=== PATIENT | female | born 1940 | race Caucasian/White ===

== ENCOUNTER 2017-05-21 09:13 | Emergency (ER) | payer MEDICARE, SELFPAY ==
[2017-05-21 10:12] VITALS: BP 123/84; PULSE 94; RESP 20; TEMP 37.1; O2SAT 97; BMI 23.6
[2017-05-21 10:18] LABS: UTC Strep Screen (Rapid) Negative (Negative)
--- NOTE | 2017-05-21 10:51 | HMH.EDUTC ---
[facility] [place] Disposition Clinical Impression: Upper respiratory infection Qualifiers: URI type: unspecified URI Qualified Code(s): J06.9 - Acute upper respiratory infection, unspecified Disposition: Home, Self-Care Condition on Discharge: Good Instructions: DI for Cough -- Adult, DI for Viral Upper Respiratory Infection -- Adult Additional Instructions: * No sign of bacterial infection. Likely viral. Virus can take 7-14 days to run their course but although you have been sick so long, I will give you an antibiotic at your request. As we discussed, An antibiotic will not make you feel better if this is indeed viral. Antibiotics are for bacterial infections and I see no sign of a bacterial infection today. Viruses have to run their course with treating the symptoms. Remember that as we discussed, antibiotics do come with side effects and risk including allergic reactions and resistance. Resistance to antibiotics can cause serious complications in the future if there is no antibiotic to treat an infection you have. Carefully consider this before starting antibiotics for symptoms that are likely viral. * Monitor Temp. Tylenol every 4 hours as needed no more then 5 times a day or 4000mg in 24 hours and/or ibuprofen every 6 hours as needed no more then 3200mg in 24 hours (as long as your primary care doctor has told you that it is ok to take both) for fever/aches/pain. ER if fever no less than 101 despite tylenol and ibuprofen * Encourage fluids, water, gatorade, powerade, pedialyte if infant/toddler/child * warm salt water gargles * warm fluids * sore throat lozenges * sleep elevated * humidifier/vaporizer * flonase 2 sprays each nostril daily but may take 2-3 days to notice improvement with it. * OK to continue robitussin DM * the steroid injection you requested was administered. You report you have not taken steroids before. You are ok with the side effects we discussed. * We discussed your allergies. You report a local reaction to PCN injection once as a child. You believe you have taken penicillins since this time and want to take amoxicillin today. you agree to monitor closely and stop medication and follow up immediately with any possible reaction. Prescriptions: Amoxicillin [Amoxicillin 875MG Tab] 875 mg PO Q12H #20 tab Referrals: Olya Hahn APRN [Primary Care Provider] - Time of Disposition: 11:04 Medical Decision Making Vital Signs: 01/25/18 10:12 Temperature 98.7 F Temperature Source Temporal Artery Scan Pulse Rate [Right Brachial] 94 H Respiratory Rate 20 Blood Pressure [Right Radial Artery] 123/84 Blood Pressure Mean [Right Radial Artery] 97 Blood Pressure Source [Right Radial Artery] Automatic Cuff Blood Pressure Position [Right Radial Artery] Sitting 02 Sat by Pulse Oximetry 97 Oxygen Delivery Method Room Air - Lab Data Lab results reviewed: Yes: I reviewed the patient's lab results. Lab Results 05/21/17 10:01: Strep Scn Rapid Clinic Negative Orders (Tests/Meds): ED MEDICATIONS Discontinued Medications Generic Name Dose Route Start Last Admin Trade Name Freq PRN Reason Stop Dose Admin Methylprednisolone Sodium Succinate 125 mg 05/21/17 10:58 05/21/17 11:02 Solu-Medrol 125mg/2ml Vial IM 05/21/17 10:59 125 mg ONCE ONE Administration ORDERS Category Date Time Status Strep Screen Confirmation Stat Micro 05/21/17 10:01 Received - [place] Inquiry Pt receiving controlled substance: No [facility] [place] HPI - General Stated complaint: ear ache sore throat swimmy head cough Time Seen by Provider: 05/21/17 10:42 Mode of Arrival: Family Vehicle Source of Information: Patient Limitations: No Limitations Description of Symptoms (Recalled from Triage Doc. by RN): RIGHT EAR PAIN, SORE THROAT, COUGH HEENT Symptoms (Recalled from RN notes): Yes (RIGHT EAR PAIN, SORE THROAT) Resp Symptoms (Recalled from RN notes): Yes (COUGH) Skin Symptoms (Recalled from RN notes): No MS Symptoms (Recal
--- NOTE | 2017-05-21 10:58 | ED_ITS ---
[facility] [place] Disposition Clinical Impression: Upper respiratory infection Qualifiers: URI type: unspecified URI Qualified Code(s): J06.9 - Acute upper respiratory infection, unspecified Disposition: Home, Self-Care Condition on Discharge: Good Instructions: DI for Cough -- Adult, DI for Viral Upper Respiratory Infection - - Adult Additional Instructions: * No sign of bacterial infection. Likely viral. Virus can take 7-14 days to run their course but although you have been sick so long, I will give you an antibiotic at your request. As we discussed, An antibiotic will not make you feel better if this is indeed viral. Antibiotics are for bacterial infections and I see no sign of a bacterial infection today. Viruses have to run their course with treating the symptoms. Remember that as we discussed, antibiotics do come with side effects and risk including allergic reactions and resistance. Resistance to antibiotics can cause serious complications in the future if there is no antibiotic to treat an infection you have. Carefully consider this before starting antibiotics for symptoms that are likely viral. * Monitor Temp. Tylenol every 4 hours as needed no more then 5 times a day or 4000mg in 24 hours and/or ibuprofen every 6 hours as needed no more then 3200mg in 24 hours (as long as your primary care doctor has told you that it is ok to take both) for fever/aches/pain. ER if fever no less than 101 despite tylenol and ibuprofen * Encourage fluids, water, gatorade, powerade, pedialyte if /toddler/ child * warm salt water gargles * warm fluids * sore throat lozenges * sleep elevated * humidifier/vaporizer * flonase 2 sprays each nostril daily but may take 2-3 days to notice improvement with it. * OK to continue robitussin DM * the steroid injection you requested was administered. You report you have not taken steroids before. You are ok with the side effects we discussed. * We discussed your allergies. You report a local reaction to PCN injection once as a child. You believe you have taken penicillins since this time and want to take amoxicillin today. you agree to monitor closely and stop medication and follow up immediately with any possible reaction. Prescriptions: Amoxicillin [Amoxicillin 875MG Tab] 875 mg PO Q12H #20 tab Referrals: Olya Hahn APRN [Primary Care Provider] - Time of Disposition: 11:04 Medical Decision Making Vital Signs: 01/25/18 10:12 Temperature 98.7 F Temperature Source Temporal Artery Scan Pulse Rate [Right Brachial] 94 H Respiratory Rate 20 Blood Pressure [Right Radial Artery] 123/84 Blood Pressure Mean [Right Radial Artery] 97 Blood Pressure Source [Right Radial Artery] Automatic Cuff Blood Pressure Position [Right Radial Artery] Sitting 02 Sat by Pulse Oximetry 97 Oxygen Delivery Method Room Air - Lab Data Lab results reviewed: Yes: I reviewed the patient's lab results. Lab Results 05/21/17 10:01: Strep Scn Rapid Clinic Negative Orders (Tests/Meds): ED MEDICATIONS Discontinued Medications Generic Name Dose Route Start Last Admin Trade Name Freq PRN Reason Stop Dose Admin Methylprednisolone Sodium Succinate 125 mg 05/21/17 10:58 05/21/17 11:02 Solu-Medrol 125mg/2ml Vial IM 05/21/17 10:59 125 mg ONCE ONE Administration ORDERS Category Date Time Status Strep Screen Confirmation Stat Micro 05/21/17 10:01 Qian Sahni I
== END 2017-05-21 11:13 | disposition home or self-care (01) ==
PROVIDERS: Emergency Provider Nurse Practitioner Family; Family Provider Nurse Practitioner Family; PCP Nurse Practitioner Family
DX: J06.9 Acute upper respiratory infection, unspecified (principal)
CPT/HCPCS: 87880; 96372; 99201

== ENCOUNTER → 2017-09-16 08:13 | Outpatient (CLI) | payer MEDICARE, SELFPAY ==
--- NOTE | 2017-09-16 08:17 | US_ITS ---
US gallbladder HISTORY: Right upper quadrant pain with vomiting ITS.REASON: RUQ PAIN ORDERING PHYSICIAN: Jose Coleman MD PATIENT AGE: 76 years Comparison: None FINDINGS: PANCREAS: Unremarkable. No obvious mass or abnormal fluid collection. No ductal dilatation LIVER: No focal liver lesions demonstrated. Homogeneous echogenicity. No intrahepatic biliary ductal dilatation evident RIGHT KIDNEY: Unremarkable. Normal size and echogenicity. No hydronephrosis GALLBLADDER: There is a mobile 6 mm stone present within the gallbladder. No gallbladder wall thickening. Cholecystic fluid or ductal dilatation is evident. Common bile duct is 3 mm. IMPRESSION: Cholelithiasis
== END ==
PROVIDERS: Family Provider Nurse Practitioner Family; PCP Internal Medicine Adolescent Medicine; Visit Provider Internal Medicine Adolescent Medicine
DX: R10.11 Right upper quadrant pain (principal)
CPT/HCPCS: 76705

== ENCOUNTER → 2019-06-16 09:29 | Outpatient (CLI) | payer MEDICARE, MEDICAID, SELFPAY ==
[2019-06-16 11:26] LABS: Basophils # 0.1 K/mm3 (0-0.2); Basophils % 0.9 % (0.1-2.0); Eosinophils # 0.4 K/mm3 (0.0-0.4); Eosinophils % 6.7 % (0.1-12.0); Hematocrit 39.2 % (37.0-47.0); Hemoglobin 13.3 g/dL (12.2-16.2); Lymphocytes % 30.5 % (10-50); Mean Corpuscular HGB Conc 33.9 g/dL (31.8-35.4); Mean Corpuscular Volume 91.2 fl (81-99); Mean Platelet Volume 8.7 fl (7.4-10.4); Monocytes # 0.4 K/mm3 (0.1-1.0); Monocytes % 6.6 % (1.7-9.3); Neutrophils # 3.6 K/mm3 (1.8-7.8); Neutrophils % 55.3 % (37.0-80.0); Platelet Count 254 K/mm3 (142-424); Red Cell Distribution Width 13.3 % (11.5-17.5); White Blood Count 6.5 K/mm3 (4.8-10.8)
[2019-06-16 12:58] LABS: Chloride 106 mmol/L (98-107)
[2019-06-16 12:59] LABS: Potassium 4.7 mmoL/L (3.5-5.1); Sodium 141 mmol/L (136-145)
[2019-06-16 13:01] LABS: Alanine Aminotransferase 20 U/L (12-78); Aspartate Amino Transferase 25 U/L (14-36); Blood Urea Nitrogen 6 mg/dl (7-17); Carbon Dioxide 30 mmol/L (22.0-30.0); Estimated Glomerular Filt Rate 81 ml/min (>60); GFR (African American) 98 ML/MIN (>60)
[2019-06-16 13:02] LABS: Albumin Level 4.2 g/dl (3.5-5.0); Albumin/Globulin Ratio 1.7 (1.1-1.8); Alkaline Phosphatase 73 U/L (38-126); Bilirubin,Total 0.6 mg/dl (0.2-1.3); Calcium 9.4 mg/dl (8.4-10.2); Chol/HDL Ratio 2.5 (1-3.5); Cholesterol 188 mg/dl (140-200); Globulin 2.5 g/dL (1.3-3.2); Glucose 93 mg/dl (74-100); HDL Cholesterol 74 mg/dl (40-60); Total Protein,Serum 6.7 g/dl (6.3-8.2); Triglycerides 106 mg/dl (30-150); VLDL Cholesterol 21 mg/dL (0-40)
[2019-06-16 13:13] LABS: Direct LDL Cholesterol 90.56 mg/dL (100-129)
[2019-06-16 13:49] LABS: Thyroid Stimulating Hormone 2.87 uIU/mL (0.465-4.68)
[2019-06-16 23:15] LABS: Anion Gap 8.7 mEq/L (5-15)
== END ==
PROVIDERS: Visit Provider Nurse Practitioner Family
DX: E78.5 Hyperlipidemia, unspecified (principal); E03.9 Hypothyroidism, unspecified; Z86.2 Personal history of diseases of the blood and blood-forming organs and certain disorders involving the immune mechanism
CPT/HCPCS: 36415; 80053; 80061; 84443; 85025

== ENCOUNTER 2019-12-07 09:00 | Outpatient (RCR) | payer MEDICARE, MEDICAID, SELFPAY ==
--- NOTE | 2019-11-30 11:08 | HMH.OTOPEV ---
OT Inpatient Evaluation Rehab OT Outpatient Eval Start: 11/30/19 10:55 Freq: Status: Active Protocol: Document 11/30/19 10:55 RMARSHALL (Rec: 11/30/19 11:08 [id number] Electronically Signed By Samia Lawler OT 11/30/19 10:55 Outpatient Therapy Subjective History Subjective History Pt is a 78 year old female who reports to therapy for initial evaluation to right shoulder. Pt explains her right shoulder began hurting her ~2 weeks ago after playing t-ball with her grandson. She informed therapist she threw the t-ball over and over for a long period of time. The next morning she woke up in significant pain. Pt went to her PCP one week ago and received a cortisone shot in order to assist with decreasing inflammation at right shoulder. Pt reports improved pain and motion at right shoulder since the injection. However, pt continues to show slight decrease arom and strength with minimal pain. Pt has no other past medical history. Pt will continue to be seen twice a week in order to address all deficits. Chief Complaint Pain,Weakness Symptom Type Ache,Throb,Dull Symptoms Relieved By Rest/Positioning Symptoms Aggravated By Physical Activity,Lifting Prior Functional Limitations None Current Functional Limitations Reaching,Lifting,Housework, Sleeping,Recreation Activity Symptom Description Intermittent,Activity Dependent Level of pain today (0-10) 2 Pain scale - at its best (0-10) 1 Pain scale - at its worst (0-10) 10 Shoulder/Elbow Eval Shoulder Objective Measurements Shoulder ROM Right Shoulder ROM Limitations Pain Shoulder Abduction Active Range of 155 degrees Motion (degrees) Shoulder Flexion Active Range of Motion 135 degrees (degrees) Query Text: Shoulder External Rotation Active Range 75 degrees of Motion (degrees) Shoulder Internal Rotation Active Range 60 degrees of Motion (degrees)
== END 2019-12-07 09:47 | disposition home or self-care (01) ==
LOC: OT 09:00
PROVIDERS: PCP Internal Medicine Adolescent Medicine; Visit Provider Nurse Practitioner Family
DX: M75.51 Bursitis of right shoulder (principal)
CPT/HCPCS: 97014; 97110; 97165; G0283

== ENCOUNTER → 2020-01-25 08:45 | Outpatient (CLI) | payer MEDICARE, MEDICAID, SELFPAY ==
--- NOTE | 2020-01-25 08:51 | MM_ITS ---
PROCEDURE: MM DIG SCREENING MAMM BI W/CAD Digital Breast Tomosynthesis Included CLINICAL INDICATION: SCREENING There is no personal or family history of breast cancer. COMPARISON: MG MG SCREENING BECKY MAMMOGRAM from 11/16/2017 MG MG SCREENING BECKY MAMMOGRAM from 12/15/2018 MG MG VIJAY DIAG BECKY CALLBACK from 12/23/[address] [facility] TECHNIQUE: Standard CC and MLO images and 3D Tomosynthesis was obtained. R2 CAD reviewed. FINDINGS: Mild to moderate scattered fibroglandular densities are seen in both breasts. There is minimal arterial calcification in each breast. There are couple of benign-appearing microcalcifications in each breast and benign-appearing macrocalcification axillary tail right breast. There is no suspicious lesion in either breast and no suspicious microcalcifications. IMPRESSION: Fibrofatty parenchyma with no suspicious lesions seen BI-RAD Category: 2 Benign Finding(s) FOLLOW-UP: 1YR 1 Year Follow-up (A letter has been sent to the patient regarding results of the study.) Dictated by: Dr. Tod Jacobsen MD 02/05/2020 17:18 Dr. Tod Jacobsen MD in [place] 02/05/2020 17:18
== END ==
PROVIDERS: PCP Family Medicine; Visit Provider Internal Medicine Adolescent Medicine
DX: Z12.31 Encounter for screening mammogram for malignant neoplasm of breast (principal)
CPT/HCPCS: 77063; 77067

== ENCOUNTER 2020-03-20 09:13 | Emergency (ER) | payer MEDICARE, MEDICAID, SELFPAY ==
[2020-03-20] VITALS (10 sets, daily range): BP systolic 135–188; BP diastolic 70–80; PULSE 66–80; RESP 13–19; TEMP 36.8; O2SAT 95–98; BMI 23.2
--- NOTE | 2020-03-20 09:15 | CT_ITS ---
Procedure: CT ANGIO NECK CLINICAL HISTORY: right leg weak COMPARISON: CT CT ANGIO HEAD from 03/20/2020 TECHNIQUE: IV Contrast: 100ml Isovue 370 Axial images obtained with sagittal and coronal reformats. All CT scans at the facility use one or more dose reduction, viz: automated exposure control, ma/kV adjustment per patient size (including targeted exams where dose is matched to indication, i.e. head), or iterative reconstruction technique. FINDINGS: The aortic arch has some calcific plaque. No significant stenosis the proximal aspect of the great vessels. Right carotid: There is 35 percent stenosis of the ostium of the right common the carotid artery. There is 25 percent stenosis of the ostium of the right internal carotid artery. Small amount of calcific plaque is present at this area. The remaining portion of the right ICA has an unremarkable appearance. Left carotid: Left common carotid has an unremarkable appearance. Minimal plaque is present at the bulb. Left ICA cervical portion is unremarkable. The vertebrals have an unremarkable appearance. The left vertebral is dominant. The basilar artery is unremarkable. CT angio head: Unremarkable vertebral basilar system. No aneurysm, arteriovenous malformation, or major intracranial occlusive process. No enhancing lesions are evident. There are periventricular ischemic gliotic changes noted No evidence of dural sinus thrombosis. Hypertrophic changes are present at the sternoclavicular joints. There are scattered small nodes in the neck bony hypertrophy IMPRESSION: 1. No significant stenotic lesions of the carotids or vertebrals. 25 percent stenosis of the ostium of the right common carotid and 25 percent stenosis of the ostium of the right internal carotid. No ulcerating plaque evident. 2. No aneurysm AVM or major intracranial occlusive process. Dictated by: Hola Posey MD 03/20/2020 11:41 Hola Posey MD in [place] 03/20/2020 11:41
--- NOTE | 2020-03-20 09:17 | XR_ITS ---
PROCEDURE: XR LUMBAR SPINE 2-3V CLINICAL INDICATION: leg weakness COMPARISON: No exams were available for comparison FINDINGS: Lumbar scoliosis convex left. Degenerative disc disease L2-S1 No acute fracture or dislocation. Other findings:None. IMPRESSION: Degenerative changes with scoliosis Dictated by: Hola Posey MD 03/20/2020 14:38 Hola Posey MD in [place] 03/20/2020 14:38
--- NOTE | 2020-03-20 09:17 | XR_ITS ---
PROCEDURE: XR CHEST 2V CLINICAL HISTORY: weakness Right-sided body weakness COMPARISON: CR CXR1 CHEST-PORTABLE from 02/10/2016 FINDINGS: The cardiomediastinal silhouette and pulmonary vascularity are within normal limits. The lungs are clear without infiltrates, suspicious nodules, or pleural effusions. No acute bony abnormalities. IMPRESSION: No acute findings. Dictated by: Hola Posey MD 03/20/2020 14:37 Hola Posey MD in [place] 03/20/2020 14:37
--- NOTE | 2020-03-20 09:18 | XR_ITS ---
PROCEDURE: XR HIP RT 2-3V W/PELVIS CLINICAL INDICATION: right leg weak COMPARISON: No exams were available for comparison FINDINGS: Minimal osteoarthritic changes. No fracture or dislocation. No lytic or blastic change. Multiple pelvic phleboliths are present. IMPRESSION: No acute findings. Dictated by: Hola Posey MD 03/20/2020 14:39 Hola Posey MD in [place] 03/20/2020 14:39
--- NOTE | 2020-03-20 09:24 | ECG_ITS ---
APPROVED REPORT Exam: Resting ECG HR:69 bpm ECG Measurements Heart Rate 69 AXES ND 162 P 28 QRSd 84 QRS 0 QT 412 T 14 QTc 441 Conclusion Normal sinus rhythm Normal ECG Electronically signed by : Jose Coleman, 03/20/2020 19:48:36
--- NOTE | 2020-03-20 09:29 | HMH.EDGENADL ---
ED Disposition Clinical Impression: Right leg weakness, Lumbar disc narrowing Disposition: Home, Self-Care Condition on Discharge: Good Instructions: DI for Muscle Weakness Additional Instructions: Please follow-up with your primary care physician as soon as available. Use stretching and strengthening exercises. Return to the emergency department if you have any new or worsening symptoms, difficulty speaking, numbness or weakness in your upper extremities. Referrals: PCP,No [Non-Staff] - - Critical Care Critical Care Time: No Attestation: On 03/20/20, the high probability of a clinically significant, sudden or life threatening deterioration of the following system(s) required my full and direct attention, intervention and personal management. The time I documented below is in addition to time spent performing reported procedures but includes the following listed in this critical care notation. Medical Decision Making - Medical Records Medical records reviewed: Yes: I reviewed the patient's medical records. - [place] Inquiry Pt receiving controlled substance: No Vital Signs: 03/20/20 09:18 03/20/20 09:46 03/20/20 10:14 Temperature 98.2 F Temperature Source Oral Pulse Rate [Right Brachial] 80 76 67 Respiratory Rate 13 16 Blood Pressure [Right Arm] 188/80 H 174/78 H 160/72 H Blood Pressure Mean [Right Arm] 116 110 101 Blood Pressure Source [Right Arm] Automatic Cuff Automatic Cuff Automatic Cuff Blood Pressure Position [Right Arm] Sitting Sitting Sitting 02 Sat by Pulse Oximetry 96 95 98 Oxygen Delivery Method Room Air Room Air Room Air 03/20/20 11:12 03/20/20 11:46 03/20/20 12:00 Temperature Temperature Source Pulse Rate [Right Brachial] 71 71 73 Respiratory Rate 18 Blood Pressure [Right Arm] 174/79 H 163/73 H 150/72 H Blood Pressure Mean [Right Arm] 110 103 98 Blood Pressure Source [Right Arm] Automatic Cuff Automatic Cuff Automatic Cuff Blood Pressure Position [Right Arm] Sitting Sitting Sitting 02 Sat by Pulse Oximetry 98 95 95 Oxygen Delivery Method Room Air Room Air Room Air 03/20/20 12:34 03/20/20 13:00 03/20/20 13:30 Temperature Temperature Source Pulse Rate [Right Brachial] 68 71 78 Respiratory Rate 19 16 Blood Pressure [Right Arm] 138/72 135/70 145/71 H Blood Pressure Mean [Right Arm] 94 91 95 Blood Pressure Source [Right Arm] Automatic Cuff Automatic Cuff Automatic Cuff Blood Pressure Position [Right Arm] Sitting Sitting Sitting 02 Sat by Pulse Oximetry 96 95 96 Oxygen Delivery Method Room Air Room Air Room Air - Lab Data Lab Results 03/20/20 09:42: WBC 6.1, RBC 4.67, Hgb 14.0, Hct 44.2, MCV 94.7, MCH 29.9, MCHC 31.6 L, RDW 13.0, Plt Count 221, MPV 8.5, Neut % (Auto) 61.5, Lymph % (Auto) 27.9, [place] % (Auto) 6.4, Eos % (Auto) 3.5, Baso % (Auto) 0.6, Neut # (Auto) 3.7, Lymph # (Auto) 1.7, [place] # (Auto) 0.4, Eos # (Auto) 0.2, Baso # (Auto) 0.0 03/20/20 09:42: Sodium 142, Potassium 4.1, Chloride 107, Carbon Dioxide 28, Anion Gap 11.1, BUN 10, Creatinine 0.70, Estimated Creat Clear 40, Estimated GFR 81, Est GFR ( Amer) 97, Glucose 103 H, Calcium 9.7, Total Bilirubin 0.7, AST 31, ALT 23, Alkaline Phosphatase 94, Total Creatine Kinase 47, Troponin I < 0.01, Total Protein 7.9, Albumin 4.7, Globulin 3.2, Albumin/Globulin Ratio 1.5 03/20/20 10:21: Urine Color Yellow, Urine Appearance Clear, Urine pH 6.0, Ur Specific [place] 1.015, Urine Protein Negative, Urine Glucose (UA) Negative, Urine Ketones Negative, Urine Blood Negative, Urine Nitrate Negative, Urine Bilirubin Negative, Urine Urobilinogen 0.2, Ur Leukocyte Esterase Negative, Urine WBC 3-5, Ur Squamous Epith Cells 3-5 03/20/20 12:45: Troponin I < 0.01 Result diagrams: 03/20/20 09:42 03/20/20 09:42 Orders (Tests/Meds): ED MEDICATIONS Discontinued Medications Generic Name Dose Route Start Last Admin Trade Name Freq PRN Reason Stop Dose Admin Iopamidol 100 ml 03/20/20 10:36 03/20/20 10:37 Iopam
--- NOTE | 2020-03-20 09:46 | PC.NURSE ---
son at bedside
--- NOTE | 2020-03-20 09:54 | PC.NURSE ---
Pt is going to rad at this time.
[2020-03-20 09:56] LABS: Basophils % 0.6 % (0.1-2.0); Eosinophils # 0.2 K/mm3 (0.0-0.4); Eosinophils % 3.5 % (0.1-12.0); Hematocrit 44.2 % (37.0-47.0); Lymphocytes # 1.7 K/mm3 (0.7-4.5); Lymphocytes % 27.9 % (10-50); Mean Corpuscular HGB Conc 31.6 g/dL (31.8-35.4); Mean Corpuscular Hemoglobin 29.9 pg (27.0-31.2); Mean Corpuscular Volume 94.7 fl (81-99); Mean Platelet Volume 8.5 fl (7.4-10.4); Monocytes # 0.4 K/mm3 (0.1-1.0); Monocytes % 6.4 % (1.7-9.3); Neutrophils # 3.7 K/mm3 (1.8-7.8); Neutrophils % 61.5 % (37.0-80.0); Platelet Count 221 K/mm3 (142-424); Red Blood Count 4.67 M/mm3 (4.20-5.40); White Blood Count 6.1 K/mm3 (4.8-10.8)
[2020-03-20 10:12] LABS: Chloride 107 mmol/L (98-107); Sodium 142 mmol/L (136-145)
[2020-03-20 10:13] LABS: Potassium 4.1 mmoL/L (3.5-5.1)
[2020-03-20 10:15] LABS: Alanine Aminotransferase 23 U/L (12-78); Alkaline Phosphatase 94 U/L (38-126); Anion Gap 11.1 mEq/L (5-15); Aspartate Amino Transferase 31 U/L (14-36); Bilirubin,Total 0.7 mg/dl (0.2-1.3); Blood Urea Nitrogen 10 mg/dl (7-17); Calcium 9.7 mg/dl (8.4-10.2); Carbon Dioxide 28 mmol/L (22.0-30.0); Creatine Kinase 47 U/L (30-135); Creatinine Clearance Estimated 40 mL/min (50-200); Estimated Glomerular Filt Rate 81 ml/min (>60); GFR (African American) 97 ML/MIN (>60); Glucose 103 mg/dl (74-100)
[2020-03-20 10:16] LABS: Albumin Level 4.7 g/dl (3.5-5.0); Albumin/Globulin Ratio 1.5 (1.1-1.8); Globulin 3.2 g/dL (1.3-3.2); Total Protein,Serum 7.9 g/dl (6.3-8.2)
--- NOTE | 2020-03-20 10:16 | PC.NURSE ---
pt returning from radiology
--- NOTE | 2020-03-20 10:27 | PC.NURSE ---
pt taken to restroom & back to room. Radiology waiting at bedside to take pt to CT
--- NOTE | 2020-03-20 10:29 | CT_ITS ---
PROCEDURE: CT HEAD/BRAIN WO CON CLINICAL INDICATION: neuro weakness Right-sided weakness COMPARISON: No exams were available for comparison TECHNIQUE: Axial images obtained. All CT scans at the facility use one or more dose reduction, viz: automated exposure control, ma/kV adjustment per patient size (including targeted exams where dose is matched to indication, i.e. head), or iterative reconstruction technique. FINDINGS: No midline shift, mass effect, intracranial hemorrhage, hydrocephalus, or extra-axial fluid collection is evident. There is generalized atrophy with hypoattenuation of the periventricular white matter consistent with microangiopathic changes. The calvarium has an unremarkable appearance. No mastoid effusion. No sinus air-fluid level. IMPRESSION: No acute intracranial finding Dictated by: Hola Posey MD 03/20/2020 11:23 Hola oPsey MD in [place] 03/20/2020 11:23
[2020-03-20 10:30] LABS: Troponin I < 0.01 ng/ml (0.00-0.034)
[2020-03-20 10:35] LABS: Microscopic, Urine URINE MICROSCOPIC (MICROSCOPIC)
--- NOTE | 2020-03-20 10:37 | PC.NURSE ---
Pt back to rad at this time.
[2020-03-20 10:50] LABS: Appearance,Urine CLEAR (Clear); Bilirubin,Urine Negative (Negative); Blood, Urine Negative (Negative); Color,Urine YELLOW (Yellow); Glucose,Urine (UA) Negative (Negative); Ketones,Urine Negative (Negative); Leukocyte Esterase,Urine Negative (Negative); Nitrate,Urine Negative (Negative); Protein,Urine Negative (Negative); Specific Gravity, Urine 1.015 (1.005-1.030); Urobilinogen,Urine 0.2 EU/dl (0.2)
--- NOTE | 2020-03-20 11:07 | PC.NURSE ---
pt returned from radiology
--- NOTE | 2020-03-20 12:35 | PC.NURSE ---
lab at bedside
[2020-03-20 13:17] LABS: Troponin I < 0.01 ng/ml (0.00-0.034)
== END 2020-03-20 14:00 | disposition home or self-care (01) ==
PROVIDERS: Emergency Provider Emergency Medicine; PCP Nurse Practitioner Family
DX: M51.36 Other intervertebral disc degeneration, lumbar region (principal); Z88.0 Allergy status to penicillin; K21.9 Gastro-esophageal reflux disease without esophagitis; M62.81 Muscle weakness (generalized)
CPT/HCPCS: 36415; 70450; 70496; 70498; 71046; 72100; 73502; 80053; 81001; 82550; 84484; 85025; 93005; 99284; Q9967

== ENCOUNTER 2020-06-02 11:03 | Emergency (ER) | payer MEDICARE, MEDICAID, SELFPAY ==
[2020-06-02] VITALS (9 sets, daily range): BP systolic 129–171; BP diastolic 63–88; PULSE 80–93; RESP 18–20; TEMP 37.2; O2SAT 95–97; BMI 25.0
--- NOTE | 2020-06-02 11:35 | XR_ITS ---
PROCEDURE: XR CHEST PORTABLE CLINICAL HISTORY: dizziness COMPARISON: CR CXR1 CHEST-PORTABLE from 02/10/2016 CR XR CHEST 2V from 03/20/2020 FINDINGS: The cardiomediastinal silhouette and pulmonary vascularity are within normal limits. The lungs are clear without infiltrates, suspicious nodules, or pleural effusions. No acute bony abnormalities. IMPRESSION: No acute findings. Dictated by: Hola Posey MD 06/02/2020 12:39 Hola Posey MD in [place] 06/02/2020 12:39
[2020-06-02 11:49] LABS: Basophils # 0.1 K/mm3 (0-0.2); Basophils % 0.7 % (0.1-2.0); Eosinophils # 0.2 K/mm3 (0.0-0.4); Eosinophils % 1.5 % (0.1-12.0); Hematocrit 44.6 % (37.0-47.0); Hemoglobin 15.3 g/dL (12.2-16.2); Lymphocytes % 20.4 % (10-50); Mean Corpuscular HGB Conc 34.3 g/dL (31.8-35.4); Mean Corpuscular Hemoglobin 31.1 pg (27.0-31.2); Mean Corpuscular Volume 90.5 fl (81-99); Mean Platelet Volume 8.9 fl (7.4-10.4); Monocytes # 0.5 K/mm3 (0.1-1.0); Monocytes % 4.6 % (1.7-9.3); Neutrophils # 7.1 K/mm3 (1.8-7.8); Neutrophils % 72.9 % (37.0-80.0); Platelet Count 247 K/mm3 (142-424); Red Blood Count 4.93 M/mm3 (4.20-5.40); White Blood Count 9.8 K/mm3 (4.8-10.8)
[2020-06-02 11:51] LABS: Chloride 105 mmol/L (98-107); Sodium 140 mmol/L (136-145)
[2020-06-02 11:52] LABS: Potassium 3.7 mmoL/L (3.5-5.1)
[2020-06-02 11:55] LABS: Anion Gap 11.7 mEq/L (5-15); Blood Urea Nitrogen 6 mg/dl (7-17); Calcium 9.8 mg/dl (8.4-10.2); Carbon Dioxide 27 mmol/L (22.0-30.0); Creatinine Clearance Estimated 41 mL/min (50-200); Estimated Glomerular Filt Rate 96 ml/min (>60); GFR (African American) 116 ML/MIN (>60); Glucose 110 mg/dl (74-100)
--- NOTE | 2020-06-02 12:06 | ECG_ITS ---
APPROVED REPORT Exam: Resting ECG HR:78 bpm ECG Measurements Heart Rate 78 AXES MT 162 P 1 QRSd 86 QRS -34 QT 412 T 8 QTc 469 Conclusion Normal sinus rhythm Left axis deviation Low voltage QRS Nonspecific ST and T wave abnormality Abnormal ECG Electronically signed by : Jose Coleman, 06/02/2020 17:26:03
[2020-06-02 12:10] LABS: Troponin I < 0.01 ng/ml (0.00-0.034)
--- NOTE | 2020-06-02 12:47 | HMH.EDGENADL ---
ED Disposition Clinical Impression: Lightheadedness, Dizziness Disposition: Home, Self-Care Condition on Discharge: Good Instructions: DI for Dizziness-Nonvertigo Additional Instructions: Rest today, drink plenty of fluids. Rise slowly and make sure you are steady on her feet before walking. Antivert may be tried for dizziness. Follow-up with your primary care provider, call Thursday to make appointment. Return if symptoms worsen. Prescriptions: Meclizine HCl [Antivert 25mg tablet] 25 mg PO TIDP PRN #15 tab PRN Reason: Vertigo Transmission Status: Pending to [id number] Referrals: Olya Hahn APRN [Primary Care Provider] - - Critical Care Critical Care Time: No Attestation: On 06/02/20, the high probability of a clinically significant, sudden or life threatening deterioration of the following system(s) required my full and direct attention, intervention and personal management. The time I documented below is in addition to time spent performing reported procedures but includes the following listed in this critical care notation. Medical Decision Making - Medical Records Medical records reviewed: Yes: I reviewed the patient's medical records. MR Comment: Prior ER visit Feb 2020 for R sided weakness & CT and CTA results from that visit. - Bora Inquiry Pt receiving controlled substance: No Vital Signs: 06/02/20 11:04 06/02/20 12:01 06/02/20 12:40 Temperature 98.9 F Temperature Source Oral Pulse Rate [Left Radial] 80 83 81 Pulse Rate [Orthostatic Lying Right] Respiratory Rate 20 Blood Pressure [Orthostatic Lying Right Arm] Blood Pressure [Orthostatic Sitting Right Arm] Blood Pressure [Orthostatic Standing Right Arm] Blood Pressure [Right Arm] 171/88 H 148/75 H 138/71 Blood Pressure Mean [Right Arm] 115 99 93 Blood Pressure Source [Right Arm] Automatic Cuff Automatic Cuff Automatic Cuff Blood Pressure Position [Right Arm] Sitting Sitting Sitting 02 Sat by Pulse Oximetry 97 95 96 Oxygen Delivery Method Room Air Room Air Room Air 06/02/20 13:07 06/02/20 13:09 06/02/20 14:48 Temperature Temperature Source Pulse Rate [Left Radial] 93 H 91 H Pulse Rate [Orthostatic Lying Right] 86 Respiratory Rate Blood Pressure [Orthostatic Lying Right Arm] 164/80 H Blood Pressure [Orthostatic Sitting Right Arm] 151/80 H Blood Pressure [Orthostatic Standing Right Arm] 162/79 H Blood Pressure [Right Arm] 145/70 H 159/75 H Blood Pressure Mean [Right Arm] 95 103 Blood Pressure Source [Right Arm] Automatic Cuff Automatic Cuff Blood Pressure Position [Right Arm] Sitting Sitting 02 Sat by Pulse Oximetry 96 96 Oxygen Delivery Method Room Air Room Air 06/02/20 15:49 06/02/20 16:02 Temperature Temperature Source Pulse Rate [Left Radial] 81 86 Pulse Rate [Orthostatic Lying Right] Respiratory Rate 18 Blood Pressure [Orthostatic Lying Right Arm] Blood Pressure [Orthostatic Sitting Right Arm] Blood Pressure [Orthostatic Standing Right Arm] Blood Pressure [Right Arm] 141/63 H 129/64 Blood Pressure Mean [Right Arm] 89 85 Blood Pressure Source [Right Arm] Automatic Cuff Automatic Cuff Blood Pressure Position [Right Arm] Sitting Sitting 02 Sat by Pulse Oximetry 95 95 Oxygen Delivery Method Room Air Room Air - Lab Data Lab Results 06/02/20 11:39: WBC 9.8, RBC 4.93, Hgb 15.3, Hct 44.6, MCV 90.5, MCH 31.1, MCHC 34.3, RDW 14.0, Plt Count 247, MPV 8.9, Neut % (Auto) 72.9, Lymph % (Auto) 20.4, [place] % (Auto) 4.6, Eos % (Auto) 1.5, Baso % (Auto) 0.7, Neut # (Auto) 7.1, Lymph # (Auto) 2.0, [place] # (Auto) 0.5, Eos # (Auto) 0.2, Baso # (Auto) 0.1 06/02/20 11:39: Sodium 140, Potassium 3.7, Chloride 105, Carbon Dioxide 27, Anion Gap 11.7, BUN 6 L, Creatinine 0.60, Estimated Creat Clear 41, Estimated GFR 96, Est GFR ( Amer) 116, Glucose 110 H, Calcium 9.8, Troponin I < 0.01 06/02/20 14:55: Troponin I < 0.01 Result diagrams: 06/02/20 11:39 06/02/20 11:39
--- NOTE | 2020-06-02 13:18 | CT_ITS ---
Procedure: CT ANGIO HEAD CLINICAL HISTORY: dizziness COMPARISON: CT CT ANGIO HEAD from 03/20/[address] ANGIO NECK from 03/20/[address] HEAD/BRAIN WO CON from 06/02/2020 TECHNIQUE: IV Contrast: 100ml Isovue 370 Axial images obtained with sagittal and coronal reformats. All CT scans at the facility use one or more dose reduction, viz: automated exposure control, ma/kV adjustment per patient size (including targeted exams where dose is matched to indication, i.e. head), or iterative reconstruction technique. FINDINGS: No aneurysm, AVM, or dissection is evident. There is focal narrowing of the a 2 segment on the left. This did have a similar appearance on the previous exam. This narrowing is best demonstrated on series 2 image 389 - 395. The A2 segment becomes more normal in caliber distal to this region. The right A2 segment has an unremarkable appearance. This is also well demonstrated on series 602, image 30. No other area focal areas of narrowing or branch occlusion evident. No enhancing lesions are apparent. Delayed images show no evidence of sinus thrombosis. The left transverse sinus is much smaller than the right similar to the previous exam. IMPRESSION: 1. Focal narrowing of the left A2 segment compatible with focal stenosis which is not significantly changed. No acute embolic phenomenon identified. 2. No aneurysm AVM or dissection apparent. Dictated by: Hola Posey MD 06/02/2020 15:56 Hola Posey MD in [place] 06/02/2020 15:56
--- NOTE | 2020-06-02 13:18 | CT_ITS ---
Procedure: CT ANGIO NECK CLINICAL HISTORY: dizziness COMPARISON: CT CT ANGIO NECK from 03/20/2020 TECHNIQUE: IV Contrast: 100ml Isovue 370 Axial images obtained with sagittal and coronal reformats. All CT scans at the facility use one or more dose reduction, viz: automated exposure control, ma/kV adjustment per patient size (including targeted exams where dose is matched to indication, i.e. head), or iterative reconstruction technique. FINDINGS: The aortic arch has an unremarkable appearance. Small nodes are present within the mediastinum. Right carotid: The previously noted stenosis of the ostium of the right common carotid is no longer apparent. Mild calcific plaque and soft plaque in the proximal aspect of the right internal carotid/bulb with approximately 30 percent stenosis unchanged. The remaining ICA on the right has an unremarkable appearance. Left carotid: The left common carotid has an unremarkable appearance. There is a small amount of calcific plaque at the left bulb but no significant stenosis. There tib qasim have an unremarkable appearance. The left vertebral is dominant. No dissection. No aneurysms. Fibrotic changes are present in the right apex. IMPRESSION: 1. No significant stenosis of the carotid or vertebrals. No dissection or ulcerating plaque apparent. 2. Previously noted stenosis at the ostium of the right common carotid artery is not demonstrated on today's exam. There is mild stenosis of the ostium of the right internal carotid of approximately 30 percent Dictated by: Hola Posey MD 06/02/2020 15:46 Hola Posey MD in [place] 06/02/2020 15:46
--- NOTE | 2020-06-02 13:18 | CT_ITS ---
PROCEDURE: CT HEAD/BRAIN WO CON CLINICAL INDICATION: dizziness COMPARISON: CT CT HEAD/BRAIN WO CON from 03/20/[address] ANGIO HEAD from 03/20/2020 TECHNIQUE: Axial images obtained. All CT scans at the facility use one or more dose reduction, viz: automated exposure control, ma/kV adjustment per patient size (including targeted exams where dose is matched to indication, i.e. head), or iterative reconstruction technique. FINDINGS: No midline shift, mass effect, intracranial hemorrhage, hydrocephalus, or extra-axial fluid collection is evident. There is generalized atrophy with hypoattenuation of the periventricular white matter consistent with microangiopathic changes.. There is an old small lacunar infarction in the thalamus on the right and in the body of the caudate nucleus on the right. The calvarium has an unremarkable appearance. No mastoid effusion. No sinus air-fluid level. IMPRESSION: 1. No acute intracranial findings with no significant change from the previous exam. 2. 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
--- NOTE | 2020-06-02 13:46 | PC.NURSE ---
pt eating crackers at this time
--- NOTE | 2020-06-02 13:54 | PC.NURSE ---
PHONG ALEXNADRA speaking with Dr. Alejandro who is sanitation inspector for Dr. Coleman
--- NOTE | 2020-06-02 14:17 | PC.NURSE ---
pt to CT
--- NOTE | 2020-06-02 14:30 | PC.NURSE ---
per lab pt covid swab has 90 minutes left on analyzer
--- NOTE | 2020-06-02 14:44 | PC.NURSE ---
Pt returned from rad.
--- NOTE | 2020-06-02 14:49 | PC.NURSE ---
lab at bedside
[2020-06-02 15:28] LABS: Troponin I < 0.01 ng/ml (0.00-0.034)
== END 2020-06-02 16:49 | disposition home or self-care (01) ==
PROVIDERS: Emergency Provider Emergency Medicine; PCP Nurse Practitioner Family
DX: R42 Dizziness and giddiness (principal); Z20.822 Contact with and (suspected) exposure to COVID-19; K21.9 Gastro-esophageal reflux disease without esophagitis; Z90.79 Acquired absence of other genital organ(s)
CPT/HCPCS: 70450; 70496; 70498; 71045; 80048; 84484; 85025; 93005; 96374; 99284; J2405; Q9967; U0003

== ENCOUNTER → 2020-06-08 10:53 | Outpatient (CLI) | payer MEDICARE, MEDICAID, SELFPAY ==
[2020-06-08 12:05] LABS: Blood Urea Nitrogen 7 mg/dl (7-17); Calcium 9.7 mg/dl (8.4-10.2); Carbon Dioxide 27 mmol/L (22.0-30.0); Chloride 107 mmol/L (98-107); Estimated Glomerular Filt Rate 96 ml/min (>60); GFR (African American) 116 ML/MIN (>60); Glucose 106 mg/dl (74-100); Sodium 141 mmol/L (136-145)
== END ==
LOC: LAB 10:54 → RT 11:15
PROVIDERS: PCP Nurse Practitioner Family; Visit Provider Internal Medicine Cardiovascular Disease
DX: I63.9 Cerebral infarction, unspecified (principal); E78.5 Hyperlipidemia, unspecified; I10 Essential (primary) hypertension; I65.29 Occlusion and stenosis of unspecified carotid artery; K21.9 Gastro-esophageal reflux disease without esophagitis; R55 Syncope and collapse; R61 Generalized hyperhidrosis
CPT/HCPCS: 36415; 80048; 93270

== ENCOUNTER → 2020-06-18 08:56 | Outpatient (CLI) | payer MEDICARE, MEDICAID, SELFPAY ==
[2020-06-18 10:08] LABS: Chloride 107 mmol/L (98-107)
[2020-06-18 10:09] LABS: Potassium 4.5 mmoL/L (3.5-5.1); Sodium 142 mmol/L (136-145)
[2020-06-18 10:12] LABS: Blood Urea Nitrogen 7 mg/dl (7-17); Carbon Dioxide 29 mmol/L (22.0-30.0); Estimated Glomerular Filt Rate 81 ml/min (>60); GFR (African American) 97 ML/MIN (>60); Glucose 103 mg/dl (74-100)
== END ==
PROVIDERS: Visit Provider Internal Medicine Cardiovascular Disease
DX: I10 Essential (primary) hypertension (principal)
CPT/HCPCS: 80048

== ENCOUNTER → 2020-06-20 07:25 | Outpatient (CLI) | payer MEDICARE, MEDICAID, SELFPAY ==
--- NOTE | 2020-06-20 | CA_ITS ---
APPROVED REPORT Exam: Pharmacologic Technologist: Joan Lovett Ht: 5 ft 0 in Wt: 128 lbs BSA: 1.54 m2 HR: 70 bpm BP: 159/68 mmHg Indications: Shortness of Breath, Chest pain Medical History Medications: Amlodipine,,,,, Omeprazole,,,,, Levothyroxine,,,,, Meclizine,,,,, RoSUVASTATIN,,,,, Stress Test Details Test: LEXISCAN HR Resting HR: 79 bpm Max Heart Rate (APMHR): 140 bpm Max HR Achieved: 127 bpm Target HR (85% APMHR): 119 bpm % of APMHR: 90 Recovery HR: 104 bpm BP Resting BP: 159.0/68.0 mmHg Max BP: 164.0/69.0 mmHg Recovery BP: 164.0/69.0 mmHg ECG Resting ECG: Normal sinus rhythm Clinical Exercise duration: 04:00 min Highest Stage Achieved: Stress ECG Conclusion Symptoms: Shortness of air, mild nausea, malaise. No chest pain. Arrhythmias/Ectopy: None ST-T Changes: NS ST-T changes inferiorly Conclusion: Non-diagnostic Lexiscan stress. Myoview images reported separately. Test Summary RECOVERY 05:00 . . 100 . 164/ 69 . . REST 05:22 . . 79 . 159/ 68 . . Stage 1 . . . . . . . Myoview Injected Stage 1 01:00 . . 120 . . . . Stage 2 01:00 . . 125 . 158/ 65 . . Stage 3 01:00 . . 119 . 148/ 66 . . Stage 4 01:00 . . 109 . 144/ 64 . Stop exercise at 04:00 RECOVERY 01:00 . . 109 . 144/ 68 . . RECOVERY 02:00 . . 109 . 144/ 68 . . RECOVERY 03:00 . . 102 . 164/ 69 . . RECOVERY 04:00 . . 111 . 164/ 69 . . RECOVERY 05:00 . . 100 . 164/ 69 . . RECOVERY 05:18 . . 102 . 164/ 69 . . Electronically signed by : Isra Moser, 06/21/2020 12:55:29
--- NOTE | 2020-06-20 07:26 | NM_ITS ---
APPROVED REPORT Exam: Nuclear Stress Test Indication: Chest pain, SOB, Syncope, HTN, High cholesterol, Family history Patient Location: Outpatient Stress Tech: Joan Lovett NE Tech:Reyna Bey, ARRT, RT (R)(N) Ht: 5 ft 0 in Wt: 128 lbs Bra Size: 34B HR: 70 bpm BP: 159/68 mmHg BSA: 1.54 m2 History: Chest pain, SOB, Syncope, HTN, High cholesterol, Family history Procedure: Patient received a 0.4 mg of intravenous Lexiscan, resting heart rate 70 bpm, resting blood pressure 159/68 mmHg, with Lexiscan maximum heart rate achived was 125 bpm which is Less than 85 % of the maximum predicted heart rate and blood pressure was 158/65 mmHg. With Lexiscan, patient denied any complaint of chest pain. Electrocardiogram Resting electrocardiogram showed sinus rhythm, with Lexiscan there is a 1.[address] segment depression noted from the baseline EKG. The EKG portion of the Lexiscan is nondiagnostic. Cardiac Stress and Resting SPECT Images: Cardiac Stress and Resting SPECT images were obtained using technetium 99m Myoview 30.4 mCi stress and 10.32 mCi at rest. Gated SPECT for analysis of segmental wall motion and calculation of the ejection fraction also done. Prone images were also obtained. Cardiac stress and resting SPECT images show uniform myocardial activity without segmental perfusion abnormality, computer derived ejection fraction is over 65% with no regional wall motion abnormality, right ventricle is normal size and contractility. Conclusion: 1. The EKG portion of the Lexiscan is nondiagnostic. 2. No scintigraphic evidence of reversible ischemia seen, computer derived ejection fraction is over 65% with no regional wall motion abnormality, right ventricle is normal size and contractility. 3. Normal Lexiscan Myoview study. Electronically signed by : Isra Moser, 06/21/2020 12:58:00
--- NOTE | 2020-06-20 07:37 | CA_ITS ---
APPROVED REPORT EXAM: Comprehensive 2D, Doppler, and color-flow Echocardiogram Body Liner: Yvette RCS, RVS Ht: 5 ft 0 in Wt: 132lbs BSA: 1.56 BP: 146/74 mmHg Indications: Vertido, dizziness, Carotid artery stenosis, dyspnea, near syncope 2D Dimensions IVSd 0.81 cm LVEF (Visual) 59.10 % PWd 0.70 cm LA Volume 32.50 mL LVDd 3.83 cm LA Volume Index 20.30 mL/m2 (M/F) 16-34 LVDs 2.65 cm LVOT 1.64 cm (M/F) 1.5-2.5 M-Mode Dimensions RVDd 1.42 cm (0.9-2.6) LA Diam 3.26 cm (1.9-4.0) LVDd 4.18 cm (3.5-5.7) Ao Diam 2.80 cm (2.0-3.7) LVDs 2.26 cm (3.5-5.7) IVSd 0.90 cm (0.6-1.1) PWd 0.87 cm (0.6-1.1) EF (Teich) 77.70% EPSs 0.29 cm FS 45.90% EDV (Teich) 77.70 mL TAPSE 1.90 (<1.7) ESV (Teich) 17.30 mL LV Diastology E Decel Time 340.00 (160-240 msec) E/A Ratio 0.67 MED E' 6.80 (< 7 cm/sec) MED A' 11.20 cm/s E'/MED E' Ratio 10.60 (>14) LAT E' 8.40 (<10 cm/sec) LAT A' 13.30 cm/s E/LAT E' Ratio 8.58 (>14) Aortic Valve AI PHT 395.00 ms AO Peak GR. 9.20 mmHg Mitral Valve MV A Velocity 108.00 (40-130 cm/s) E/A Ratio 0.67 MV Decel. Time 340.00 (160-240 ms) Pulmonary Valve PV Peak Velocity 79.00 (50-150 cm/s) Tricuspid Valve TR P. Velocity 214.00 cm/s RAP Estimate 10.00 mmHg RVSP 28.30 mmHg Left Ventricle Left atrium is mildly enlarged, left ventricle is normal size, mild concentric left ventricular hypertrophy, visually estimated ejection fraction 55% with no regional wall motion abnormality, grade 1 diastolic dysfunction seen without tissue Doppler evidence of raise left atrial pressure. Right Ventricle Right atrium and right ventricle are normal size and contractility. Atria Intra-atrial septum is intact, there is no flow across the interatrial septum, agitated saline contrast study fails to identify intracardiac shunt. Aortic Valve Aortic valve is minimally thickened and fibrosed. There is no aortic stenosis or aortic insufficiency. Mitral Valve Mitral valve grossly normal, there is trace mitral regurgitation. Tricuspid Valve Tricuspid valve grossly normal, there is trace tricuspid regurgitation. Tricuspid regurgitation jet velocity is inadequate for calculation of the right ventricular systolic pressure. Pulmonic Valve Pulmonic valve is poorly visualized. Great Vessels Aortic root is normal size. Pericardium No significant pericardial effusion noted. Conclusion 1. Mildly enlarged left atrium, normal left ventricular size, mild concentric left ventricular hypertrophy, visually estimated ejection fraction 55% with no regional wall motion abnormality, grade 1 diastolic dysfunction seen without tissue Doppler evidence of raise left atrial pressure. 2. Trace mitral and tricuspid regurgitation. 3. Agitated saline contrast study fails to identify intracardiac shunt. Electronically signed by : Isra Moser, 06/21/2020 13:20:59
--- NOTE | 2020-06-20 09:28 | HMH.ITSHM ---
Current Home Medications as stated by this patient Krista Quintana or account service representative. []LEVOTHYROXINE LOSARTAN MECLIZINE METOPROLOL OMEPRAZOLE ROSUVASTATIN
== END ==
PROVIDERS: PCP Nurse Practitioner Family; Visit Provider Internal Medicine Cardiovascular Disease
DX: I65.29 Occlusion and stenosis of unspecified carotid artery (principal); K21.9 Gastro-esophageal reflux disease without esophagitis; R42 Dizziness and giddiness; R55 Syncope and collapse; R61 Generalized hyperhidrosis; Z86.73 Personal history of transient ischemic attack (TIA), and cerebral infarction without residual deficits; E78.5 Hyperlipidemia, unspecified; I10 Essential (primary) hypertension; I63.9 Cerebral infarction, unspecified; R06.09 Other forms of dyspnea
CPT/HCPCS: 78452; 93017; 93306; A9502; J2785

== ENCOUNTER → 2020-07-09 14:47 | Outpatient (CLI) | payer MEDICARE, MEDICAID, SELFPAY ==
--- NOTE | 2020-07-09 14:47 | MR_ITS ---
PROCEDURE: MR HEAD/BRAIN WO CON CLINICAL INDICATION: CVA, abnormal CT head, dizziness Hx cva in February. Vertigo [id number]. Nausea with vertigo. Rt eye goes inward. Prior CT 09-26-20. COMPARISON: CT CT HEAD/BRAIN WO CON from 06/02/2020 TECHNIQUE: Routine multiplanar multi echo sequences are performed without gadolinium enhancement. FINDINGS: No midline shift, mass effect, intracranial hemorrhage, or hydrocephalus is evident. The cerebellopontine angles and cerebellum have an unremarkable appearance. There is nonspecific increased central T2 signal in the jayesh. Periventricular and subcortical T2 white matter hyperintensities are present. Cystic encephalomalacia changes are present in the martin radiata on both sides. No evidence of acute infarction. The pituitary, optic chiasm, corpus callosum, craniocervical junction have an unremarkable appearance. No mastoid effusion or sinus air-fluid level. IMPRESSION: 1. No acute intracranial findings. 2. Periventricular and subcortical T2 white matter hyperintensities consistent with ischemic gliotic change from microvascular disease with old small bilateral lacunar infarctions of the centrum semiovale. Dictated by: Hola Posey MD 07/11/2020 13:56 Hola Posey MD in [place] 07/11/2020 13:56
== END ==
PROVIDERS: PCP Nurse Practitioner Family; Visit Provider Specialist
DX: I63.9 Cerebral infarction, unspecified (principal); R42 Dizziness and giddiness; R93.0 Abnormal findings on diagnostic imaging of skull and head, not elsewhere classified
CPT/HCPCS: 70551

== ENCOUNTER → 2020-07-13 10:50 | Outpatient (CLI) | payer MEDICARE, MEDICAID, SELFPAY | PROVIDERS: PCP Internal Medicine Adolescent Medicine; Visit Provider Specialist | DX: I10 Essential (primary) hypertension (principal); I63.9 Cerebral infarction, unspecified | CPT/HCPCS: 94762 ==

== ENCOUNTER → 2020-08-02 09:48 | Outpatient (CLI) | payer MEDICARE, MEDICAID, SELFPAY ==
[2020-08-02 11:01] LABS: Chol/HDL Ratio 2.5 (1-3.5); Cholesterol 179 mg/dl (140-200); HDL Cholesterol 73 mg/dl (40-60); Triglycerides 118 mg/dl (30-150); VLDL Cholesterol 24 mg/dL (0-40)
[2020-08-02 11:11] LABS: Direct LDL Cholesterol 76.39 mg/dL (100-129)
== END ==
PROVIDERS: Visit Provider Specialist
DX: E78.5 Hyperlipidemia, unspecified (principal); I63.9 Cerebral infarction, unspecified
CPT/HCPCS: 36415; 80061

== ENCOUNTER → 2020-09-10 10:54 | Outpatient (CLI) | payer MEDICARE, MEDICAID, SELFPAY ==
[2020-09-10 11:22] LABS: Basophils # 0.1 K/mm3 (0-0.2); Basophils % 0.9 % (0.1-2.0); Eosinophils # 0.3 K/mm3 (0.0-0.4); Eosinophils % 3.4 % (0.1-12.0); Hematocrit 42.1 % (37.0-47.0); Hemoglobin 13.5 g/dL (12.2-16.2); Lymphocytes # 2.1 K/mm3 (0.7-4.5); Lymphocytes % 25.6 % (10-50); Mean Corpuscular HGB Conc 32.2 g/dL (31.8-35.4); Mean Corpuscular Hemoglobin 30.2 pg (27.0-31.2); Mean Corpuscular Volume 94.1 fl (81-99); Mean Platelet Volume 9.1 fl (7.4-10.4); Monocytes # 0.5 K/mm3 (0.1-1.0); Monocytes % 6.2 % (1.7-9.3); Neutrophils # 5.2 K/mm3 (1.8-7.8); Neutrophils % 63.9 % (37.0-80.0); Platelet Count 242 K/mm3 (142-424); Red Blood Count 4.47 M/mm3 (4.20-5.40); White Blood Count 8.1 K/mm3 (4.8-10.8)
[2020-09-10 11:42] LABS: Iron 88 ug/dL (37-170)
[2020-09-10 11:52] LABS: Total Iron Binding Capacity 282 ug/dL (265-497)
[2020-09-10 12:19] LABS: Ferritin 572 ng/ml (11.1-264)
[2020-09-10 15:32] LABS: Anion Gap 14.3 mEq/L (5-15); Blood Urea Nitrogen 9 mg/dl (7-17); Calcium 9.4 mg/dl (8.4-10.2); Carbon Dioxide 24 mmol/L (22.0-30.0); Chloride 106 mmol/L (98-107); Estimated Glomerular Filt Rate 81 ml/min (>60); GFR (African American) 97 ML/MIN (>60); Glucose 104 mg/dl (74-100); Potassium 4.3 mmoL/L (3.5-5.1); Sodium 140 mmol/L (136-145)
[2020-09-11 20:56] LABS: Transferrin 236 mg/dL (192-364)
== END ==
PROVIDERS: Internal Medicine Adolescent Medicine; Visit Provider Physician Assistant
DX: E78.2 Mixed hyperlipidemia (principal); I10 Essential (primary) hypertension; I47.1 Supraventricular tachycardia; I48.0 Paroxysmal atrial fibrillation; I65.29 Occlusion and stenosis of unspecified carotid artery; K62.5 Hemorrhage of anus and rectum
CPT/HCPCS: 36415; 80048; 82728; 83540; 83550; 84466; 85025

== ENCOUNTER 2020-10-08 15:53 | Emergency (ER) | payer MEDICARE, MEDICAID, SELFPAY ==
[2020-10-08 15:56] VITALS: BP 195/85; PULSE 80; RESP 21; TEMP 36.8; O2SAT 97; BMI 25.4
--- NOTE | 2020-10-08 16:15 | XR_ITS ---
PROCEDURE: XR CHEST PORTABLE CLINICAL HISTORY: cough COMPARISON: CR CXR1 CHEST-PORTABLE from 02/10/2016 CR XR CHEST 2V from 03/20/2020 CR XR CHEST PORTABLE from 06/02/2020 FINDINGS: Heart size is normal. Patchy mild right basilar infiltrate versus atelectasis. Lungs otherwise clear. No pleural effusion or pneumothorax. No acute bony abnormality. IMPRESSION: Patchy mild right basilar infiltrate versus atelectasis.. Dictated by: Mesfin Sosa 10/08/2020 16:55 Mesfin Sosa in [place] 10/08/2020 16:55
[2020-10-08 16:20] LABS: Microscopic, Urine URINE MICROSCOPIC (MICROSCOPIC)
[2020-10-08 16:22] LABS: Appearance,Urine CLEAR (Clear); Bilirubin,Urine Negative (Negative); Blood, Urine TRACE-I (Negative); Color,Urine STRAW (Yellow); Glucose,Urine (UA) Negative (Negative); Ketones,Urine Negative (Negative); Leukocyte Esterase,Urine 2+ (Negative); Nitrate,Urine Negative (Negative); PH,Urine 6.5 (5.0-8.5); Protein,Urine Negative (Negative); Specific Gravity, Urine <= 1.005 (1.005-1.030); Urobilinogen,Urine 0.2 EU/dl (0.2)
--- NOTE | 2020-10-08 16:24 | HMH.EDGENADL ---
ED Disposition Clinical Impression: Urinary tract infection Qualifiers: Urinary tract infection type: acute cystitis Hematuria presence: with hematuria Qualified Code(s): N30.01 - Acute cystitis with hematuria Disposition: Home, Self-Care Condition on Discharge: Good Instructions: DI for Urinary Tract Infection (UTI) Prescriptions: cephALEXin [Cephalexin 500mg Tab] 500 mg PO BID 10 Days #20 tab Transmission Status: Pending to [id number] Referrals: Olya Hahn APRN [Primary Care Provider] - - Critical Care Critical Care Time: No Attestation: On 10/08/20, the high probability of a clinically significant, sudden or life threatening deterioration of the following system(s) required my full and direct attention, intervention and personal management. The time I documented below is in addition to time spent performing reported procedures but includes the following listed in this critical care notation. Medical Decision Making - Medical Records Medical records reviewed: Yes: I reviewed the patient's medical records. - Bora Inquiry Pt receiving controlled substance: No Vital Signs: 10/08/20 15:56 10/08/20 16:41 Temperature 98.3 F Temperature Source Oral Pulse Rate 68 Pulse Rate [Left Radial] 80 Respiratory Rate 21 Blood Pressure 147/59 H Blood Pressure [Right Arm] 195/85 H Blood Pressure Mean [Right Arm] 121 Blood Pressure Source [Right Arm] Automatic Cuff Blood Pressure Position [Right Arm] Sitting 02 Sat by Pulse Oximetry 97 100 Oxygen Delivery Method Room Air - Lab Data Lab Results 10/08/20 16:15: Urine Color Straw, Urine Appearance Clear, Urine pH 6.5, Ur Specific [place] <= 1.005, Urine Protein Negative, Urine Glucose (UA) Negative, Urine Ketones Negative, Urine Blood Trace-i, Urine Nitrate Negative, Urine Bilirubin Negative, Urine Urobilinogen 0.2, Ur Leukocyte Esterase 2+ A, Urine RBC Occasional, Urine WBC 10-20, Ur Squamous Epith Cells 10-20, Urine Bacteria 1+ 10/08/20 16:31: WBC 7.5, RBC 4.14 L, Hgb 13.0, Hct 38.1, MCV 92.0, MCH 31.4 H, MCHC 34.1, RDW 13.4, Plt Count 199, MPV 8.8, Neut % (Auto) 58.6, Lymph % (Auto) 30.2, [place] % (Auto) 7.2, Eos % (Auto) 3.3, Baso % (Auto) 0.5, Neut # (Auto) 4.4, Lymph # (Auto) 2.3, [place] # (Auto) 0.5, Eos # (Auto) 0.3, Baso # (Auto) 0.0 10/08/20 16:31: Sodium 138, Potassium 4.4, Chloride 103, Carbon Dioxide 27, Anion Gap 12.4, BUN 9, Creatinine 0.70, Estimated Creat Clear 42, Estimated GFR 81, Est GFR ( Amer) 97, Glucose 102 H, Calcium 9.1, Total Bilirubin 0.7, AST 34, ALT 23, Alkaline Phosphatase 80, Troponin I < 0.01, NT-Pro-B Natriuret Pep 54.1, Total Protein 7.7, Albumin 4.7, Globulin 3.0, Albumin/Globulin Ratio 1.6, Lipase 145, TSH 6.17 H Result diagrams: 10/08/20 16:31 10/08/20 16:31 Orders (Tests/Meds): ORDERS Category Date Time Status Troponin I Q3H Lab 10/08/20 19:15 Ordered Troponin I Q3H Lab 10/08/20 22:15 Ordered Urine Culture Stat Micro 10/08/20 16:15 Received - Radiology Data #1 Image(s): Chest Image Reviewed: Yes I reviewed the patient's radiology results, Yes I reviewed the patient's radiology image, Yes I have reviewed radiologist's interpretation IMPRESSION: Patchy mild right basilar infiltrate versus atelectasis.. - ECG Data Tracing #1 Normal ventricular rate of 71 bpm, DE interval 140 ms, normal QTC. Sinus rhythm with nonspecific ST changes. ECG initial impression date: 10/08/20 ECG initial impression time: 16:38 - Reevaluation(s) Time: 17:41 Reevaluation #1: On reevaluation, patient is feeling much better. Findings are consistent with acute urinary tract infection. The patient does have some chest x-ray findings concerning for pneumonia, however she is having no cough or difficulty breathing. Likely atelectasis. Patient is to follow-up with PCP in 48 hours. Given strict return precautions. Verbalized understanding. Medical Decision Narrative: 79-year-old female pre
--- NOTE | 2020-10-08 16:35 | PC.NURSE ---
pt up to restroom
--- NOTE | 2020-10-08 16:36 | PC.NURSE ---
rad at bedside
--- NOTE | 2020-10-08 16:38 | ECG_ITS ---
APPROVED REPORT Exam: Resting ECG HR:71 bpm ECG Measurements Heart Rate 71 AXES MS 148 P 34 QRSd 86 QRS -25 QT 400 T 34 QTc 434 Conclusion Normal sinus rhythm Nonspecific ST abnormality Abnormal ECG Electronically signed by : Jose Coleman, 10/09/2020 08:18:17
[2020-10-08 16:41] VITALS: BP 147/59; PULSE 68; O2SAT 100
[2020-10-08 16:42] LABS: Basophils % 0.5 % (0.1-2.0); Eosinophils # 0.3 K/mm3 (0.0-0.4); Eosinophils % 3.3 % (0.1-12.0); Hematocrit 38.1 % (37.0-47.0); Lymphocytes # 2.3 K/mm3 (0.7-4.5); Lymphocytes % 30.2 % (10-50); Mean Corpuscular HGB Conc 34.1 g/dL (31.8-35.4); Mean Corpuscular Hemoglobin 31.4 pg (27.0-31.2); Mean Platelet Volume 8.8 fl (7.4-10.4); Monocytes # 0.5 K/mm3 (0.1-1.0); Monocytes % 7.2 % (1.7-9.3); Neutrophils # 4.4 K/mm3 (1.8-7.8); Neutrophils % 58.6 % (37.0-80.0); Platelet Count 199 K/mm3 (142-424); Red Blood Count 4.14 M/mm3 (4.20-5.40); Red Cell Distribution Width 13.4 % (11.5-17.5); White Blood Count 7.5 K/mm3 (4.8-10.8)
--- NOTE | 2020-10-08 16:43 | PC.NURSE ---
Rad at bedside
[2020-10-08 16:47] LABS: Chloride 103 mmol/L (98-107)
[2020-10-08 16:48] LABS: Potassium 4.4 mmoL/L (3.5-5.1); Sodium 138 mmol/L (136-145)
[2020-10-08 16:50] LABS: Alanine Aminotransferase 23 U/L (12-78); Alkaline Phosphatase 80 U/L (38-126); Aspartate Amino Transferase 34 U/L (14-36); Bilirubin,Total 0.7 mg/dl (0.2-1.3); Blood Urea Nitrogen 9 mg/dl (7-17); Creatinine Clearance Estimated 42 mL/min (50-200); Estimated Glomerular Filt Rate 81 ml/min (>60); GFR (African American) 97 ML/MIN (>60)
[2020-10-08 16:51] LABS: Albumin Level 4.7 g/dl (3.5-5.0); Albumin/Globulin Ratio 1.6 (1.1-1.8); Anion Gap 12.4 mEq/L (5-15); Calcium 9.1 mg/dl (8.4-10.2); Carbon Dioxide 27 mmol/L (22.0-30.0); Glucose 102 mg/dl (74-100); Lipase 145 U/L (23-300); Total Protein,Serum 7.7 g/dl (6.3-8.2)
[2020-10-08 17:00] LABS: NT Pro Brain Natriuretic Pep. 54.1 pg/mL (0-450)
[2020-10-08 17:05] LABS: RBC,Urine Occasional #/hpf (0-3)
[2020-10-08 17:06] VITALS: BP 150/66; PULSE 69; RESP 14; O2SAT 98
[2020-10-08 17:06] LABS: Troponin I < 0.01 ng/ml (0.00-0.034)
[2020-10-08 17:06] LABS: Bacteria,Urine 1+ /lpf
[2020-10-08 17:22] LABS: Thyroid Stimulating Hormone 6.17 uIU/mL (0.465-4.68)
[2020-10-08 17:53] VITALS: BP 125/53; PULSE 70; RESP 18; O2SAT 96
[2020-10-08 17:58] VITALS: BP 125/53; PULSE 70; RESP 18; TEMP 36.8; O2SAT 100
== END 2020-10-08 17:59 | disposition home or self-care (01) ==
PROVIDERS: Emergency Provider Emergency Medicine; PCP Nurse Practitioner Family
DX: N30.01 Acute cystitis with hematuria (principal); K21.9 Gastro-esophageal reflux disease without esophagitis; E78.5 Hyperlipidemia, unspecified; I10 Essential (primary) hypertension; Z86.73 Personal history of transient ischemic attack (TIA), and cerebral infarction without residual deficits; Z79.899 Other long term (current) drug therapy
CPT/HCPCS: 71045; 80053; 81001; 83690; 83880; 84443; 84484; 85025; 87086; 93005; 96374; 99283

== ENCOUNTER 2020-10-23 08:00 | Outpatient (RCR) | payer MEDICARE, MEDICAID, SELFPAY ==
--- NOTE | 2020-09-19 18:06 | HMH.PTOPEV ---
PT Outpatient Evaluation Rehab PT Outpatient Evaluation Start: 09/19/20 17:12 Freq: Status: Active Protocol: Document 09/19/20 17:57 MARCUS (Rec: 09/19/20 18:06 JACKIDARBY [id number]) Electronically Signed By Arturo Jackson, PT 09/19/20 17:57 Outpatient Therapy Subjective History Subjective History This is the initial Physical Therapy evaluation for Krista Quintana. Pt reports in Novemeber she was in her recliner and got up to use restroom. Pt reports when she stood up she had no leg - pt reports it felt like her leg was asleep. Pt states she used restroom w/ difficulty walking and needing to use furniture and walss for support. Later pt reports after returning to the chair she raised her RUE above her head and had difficulty keeping her arm there. Pt reports she began noticing weakness and decreased endurance. Pt reports seeing neurologist and having MRI/MRA done which showed x 2 CVA in past. Chief Complaint Weakness Symptom Type Tingling Symptoms Relieved By Rest/Positioning Symptoms Aggravated By Physical Activity,Walking Prior Functional Limitations None Current Functional Limitations Housework,Recreation Activity, Walking Symptom Description Intermittent Hip/Knee Eval Gait Observation General Gait Pattern Observation Wide Based Gait,Shuffling Step MMT bilateral Hip Flexion Strength Grade 4- Good- Hip Abduction Strength Grade 4- Good- Hip Adduction Strength Grade 4- Good- Knee Extension Strength Grade 4 Good Knee Flexion Strength Grade 4 Good Ankle/Foot Eval Gait Observation General Gait Pattern Observation Wide Based Gait,Shuffling Step MMT bilateral Ankle Dorsiflexion Strength Grade 4 Good Ankle Plantarflexion Strength Grade 4 Good Foot Eversion Strength Grade 4 Good Foot Inversion Strength Grade 4 Good Outpatient Therapy Assessment Impairments Problems/Impairmments Palpation Tenderness,Impaired Strength,Impaired Endurance, Impaired Gait Pattern,Impaired Walking,Impaired Household
== END 2020-10-23 08:05 | disposition home or self-care (01) ==
LOC: PT 08:00
PROVIDERS: PCP Internal Medicine Adolescent Medicine; Visit Provider Specialist
DX: M21.371 Foot drop, right foot (principal); I63.9 Cerebral infarction, unspecified; R42 Dizziness and giddiness
CPT/HCPCS: 97110; 97112; 97163; 97164

== ENCOUNTER → 2020-11-07 07:57 | Outpatient (CLI) | payer MEDICARE, MEDICAID, SELFPAY | PROVIDERS: Visit Provider Internal Medicine Gastroenterology | DX: Z01.812 Encounter for preprocedural laboratory examination (principal); Z11.52 Encounter for screening for COVID-19; Z12.11 Encounter for screening for malignant neoplasm of colon | CPT/HCPCS: U0003 ==

== ENCOUNTER 2020-11-09 08:08 | Day surgery (SDC) | payer MEDICARE, MEDICAID, SELFPAY ==
[2020-11-01 16:06] VITALS: BMI 25.7
[2020-11-09] VITALS (7 sets, daily range): BP systolic 112–152; BP diastolic 64–77; PULSE 64–89; RESP 18; TEMP 36.1–36.9; O2SAT 96–99
--- NOTE | 2020-11-09 08:53 | HMH.ANESCL ---
[facility] Anesthesia Checklist - Patient Identification Patient Identification: Arm Band - Structural Data Admitted From: Home Planned Operative Procedure/s: colonoscopy Consent for Planned Operative Procedure(s) Verified: Yes Verified Documents: Surgical Consent, History and Physical - NPO Status Verified Time NPO: 00:00 - Additional verifications Anesthesia Reactions: No - Airway Assessment C-Spine Mobility Assessed: Yes (mp1) TMJ Mobility Assessed: Yes Dentition: Dentures-good fit (removed) - Neurological Assessment Level of Consciousness: Awake, Alert - Anesthesia Plan Anesthesia Risk discussed: Yes Anesthesia Plan: Verified ASA Class: III Anesthesia Type: MAC [facility] History I have reviewed the patient's past medical history: Yes Medical History: Reports:: Cerebrovascular Accident, Gastroesophageal Reflux Disease(GERD), Hyperlipidemia, Hypertension Denies:: Cancer, Diabetes Mellitus Type 1, Diabetes Mellitus Type 2, Internal Pacemaker, MRSA, Seizures *Have you ever received a pneumonia vaccine?: Yes *Have you received a flu vaccine this season?: No Other Medical History: Reports: Hypothyroidism, Thyroid Disease Anesthesia experience/problems:: nac Laterality Cases: Bilateral: Tonsillectomy Other Surgeries: Yes: Cholecystectomy, Hysterectomy-Total, Other. No: Pacemaker Amputation: No Fractures: No - *Social History Last grade of school completed: High school graduate Smoking Status: Never smoker Alcohol Intake: never Substance Use Type: denies use *Occupational Status:: retired Housing: house Household Members: other *Travel in the last 8 weeks: None Family Hx:: Coronary Artery Disease, Stroke
--- NOTE | 2020-11-09 09:27 | P.PCN_ITS ---
[facility] Procedure Note Procedure Note:: Colonoscopy Procedure Report: Colonoscopy with cold snare polypectomy and hemorrhoid band ligation Endoscopist: Juan Carlos Pedersen II, MD Referring physician: Jose Coleman M.D. Date of Procedure: 11/09/2020 Equipment: Olympus 190 variable stiffness pediatric colonoscope Sedation: MAC sedation Indication: Mrs. Quintana is an 79-year-old female who is here for diagnostic colonoscopy. She did have bright red rectal bleeding that occurred several x6 to 8 weeks ago. This did occur with her bowel movements. She does report regular bowel movements since she uses Metamucil daily. She reports no abdominal pain or diarrhea with her prior rectal bleeding. Her last colonoscopy was with Dr. Arsenio Howard at the [facility] 5 years ago. She did have cholecystectomy (Dr. Johnathan Dobbins). She reports no abdominal pain, weight loss or family history of colon cancer. Procedure: Prior to the procedure, a history and physical exam was performed, and patient's medications and allergies were reviewed. The risks, benefits and alternatives of the sedation and procedure were discussed with the patient. All questions were answered and informed consent was obtained. The patient was brought to the procedure room. Patient identification and proposed procedure were verified by the physician and the nurse. The patient was placed in a left lateral decubitus position and the scope was passed under direct vision. Throughout the procedure, the patient's blood pressure, pulse, and oxygen saturations were m onitored continuously. The colonoscopy was accomplished without difficulty. The patient tolerated the procedure well. Findings: On digital rectal examination there was normal rectal tone. There were no external hemorrhoids. There was evidence of hemorrhoidal prolapse. The colonoscope was introduced through the anal canal to the rectum and advanced to the cecum. The ileocecal valve and appendiceal orifice were identified. The scope was advanced a short distance into the ileum which appeared grossly normal. The scope was then withdrawn into the colon. The cecum, and ascending colon and mucosa were grossly normal. There were 3 polyps in the transverse colon (5, 5 and 7 mm) which were all removed via cold snare polypectomy. There were scattered diverticuli throughout the descending and sigmoid colon (LEFT colon). There was some pericolonic adhesions around the sigmoid colon. The rectum itself was normal. Upon retroflexion within the rectum there were grade 2-3 internal hemorrhoids. These were banded using 3 bands on 3 columns of hemorrhoids with excellent ligation effect. The preparation was excellent throughout with [place] Preparation Score of 9. The cecal time was 12 minutes. Impression: 1. Diminutive colonic polyps x3 2. Left-sided diverticulosis 3. Grade 2-3 internal hemorrhoids status post band ligation x3 Plan: I will follow up the polyp histology. Based upon the patient's age, I do not feel that she will require further preventive colonoscopy. I would encourage continuation of fiber supplementation or fiber bowel regimen on a long-term daily maintenance basis.
== END 2020-11-09 10:30 | disposition home or self-care (01) ==
LOC: OUTP 08:10
PROVIDERS: PCP Nurse Practitioner Family; Visit Provider Internal Medicine Gastroenterology
PROC: 0DJD8ZZ Inspection of Lower Intestinal Tract, Via Natural or Artificial Opening Endoscopic (ICD-10-PCS; CPT 45378; principal; 2020-11-09 09:00)
DX: K63.5 Polyp of colon (principal); K57.30 Diverticulosis of large intestine without perforation or abscess without bleeding; K64.1 Second degree hemorrhoids; E78.5 Hyperlipidemia, unspecified; I10 Essential (primary) hypertension; K21.9 Gastro-esophageal reflux disease without esophagitis; E03.9 Hypothyroidism, unspecified; Z86.73 Personal history of transient ischemic attack (TIA), and cerebral infarction without residual deficits; Z82.3 Family history of stroke; Z88.0 Allergy status to penicillin; Z79.899 Other long term (current) drug therapy
CPT/HCPCS: 45385; 45398; 88305

== ENCOUNTER → 2021-02-14 16:08 | Outpatient (CLI) | payer MEDICARE, MEDICAID, SELFPAY ==
--- NOTE | 2021-02-14 16:12 | MM_ITS ---
PROCEDURE: MM DIG SCREENING MAMM BI W/CAD Digital Breast Tomosynthesis Included CLINICAL INDICATION: SCREENING There is no personal or family history of breast cancer. COMPARISON: MG MG SCREENING BECKY MAMMOGRAM from 12/15/2018 MG MG VIJAY DIAG BECKY CALLBACK from 12/23/2018 MG MM DIG SCREENING MAMM BI W/CAD from 01/25/2020 TECHNIQUE: Standard CC and MLO images and 3D Tomosynthesis was obtained. R2 CAD reviewed. FINDINGS: Scattered diffuse fibroglandular densities are seen throughout both breasts. There are no CAD markings. There is arterial calcification in each breast. There are few scattered benign-appearing microcalcifications in each breast. There is no suspicious lesion in either breast and no suspicious microcalcifications. IMPRESSION: Fibrofatty parenchyma with no suspicious lesions seen BI-RAD Category: 2 Benign Finding(s) FOLLOW-UP: 1YR 1 Year Follow-up (A letter has been sent to the patient regarding results of the study.) Dictated by: Dr. Tod Jacobsen MD 02/20/2021 09:09 Dr. Tod Jacobsen MD in [place] 02/20/2021 09:09
== END ==
PROVIDERS: PCP Nurse Practitioner Family; Visit Provider Nurse Practitioner Family
DX: Z12.31 Encounter for screening mammogram for malignant neoplasm of breast (principal)
CPT/HCPCS: 77063; 77067

== ENCOUNTER → 2021-10-24 09:53 | Outpatient (CLI) | payer MEDICARE, MEDICAID, SELFPAY ==
[2021-10-24 10:36] LABS: Basophils % 0.5 % (0.1-2.0); Eosinophils # 0.2 K/mm3 (0.0-0.4); Eosinophils % 3.3 % (0.1-12.0); Hematocrit 37.5 % (37.0-47.0); Hemoglobin 12.9 g/dL (12.2-16.2); Lymphocytes # 2.1 K/mm3 (0.7-4.5); Lymphocytes % 30.6 % (10-50); Mean Corpuscular HGB Conc 34.3 g/dL (31.8-35.4); Mean Corpuscular Hemoglobin 30.5 pg (27.0-31.2); Mean Platelet Volume 8.7 fl (7.4-10.4); Monocytes # 0.5 K/mm3 (0.1-1.0); Monocytes % 7.7 % (1.7-9.3); Neutrophils # 3.9 K/mm3 (1.8-7.8); Neutrophils % 57.9 % (37.0-80.0); Platelet Count 231 K/mm3 (142-424); Red Blood Count 4.21 M/mm3 (4.20-5.40); Red Cell Distribution Width 13.3 % (11.5-17.5); White Blood Count 6.8 K/mm3 (4.8-10.8)
[2021-10-24 11:25] LABS: Chloride 107 mmol/L (98-107)
[2021-10-24 11:26] LABS: Potassium 5.4 mmoL/L (3.5-5.1); Sodium 141 mmol/L (136-145)
[2021-10-24 11:28] LABS: Alanine Aminotransferase 21 U/L (12-78); Alkaline Phosphatase 71 U/L (38-126); Anion Gap 10.4 mEq/L (5-15); Aspartate Amino Transferase 30 U/L (14-36); Bilirubin,Indirect 0.6 mg/dL (0.0-0.9); Bilirubin,Total 0.6 mg/dl (0.2-1.3); Bilirubin,Unconjugated 0.5 mg/dL (0.0-1.1); Blood Urea Nitrogen 10 mg/dl (7-17); Calcium 10.1 mg/dl (8.4-10.2); Carbon Dioxide 29 mmol/L (22.0-30.0); Cholesterol 187 mg/dl (140-200); Estimated Glomerular Filt Rate 80 ml/min (>60); GFR (African American) 97 ML/MIN (>60); Glucose 114 mg/dl (74-100); Triglycerides 118 mg/dl (30-150); VLDL Cholesterol 24 mg/dL (0-40)
[2021-10-24 11:29] LABS: Albumin Level 4.3 g/dl (3.5-5.0); Chol/HDL Ratio 2.6 (1-3.5); HDL Cholesterol 73 mg/dl (40-60)
[2021-10-24 11:41] LABS: Direct LDL Cholesterol 77.81 mg/dL (100-129)
[2021-10-24 12:01] LABS: Thyroid Stimulating Hormone 2.06 uIU/mL (0.465-4.68)
[2021-10-24 12:37] LABS: Free T4 (Free Thyroxine) 1.16 ng/dl (0.78-2.19)
== END ==
PROVIDERS: PCP Nurse Practitioner Family; Visit Provider Physician Assistant
DX: E78.2 Mixed hyperlipidemia (principal); I10 Essential (primary) hypertension; I47.1 Supraventricular tachycardia; I48.0 Paroxysmal atrial fibrillation; I65.29 Occlusion and stenosis of unspecified carotid artery
CPT/HCPCS: 36415; 80048; 80061; 80076; 83735; 84439; 84443; 85025

== ENCOUNTER → 2021-11-14 09:31 | Outpatient (CLI) | payer MEDICARE, MEDICAID, SELFPAY ==
[2021-11-14 10:30] LABS: Basophils % 0.5 % (0.1-2.0); Eosinophils # 0.2 K/mm3 (0.0-0.4); Eosinophils % 3.1 % (0.1-12.0); Hematocrit 27.4 % (37.0-47.0); Hemoglobin 8.9 g/dL (12.2-16.2); Lymphocytes # 1.7 K/mm3 (0.7-4.5); Lymphocytes % 25.2 % (10-50); Mean Corpuscular HGB Conc 32.6 g/dL (31.8-35.4); Mean Corpuscular Hemoglobin 31.1 pg (27.0-31.2); Mean Corpuscular Volume 95.3 fl (81-99); Mean Platelet Volume 8.5 fl (7.4-10.4); Monocytes # 0.5 K/mm3 (0.1-1.0); Monocytes % 7.6 % (1.7-9.3); Neutrophils # 4.2 K/mm3 (1.8-7.8); Neutrophils % 63.6 % (37.0-80.0); Platelet Count 312 K/mm3 (142-424); Red Blood Count 2.88 M/mm3 (4.20-5.40); White Blood Count 6.7 K/mm3 (4.8-10.8)
[2021-11-14 10:46] LABS: Sodium 139 mmol/L (136-145)
[2021-11-14 10:48] LABS: Chloride 109 mmol/L (98-107); Potassium 4.6 mmoL/L (3.5-5.1)
[2021-11-14 10:51] LABS: Anion Gap 10.6 mEq/L (5-15); Blood Urea Nitrogen 10 mg/dl (7-17); Calcium 9.5 mg/dl (8.4-10.2); Carbon Dioxide 24 mmol/L (22.0-30.0); Estimated Glomerular Filt Rate 80 ml/min (>60); GFR (African American) 97 ML/MIN (>60); Glucose 118 mg/dl (74-100)
== END ==
PROVIDERS: PCP Nurse Practitioner Family; Visit Provider Physician Assistant
DX: E78.5 Hyperlipidemia, unspecified (principal); I10 Essential (primary) hypertension; I63.9 Cerebral infarction, unspecified; I65.29 Occlusion and stenosis of unspecified carotid artery; R42 Dizziness and giddiness; I47.1 Supraventricular tachycardia; I48.0 Paroxysmal atrial fibrillation; Z01.812 Encounter for preprocedural laboratory examination; Z20.822 Contact with and (suspected) exposure to COVID-19
CPT/HCPCS: 36415; 80048; 85025; C9803; U0003; U0005

== ENCOUNTER 2021-11-15 08:35 | Day surgery (SDC) | payer MEDICARE, MEDICAID, SELFPAY ==
[2021-11-15] VITALS (12 sets, daily range): BP systolic 104–156; BP diastolic 49–72; PULSE 64–74; RESP 18–20; TEMP 36.8; O2SAT 93–98; BMI 21.4; BMI 25.0
--- NOTE | 2021-11-15 | IR_ITS ---
APPROVED REPORT Patient Location: Outpatient [facility] Workers: [facility] [place] RT (R) PROCEDURES Left heart catheterization Left ventriculogram Selective coronary angiogram INDICATION Angina pectoris, Informed consent was obtained prior to the procedure. COMPLICATIONS None Estimated Blood Loss: Less than 10 ML TECHNIQUE One percent lidocaine used to anesthetize the right anterior aspect of the wrist. The right radial artery was accessed via the Seldinger technique. A 6 Kiswahili sheath was placed in the right radial artery. 2.5 mg of verapamil, 800 mcg of nitroglycerin, 1mg Lidocaine and 5000 U Heparin were given through the arterial sheath. The papa catheter was also used to perform left heart catheterization, left ventriculogram and selective coronary angiogram. At the end of the procedure the sheath was removed good hemostasis was achieved using Traclet band, patient was transferred to the postop holding area in stable condition. ANGIOGRAPHIC RESULTS The left main artery Has a distal concentric 30% stenosis The left anterior descending artery Has a proximal concentric 70% stenosis with a mid vessel 90% stenosis immediately after a large second diagonal artery. The circumflex artery Is nondominant yet still large with a proximal concentric 30 to 40% stenosis The right coronary artery Is a dominant vessel and is widely patent and normal The COSTA ventriculogram reveals Hyperdynamic 75 to 80% The left ventricular end-diastolic pressure 15 mmHg IMPRESSION Severe proximal and mid LAD disease as described above Hyperdynamic ventricle Borderline elevated LVEDP PLAN 1. At this time I recommend medical management until the etiology for patient's GI bleed is identified. After the GI bleed is identified and treated I would then consider offering patient stenting of the proximal and mid LAD 2. In the meantime aggressive medical management 3. LDL less than 55 to be achieved with high intensity statin 4. Treatment of hyperdynamic ventricle with beta-blockers and calcium channel blockers Electronically signed by : Ranjeet Tiwari MD 11/15/2021 12:18:52
[2021-11-15 08:57] LABS: Basophils % 0.5 % (0.1-2.0); Eosinophils # 0.3 K/mm3 (0.0-0.4); Hematocrit 25.7 % (37.0-47.0); Hemoglobin 8.5 g/dL (12.2-16.2); Lymphocytes % 31.2 % (10-50); Mean Corpuscular HGB Conc 33.1 g/dL (31.8-35.4); Mean Corpuscular Hemoglobin 31.2 pg (27.0-31.2); Mean Corpuscular Volume 94.1 fl (81-99); Mean Platelet Volume 7.9 fl (7.4-10.4); Monocytes # 0.5 K/mm3 (0.1-1.0); Monocytes % 8.4 % (1.7-9.3); Neutrophils # 3.6 K/mm3 (1.8-7.8); Neutrophils % 55.9 % (37.0-80.0); Platelet Count 311 K/mm3 (142-424); Red Blood Count 2.73 M/mm3 (4.20-5.40); Red Cell Distribution Width 16.1 % (11.5-17.5); White Blood Count 6.4 K/mm3 (4.8-10.8)
== END 2021-11-15 15:03 | disposition home or self-care (01) ==
PROVIDERS: PCP Nurse Practitioner Family; Visit Provider Internal Medicine
DX: I48.0 Paroxysmal atrial fibrillation (principal); I25.118 Atherosclerotic heart disease of native coronary artery with other forms of angina pectoris; Z79.899 Other long term (current) drug therapy; E03.9 Hypothyroidism, unspecified; I10 Essential (primary) hypertension; E78.5 Hyperlipidemia, unspecified; I65.23 Occlusion and stenosis of bilateral carotid arteries
CPT/HCPCS: 36415; 85025; 93458; 99152; C1725; C1769; J1644; Q9967

== ENCOUNTER → 2021-11-18 16:50 | Outpatient (CLI) | payer MEDICARE, MEDICAID, SELFPAY | PROVIDERS: PCP Nurse Practitioner Family; Visit Provider Internal Medicine | DX: Z01.812 Encounter for preprocedural laboratory examination (principal); Z20.822 Contact with and (suspected) exposure to COVID-19; Z13.810 Encounter for screening for upper gastrointestinal disorder; Z12.11 Encounter for screening for malignant neoplasm of colon | CPT/HCPCS: C9803; U0003; U0005 ==

== ENCOUNTER 2021-11-20 11:20 | Day surgery (SDC) | payer MEDICARE, MEDICAID, SELFPAY ==
[2021-11-20 11:51] VITALS: BP 110/69; PULSE 78; RESP 18; TEMP 36.9; O2SAT 100; BMI 23.4
[2021-11-20 12:57] VITALS: O2SAT 100
--- NOTE | 2021-11-20 13:18 | P.PN_ITS ---
[facility] Anesthesia Checklist - Structural Data Admitted From: Home Planned Operative Procedure/s: egd,colonoscopy Consent for Planned Operative Procedure(s) Verified: Yes - Additional verifications Anesthesia Reactions: No - Airway Assessment C-Spine Mobility Assessed: Yes TMJ Mobility Assessed: Yes Dentition: Good Dentition - Neurological Assessment Level of Consciousness: Awake, Alert, Appropriate - Anesthesia Plan Anesthesia Risk discussed: Yes Anesthesia Plan: Verified ASA Class: III Anesthesia Type: MAC [facility] History I have reviewed the patient's past medical history: Yes Medical History: Reports:: Cerebrovascular Accident, Gastroesophageal Reflux Disease(GERD), Hyperlipidemia, Hypertension Denies:: Cancer, Diabetes Mellitus Type 1, Diabetes Mellitus Type 2, Internal Pacemaker, MRSA, Seizures *Have you ever received a pneumonia vaccine?: Yes *Have you received a flu vaccine this season?: Yes Other Medical History: Reports: Hypothyroidism, Thyroid Disease Anesthesia experience/problems:: none Laterality Cases: Bilateral: Tonsillectomy Other Surgeries: Yes: Cholecystectomy, Hysterectomy-Total, Other. No: Pacemaker Amputation: No Fractures: No - *Social History Last grade of school completed: Some college Smoking Status: Never smoker Alcohol Intake: never Substance Use Type: denies use *Occupational Status:: retired Housing: house Household Members: none *Travel in the last 8 weeks: None Family Hx:: Coronary Artery Disease, Stroke
[2021-11-20 13:48] VITALS: BP 101/55; PULSE 75; RESP 18; TEMP 36.6; O2SAT 96
--- NOTE | 2021-11-20 13:49 | HMH.SCOPE ---
- Procedure: Date: 11/20/21 Patient Date of :: 1940 Procedure Performed:: EGD Indications:: Anemia Performing Provider:: Jose Somers MD Referring Provider:: Olya Hahn APRN Sedation:: See RN records Procedure:: The gastroscope was gently passed through the incisoral orifice into the oral cavity and under direct visualization the esophagus was intubated. The endoscope was passed down the esophagus, through the stomach, and into the duodenum. Color, texture, mucosa, and anatomy of the esophagus, stomach, and duodenum were carefully examined with the scope. Findings:: Oropharynx: normal Esophagus: Prominent vessels of upper esophagus EG Junction: intact at 36 cm Cardia: normal Fundus: normal Body: normal Antrum: normal Duodenal bulb: normal Duodenum (second and third portion): normal Recommendations:: Reassuring examination Move forward to colonoscopy Complications:: None Estimated blood obtained (mL): 0
--- NOTE | 2021-11-20 13:52 | HMH.SCOPE ---
- Procedure: Date: 11/20/21 Patient Date of :: 1940 Procedure Performed:: Colonoscopy with control of bleeding Indications:: Anemia. Hematochezia Performing Provider:: Jose Somers MD Referring Provider:: Olya Hahn APRN Sedation:: See RN notes Procedure:: After placing the patient in the left lateral decubitus position, the colonoscopy was gently inserted into the rectum and under direct visualization advanced to the cecum which was identified by transillumination in the right lower quadrant, identification of the ileocecal valve, appendiceal orifice, and cecal strap. Color, texture, mucosa, and anatomy of the colon were carefully examined with the scope. Findings:: Anal canal: External hemorrhoids Rectum: Internal hemorrhoids. Upon entering rectum there was blood stained mucsoa and small blood clots. Irrigation of mucosa showed no evidence of active bleeding lesions Sigmoid colon: blood stained mucosa. Irrigation of mucosa revealed no active bleeding lesions Descending colon: blood stained mucosa. within the proximal descending colon there was a focal area of persistent oozing of blood arising within normal appearing mucosa. Hemostasis was acheived with application of APC treatment Splenic flexure: blood stained mucosa, irrigation revealed no active bleeding Transverse colon: normal without polyps or inflammatory changes Hepatic flexure: normal Ascending colon: normal without polyps or inflammatory changes Cecum: normal Terminal ileum: not visualized Impression: 1. Focal area of persistent oozing of blood from the proximal descending colon. No identifiable mucosal abnormality (ie, avm) within this area of active bleeding was seen. Possible that this may have been iatrogenic bleeding from colonoscope trauma within a tortuous colon. 2. Blood stained mucosa of distal colon 3. Internal and external hemorrhoids 4. Tortuous colon Recommendations:: A focal area of active bleeding was identified within the proximal left colon. Also noted on exam was blood within the rectal vault with blood clots. If bleeding persists, then recommend surgical consultation for hemorrhoids. Complications:: none Estimated blood obtained (mL): 5
[2021-11-20 13:58] VITALS: BP 109/53; PULSE 74; RESP 18; O2SAT 95
[2021-11-20 14:09] VITALS: BP 121/62; PULSE 76; RESP 18; O2SAT 96
[2021-11-20 14:16] VITALS: BP 121/67; PULSE 75; RESP 18; O2SAT 98
== END 2021-11-20 14:19 | disposition home or self-care (01) ==
LOC: OUTP 11:23
PROVIDERS: Internal Medicine; PCP Nurse Practitioner Family; Visit Provider Internal Medicine Gastroenterology
PROC: 0DJ08ZZ Inspection of Upper Intestinal Tract, Via Natural or Artificial Opening Endoscopic (ICD-10-PCS; CPT 43235; principal; 2021-11-20 12:30)
DX: K92.2 Gastrointestinal hemorrhage, unspecified (principal); D64.9 Anemia, unspecified; K21.9 Gastro-esophageal reflux disease without esophagitis; E78.5 Hyperlipidemia, unspecified; I10 Essential (primary) hypertension; Z79.899 Other long term (current) drug therapy
CPT/HCPCS: 43235; 45382; C2618; J2704

== ENCOUNTER → 2021-11-22 15:00 | Outpatient (CLI) | payer MEDICARE, MEDICAID, SELFPAY ==
[2021-11-22 17:25] LABS: Basophils % 0.4 % (0.1-2.0); Eosinophils # 0.2 K/mm3 (0.0-0.4); Eosinophils % 3.1 % (0.1-12.0); Hemoglobin 8.3 g/dL (12.2-16.2); Lymphocytes # 2.1 K/mm3 (0.7-4.5); Lymphocytes % 34.3 % (10-50); Mean Corpuscular HGB Conc 31.8 g/dL (31.8-35.4); Mean Corpuscular Hemoglobin 31.6 pg (27.0-31.2); Mean Corpuscular Volume 99.2 fl (81-99); Mean Platelet Volume 9.9 fl (7.4-10.4); Monocytes # 0.4 K/mm3 (0.1-1.0); Monocytes % 6.8 % (1.7-9.3); Neutrophils # 3.3 K/mm3 (1.8-7.8); Neutrophils % 55.3 % (37.0-80.0); Platelet Count 257 K/mm3 (142-424); Red Blood Count 2.62 M/mm3 (4.20-5.40); Red Cell Distribution Width 16.5 % (11.5-17.5)
== END ==
PROVIDERS: PCP Nurse Practitioner Family; Visit Provider Physician Assistant
DX: D64.9 Anemia, unspecified (principal); I10 Essential (primary) hypertension
CPT/HCPCS: 36415; 85025

== ENCOUNTER → 2021-12-06 08:12 | Outpatient (CLI) | payer MEDICARE, MEDICAID, SELFPAY ==
[2021-12-06 11:38] LABS: Basophils # 0.1 K/mm3 (0-0.2); Eosinophils # 0.2 K/mm3 (0.0-0.4); Eosinophils % 3.2 % (0.1-12.0); Hematocrit 33.8 % (37.0-47.0); Hemoglobin 10.6 g/dL (12.2-16.2); Lymphocytes # 1.9 K/mm3 (0.7-4.5); Lymphocytes % 32.1 % (10-50); Mean Corpuscular HGB Conc 31.2 g/dL (31.8-35.4); Mean Corpuscular Volume 102.6 fl (81-99); Mean Platelet Volume 8.5 fl (7.4-10.4); Monocytes # 0.5 K/mm3 (0.1-1.0); Monocytes % 7.7 % (1.7-9.3); Neutrophils # 3.3 K/mm3 (1.8-7.8); Platelet Count 296 K/mm3 (142-424); Red Cell Distribution Width 14.6 % (11.5-17.5); White Blood Count 5.9 K/mm3 (4.8-10.8)
== END ==
PROVIDERS: Internal Medicine Cardiovascular Disease; PCP Nurse Practitioner Family; Visit Provider Physician Assistant
DX: N39.0 Urinary tract infection, site not specified (principal)
CPT/HCPCS: 36415; 85025

== ENCOUNTER 2021-12-11 07:59 | Day surgery (SDC) | payer MEDICARE, MEDICAID, SELFPAY ==
[2021-12-11] VITALS (14 sets, daily range): BP systolic 104–149; BP diastolic 46–67; PULSE 66–90; RESP 14–18; TEMP 36.6–37.1; O2SAT 93–98; BMI 24.6
--- NOTE | 2021-12-11 | IR_ITS ---
APPROVED REPORT Patient Location: Outpatient Clean Up Worker: [facility] [place] RT (R) PROCEDURES Drug-eluting stent deployment to the proximal and mid LAD Selective coronary angiogram INDICATION Coronary artery disease Informed consent was obtained prior to the procedure. COMPLICATIONS NONE Estimated Blood Loss: LESS THAN 10 ML TECHNIQUE One percent lidocaine used to anesthetize the right anterior aspect of the wrist. The right radial artery was accessed via the Seldinger technique. A 6 Colombian sheath was placed in the right radial artery. 2.5 mg of verapamil, 800 mcg of nitroglycerin, 1mg Lidocaine and 5000 U Heparin were given through the arterial sheath. The papa catheter was also used to perform selective coronary angiogram. Therapeutic heparin was administered giving a therapeutic ACT and a Choice PT extra-support wire was placed distally in the LAD. Primary stenting could not be performed therefore 2 mm balloon was used to predilate the stenosis. A 2.25 x 38 mm resolute [place] stent was deployed in the proximal to mid LAD at 20 cory reducing the stenosis to 0%. Approximately the stent needed to be postdilated therefore 2.5 x 20 mm noncompliant balloon was then placed in the proximal portion of the stent deployed at 20 and 24 cory and then advanced one half length and then postdilated at 20 cory. After achieving excellent angiograph results the apparatus was removed the sheath was removed and hemostasis was achieved using TR banding patient was transferred to the postop putting in stable condition. SAM-3 flow was present before and after the procedure ANGIOGRAPHIC RESULTS The left anterior descending artery Has proximal tandem 70% stenosis followed by long concentric 90% mid vessel stenosis IMPRESSION Successful percutaneous revascularization of the proximal to mid LAD severe to critical disease reduced to 0% with 1 drug-eluting stent PLAN 1. Dual antiplatelet therapy 2. Cardiac rehabilitation 3. Avoidance of tobacco products 4. Risk factor modification 5. LDL less than 55 to be achieved with high intensity statin Electronically signed by : Ranjeet Tiwari MD 12/11/2021 13:45:43
[2021-12-11 08:13] LABS: Coronavirus 19, PCR Not Detected (NotDetected); Influenza A, PCR Not Detected (NotDetected); Influenza B, PCR Not Detected (NotDetected)
[2021-12-11 09:16] LABS: Basophils % 0.8 % (0.1-2.0); Eosinophils # 0.2 K/mm3 (0.0-0.4); Eosinophils % 3.8 % (0.1-12.0); Hematocrit 37.5 % (37.0-47.0); Hemoglobin 11.3 g/dL (12.2-16.2); Lymphocytes # 1.6 K/mm3 (0.7-4.5); Lymphocytes % 31.5 % (10-50); Mean Corpuscular HGB Conc 30.1 g/dL (31.8-35.4); Mean Corpuscular Hemoglobin 30.3 pg (27.0-31.2); Mean Corpuscular Volume 100.5 fl (81-99); Mean Platelet Volume 8.4 fl (7.4-10.4); Monocytes # 0.4 K/mm3 (0.1-1.0); Monocytes % 7.3 % (1.7-9.3); Neutrophils # 2.9 K/mm3 (1.8-7.8); Neutrophils % 56.5 % (37.0-80.0); Platelet Count 299 K/mm3 (142-424); Red Blood Count 3.73 M/mm3 (4.20-5.40); Red Cell Distribution Width 14.2 % (11.5-17.5); White Blood Count 5.2 K/mm3 (4.8-10.8)
[2021-12-11 09:18] LABS: Chloride 108 mmol/L (98-107); Potassium 4.4 mmoL/L (3.5-5.1); Sodium 140 mmol/L (136-145)
[2021-12-11 09:21] LABS: Anion Gap 6.4 mEq/L (5-15); Blood Urea Nitrogen 11 mg/dl (7-17); Calcium 9.1 mg/dl (8.4-10.2); Carbon Dioxide 30 mmol/L (22.0-30.0); Creatinine Clearance Estimated 40 mL/min (50-200); Estimated Glomerular Filt Rate 69 ml/min (>60); GFR (African American) 83 ML/MIN (>60); Glucose 112 mg/dl (74-100)
--- NOTE | 2021-12-11 11:30 | SUR.PHASEII ---
Notified Maddy in outpatient that patient cannot be d/c until she has received her brilinta, notified clinic pharmacy of need to delivery to post-op
--- NOTE | 2021-12-11 13:04 | PC.NURSE ---
Patient eating- chicken strips and fries. Tolerating well. Denies pain
[2021-12-11 13:39] LABS: CATHL Activated Clotting Time 317 SEC (74-125)
--- NOTE | 2021-12-11 13:45 | HMH.PHACLD ---
Krista Quintana has received discharge medication counseling on the following medications: ASPIRIN PLAVIX (NEW) ROSUVASTATIN METOPROLOL HOLDING ACEI AT THIS TIME. PATIENT VERBALIZED UNDERSTANDING AND HAD NO QUESTIONS AT THIS TIME. -NIC BLAIR, PHARMD
--- NOTE | 2021-12-11 13:52 | PC.NURSE ---
1345- removed 2ml air and no bleeding noted from incision. 1348- Patient son Nima at noticed bleeding along wrist band- Nurse assesed the area and injected 4ml air in to the radial band. Called [facility] and spoke with Tiff about bleeding and application of additional air. Cathlab informed to leave in for 15mins then start removing air again in 2ml increments. Pt VSS- talking with son
--- NOTE | 2021-12-11 14:43 | PC.NURSE ---
1440-gave detailed report to Elyse
--- NOTE | 2021-12-11 14:49 | SUR.PHASEII ---
1441-after pt was getting ready, new blood noted to radial cath site. 4mL of air added, bleeding stopped 1445- more blood noted, 2mL added. 1451- Bleeding has stopped.
== END 2021-12-11 15:15 | disposition home or self-care (01) ==
LOC: CATHLAB 08:01
PROVIDERS: Internal Medicine Cardiovascular Disease; PCP Nurse Practitioner Family; Visit Provider Internal Medicine
DX: R42 Dizziness and giddiness (principal); I25.10 Atherosclerotic heart disease of native coronary artery without angina pectoris; Z79.899 Other long term (current) drug therapy; I65.21 Occlusion and stenosis of right carotid artery; I47.1 Supraventricular tachycardia; I48.0 Paroxysmal atrial fibrillation; I10 Essential (primary) hypertension; E03.9 Hypothyroidism, unspecified
CPT/HCPCS: 80048; 85025; 85347; 92928; 99152; C1725; C1769; C1876; C9600; C9803; J1644; Q9967; U0003; U0005

== ENCOUNTER 2021-12-31 09:52 | Outpatient (RCR) | payer MEDICARE, MEDICAID, SELFPAY | END 2022-02-05 11:00 | disposition home or self-care (01) | LOC: PT 09:52 | PROVIDERS: Visit Provider Internal Medicine | DX: I25.10 Atherosclerotic heart disease of native coronary artery without angina pectoris (principal); Z95.5 Presence of coronary angioplasty implant and graft | CPT/HCPCS: 93798 ==

== ENCOUNTER → 2022-01-06 07:58 | Outpatient (CLI) | payer MEDICARE, MEDICAID, SELFPAY ==
[2022-01-06 08:09] LABS: Basophils # 0.1 K/mm3 (0-0.2); Basophils % 1.3 % (0.1-2.0); Eosinophils # 0.4 K/mm3 (0.0-0.4); Eosinophils % 5.2 % (0.1-12.0); Hematocrit 41.4 % (37.0-47.0); Hemoglobin 12.9 g/dL (12.2-16.2); Lymphocytes # 2.4 K/mm3 (0.7-4.5); Lymphocytes % 29.2 % (10-50); Mean Corpuscular HGB Conc 31.3 g/dL (31.8-35.4); Mean Corpuscular Volume 95.9 fl (81-99); Mean Platelet Volume 9.1 fl (7.4-10.4); Monocytes # 0.5 K/mm3 (0.1-1.0); Monocytes % 6.3 % (1.7-9.3); Neutrophils # 4.8 K/mm3 (1.8-7.8); Neutrophils % 58.2 % (37.0-80.0); Platelet Count 241 K/mm3 (142-424); Red Blood Count 4.31 M/mm3 (4.20-5.40); White Blood Count 8.3 K/mm3 (4.8-10.8)
== END ==
PROVIDERS: PCP Nurse Practitioner Family; Visit Provider Physician Assistant
DX: D64.9 Anemia, unspecified (principal); I10 Essential (primary) hypertension
CPT/HCPCS: 36415; 85025

== ENCOUNTER 2022-02-02 13:25 | Emergency (ER) | payer MEDICARE, MEDICAID, SELFPAY ==
[2022-02-02] VITALS (8 sets, daily range): BP systolic 117–159; BP diastolic 55–73; PULSE 63–80; RESP 13–20; TEMP 36.7–36.8; O2SAT 96–98; BMI 22.8
--- NOTE | 2022-02-02 13:37 | CT_ITS ---
PROCEDURE INFORMATION: Exam: CT Abdomen And Pelvis With Contrast Exam date and time: 02/02/2022 3:06 PM Age: 81 years old Clinical indication: Abdominal pain; Additional info: Abd pain TECHNIQUE: Imaging protocol: Computed tomography of the abdomen and pelvis with contrast. Radiation optimization: All CT scans at this facility use at least one of these dose optimization techniques: automated exposure control; mA and/or kV adjustment per patient size (includes targeted exams where dose is matched to clinical indication); or iterative reconstruction. Contrast material: ISOVUE; Contrast volume: 75 ml; Contrast route: IV; COMPARISON: ABDPELWO CT abdomen pelvis wo con 09/13/2017 12:53 AM FINDINGS: Heart: Coronary artery calcifications. Liver: Normal. No mass. Gallbladder and bile ducts: Cholecystectomy. Cholecystectomy. Biliary ectasia. Pancreas: Normal. No ductal dilation. Spleen: Normal. No splenomegaly. Adrenal glands: Normal. No mass. Kidneys and ureters: Normal. No hydronephrosis. Stomach and bowel: The moderate wall thickening of loops of distal ileum consistent with a nonspecific enteritis. No pneumatosis to confirm ischemic bowel however that does not exclude that diagnosis. Limited infiltration in the adjacent fat and a small amount of probable related free fluid without abscess or free air. Appendix: Normal appendix. Intraperitoneal space: See Stomach and bowel finding. Vasculature: Severe atherosclerosis without aneurysm or central occlusion. Lymph nodes: Unremarkable. No enlarged lymph nodes. Urinary bladder: Unremarkable as visualized. Reproductive: Hysterectomy. Bones/joints: No acute fracture. Soft tissues: Unremarkable. Other findings: No other acute pathology seen. As above. IMPRESSION: 1. Moderate wall thickening of loops of distal ileum consistent with a nonspecific enteritis. No pneumatosis to confirm ischemic bowel however that does not exclude that diagnosis. Limited infiltration in the adjacent fat and a small amount of probable related free fluid without abscess or free air. 2. No other acute pathology seen. As above.
--- NOTE | 2022-02-02 13:56 | HMH.EDABDPAI ---
Discharge Plan Disposition Patient Disposition: Home, Self-Care Condition: Good Prescriptions Prescriptions: New ondansetron 4 mg tablet,disintegrating 4 mg PO Q8H PRN (Reason: nausea and vomiting) 5 Days Qty: 20 0RF No Action ferrous fumarate 325 mg (106 mg iron) tablet 325 mg PO DAILY aspirin [Adult Low Dose Aspirin] 81 mg tablet,delayed release (DR/EC) 81 mg PO DAILY Qty: 30 5RF pantoprazole [Protonix] 40 mg tablet,delayed release (DR/EC) 40 mg PO DAILY Qty: 90 3RF rosuvastatin 20 mg tablet 20 mg PO DAILY Qty: 30 5RF Rx Instructions: One daily levothyroxine 50 MCG tablet 50 mcg PO DAILY Label Comments: TAKE 1 TABLET BY MOUTH IN THE MORNING (APPOINTMENT NEEDED FOR ANY FURTHER REFILLS) gbxkqkub-ixm-tqefc acid-vit K 1 EACH capsule 1 each PO DAILY ukwtk-4q-ejb-epa-fish oil 1 EACH capsule 1 each PO DAILY metoprolol succinate 25 MG tablet extended release 24 hr See Rx Instructions .Route .COMPLEX Rx Instructions: Take 1 tablet by mouth once daily ticagrelor 90 MG tablet 90 mg PO BID Referrals Follow up/Referrals: Olya Hahn APRN [Primary Care Provider] - See instructions Activity Restrictions/Add. Instructions Additional Instructions/Restrictions: Please follow-up with your primary care physician in the next 2 to 3 days for re-evaluation. Please take Zofran as prescribed. May also take Tylenol for comfort. Please drink plenty of fluid. Eat a soft liquid diet such as soups, Jell-O, pudding, ice cream until symptoms improve. Escalate diet as tolerated. Please return for any concerning symptoms such as bloody stools, bloody vomit, symptoms that do not improve or any other concerns. Clinical Impressions Clinical Impression: Gastroenteritis and colitis, viral Instructions Patient Instructions: DI for Viral Gastroenteritis -- Adult Print Language Print Language: Tajik Discharge ED Provider: Kareen Fuentes Abdominal Pain HPI General Chief Complaint: Abdominal Pain Stated Complaint: stomach pain Time Seen by Provider: 02/02/22 13:56 Mode of Arrival: Ambulatory Source of Information: Patient Limitations: No Limitations Description of Symptoms (Recalled from ER Triage Doc. by RN): Pt c/o epigastric pain that extends down bilateral sides since 729 associated with indigestion and vomiting. Pt c/o belching and tenderness. Advises of normal BM today History of Present Illness HPI narrative: Mrs. Quintana is an 81-year-old female with past medical history for CA status post PCI currently on Brilinta, cholecystectomy and appendectomy 2-3 years prior, presenting to the emergency department for right upper quadrant epigastric abdominal pain that started around 7:00 this morning. Patient also reports non-bloody non-bilious emesis. Patient reports normal bowel movements. No bloody stools. Reports history of anemia with GI bleed. Denies any recent trauma to the abdomen. No dysuria, hematuria or other urinary symptoms. MD complaint: abdominal pain Onset (ago): hour(s) Consistency: constant Location: RUQ and epigastric Severity: moderate Quality: sharp Radiation: none Migration to: no migration Relieving factors: nothing Exacerbating factors: other (Palpation) Associated symptoms: vomiting Related Data Home Medications Medication Instructions Recorded Confirmed levothyroxine 50 mcg tablet 50 mcg PO DAILY thyroid 03/20/20 12/23/21 [id number]-rmtpttyv-ekewt acid 1 each PO DAILY Supplement 11/01/20 12/23/21 400 mcg-vitamin K 80 mcg capsule omega3 300 mg-dha,epa 250 mg-other 1 each PO DAILY Supplement 11/01/20 12/23/21 omega 3s-fish oil 1,000 mg capsule metoprolol succinate 25 mg See Rx Instructions .Route 11/15/21 12/23/21 tablet,extended release 24 hr .COMPLEX . ferrous fumarate 325 mg (106 mg 325 mg PO DAILY 11/22/21 12/23/21 iron) tablet ticagrelor 90 mg tablet 90 mg PO BID DAPT 12/11/21 12/23/21 Previous Rx's
--- NOTE | 2022-02-02 14:19 | ECG_ITS ---
APPROVED REPORT Exam: Resting ECG HR:70 bpm ECG Measurements Heart Rate 70 AXES ID 148 P 18 QRSd 86 QRS -28 QT 399 T 29 QTc 419 Conclusion SINUS RHYTHM LOW QRS VOLTAGE IN PRECORDIAL LEADS [QRS DEFLECTION < 1.0 mV IN CHEST LEADS] POSSIBLE ANTERIOR MYOCARDIAL INFARCTION , PROBABLY OLD [30 ms Q WAVE IN V3/V4, OR R < 0.2 mV IN V4] BORDERLINE ECG UNCONFIRMED REPORT Electronically signed by : Jose Coleman MD 02/03/2022 18:01:17
--- NOTE | 2022-02-02 14:22 | PC.NURSE ---
Pt c/o increased pain. notified
[2022-02-02 14:38] LABS: Chloride 106 mmol/L (98-107); Sodium 141 mmol/L (136-145)
[2022-02-02 14:39] LABS: Basophils # 0.1 K/mm3 (0-0.2); Basophils % 0.8 % (0.1-2.0); Eosinophils # 0.2 K/mm3 (0.0-0.4); Hematocrit 40.3 % (37.0-47.0); Hemoglobin 13.4 g/dL (12.2-16.2); Lymphocytes # 2.3 K/mm3 (0.7-4.5); Lymphocytes % 20.9 % (10-50); Mean Corpuscular HGB Conc 33.3 g/dL (31.8-35.4); Mean Corpuscular Hemoglobin 29.8 pg (27.0-31.2); Mean Corpuscular Volume 89.4 fl (81-99); Mean Platelet Volume 8.8 fl (7.4-10.4); Monocytes # 0.8 K/mm3 (0.1-1.0); Monocytes % 7.2 % (1.7-9.3); Neutrophils # 7.4 K/mm3 (1.8-7.8); Platelet Count 289 K/mm3 (142-424); Potassium 4.1 mmoL/L (3.5-5.1); Red Blood Count 4.51 M/mm3 (4.20-5.40); Red Cell Distribution Width 14.6 % (11.5-17.5); White Blood Count 10.7 K/mm3 (4.8-10.8)
[2022-02-02 14:41] LABS: Alanine Aminotransferase 23 U/L (12-78); Albumin Level 4.5 g/dl (3.5-5.0); Albumin/Globulin Ratio 1.5 (1.1-1.8); Alkaline Phosphatase 66 U/L (38-126); Anion Gap 13.1 mEq/L (5-15); Aspartate Amino Transferase 41 U/L (14-36); Bilirubin,Total 0.5 mg/dl (0.2-1.3); Blood Urea Nitrogen 8 mg/dl (7-17); Carbon Dioxide 26 mmol/L (22.0-30.0); Creatinine Clearance Estimated 38 mL/min (50-200); Estimated Glomerular Filt Rate 69 ml/min (>60); GFR (African American) 83 ML/MIN (>60); Globulin 3.1 g/dL (1.3-3.2); Total Protein,Serum 7.6 g/dl (6.3-8.2)
[2022-02-02 14:42] LABS: Calcium 9.1 mg/dl (8.4-10.2); Glucose 109 mg/dl (74-100)
[2022-02-02 14:47] LABS: Microscopic, Urine URINE MICROSCOPIC (MICROSCOPIC)
[2022-02-02 14:49] LABS: Appearance,Urine CLEAR (Clear); Bilirubin,Urine Negative (Negative); Blood, Urine TRACE-L (Negative); Color,Urine YELLOW (Yellow); Glucose,Urine (UA) Negative (Negative); Ketones,Urine Negative (Negative); Leukocyte Esterase,Urine Negative (Negative); Nitrate,Urine Negative (Negative); Protein,Urine Negative (Negative); Urobilinogen,Urine 0.2 EU/dl (0.2)
[2022-02-02 14:55] LABS: Troponin I < 0.01 ng/ml (0.00-0.034)
[2022-02-02 15:26] LABS: RBC,Urine Occasional #/hpf (0-3); Squamous Epithelial Cell,Urine Occasional #/hpf (0-5); WBC,Urine Occasional #/hpf (0-3)
[2022-02-02 15:27] LABS: Bacteria,Urine Trace /lpf
== END 2022-02-02 17:24 | disposition home or self-care (01) ==
PROVIDERS: Emergency Provider Student in an Organized Health Care Education/Training Program; PCP Nurse Practitioner Family
DX: K52.9 Noninfective gastroenteritis and colitis, unspecified (principal)
CPT/HCPCS: 74177; 80053; 81001; 84484; 85025; 93005; Q9967

== ENCOUNTER 2022-02-02 20:31 | Observation (INO) | payer MEDICARE, MEDICAID, SELFPAY ==
[2022-02-02 20:33] VITALS: BP 144/66; PULSE 75; RESP 19; TEMP 36.9; O2SAT 97; BMI 20.7
[2022-02-02 21:00] VITALS: BP 115/57; PULSE 73; O2SAT 94
--- NOTE | 2022-02-02 21:30 | XR_ITS ---
PROCEDURE INFORMATION: Exam: XR Complete Acute Abdomen Series Including Chest Exam date and time: 02/02/2022 9:55 PM Age: 81 years old Clinical indication: Abdominal pain; Generalized; Additional info: Advancing abdominal pain TECHNIQUE: Imaging protocol: Radiologic exam. Complete acute abdomen series, including 2 or more views of the abdomen and a single view chest. COMPARISON: CT ABDOMEN PELVIS W CON 02/02/2022 3:06 PM FINDINGS: Lungs: The lungs are clear. Pleural spaces: Normal. No pleural effusions. No pneumothorax. Heart/Mediastinum: Normal. No cardiomegaly. Gastrointestinal tract: Abnormal gas in mildly prominent small bowel loops, more suggestive of ileus than obstruction. Intraperitoneal space: Normal. No free air. Organs: Cholecystectomy. Bones/joints: Scoliosis and moderate degenerative change. Soft tissues: Normal. Other findings: The residual contrast from previous CT study. IMPRESSION: 1. Abnormal gas in mildly prominent small bowel loops, more suggestive of ileus than obstruction. 2. The lungs are clear.
[2022-02-02 21:31] VITALS: BP 150/71; PULSE 73; O2SAT 94
[2022-02-02 21:38] LABS: Basophils # 0.1 K/mm3 (0-0.2); Basophils % 0.8 % (0.1-2.0); Eosinophils # 0.3 K/mm3 (0.0-0.4); Eosinophils % 2.5 % (0.1-12.0); Hematocrit 45.4 % (37.0-47.0); Hemoglobin 14.4 g/dL (12.2-16.2); Lymphocytes # 2.4 K/mm3 (0.7-4.5); Lymphocytes % 22.6 % (10-50); Mean Corpuscular HGB Conc 31.7 g/dL (31.8-35.4); Mean Corpuscular Hemoglobin 28.6 pg (27.0-31.2); Mean Corpuscular Volume 90.4 fl (81-99); Mean Platelet Volume 8.9 fl (7.4-10.4); Monocytes # 0.7 K/mm3 (0.1-1.0); Monocytes % 6.1 % (1.7-9.3); Neutrophils # 7.4 K/mm3 (1.8-7.8); Neutrophils % 68.1 % (37.0-80.0); Platelet Count 339 K/mm3 (142-424); Red Blood Count 5.02 M/mm3 (4.20-5.40); Red Cell Distribution Width 14.5 % (11.5-17.5); White Blood Count 10.8 K/mm3 (4.8-10.8)
[2022-02-02 21:43] LABS: Alanine Aminotransferase 28 U/L (12-78); Albumin Level 4.6 g/dl (3.5-5.0); Albumin/Globulin Ratio 1.3 (1.1-1.8); Alkaline Phosphatase 80 U/L (38-126); Amylase 88 U/L (30-110); Anion Gap 14.8 mEq/L (5-15); Aspartate Amino Transferase 37 U/L (14-36); Bilirubin,Total 0.6 mg/dl (0.2-1.3); Blood Urea Nitrogen 8 mg/dl (7-17); Calcium 9.7 mg/dl (8.4-10.2); Carbon Dioxide 27 mmol/L (22.0-30.0); Chloride 102 mmol/L (98-107); Creatinine Clearance Estimated 38 mL/min (50-200); Estimated Glomerular Filt Rate 69 ml/min (>60); GFR (African American) 83 ML/MIN (>60); Globulin 3.5 g/dL (1.3-3.2); Glucose 114 mg/dl (74-100); Lipase 164 U/L (23-300); Potassium 3.8 mmoL/L (3.5-5.1); Sodium 140 mmol/L (136-145); Total Protein,Serum 8.1 g/dl (6.3-8.2)
[2022-02-02 21:49] LABS: C-Reactive Protein 1.3 mg/L (0-4)
--- NOTE | 2022-02-02 21:58 | HMH.EDABDPAI ---
Discharge Plan Disposition Patient Disposition: Admitted as Observation Chief Complaint: Abdominal Pain Clinical Impressions Clinical Impression: Ileus Discharge ED Provider: Darío Etienne Abdominal Pain HPI General Chief Complaint: Abdominal Pain Stated Complaint: ADM PAINS AND VOMITTING Time Seen by Provider: 02/02/22 21:58 Mode of Arrival: Family Vehicle Source of Information: Patient, Relative and Medical Record Limitations: No Limitations Description of Symptoms (Recalled from ER Triage Doc. by RN): Pt c/o Upper ABD pain and n/v. States she was seen here earlier today and was dx with enteritis. Pt reports the pain is more severe than when she was here earlier and has not been able to keep anything down . Denies diarrhea. Denies fever or chills. Tender to upper abd. History of Present Illness HPI narrative: seen in the ed earlier with abd pain and felt to have enteritis - pt reports pain and increased and abd distention and returned for eval complaint: abdominal pain Onset (ago): hour(s) Consistency: intermittent Location: diffuse Severity: moderate Quality: sharp Associated symptoms: nausea Related Data Home Medications Medication Instructions Recorded Confirmed levothyroxine 50 mcg tablet 50 mcg PO DAILY thyroid 03/20/20 02/02/22 nozdfmhagsbo-nfousisr-rhygt acid 1 each PO DAILY Supplement 11/01/20 02/02/22 400 mcg-vitamin K 80 mcg capsule omega3 300 mg-dha,epa 250 mg-other 1 each PO DAILY Supplement 11/01/20 02/02/22 omega 3s-fish oil 1,000 mg capsule metoprolol succinate 25 mg See Rx Instructions .Route 11/15/21 02/02/22 tablet,extended release 24 hr .COMPLEX . ferrous fumarate 325 mg (106 mg 325 mg PO DAILY Supplement 11/22/21 02/02/22 iron) tablet ticagrelor 90 mg tablet 90 mg PO BID DAPT 12/11/21 02/02/22 aspirin 81 mg tablet,delayed 81 mg PO DAILY CAD 02/02/22 02/02/22 release (Adult Low Dose Aspirin) pantoprazole 40 mg tablet,delayed 40 mg PO DAILY GERD 02/02/22 02/02/22 release (Protonix) Previous Rx's Medication Instructions Recorded rosuvastatin 20 mg tablet 20 mg PO DAILY Cholesterol #30 tabs 12/04/21 ondansetron 4 mg disintegrating 4 mg PO Q8H PRN nausea and 02/02/22 tablet vomiting 5 days #20 tabs Allergies Allergy/AdvReac Type Severity Reaction Status Date / Time Penicillins Allergy Verified 12/23/21 11:26 losartan AdvReac Mild GI upset Verified 12/23/21 11:26 PFSH PFSH Surgical History History of cardiac cath History of coronary artery stent placement Social History Smoking Status: Never smoker second hand exposure: No alcohol intake: never substance use type: denies use current occupational status: retired Travel in the last 8 weeks: Inside the [place] household members: none housing: house current occupational exposures/hazards: No caffeine: No ROS Obtained: Yes All systems reviewed & no additional complaints except as documented Physical Exam General General appearance: alert Head Head exam: normocephalic Eye Eye exam: Present PERRL and EOMI ENT ENT exam: Present mucous membranes dry Neck Neck exam: Present trachea midline Respiratory Respiratory exam: Absent respiratory distress Cardiovascular Cardiovascular exam: Present regular rate and systolic murmur Abdominal Exam Abdominal exam: Present soft, tenderness and diminished bowel sounds; Absent guarding, rebound, ascites or pulsatile mass Abdominal tenderness: Present diffuse and moderate Extremities Exam Extremities exam: Absent tenderness Neurological Exam Neurological exam: Present alert, oriented X3 and CN II-XII intact; Absent other Skin Skin exam: Absent rash Medical Decision Making Medical Records Medical records reviewed: Yes I reviewed the patient's medical records. [place] Inquiry Pt receiving controlled substance: No Vital Signs:
[2022-02-02 22:00] VITALS: BP 156/68; PULSE 68; O2SAT 96
[2022-02-02 22:02] LABS: Procalcitonin 0.084 ng/mL (0.0-2.0)
[2022-02-02 22:03] LABS: Erythrocyte Sedimentation Rate 15 mm/hr (0-30)
--- NOTE | 2022-02-02 22:29 | PC.NURSE ---
Pt complains of severe pain. RN and MD notified.
--- NOTE | 2022-02-02 23:06 | PC.NURSE ---
Verbal order recevied from Dr. Etienne for Morphine 2mg IVP 1x for pain control for pt.
--- NOTE | 2022-02-02 23:09 | PC.NURSE ---
speaking with Dr. Arevalo
[2022-02-02 23:28] LABS: Influenza A, PCR Not Detected (NotDetected); Influenza B, PCR Not Detected (NotDetected)
[2022-02-02 23:50] LABS: Coronavirus 19, PCR Detected (NotDetected)
[2022-02-02 23:52] LABS: Lactic Acid 1.9 mmol/L (0.7-2.1)
--- NOTE | 2022-02-02 23:56 | PC.NURSE ---
Serology is positive for MD [place] notified. Pt reports she had a home test positive at least 3 wk ago. She was not seen in ER for this. Denies cough, soa, or fever.
[2022-02-03 00:10] VITALS: BP 142/80; PULSE 68; RESP 19; TEMP 36.8; O2SAT 98
[2022-02-03 01:03] VITALS: BP 151/57; PULSE 70; RESP 16; TEMP 36.7; O2SAT 99
[2022-02-03 04:00] VITALS: BP 127/52; PULSE 66; RESP 16; TEMP 36.7; O2SAT 93
[2022-02-03 04:16] VITALS: BMI 20.6
--- NOTE | 2022-02-03 05:26 | PC.NURSE ---
NO ACUTE CHANGES SINCE PREVIOUS ASSESSMENT. PT HAS RESTED WELL SINCE ARRIVING TO THE FLOOR. LUNG SOUNDS ARE CLEAR AND PT IS TOLERATING ROOM AIR WELL. PT HAS C/O ABD PAIN X1 THIS SHIFT AND WAS MEDICATED PER MAR WITH ADEQUATE RELIEF. PT HAS NOT HAD ANY C/O NAUSEA AND VOMITING SINCE ARRIVING TO THE FLOOR. CALL OLSEN WITHIN REACH. VSS.
[2022-02-03 06:27] LABS: Basophils % 0.6 % (0.1-2.0); Eosinophils # 0.1 K/mm3 (0.0-0.4); Eosinophils % 1.6 % (0.1-12.0); Hematocrit 34.2 % (37.0-47.0); Lymphocytes # 1.8 K/mm3 (0.7-4.5); Lymphocytes % 24.5 % (10-50); Mean Corpuscular HGB Conc 32.7 g/dL (31.8-35.4); Mean Corpuscular Hemoglobin 29.6 pg (27.0-31.2); Mean Corpuscular Volume 90.4 fl (81-99); Mean Platelet Volume 8.8 fl (7.4-10.4); Monocytes # 0.6 K/mm3 (0.1-1.0); Monocytes % 7.8 % (1.7-9.3); Neutrophils # 4.7 K/mm3 (1.8-7.8); Neutrophils % 65.5 % (37.0-80.0); Platelet Count 230 K/mm3 (142-424); Red Blood Count 3.78 M/mm3 (4.20-5.40); Red Cell Distribution Width 14.6 % (11.5-17.5); White Blood Count 7.1 K/mm3 (4.8-10.8)
[2022-02-03 06:38] LABS: Chloride 110 mmol/L (98-107); Potassium 3.9 mmoL/L (3.5-5.1); Sodium 141 mmol/L (136-145)
[2022-02-03 06:41] LABS: Alanine Aminotransferase 17 U/L (12-78); Albumin Level 3.3 g/dl (3.5-5.0); Albumin/Globulin Ratio 1.4 (1.1-1.8); Alkaline Phosphatase 47 U/L (38-126); Anion Gap 8.9 mEq/L (5-15); Aspartate Amino Transferase 32 U/L (14-36); Bilirubin,Total 0.3 mg/dl (0.2-1.3); Blood Urea Nitrogen 6 mg/dl (7-17); Carbon Dioxide 26 mmol/L (22.0-30.0); Creatinine Clearance Estimated 38 mL/min (50-200); Estimated Glomerular Filt Rate 80 ml/min (>60); GFR (African American) 97 ML/MIN (>60); Globulin 2.4 g/dL (1.3-3.2); Glucose 98 mg/dl (74-100); Total Protein,Serum 5.7 g/dl (6.3-8.2)
[2022-02-03 06:51] LABS: Hemoglobin 11.2 g/dL (12.2-16.2)
--- NOTE | 2022-02-03 07:35 | HMH.PHAINT1 ---
Pharmacy Intervention Comments: Home medication reconciliation completed using outpatient pharmacy list.
[2022-02-03 08:00] VITALS: BP 123/58; PULSE 74; RESP 17; TEMP 36.8; O2SAT 96
--- NOTE | 2022-02-03 08:34 | DIET.NUTRFU ---
During rounds, per Dr Coleman advanced diet to clear liquids now and full liquids for lunch. Kitchen notified
[2022-02-03 15:16] LABS: Adenovirus F 40/41, stool Not Detected (NotDetected); Astrovirus Not Detected (NotDetected); Campylobacter Not Detected (NotDetected); Clostridium Difficile A/B, PCR Not Detected (NotDetected); Cryptosporidium Not Detected (NotDetected); Cyclospora Cayetanesis Not Detected (NotDetected); Entamoeba histolytica Not Detected (NotDetected); Enteroaggregative E coli Not Detected (NotDetected); Enteropathogenic E coli Not Detected (NotDetected); Enterotoxigenic E coli Not Detected (NotDetected); Giardia lamblia Not Detected (NotDetected); Norovirus Not Detected (NotDetected); Plesimonas Shigalloides, PCR Not Detected (NotDetected); Rotavirus A Not Detected (NotDetected); Salmonella, PCR Not Detected (NotDetected); Sapovirus Not Detected (NotDetected); Shiga-like toxin E coli Not Detected (NotDetected); Shigella Enterovasive E coli Not Detected (NotDetected); Vibrio Cholerae Not Detected (NotDetected); Vibrio, PCR Not Detected (NotDetected); Yersinia Entercolitica, PCR Not Detected (NotDetected)
[2022-02-03 16:00] VITALS: BP 131/52; PULSE 67; RESP 16; TEMP 36.7; O2SAT 95
[2022-02-03 18:00] LABS: Occult Blood,Stool Negative (Negative)
--- NOTE | 2022-02-03 18:09 | PC.NURSE ---
Stool negative, although pt has had multiple episodes of loose black stools this evening. Prn morphine given per mar. VSS. Did help pt shower. CB in reach. Labs to be checked in am, NPO at 0000, and general surgery notified of consult for chele am.
[2022-02-03 20:00] VITALS: BP 159/65; PULSE 74; RESP 16; TEMP 36.8; O2SAT 97
[2022-02-04] VITALS: BP 146/64; PULSE 72; RESP 16; TEMP 36.7; O2SAT 95
[2022-02-04 04:00] VITALS: BP 127/59; PULSE 72; RESP 16; TEMP 36.7; O2SAT 95
--- NOTE | 2022-02-04 04:35 | PC.NURSE ---
Pt has c/o abdominal pain this shift. Medicated for pain per MAR. No dark stools or N/V this shift. Used BSC independently-standby assist.
[2022-02-04 05:00] VITALS: BMI 20.6
[2022-02-04 06:40] LABS: Basophils % 0.5 % (0.1-2.0); Eosinophils # 0.3 K/mm3 (0.0-0.4); Eosinophils % 4.3 % (0.1-12.0); Hematocrit 33.5 % (37.0-47.0); Hemoglobin 10.9 g/dL (12.2-16.2); Lymphocytes % 30.4 % (10-50); Mean Corpuscular HGB Conc 32.7 g/dL (31.8-35.4); Mean Corpuscular Hemoglobin 29.7 pg (27.0-31.2); Mean Platelet Volume 8.9 fl (7.4-10.4); Monocytes # 0.5 K/mm3 (0.1-1.0); Neutrophils # 3.7 K/mm3 (1.8-7.8); Neutrophils % 56.8 % (37.0-80.0); Platelet Count 226 K/mm3 (142-424); Red Blood Count 3.68 M/mm3 (4.20-5.40); Red Cell Distribution Width 14.5 % (11.5-17.5); White Blood Count 6.5 K/mm3 (4.8-10.8)
[2022-02-04 06:44] LABS: Chloride 108 mmol/L (98-107); Sodium 138 mmol/L (136-145)
[2022-02-04 06:45] LABS: Potassium 3.7 mmoL/L (3.5-5.1)
[2022-02-04 06:47] LABS: Blood Urea Nitrogen 4 mg/dl (7-17); Creatinine Clearance Estimated 38 mL/min (50-200); Estimated Glomerular Filt Rate 96 ml/min (>60); GFR (African American) 116 ML/MIN (>60)
[2022-02-04 06:48] LABS: Anion Gap 8.7 mEq/L (5-15); Calcium 7.5 mg/dl (8.4-10.2); Carbon Dioxide 25 mmol/L (22.0-30.0); Glucose 86 mg/dl (74-100)
--- NOTE | 2022-02-04 07:15 | EXP.SURG.CON ---
History of Present Illness *Admission Date: 02/02/22 *Reason for visit:: EGD for stomach pain *History of present illness: Patient is an 81-year-old female with history of hypertension, SVT, atrial fibrillation, carotid artery stenosis, coronary artery disease, previous stenting on Brilinta who had previously undergone cholecystectomy and appendectomy. She had presented to the emergency department on 02/02/2022 with epigastric right upper quadrant pain with some associated emesis. She had normal bowel movements. CT scan of the abdomen pelvis with IV contrast at that time revealed moderate wall thickening of loops of distal ileum consistent with a nonspecific enteritis. Patient was managed as an outpatient for enteritis. She presented back to the emergency department later in the evening of 02/02/2022 with some progressive pain and vomiting. Plain radiographs revealed findings of abnormal gas and mildly prominent small bowel loops more suggestive of ileus versus obstruction. Stool diarrhea panel is negative for infectious etiology. She has positivity for SARS-CoV-2. Patient has had anemia and required blood transfusion. Patient had an EGD performed by Dr. Somers on 11/20/2021 which was normal. He also did a colonoscopy at that time which revealed a focal area of persistent oozing in the proximal descending colon with no identifiable mucosal abnormality otherwise colonoscopy unremarkable other than tortuous colon. [facility] Medical History (Updated 02/03/22 @ 00:24 by Elma Kam RN) Appendicitis Atrial fibrillation History of COVID-19 History of gastroesophageal reflux (GERD) History of transient ischemic attack (TIA) Surgical History (Updated 02/03/22 @ 00:24 by Elma Kam RN) History of appendectomy History of cardiac cath History of colonoscopy History of coronary artery stent placement History of hysterectomy Hx of esophagogastroduodenoscopy Family History (Updated 02/03/22 @ 00:26 by Elma Kam RN) Family history of GERD Family history of kidney stone Family history of stroke Family history of cancer Family history of hypertension Family history of diabetes mellitus type II Family history of myocardial infarction Family history of hyperlipidemia Social History (Updated 02/03/22 @ 00:26 by Elma Kam RN) Smoking Status: Never smoker second hand exposure: No alcohol intake: never substance use type: denies use current occupational status: retired Travel in the last 8 weeks: [place] the [place] household members: none housing: house current occupational exposures/hazards: No caffeine: No Meds Home Medications and Allergies Home Medications Medication Instructions Recorded Confirmed Type levothyroxine 50 mcg tablet 50 mcg PO DAILY hypothyroidism 03/20/20 02/02/22 History talcxbfozdxn-pimvnuqp-ojhlw acid 1 each PO DAILY Supplement 11/01/20 02/02/22 History 400 mcg-vitamin K 80 mcg capsule omega3 300 mg-dha,epa 250 mg-other 1 each PO DAILY Supplement 11/01/20 02/02/22 History omega 3s-fish oil 1,000 mg capsule ferrous fumarate 325 mg (106 mg 325 mg PO DAILY Supplement 11/22/21 02/02/22 History iron) tablet rosuvastatin 20 mg tablet 20 mg PO DAILY Cholesterol #30 tabs 12/04/21 02/02/22 Rx ticagrelor 90 mg tablet 90 mg PO BID DAPT 12/11/21 02/02/22 History aspirin 81 mg tablet,delayed 81 mg PO DAILY paroxysmal atrial 02/02/22 02/02/22 History release (Adult Low Dose Aspirin) fibrillation ondansetron 4 mg disintegrating 4 mg PO Q8H PRN nausea and 02/02/22 02/02/22 Rx tablet vomiting 5 days #20 tabs pantoprazole 40 mg tablet,delayed 40 mg PO DAILY acid reflux 02/02/22 02/02/22 History release (Protonix) metoprolol succinate 25 mg 25 mg PO DAILY Hypertension 02/03/22 02/03/22 History tablet,extended release 24 hr New Prescriptions to Start Prescriptions: Allergies Allergy/AdvReac Type Severity Reaction Status Date / Time Penicillins Allerg
[2022-02-04 08:00] VITALS: BP 132/58; PULSE 72; RESP 22; TEMP 36.9; O2SAT 93
--- NOTE | 2022-02-04 08:04 | CT_ITS ---
FINAL REPORT TECHNIQUE: Axial CT images were performed through the abdomen pelvis utilizing a CTA protocol. Coronal and sagittal reformatted images were submitted. This study was performed with techniques to keep radiation doses as low as reasonably achievable (ALARA). Individualized dose reduction techniques using automated exposure control or adjustment of mA and/or kV according to the patient's size were employed. CLINICAL HISTORY: ABDOMINAL PAIN COMPARISON: 02/02/2022 FINDINGS: CTA: The abdominal aorta is proper caliber. There is no evidence of aneurysm or dissection. There is moderate plaque in the abdominal aorta. The SMA, celiac axis, and HODA are patent. There is no significant stenosis or calcification. There is mild stenosis of the proximal right renal artery of less than 50%. The left renal artery is unremarkable. ABDOMEN: There is mild bibasilar atelectasis or scarring. The liver is normal in size and attenuation. There is evidence of cholecystectomy. The spleen is unremarkable. The adrenals are normal. The pancreas is unremarkable. The kidneys enhance appropriately. The aorta is normal in caliber. There is a small amount of abdominal ascites, worse from prior. No findings for mechanical bowel obstruction are identified. PELVIS: The appendix is not identified. There is persistent wall thickening of the ileal loops in the pelvis consistent with edema or inflammation. The urinary bladder is unremarkable. There is a small amount of pelvic ascites. There is no free air. There is no evidence of bowel obstruction. There has been hysterectomy. IMPRESSION: No aortic aneurysm or dissection. Mild stenosis of the proximal right renal artery. Worsening ascites in the abdomen and pelvis. Persistent small bowel wall thickening in the pelvis may be due to enteritis or possible bowel ischemia. Reviewed, Interpreted and Dictated by Zachary Momin III, MD Transcribed by Rock Duque Authenticated and [facility]
--- NOTE | 2022-02-04 08:51 | EXP.PN ---
Subjective *Date: 02/04/22 *Time: 08:51 Interval history: Patient's trial of clear liquids yesterday did not really go well, she did drink quite a bit of carbonated beverages and after these were discontinued she felt little bit better, however had some black stools and continued to have some swelling in her abdomen. As a result, consulted surgery to get their opinion about EGD versus further bowel work-up today, I appreciate surgery intervention and discussed case with surgeon personally and reviewed their note. Exam Data for Last 24 hours Vital signs and Labs for Last 24 Hours: Temp Pulse Resp BP Pulse Ox 98.1 F 72 16 127/59 L 95 02/04/22 04:00 02/04/22 04:00 02/04/22 04:00 02/04/22 04:00 02/04/22 04:00 Laboratory Results - last 24 hr 02/03/22 15:10: Stl Aeromonas (PCR) Not detected, Stl C. cayetanensis PCR Not detected, Stool Rotavirus (PCR) Not detected, Stl Adenov F 40/41 PCR Not detected, Stool Astrovirus (PCR) Not detected, Stool Campylobacter PCR Not detected, Stl C.difficile Tox PCR Not detected, Stool Cryptosporidium PCR Not detected, Stl E.coli Shiga Tox PCR Not detected, Stool E coli O157 PCR Not detected, Stl Enterotoxigenic E PCR Not detected, Stool EPEC (PCR) Not detected, Stool EAEC (PCR) Not detected, Stl E. histolytica PCR Not detected, Stool Giardia Lamblia PCR Not detected, Stool Salmonella PCR Not detected, Stool Sapovirus (PCR) Not detected, Stl P. shigelloides PCR Not detected, Stl Shigella/EIEC PCR Not detected, St Y.enterocolitica PCR Not detected, Stool Vibrio (PCR) Not detected, Stl Vibrio cholerae PCR Not detected, Stl Norovirus GI/GII PCR Not detected 02/03/22 15:10: Stool Occult Blood Negative 02/04/22 06:17: WBC 6.5, RBC 3.68 L, Hgb 10.9 L, Hct 33.5 L, MCV 91.0, MCH 29.7, MCHC 32.7, RDW 14.5, Plt Count 226, MPV 8.9, Neut % (Auto) 56.8, Lymph % (Auto) 30.4, [place] % (Auto) 8.0, Eos % (Auto) 4.3, Baso % (Auto) 0.5, Neut # (Auto) 3.7, Lymph # (Auto) 2.0, [place] # (Auto) 0.5, Eos # (Auto) 0.3, Baso # (Auto) 0.0 02/04/22 06:17: Sodium 138, Potassium 3.7, Chloride 108 H, Carbon Dioxide 25, Anion Gap 8.7, BUN 4 L D, Creatinine 0.60, Estimated Creat Clear 38, Estimated GFR 96, Est GFR ( Amer) 116, Glucose 86, Calcium 7.5 L I & O for Last 24 hours: Intake & Output 02/01/22 02/02/22 02/03/22 02/04/22 11:59 11:59 11:59 11:59 Intake Total 1530 / 1530 2411 / 2411 Output Total 300 / 300 1400 / 1400 Balance 1230 / 1230 1011 / 1011 Weight 121 lb 121 lb Constitutional Comments: Alert, pleasant. No jaundice, lungs clear, heart rate regular. No edema, abdomen is nondistended, remains little bit tender in the right upper quadrant with no rebound or guarding. Assessment and Plan *Assessment and plan (1) Abdominal pain, epigastric: Status: Acute Category: Medical Code(s): R10.13 - Epigastric pain Plan Patient describes subjective pain in the epigastrium but is actually tender in the right lower abdomen. I Reviewed her CT scan. She has definite findings consistent with enteritis with small bowel pathology characterized by thickening and edema with fluid of the distal small bowel. Given this finding as a potential etiology and with her normal EGD a few weeks ago. I feel that an upper endoscopy would be of low yield. She likely has some distal small bowel pathology. This may be actually even in the source of her anemia. Follow-up CT scan as CT angiogram may be reasonable to evaluate for potential segmental ischemia. Agree with surgical plan as noted above. Anemia has stabilized, patient feels a bit better, looking angiogram and follow-up from there with surgery.
--- NOTE | 2022-02-04 10:32 | EXP.HP ---
History of Present Illness *Admission Date: 02/02/22 *Reason for visit:: Abdominal pain *History of present illness: Patient is an 81-year-old female with history of hypertension, SVT, atrial fibrillation, carotid artery stenosis, coronary artery disease, previous stenting on Brilinta who had previously undergone cholecystectomy and appendectomy. She had presented to the emergency department on 02/02/2022 with epigastric right upper quadrant pain with some associated emesis. She had normal bowel movements. CT scan of the abdomen pelvis with IV contrast at that time revealed moderate wall thickening of loops of distal ileum consistent with a nonspecific enteritis. Patient was managed as an outpatient for enteritis. She presented back to the emergency department later in the evening of 02/02/2022 with some progressive pain and vomiting. Plain radiographs revealed findings of abnormal gas and mildly prominent small bowel loops more suggestive of ileus versus obstruction. Stool diarrhea panel is negative for infectious etiology. She has positivity for SARS-CoV-2. Patient has had anemia and required blood transfusion. Patient had an EGD performed by Dr. Somers on 11/20/2021 which was normal. He also did a colonoscopy at that time which revealed a focal area of persistent oozing in the proximal descending colon with no identifiable mucosal abnormality otherwise colonoscopy unremarkable other than tortuous colon. [facility] Medical History (Updated 02/03/22 @ 00:24 by Elma Kam RN) Appendicitis Atrial fibrillation History of COVID-19 History of gastroesophageal reflux (GERD) History of transient ischemic attack (TIA) Surgical History (Updated 02/03/22 @ 00:24 by Elma Kam RN) History of appendectomy History of cardiac cath History of colonoscopy History of coronary artery stent placement History of hysterectomy Hx of esophagogastroduodenoscopy Family History (Updated 02/03/22 @ 00:26 by Elma Kam RN) Family history of GERD Family history of kidney stone Family history of stroke Family history of cancer Family history of hypertension Family history of diabetes mellitus type II Family history of myocardial infarction Family history of hyperlipidemia Social History (Updated 02/03/22 @ 00:26 by Elma Kam RN) Smoking Status: Never smoker second hand exposure: No alcohol intake: never substance use type: denies use current occupational status: retired Travel in the last 8 weeks: [place] the [place] household members: none housing: house current occupational exposures/hazards: No caffeine: No Review of Systems Review of Systems Review of systems:: pertinent systems reviewed and negative unless documented below Meds Home Medications and Allergies Home Medications Medication Instructions Recorded Confirmed Type levothyroxine 50 mcg tablet 50 mcg PO DAILY hypothyroidism 03/20/20 02/02/22 History xxdifqpnmmwu-ciolusbp-dvxcr acid 1 each PO DAILY Supplement 11/01/20 02/02/22 History 400 mcg-vitamin K 80 mcg capsule omega3 300 mg-dha,epa 250 mg-other 1 each PO DAILY Supplement 11/01/20 02/02/22 History omega 3s-fish oil 1,000 mg capsule ferrous fumarate 325 mg (106 mg 325 mg PO DAILY Supplement 11/22/21 02/02/22 History iron) tablet rosuvastatin 20 mg tablet 20 mg PO DAILY Cholesterol #30 tabs 12/04/21 02/02/22 Rx ticagrelor 90 mg tablet 90 mg PO BID DAPT 12/11/21 02/02/22 History aspirin 81 mg tablet,delayed 81 mg PO DAILY paroxysmal atrial 02/02/22 02/02/22 History release (Adult Low Dose Aspirin) fibrillation ondansetron 4 mg disintegrating 4 mg PO Q8H PRN nausea and 02/02/22 02/02/22 Rx tablet vomiting 5 days #20 tabs pantoprazole 40 mg tablet,delayed 40 mg PO DAILY acid reflux 02/02/22 02/02/22 History release (Protonix) metoprolol succinate 25 mg 25 mg PO DAILY Hypertension 02/03/22 02/03/22 History tablet,extended release 24 hr New Prescriptions to [place]
[2022-02-04 12:00] VITALS: BP 126/94; PULSE 66; RESP 18; TEMP 36.6; O2SAT 97
--- NOTE | 2022-02-04 14:16 | PC.NURSE ---
Have attempted to notify Dr. Carrillo and Dr. Coleman in re to pt's ct scan results. Awaiting cb at this time.
--- NOTE | 2022-02-04 15:05 | EXP.SURG.PN ---
Subjective Patient reports: no new complaints Narrative: Patient resting comfortably this afternoon. She states that her abdomen is sore . She describes being weak due to lack of eating and is hungry. CT angiogram of the abdomen pelvis reveals no aortic aneurysm or dissection. Mild stenosis of the proximal right renal artery. Worsening ascites in the abdomen and pelvis. Persistent small bowel wall thickening in the pelvis may be due to enteritis or possible bowel ischemia. . Exam Data for Last 24 hours Vital signs and Labs for Last 24 Hours: Temp Pulse Resp BP Pulse Ox 97.9 F 66 18 126/94 H 97 02/04/22 12:00 02/04/22 12:00 02/04/22 12:00 02/04/22 12:00 02/04/22 12:00 Laboratory Results - last 24 hr 02/03/22 15:10: Stl Aeromonas (PCR) Not detected, Stl C. cayetanensis PCR Not detected, Stool Rotavirus (PCR) Not detected, Stl Adenov F 40/41 PCR Not detected, Stool Astrovirus (PCR) Not detected, Stool Campylobacter PCR Not detected, Stl C.difficile Tox PCR Not detected, Stool Cryptosporidium PCR Not detected, Stl E.coli Shiga Tox PCR Not detected, Stool E coli O157 PCR Not detected, Stl Enterotoxigenic E PCR Not detected, Stool EPEC (PCR) Not detected, Stool EAEC (PCR) Not detected, Stl E. histolytica PCR Not detected, Stool Giardia Lamblia PCR Not detected, Stool Salmonella PCR Not detected, Stool Sapovirus (PCR) Not detected, Stl P. shigelloides PCR Not detected, Stl Shigella/EIEC PCR Not detected, St Y.enterocolitica PCR Not detected, Stool Vibrio (PCR) Not detected, Stl Vibrio cholerae PCR Not detected, Stl Norovirus GI/GII PCR Not detected 02/03/22 15:10: Stool Occult Blood Negative 02/04/22 06:17: WBC 6.5, RBC 3.68 L, Hgb 10.9 L, Hct 33.5 L, MCV 91.0, MCH 29.7, MCHC 32.7, RDW 14.5, Plt Count 226, MPV 8.9, Neut % (Auto) 56.8, Lymph % (Auto) 30.4, [place] % (Auto) 8.0, Eos % (Auto) 4.3, Baso % (Auto) 0.5, Neut # (Auto) 3.7, Lymph # (Auto) 2.0, [place] # (Auto) 0.5, Eos # (Auto) 0.3, Baso # (Auto) 0.0 02/04/22 06:17: Sodium 138, Potassium 3.7, Chloride 108 H, Carbon Dioxide 25, Anion Gap 8.7, BUN 4 L D, Creatinine 0.60, Estimated Creat Clear 38, Estimated GFR 96, Est GFR ( Amer) 116, Glucose 86, Calcium 7.5 L I & O for Last 24 hours: Intake & Output 02/02/22 02/03/22 02/04/22 02/05/22 11:59 11:59 11:59 11:59 Intake Total 1530 / 1530 2411 / 2411 Output Total 300 / 300 1400 / 1400 Balance 1230 / 1230 1011 / 1011 Weight 121 lb 121 lb *Routine Abdominal Exam Comments: Her abdomen is soft. She has mild tenderness subjectively mostly in the right lower abdomen without guarding or rebound. Progress Note: A&P Assessment and plan (1) Abdominal pain, epigastric: Status: Acute Assessment and plan: Clinical scenario not consistent with classic mesenteric ischemia. More likely enteritis with some small bowel pathology. At this time would plan for expectant medical management of this. Likely will ultimately need small bowel evaluation possibly with gastroenterology involvement for capsule endoscopy. May at some point need surgical intervention but no plans for immediate emergent surgical intervention. I will start her on full liquid diet.
[2022-02-04 16:00] VITALS: BP 114/64; PULSE 78; RESP 18; TEMP 36.9; O2SAT 96
[2022-02-04 19:54] VITALS: BP 127/60; PULSE 69; RESP 18; TEMP 36.4; O2SAT 96
--- NOTE | 2022-02-04 19:55 | PC.NURSE ---
Loose bowels after eating noted. Pt states she has had some pain, but minimal and refused morphine. Pt has rested well this shift. Dr. Allan here to see pt this evening. Family updated as well. CB in reach and VSS.
[2022-02-05] VITALS: BP 127/56; PULSE 66; RESP 20; TEMP 36.8; O2SAT 93
[2022-02-05 04:00] VITALS: BP 138/57; PULSE 68; RESP 20; TEMP 36.8; O2SAT 93
--- NOTE | 2022-02-05 05:08 | PC.NURSE ---
pt has c/o abdominal pain this shift and has been medicated prn per jun. No N/V/D so far this shift. she has used BSC independently.
[2022-02-05 07:32] VITALS: BP 138/66; PULSE 75; RESP 17; TEMP 36.8; O2SAT 95
--- NOTE | 2022-02-05 08:23 | EXP.SURG.PN ---
Subjective Patient reports: feels better Narrative: The patient states that she feels better . She wishes to be discharged today if possible . Exam Data for Last 24 hours Vital signs and Labs for Last 24 Hours: Temp Pulse Resp BP Pulse Ox 98.2 F 75 17 138/66 95 02/05/22 07:32 02/05/22 07:32 02/05/22 07:32 02/05/22 07:32 02/05/22 07:32 I & O for Last 24 hours: Intake & Output 02/02/22 02/03/22 02/04/22 02/05/22 11:59 11:59 11:59 11:59 Intake Total 1530 / 1530 2411 / 2411 2773 / 2773 Output Total 300 / 300 1400 / 1400 1200 / 1200 Balance 1230 / 1230 1011 / 1011 1573 / 1573 Weight 121 lb 121 lb Constitutional Constitutional: no acute distress *Routine Respiratory Exam Respiratory: Absent respiratory distress *Routine Cardiovascular Exam Cardiovascular: Absent tachycardia *Routine Abdominal Exam Abdominal: Present soft and tenderness Progress Note: A&P Assessment and plan (1) Enteritis: Status: Acute Assessment and plan: Clinically improving. Continue management as per primary service. Short-term reevaluation with gastroenterology service warranted (may benefit from small bowel follow-through, capsule endoscopy, or repeat colonoscopy with ileocecal valve intubation) (2) Abdominal pain, epigastric: Status: Acute (3) Anemia: Status: Acute
--- NOTE | 2022-02-05 08:59 | EXP.DC.SUM ---
General Admission date:: 02/02/22 Discharge date: 02/05/22 HPI HPI HPI: Patient is an 81-year-old female with history of hypertension, SVT, atrial fibrillation, carotid artery stenosis, coronary artery disease, previous stenting on Brilinta who had previously undergone cholecystectomy and appendectomy. She had presented to the emergency department on 02/02/2022 with epigastric right upper quadrant pain with some associated emesis. She had normal bowel movements. CT scan of the abdomen pelvis with IV contrast at that time revealed moderate wall thickening of loops of distal ileum consistent with a nonspecific enteritis. Patient was managed as an outpatient for enteritis. She presented back to the emergency department later in the evening of 02/02/2022 with some progressive pain and vomiting. Plain radiographs revealed findings of abnormal gas and mildly prominent small bowel loops more suggestive of ileus versus obstruction. Stool diarrhea panel is negative for infectious etiology. She has positivity for SARS-CoV-2. Patient has had anemia and required blood transfusion. Patient had an EGD performed by Dr. Somers on 11/20/2021 which was normal. He also did a colonoscopy at that time which revealed a focal area of persistent oozing in the proximal descending colon with no identifiable mucosal abnormality otherwise colonoscopy unremarkable other than tortuous colon. Hospital Course Hospital Course Hospital Course: Patient was admitted for IV fluids and abdominal pain. She had improvement initially, but then had a bit of worsening with food yesterday. Surgery was consulted, repeated a CTA which showed ongoing ileus but no evidence of mesenteric obstruction in the vessels per se. After the CTA the patient improved nicely and was able to eat and drink fairly well. Should her pain improved and this morning she wished to go home. She had 1 episode of liquid stool, unfortunately stool PCR was not sent as it had been negative the day before and her previous stool pattern. Exam head is essentially normalized. Working diagnosis is ileus versus possible inflammatory bowel disease. Of note her CBC has been normal throughout her hospital stay. Her lowered hemoglobin has stabilized after hydration. Plan will be to discharge home today. Cautious improvement in her diet. We will see her back in 6 days for follow-up and she will follow-up with her GI doctors. Exam Data for Last 24 hours Vital signs and Labs for Last 24 Hours: Temp Pulse Resp BP Pulse Ox 98.2 F 75 17 138/66 95 02/05/22 07:32 02/05/22 07:32 02/05/22 07:32 02/05/22 07:32 02/05/22 07:32 I & O for Last 24 hours: Intake & Output 02/02/22 02/03/22 02/04/22 02/05/22 11:59 11:59 11:59 11:59 Intake Total 1530 / 1530 2411 / 2411 2773 / 2773 Output Total 300 / 300 1400 / 1400 1200 / 1200 Balance 1230 / 1230 1011 / 1011 1573 / 1573 Weight 121 lb 121 lb Constitutional Constitutional: no acute distress *Routine HEENT Exam Head: Present normocephalic Eye: Present EOMI and PERRL ENT: Present mucous membranes moist *Routine Neck Exam Neck: Present supple; Absent lymphadenopathy *Routine Respiratory Exam Respiratory: Present CTA bilaterally *Routine Cardiovascular Exam Cardiovascular: Present RRR *Routine Abdominal Exam Abdominal: Present soft, normoactive bowel sounds and tenderness Comments: Very mild lower quadrant tenderness bilaterally, vastly improved over yesterday's exam *Routine Extremities Exam Extremities: Absent cyanosis, clubbing or edema *Routine Skin Exam Skin: Present warm; Absent rash *Routine Neurological Exam Neurological: Present alert and oriented X3 DS: Diagnosis Discharge Diagnosis (1) Enteritis: Status: Acute (2) Abdominal pain, epigastric: Status: Acute (3) Anemia: Status: Acute Meds Home Medications and Allergies Home Medications Medication Instructions Recorded Confirmed Type levothyroxine 50
--- NOTE | 2022-02-06 13:45 | CARE MANAGER ---
Contacted patient related to hospital discharge. She states she is better but is still having some diarrhea. She states she was trying to get in touch with Dr. Somers to schedule an appointment. Provided her with number to his office in [place]. She states she is aware of follow up appointment. Denies any questions or concerns. ALEXEY Souza
== END 2022-02-05 11:33 | disposition home or self-care (01) ==
LOC: ER 23:20 → 2ND 23:28
PROVIDERS: Admitting Provider Family Medicine; Emergency Provider Emergency Medicine; PCP Nurse Practitioner Family; Visit Provider Internal Medicine Adolescent Medicine
DX: R10.13 Epigastric pain (principal); K52.9 Noninfective gastroenteritis and colitis, unspecified; D64.9 Anemia, unspecified; I10 Essential (primary) hypertension; I48.0 Paroxysmal atrial fibrillation; I25.10 Atherosclerotic heart disease of native coronary artery without angina pectoris; Z79.01 Long term (current) use of anticoagulants; I65.23 Occlusion and stenosis of bilateral carotid arteries; Z95.5 Presence of coronary angioplasty implant and graft; Z79.899 Other long term (current) drug therapy; U07.1 COVID-19
CPT/HCPCS: G0378; 36415; 74021; 74174; 74177; 80048; 80053; 81001; 82150; 82272; 83605; 83690; 84145; 84484; 85025; 85651; 86140; 87507; 93005; 99285; C9803; G0328; J2405; Q9967; U0003; U0005

== ENCOUNTER → 2022-03-27 08:59 | Outpatient (CLI) | payer MEDICARE, MEDICAID, SELFPAY ==
[2022-03-27 09:34] LABS: Basophils # 0.1 K/mm3 (0-0.2); Basophils % 0.9 % (0.1-2.0); Eosinophils # 0.2 K/mm3 (0.0-0.4); Hematocrit 40.9 % (37.0-47.0); Hemoglobin 12.8 g/dL (12.2-16.2); Lymphocytes # 1.9 K/mm3 (0.7-4.5); Lymphocytes % 32.7 % (10-50); Mean Corpuscular HGB Conc 31.3 g/dL (31.8-35.4); Mean Corpuscular Hemoglobin 28.6 pg (27.0-31.2); Mean Corpuscular Volume 91.4 fl (81-99); Mean Platelet Volume 9.2 fl (7.4-10.4); Monocytes # 0.5 K/mm3 (0.1-1.0); Monocytes % 8.5 % (1.7-9.3); Neutrophils # 3.1 K/mm3 (1.8-7.8); Platelet Count 269 K/mm3 (142-424); Red Blood Count 4.48 M/mm3 (4.20-5.40); Red Cell Distribution Width 15.6 % (11.5-17.5); White Blood Count 5.8 K/mm3 (4.8-10.8)
[2022-03-27 10:35] LABS: Blood Urea Nitrogen 12 mg/dl (7-17); Calcium 9.8 mg/dl (8.4-10.2); Carbon Dioxide 29 mmol/L (22.0-30.0); Chloride 106 mmol/L (98-107); Estimated Glomerular Filt Rate 69 ml/min (>60); GFR (African American) 83 ML/MIN (>60); Glucose 97 mg/dl (74-100); Sodium 140 mmol/L (136-145)
[2022-03-27 11:12] LABS: Anion Gap 9.2 mEq/L (5-15); Potassium 4.2 mmoL/L (3.5-5.1)
== END ==
PROVIDERS: PCP Nurse Practitioner Family; Visit Provider Nurse Practitioner
DX: E78.2 Mixed hyperlipidemia; I10 Essential (primary) hypertension; I65.23 Occlusion and stenosis of bilateral carotid arteries
CPT/HCPCS: 36415; 80048; 85025

== ENCOUNTER 2022-10-18 09:45 | Emergency (ER) | payer MEDICARE, MEDICAID, SELFPAY ==
[2022-10-18] VITALS (11 sets, daily range): BP systolic 119–170; BP diastolic 63–78; PULSE 59–73; RESP 19–20; TEMP 37; O2SAT 93–98; BMI 23.2
--- NOTE | 2022-10-18 09:45 | ECG_ITS ---
APPROVED REPORT Exam: Resting ECG HR:72 bpm ECG Measurements Heart Rate 72 AXES WY 148 P 55 QRSd 88 QRS -6 QT 394 T 64 QTc 418 Conclusion SINUS RHYTHM NONSPECIFIC ST & T-WAVE ABNORMALITY BORDERLINE ECG UNCONFIRMED REPORT Electronically signed by : Jose Coleman MD 10/18/2022 21:16:16
--- NOTE | 2022-10-18 09:56 | PC.NURSE ---
at the bedside
--- NOTE | 2022-10-18 10:03 | XR_ITS ---
PROCEDURE INFORMATION: Exam: XR Chest Exam date and time: 10/18/2022 10:08 AM Age: 81 years old Clinical indication: Pain; Chest pressure; Additional info: Presyncope, shest tightness, HX of stents TECHNIQUE: Imaging protocol: Radiologic exam of the chest. Views: 1 view. COMPARISON: CR XR CHEST PORTABLE 10/08/2020 4:34 PM FINDINGS: Lungs: No evidence of pneumonia or interstitial edema. Pleural spaces: Unremarkable. No pleural effusion. No pneumothorax. Heart/Mediastinum: Unremarkable. No cardiomegaly. Bones/joints: Unremarkable. IMPRESSION: No evidence of pneumonia or interstitial edema.
--- NOTE | 2022-10-18 10:06 | PC.NURSE ---
pt medicated per MAR. family at the bedside
[2022-10-18 10:09] LABS: Chloride 105 mmol/L (98-107); Potassium 4.2 mmoL/L (3.5-5.1); Sodium 141 mmol/L (136-145)
--- NOTE | 2022-10-18 10:10 | HMH.EDGENADL ---
Discharge Plan Disposition Patient Disposition: Home, Self-Care Condition: Good Prescriptions Prescriptions: No Action rosuvastatin 20 mg tablet 20 mg PO DAILY ferrous fumarate 325 mg (106 mg iron) tablet 325 mg PO DAILY clopidogrel [Plavix] 75 mg tablet 75 mg PO QDAY Qty: 90 1RF pantoprazole [Protonix] 40 mg tablet,delayed release (DR/EC) 40 mg PO DAILY Qty: 90 3RF Xarelto 20 mg tablet 20 mg PO DAILY Qty: 90 3RF Rx Instructions: must administer with evening meal metoprolol succinate 25 mg tablet extended release 24 hr 25 mg PO DAILY Label Comments: TAKE 1 TABLET BY MOUTH ONCE DAILY levothyroxine 50 MCG tablet 50 mcg PO DAILY Label Comments: TAKE 1 TABLET BY MOUTH IN THE MORNING (APPOINTMENT NEEDED FOR ANY FURTHER REFILLS) hjckzwrx-zow-ckiox acid-vit K 1 EACH capsule 1 each PO DAILY xptjt-8n-tso-epa-fish oil 1 EACH capsule 1 each PO DAILY ondansetron 4 mg tablet,disintegrating 4 mg PO Q8H PRN (Reason: nausea and vomiting) 5 Days Qty: 20 0RF Referrals Follow up/Referrals: Provider,Referral, MD [Referring] - See instructions Activity Restrictions/Add. Instructions Additional Instructions/Restrictions: Follow-up with your family doctor regarding this visit to the emergency department and adjustment of your medications. Cut your metoprolol succinate 25 mg in half. Also discuss adjusting your thyroid medications downward in order to correct thyroid numbers after adjusting blood pressure medications, if needed. If you have any other concerning signs or symptoms, return to the ER for further evaluation Clinical Impressions Clinical Impression: Chest pain, Episodic lightheadedness Discharge ED Provider: Kvng Romna General Adult HPI General Chief complaint: Weakness Stated complaint: Chest pain Time Seen by Provider: 10/18/22 09:50 Mode of Arrival: Ambulatory Source of Information: Patient Limitations: No Limitations Description of Symptoms (Recalled from ER Triage Doc. by RN): pt to ed c/o dizziness, bilateral arm heaviness and generalized weakness that began last thursday. pt states these symptoms are intermittent with no rhyme or reason. pt denies chest pain or SOA. NIH-0 on arival. pt a&o x4. History of Present Illness HPI narrative: This is an 81-year-old female with history of hypertension, hyperlipidemia, paroxysmal A-fib status post CVA currently on Xarelto, NSTEMI status post stent placement currently on Plavix who is presenting with dizziness. Patient states that since Thursday, 10/12, patient has had intermittent episodes of dizziness. She has had 3 episodes this week. All of them were associated with standing from seated position. First episode associated with standing from couch, second episode associated with standing after using toilet, most recent episode, patient states she was standing from a chair at a restaurant after eating. This happened shortly prior to arrival. She stood up, felt lightheaded, bilateral arm weakness, bilateral leg weakness, nauseated, and was able to sit down. After sitting down, symptoms lasted 1 to 2 minutes before resolving. Completely resolved on arrival to the emergency department. Has associated chest tightness during his episodes, which does not radiate. But denies unilateral weakness, vomiting, shortness of breath, diaphoresis, bowel or bladder dysfunction, loss of consciousness, vision changes, or any other neurologic deficits. Related Data Home Medications Medication Instructions Recorded Confirmed levothyroxine 50 mcg tablet 50 mcg PO DAILY hypothyroidism 03/20/20 04/24/22 oimwoykrtvrj-zqwuzfng-boesa acid 1 each PO DAILY Supplement 11/01/20 04/24/22 400 mcg-vitamin K 80 mcg capsule omega3 300 mg-dha,epa 250 mg-other 1 each PO DAILY Supplement 11/01/20 04/24/22 omega 3s-fish oil 1,000 mg capsule ferrous fumarate 325 mg (106 mg 325 mg PO DAILY Supplement 11/22/21 04/24/22 iron) tabl
[2022-10-18 10:12] LABS: Alanine Aminotransferase 26 U/L (12-78); Albumin Level 4.3 g/dl (3.5-5.0); Albumin/Globulin Ratio 1.3 (1.1-1.8); Alkaline Phosphatase 69 U/L (38-126); Anion Gap 14.2 mEq/L (5-15); Aspartate Amino Transferase 40 U/L (14-36); Bilirubin,Total 0.6 mg/dl (0.2-1.3); Blood Urea Nitrogen 9 mg/dl (7-17); Carbon Dioxide 26 mmol/L (22.0-30.0); Creatinine Clearance Estimated 38 mL/min (50-200); Estimated Glomerular Filt Rate 80 ml/min (>60); GFR (African American) 97 ML/MIN (>60); Globulin 3.3 g/dL (1.3-3.2); Total Protein,Serum 7.6 g/dl (6.3-8.2)
[2022-10-18 10:13] LABS: Basophils # 0.1 K/mm3 (0-0.2); Basophils % 0.7 % (0.1-2.0); Calcium 8.9 mg/dl (8.4-10.2); Eosinophils # 0.5 K/mm3 (0.0-0.4); Glucose 96 mg/dl (74-100); Hematocrit 40.1 % (37.0-47.0); Lymphocytes # 2.1 K/mm3 (0.7-4.5); Lymphocytes % 29.2 % (10-50); Mean Corpuscular HGB Conc 32.5 g/dL (31.8-35.4); Mean Corpuscular Hemoglobin 28.8 pg (27.0-31.2); Mean Corpuscular Volume 88.6 fl (81-99); Mean Platelet Volume 8.6 fl (7.4-10.4); Monocytes # 0.6 K/mm3 (0.1-1.0); Monocytes % 8.6 % (1.7-9.3); Neutrophils # 3.9 K/mm3 (1.8-7.8); Neutrophils % 54.5 % (37.0-80.0); Platelet Count 237 K/mm3 (142-424); Red Blood Count 4.53 M/mm3 (4.20-5.40); Red Cell Distribution Width 13.8 % (11.5-17.5); White Blood Count 7.2 K/mm3 (4.8-10.8)
[2022-10-18 10:24] LABS: Troponin I < 0.01 ng/ml (0.00-0.034)
[2022-10-18 10:52] LABS: T4 (Thyroxine) 14.8 ug/dl (5.53-11.0)
--- NOTE | 2022-10-18 10:53 | CT_ITS ---
PROCEDURE INFORMATION: Exam: CT Head Without Contrast Exam date and time: 10/18/2022 11:03 AM Age: 81 years old Clinical indication: Dizziness and speech disturbance; Dysphasia; Additional info: Imbalance, word finding difficulty TECHNIQUE: Imaging protocol: Computed tomography of the head without contrast. Radiation optimization: All CT scans at this facility use at least one of these dose optimization techniques: automated exposure control; mA and/or kV adjustment per patient size (includes targeted exams where dose is matched to clinical indication); or iterative reconstruction. REPORTING DATA: Count of CT and Cardiac NM exams in prior 12 months: This patient has received 2 known CTs and 0 known cardiac nuclear medicine studies in the 12 months prior to the current study. COMPARISON: MR HEAD/BRAIN WO CON 07/09/2020 3:13 PM FINDINGS: Brain: There is no evidence of acute intracranial hemorrhage, extra-axial collection or locoregional mass effect. There are scattered hypodensities in the periventricular and subcortical white matter. The appearance is nonspecific, but most likely represents chronic small vessel disease in a person of this age Cerebral ventricles: The ventricles, sulci and cisterns are normal in size and configuration for patient's age. No hydrocephalus or midline structure shift Pituitary gland and sella: Sellar/parasellar structures, craniocervical junction and orbits are unremarkable Paranasal sinuses: Visualized sinuses are unremarkable. No fluid levels. Mastoid air cells: Visualized mastoid air cells are well aerated. Bones/joints: No calvarial fracture Soft tissues: Unremarkable. IMPRESSION: 1. No acute intracranial abnormality. No calvarial fracture. 2. If focal neurological symptoms persist brain MRI can be obtained for better evaluation
--- NOTE | 2022-10-18 10:53 | PC.NURSE ---
PT RESTING IN BED NOTHING NEEDED AT THIS TIME, FAMILY AT BS
--- NOTE | 2022-10-18 11:00 | PC.NURSE ---
pt to radiology
--- NOTE | 2022-10-18 11:07 | PC.NURSE ---
PT ARRIVED BACK TO ROOM
--- NOTE | 2022-10-18 12:02 | PC.NURSE ---
family at BS no requests voiced at this time.
--- NOTE | 2022-10-18 12:50 | PC.NURSE ---
PT RESTING IN BED NOTHING NEEDED AT THIS TIME,TAP OLSEN AT BEDSIDE
[2022-10-18 13:23] LABS: Troponin I < 0.01 ng/ml (0.00-0.034)
== END 2022-10-18 13:51 | disposition home or self-care (01) ==
PROVIDERS: Emergency Provider Emergency Medicine; PCP Nurse Practitioner Family
DX: R07.9 Chest pain, unspecified (principal); R42 Dizziness and giddiness; I10 Essential (primary) hypertension; E78.5 Hyperlipidemia, unspecified; I48.0 Paroxysmal atrial fibrillation; Z79.01 Long term (current) use of anticoagulants; Z95.5 Presence of coronary angioplasty implant and graft
CPT/HCPCS: 70450; 71045; 80053; 84436; 84443; 84484; 85025; 93005; 99285

== ENCOUNTER 2022-11-03 08:15 | Day surgery (SDC) | payer MEDICARE, MEDICAID, SELFPAY ==
[2022-11-03] VITALS (15 sets, daily range): BP systolic 108–165; BP diastolic 56–74; PULSE 57–83; RESP 16–19; TEMP 36.9; O2SAT 94–99; BMI 24.0
--- NOTE | 2022-11-03 | IR_ITS ---
APPROVED REPORT Patient Location: Outpatient PROCEDURES Selective coronary angiogram Intravascular ultrasound to the left main artery Drug-eluting stent deployment to the ostial proximal mid left main artery extending into the LAD Drug-eluting stent deployment to the proximal LAD Drug-eluting stent deployment to the first diagonal artery INDICATION Coronary artery disease, Angina pectoris, Severe stenosis in the left main artery with an MLA of 4.2 mm??? Informed consent was obtained prior to the procedure. COMPLICATIONS None Estimated Blood Loss: Less than 10 mls TECHNIQUE One percent lidocaine used to anesthetize the right anterior aspect of the wrist. The right radial artery was accessed via the Seldinger technique. A 6 Lithuanian sheath was placed in the right radial artery. 150 mg magnesium sulfate, 800 mcg of nitroglycerin, 1mg Lidocaine and 5000 U Heparin were given through the arterial sheath. The papa catheter was also used to perform selective coronary angiography. At the end of the diagnostic angiogram therapeutic heparin was administered giving a therapeutic ACT and the guide catheter was placed in left main artery followed by Choice PT extra-support wire being placed into the LAD. An intravascular ultrasound probe was advanced which confirmed the suspicion of a severe distal left main stenosis with an MLA of 4.2 mm???. At this point the IVUS catheter was removed and a 3.5 x 26 mm Rene frontier stent was placed in the ostial left main artery extending into the proximal LAD and deployed at 18 cory. An additional 3 mm x 15 mm Rene frontier stent was placed in the proximal LAD overlapping the left main stent. Stent was deployed at 16 cory. The wire was then placed in the first diagonal artery where these 3 mm balloon was advanced and deployed at 4 cory to open the struts. A 2.5 x 8 mm Rene frontier stent was then placed in the ostial proximal diagonal artery and deployed at 18 cory. The wire was pulled back from the diagonal artery and placed into the LAD where a fresh 2.5 x 12 mm noncompliant balloon was dilated in the LAD proper adjacent to the large first diagonal artery at 20 cory reducing the stenosis. SAM-3 flow was present before and after the procedure. At the end the procedure the apparatus was removed the sheath was removed and hemostasis was achieved and TR banding patient was transferred the postop putting in stable addition ANGIOGRAPHIC RESULTS The left main artery Has an ostial 20% stenosis and a distal greater than 50% stenosis by angiography The left anterior descending artery Has a stent in the proximal to mid segment which is widely patent with minimal in-stent restenosis. The circumflex artery Is nondominant and has an ostial proximal 30 to 40% stenosis The right coronary artery Large dominant and normal The COSTA ventriculogram reveals Not performed The left ventricular end-diastolic pressure Not measured IMPRESSION Severe distal left main disease as described above Successful stenting throughout the left main artery extending into the proximal ID severe disease reduced to 0% with 1 drug-eluting stent Successful stenting the proximal LAD severe disease reduced to 0% with 1 drug-eluting stent Successful stenting of the ostial proximal first diagonal artery severe disease reduced to 0% with 1 drug-eluting stent Successful angioplasty of the mid LAD PLAN 1. Dual antiplatelet therapy 2. Medical management per remaining coronary disease 3. LDL less than 55 to be achieved with high intensity statin 4. Avoidance of tobacco products 5. Risk factor modification 6. Cardiac rehabilitation Electronically signed by : Ranjeet Tiwari MD 11/03/2022 12:12:28
[2022-11-03 09:25] LABS: Basophils % 0.4 % (0.1-2.0); Eosinophils # 0.3 K/mm3 (0.0-0.4); Hematocrit 40.6 % (37.0-47.0); Lymphocytes # 2.2 K/mm3 (0.7-4.5); Lymphocytes % 32.1 % (10-50); Mean Corpuscular HGB Conc 31.9 g/dL (31.8-35.4); Mean Corpuscular Hemoglobin 28.9 pg (27.0-31.2); Mean Corpuscular Volume 90.5 fl (81-99); Mean Platelet Volume 8.4 fl (7.4-10.4); Monocytes # 0.6 K/mm3 (0.1-1.0); Monocytes % 8.3 % (1.7-9.3); Neutrophils # 3.7 K/mm3 (1.8-7.8); Neutrophils % 54.2 % (37.0-80.0); Platelet Count 236 K/mm3 (142-424); Red Blood Count 4.48 M/mm3 (4.20-5.40); White Blood Count 6.9 K/mm3 (4.8-10.8)
[2022-11-03 09:30] LABS: Anion Gap 10.6 mEq/L (5-15); Blood Urea Nitrogen 10 mg/dl (7-17); Calcium 9.3 mg/dl (8.4-10.2); Carbon Dioxide 28 mmol/L (22.0-30.0); Chloride 108 mmol/L (98-107); Creatinine Clearance Estimated 39 mL/min (50-200); Estimated Glomerular Filt Rate 69 ml/min (>60); GFR (African American) 83 ML/MIN (>60); Glucose 105 mg/dl (74-100); Potassium 4.6 mmoL/L (3.5-5.1); Sodium 142 mmol/L (136-145)
[2022-11-03 11:56] LABS: CATHL Activated Clotting Time 340 SEC (74-125)
--- NOTE | 2022-11-03 13:17 | SUR.PHASEII ---
pt awake, updated on POC and discharge time.
--- NOTE | 2022-11-03 15:34 | HMH.PHACL ---
[facility] [employer] Discharge Med Parking Worker: Krista Quintana has received discharge medication counseling on the following medications: CLOPIDOGREL 75 MG DAILY ASPIRIN 81 MG DAILY METOPROLOL SUCCINATE 25 MG DAILY ROSUVASTATIN 20 MG DAILY MD NOT STARTING TERESA/ARB AT THIS TIME.
== END 2022-11-03 15:30 | disposition home or self-care (01) ==
PROVIDERS: PCP Nurse Practitioner Family; Visit Provider Internal Medicine
DX: I25.118 Atherosclerotic heart disease of native coronary artery with other forms of angina pectoris (principal); Z79.01 Long term (current) use of anticoagulants; Z79.899 Other long term (current) drug therapy; E03.9 Hypothyroidism, unspecified; E78.5 Hyperlipidemia, unspecified; Z86.16 Personal history of COVID-19; Z95.5 Presence of coronary angioplasty implant and graft; I48.0 Paroxysmal atrial fibrillation; Z82.49 Family history of ischemic heart disease and other diseases of the circulatory system; I10 Essential (primary) hypertension; I65.21 Occlusion and stenosis of right carotid artery
CPT/HCPCS: 80048; 85025; 85347; 92928; 92978; 93306; 93454; 99152; 99153; C1725; C1769; C1876; C9600; J1644; Q9967

== ENCOUNTER → 2022-11-14 11:11 | Outpatient (CLI) | payer MEDICARE, MEDICAID, SELFPAY ==
[2022-11-14 11:52] LABS: Anion Gap 10.7 mEq/L (5-15); Blood Urea Nitrogen 12 mg/dl (7-17); Calcium 9.4 mg/dl (8.4-10.2); Carbon Dioxide 30 mmol/L (22.0-30.0); Chloride 106 mmol/L (98-107); Estimated Glomerular Filt Rate 69 ml/min (>60); GFR (African American) 83 ML/MIN (>60); Glucose 109 mg/dl (74-100); Potassium 4.7 mmoL/L (3.5-5.1); Sodium 142 mmol/L (136-145)
[2022-11-14 12:12] LABS: Troponin I < 0.01 ng/ml (0.00-0.034)
[2022-11-14 14:00] LABS: Basophils % 0.4 % (0.1-2.0); Eosinophils % 3.2 % (0.1-12.0); Hematocrit 36.4 % (37.0-47.0); Lymphocytes % 29.1 % (10-50); Mean Corpuscular Hemoglobin 23.9 pg (27.0-31.2); Mean Corpuscular Volume 88.8 fl (81-99); Mean Platelet Volume 10.9 fl (7.4-10.4); Monocytes # 0.7 K/mm3 (0.1-1.0); Monocytes % 9.8 % (1.7-9.3); Neutrophils # 3.9 K/mm3 (1.8-7.8); Neutrophils % 57.2 % (37.0-80.0); Platelet Count 243 K/mm3 (142-424); Red Cell Distribution Width 13.1 % (11.5-17.5); White Blood Count 6.8 K/mm3 (4.8-10.8)
[2022-11-14 14:01] LABS: Eosinophils # 0.2 K/mm3 (0.0-0.4)
== END ==
PROVIDERS: PCP Nurse Practitioner Family; Visit Provider Physician Assistant
DX: D64.9 Anemia, unspecified (principal); E78.5 Hyperlipidemia, unspecified; I10 Essential (primary) hypertension; I20.0 Unstable angina; I48.0 Paroxysmal atrial fibrillation; I65.29 Occlusion and stenosis of unspecified carotid artery; R53.83 Other fatigue; Z79.01 Long term (current) use of anticoagulants; Z95.5 Presence of coronary angioplasty implant and graft
CPT/HCPCS: 36415; 80048; 84484; 85025; 93308

== ENCOUNTER → 2022-11-25 11:07 | Outpatient (CLI) | payer MEDICARE, MEDICAID, SELFPAY | LOC: RT 11:08 | PROVIDERS: PCP Nurse Practitioner Family; Visit Provider Internal Medicine | DX: D64.9 Anemia, unspecified (principal); E78.5 Hyperlipidemia, unspecified; I10 Essential (primary) hypertension; I25.10 Atherosclerotic heart disease of native coronary artery without angina pectoris; I47.1 Supraventricular tachycardia; I48.0 Paroxysmal atrial fibrillation; R00.2 Palpitations; R53.83 Other fatigue; R60.9 Edema, unspecified; R94.31 Abnormal electrocardiogram [ECG] [EKG]; Z79.01 Long term (current) use of anticoagulants; Z95.5 Presence of coronary angioplasty implant and graft; I65.23 Occlusion and stenosis of bilateral carotid arteries | CPT/HCPCS: 93225 ==

== ENCOUNTER 2022-11-26 12:56 | Outpatient (RCR) | payer MEDICARE, MEDICAID, SELFPAY | END 2023-01-02 14:30 | disposition home or self-care (01) | LOC: PT 12:56 | PROVIDERS: Visit Provider Internal Medicine | DX: I25.10 Atherosclerotic heart disease of native coronary artery without angina pectoris (principal); Z95.5 Presence of coronary angioplasty implant and graft | CPT/HCPCS: 93798 ==

== ENCOUNTER 2022-12-06 16:04 | Emergency (ER) | payer MEDICARE, MEDICAID, SELFPAY ==
[2022-12-06 16:05] VITALS: BP 176/69; PULSE 72; RESP 20; TEMP 36.7; O2SAT 98; BMI 24.2
[2022-12-06 16:09] VITALS: BP 176/69; PULSE 83; O2SAT 98
--- NOTE | 2022-12-06 16:09 | ECG_ITS ---
APPROVED REPORT Exam: Resting ECG HR:72 bpm ECG Measurements Heart Rate 72 AXES OR 146 P 43 QRSd 101 QRS -15 QT 393 T 49 QTc 418 Conclusion SINUS RHYTHM LOW QRS VOLTAGE IN PRECORDIAL LEADS [QRS DEFLECTION < 1.0 mV IN CHEST LEADS] BORDERLINE ECG UNCONFIRMED REPORT Electronically signed by : Jose Coleman MD 12/08/2022 14:05:38
--- NOTE | 2022-12-06 16:20 | HMH.EDGENADL ---
Discharge Plan Disposition Patient Disposition: Home, Self-Care Condition: Good Prescriptions Prescriptions: New methocarbamol 500 mg tablet 500 mg PO Q8H Qty: 90 0RF No Action rosuvastatin 20 mg tablet 20 mg PO DAILY metoprolol succinate [Toprol XL] 25 mg tablet extended release 24 hr 12.5 mg PO DAILY Qty: 30 5RF isosorbide mononitrate 30 mg tablet extended release 24 hr 15 mg PO DAILY Qty: 30 2RF pantoprazole [Protonix] 40 mg tablet,delayed release (DR/EC) 40 mg PO DAILY Qty: 90 3RF levothyroxine 50 MCG tablet 50 mcg PO DAILY Patient Comments: TAKE 1 TABLET BY MOUTH IN THE MORNING (APPOINTMENT NEEDED FOR ANY FURTHER REFILLS) vlmvuwas-iei-ukwoe acid-vit K 1 EACH capsule 1 each PO DAILY lfqmj-4s-ddk-epa-fish oil 1 EACH capsule 1 each PO DAILY clopidogrel [Plavix] 75 mg tablet 75 mg PO QDAY Xarelto 20 mg tablet 20 mg PO DAILY Rx Instructions: must administer with evening meal aspirin 81 mg Tablet,Chewable 81 mg PO DAILY 30 Days Qty: 30 3RF Referrals Follow up/Referrals: Olay Hahn APRN [Primary Care Provider] - See instructions Activity Restrictions/Add. Instructions Additional Instructions/Restrictions: As discussed, it does not appear that your pain is related to any stress on your heart or blood clot in your lungs, you have degenerative findings in your thoracic spine that may have flared up and causes pain. I would recommend you take Tylenol and muscle relaxer which I will prescribe as needed for this pain. Please follow-up with your manager of radiology. Please return with any new or worsening symptoms including frontal chest pain, intractable pain, worsening symptoms Clinical Impressions Clinical Impression: Acute midline thoracic back pain Instructions Patient Instructions: DI for Low Back Pain Discharge ED Provider: Robert Reyes Adult [facility] General Chief complaint: Back Pain/Injury Stated complaint: back pain Time Seen by Provider: 12/06/22 16:11 Mode of Arrival: Ambulatory Source of Information: Patient Limitations: No Limitations Description of Symptoms (Recalled from ER Triage Doc. by RN): upper/mid back pain since thursday, has spoke to cardiology but had no other suggestions other than go to ER. pt describes pain as dull achy, does have some occasional SOA and dizziness pain does not radiate anywhere else History of Present Illness HPI narrative: Patient describes focal midthoracic back pain with no precipitating trauma, dull, occasionally radiates to sides of back, moderate in severity, positional in nature, pleuritic, nonexertional, reproducible with palpation, no associated palpitations, no overt chest pain, he does have significant coronary history, no shortness of breath. Has not had similar symptoms before. No motor or sensory deficits or paresthesias. No previous therapies. No leg pain or leg swelling. No hemoptysis. No personal or family history of pulmonary embolism Related Data Home Medications Medication Instructions Recorded Confirmed levothyroxine 50 mcg tablet 50 mcg PO DAILY hypothyroidism 03/20/20 11/25/22 fviqpvbqehuf-hsdptfqm-zbzfb acid 1 each PO DAILY Supplement 11/01/20 11/25/22 400 mcg-vitamin K 80 mcg capsule omega3 300 mg-dha,epa 250 mg-other 1 each PO DAILY Supplement 11/01/20 11/25/22 omega 3s-fish oil 1,000 mg capsule rosuvastatin 20 mg tablet 20 mg PO DAILY Cholesterol 04/24/22 11/25/22 clopidogrel 75 mg tablet (Plavix) 75 mg PO QDAY stent 11/03/22 11/25/22 rivaroxaban 20 mg tablet (Xarelto) 20 mg PO DAILY afib 11/03/22 11/25/22 Previous Rx's Medication Instructions Recorded pantoprazole 40 mg tablet,delayed 40 mg PO DAILY acid reflux #90 tabs 09/10/22 release (Protonix) aspirin 81 mg chewable tablet 81 mg PO DAILY 30 days #30 tabs 11/03/22 isosorbide mononitrate 30 mg 15 mg PO DAILY #30 tabs 11/25/22 tablet,extended release 24 hr metoprolol succinate 25 mg 12.
[2022-12-06 16:30] VITALS: BP 148/66; PULSE 67; RESP 15; O2SAT 100
--- NOTE | 2022-12-06 16:31 | CT_ITS ---
PROCEDURE INFORMATION: Exam: CTA Chest With Contrast Exam date and time: 12/06/2022 5:14 PM Age: 81 years old Clinical indication: Other: Chest and upper back pain when taking breath; Additional info: Pleuritic chest pain TECHNIQUE: Imaging protocol: Computed tomographic angiography of the chest with contrast. Exam focused on the arteries. 3D rendering (Not supervised by radiologist): MIP and/or 3D reconstructed images were created by the technologist. Radiation optimization: All CT scans at this facility use at least one of these dose optimization techniques: automated exposure control; mA and/or kV adjustment per patient size (includes targeted exams where dose is matched to clinical indication); or iterative reconstruction. Contrast material: ISOVUE; Contrast volume: 70 ml; Contrast route: INTRAVENOUS (IV); REPORTING DATA: Count of CT and Cardiac NM exams in prior 12 months: This patient has received 3 known CTs and 0 known cardiac nuclear medicine studies in the 12 months prior to the current study. COMPARISON: CR XR CHEST PORTABLE 12/06/2022 4:44 PM FINDINGS: Pulmonary arteries: There is suboptimal opacification of pulmonary arteries due to contrast bolus timing. Aorta: Regions of atherosclerotic vascular calcification involving the aortic arch. Lungs: 17 mm pleural based nodule posteriorly right lung apex. (series 5, image number 24). Bilateral ground-glass regions of opacification. Findings nonspecific and may reflect interstitial lung disease. An acute inflammatory process could not be entirely excluded. 3 mm noncalcified perifissural nodule right upper lobe. (series 5, image number 60) Pleural spaces: See Lungs finding. Heart: Unremarkable. No cardiomegaly. No pericardial effusion. Coronary arteries: Coronary artery stents. Lymph nodes: Unremarkable. No enlarged lymph nodes. Bones/joints: Thoracic spondylosis with multilevel disc degeneration. Soft tissues: Unremarkable. IMPRESSION: 1. No large or central pulmonary embolus. Evaluation of the peripheral pulmonary arteries is limited. 2. 17 mm pleural based nodule right lung apex. Findings may be inflammatory in etiology. Consider follow-up with PET-CT imaging. 3. 3 mm noncalcified perifissural nodule right upper lobe.Recommend follow-up CT Chest in 6-12 months. (References: Tomas) REFERENCES: 1. Yoselyn Alvarado, et al. Guidelines for Management of Incidental Pulmonary Nodules Detected on CT Images: From the Fleischner Society 2017. Radiology. 2017;284(1):228-243. 2. Lloyd J, et al. Updated Fleischner Society Guidelines for Managing Incidental Pulmonary Nodules: Common Questions and Challenging Scenarios. Radiographics. 2018;38(5):4779-3323.
--- NOTE | 2022-12-06 16:31 | CT_ITS ---
PROCEDURE INFORMATION: Exam: CT Thoracic Spine Without Contrast Exam date and time: 12/06/2022 5:11 PM Age: 81 years old Clinical indication: Pain in thoracic spine; Additional info: Point tenderness of thoracic spine TECHNIQUE: Imaging protocol: Computed tomography of the thoracic spine without contrast. Radiation optimization: All CT scans at this facility use at least one of these dose optimization techniques: automated exposure control; mA and/or kV adjustment per patient size (includes targeted exams where dose is matched to clinical indication); or iterative reconstruction. REPORTING DATA: Count of CT and Cardiac NM exams in prior 12 months: This patient has received 3 known CTs and 0 known cardiac nuclear medicine studies in the 12 months prior to the current study. COMPARISON: CT ABDOMEN PELVIS W CON 02/02/2022 3:06 PM FINDINGS: Bones/joints: Thoracic spondylosis with multilevel disc degeneration. Generalized osteopenia. Soft tissues: Unremarkable. IMPRESSION: No evidence of acute abnormality.
--- NOTE | 2022-12-06 16:31 | XR_ITS ---
PROCEDURE INFORMATION: Exam: XR Chest Exam date and time: 12/06/2022 4:44 PM Age: 81 years old Clinical indication: Other: Chest and upper back pain; Additional info: Subacute, chest, back pain, cardiac HX, HX of stents TECHNIQUE: Imaging protocol: Radiologic exam of the chest. Views: 1 view. COMPARISON: CR XR CHEST PORTABLE 10/18/2022 10:08 AM FINDINGS: Lungs: Unremarkable. No consolidation. Pleural spaces: Unremarkable. No pleural effusion. No pneumothorax. Heart/Mediastinum: Unremarkable. No cardiomegaly. Bones/joints: Unremarkable. IMPRESSION: No acute findings.
[2022-12-06 16:40] LABS: Basophils % 0.4 % (0.1-2.0); Eosinophils # 0.3 K/mm3 (0.0-0.4); Eosinophils % 3.7 % (0.1-12.0); Hematocrit 37.1 % (37.0-47.0); Hemoglobin 12.6 g/dL (12.2-16.2); Lymphocytes # 2.7 K/mm3 (0.7-4.5); Lymphocytes % 36.6 % (10-50); Mean Corpuscular Hemoglobin 30.7 pg (27.0-31.2); Mean Corpuscular Volume 90.3 fl (81-99); Mean Platelet Volume 7.8 fl (7.4-10.4); Monocytes # 0.5 K/mm3 (0.1-1.0); Monocytes % 7.1 % (1.7-9.3); Neutrophils # 3.8 K/mm3 (1.8-7.8); Neutrophils % 52.2 % (37.0-80.0); Platelet Count 213 K/mm3 (142-424); Red Blood Count 4.11 M/mm3 (4.20-5.40); Red Cell Distribution Width 14.1 % (11.5-17.5); White Blood Count 7.3 K/mm3 (4.8-10.8)
[2022-12-06 16:47] LABS: Chloride 108 mmol/L (98-107)
[2022-12-06 16:48] LABS: Potassium 4.1 mmoL/L (3.5-5.1); Sodium 143 mmol/L (136-145)
[2022-12-06 16:50] LABS: Alanine Aminotransferase 23 U/L (12-78); Aspartate Amino Transferase 30 U/L (14-36); Blood Urea Nitrogen 10 mg/dl (7-17); Creatinine Clearance Estimated 39 mL/min (50-200); Estimated Glomerular Filt Rate 69 ml/min (>60); GFR (African American) 83 ML/MIN (>60)
[2022-12-06 16:51] LABS: Albumin/Globulin Ratio 1.3 (1.1-1.8); Alkaline Phosphatase 85 U/L (38-126); Anion Gap 12.1 mEq/L (5-15); Bilirubin,Total 0.3 mg/dl (0.2-1.3); Calcium 9.1 mg/dl (8.4-10.2); Carbon Dioxide 27 mmol/L (22.0-30.0); Globulin 3.2 g/dL (1.3-3.2); Glucose 117 mg/dl (74-100); Total Protein,Serum 7.2 g/dl (6.3-8.2)
[2022-12-06 16:52] LABS: INR 1.08 (0.9-1.1); Prothrombin Time 11.6 seconds (10.1-12.5)
[2022-12-06 17:05] LABS: Troponin I < 0.01 ng/ml (0.00-0.034)
[2022-12-06 18:37] VITALS: BP 156/68; PULSE 68; RESP 17; TEMP 36.7; O2SAT 99
== END 2022-12-06 18:38 | disposition home or self-care (01) ==
PROVIDERS: Emergency Provider Emergency Medicine; PCP Nurse Practitioner Family
DX: M54.6 Pain in thoracic spine (principal); I48.91 Unspecified atrial fibrillation
CPT/HCPCS: 71045; 71275; 72128; 80053; 84484; 85025; 85610; 93005; 99285; Q9967

== ENCOUNTER → 2023-03-30 14:29 | Outpatient (CLI) | payer MEDICARE, MEDICAID, SELFPAY ==
[2023-03-30 14:56] LABS: Basophils % 0.3 % (0.1-2.0); Eosinophils # 0.2 K/mm3 (0.0-0.4); Eosinophils % 3.4 % (0.1-12.0); Hematocrit 39.4 % (37.0-47.0); Hemoglobin 13.3 g/dL (12.2-16.2); Lymphocytes # 2.3 K/mm3 (0.7-4.5); Lymphocytes % 36.3 % (10-50); Mean Corpuscular HGB Conc 33.8 g/dL (31.8-35.4); Mean Corpuscular Hemoglobin 30.4 pg (27.0-31.2); Mean Corpuscular Volume 90.1 fl (81-99); Mean Platelet Volume 8.6 fl (7.4-10.4); Monocytes # 0.4 K/mm3 (0.1-1.0); Monocytes % 6.9 % (1.7-9.3); Neutrophils # 3.3 K/mm3 (1.8-7.8); Neutrophils % 53.2 % (37.0-80.0); Platelet Count 238 K/mm3 (142-424); Red Blood Count 4.37 M/mm3 (4.20-5.40); Red Cell Distribution Width 14.1 % (11.5-17.5); White Blood Count 6.2 K/mm3 (4.8-10.8)
[2023-03-30 16:29] LABS: Alanine Aminotransferase 26 U/L (12-78); Albumin Level 4.4 g/dl (3.5-5.0); Alkaline Phosphatase 66 U/L (38-126); Anion Gap 9.7 mEq/L (5-15); Aspartate Amino Transferase 37 U/L (14-36); Bilirubin,Direct 0.2 mg/dl (0.0-0.4); Bilirubin,Indirect 0.2 mg/dL (0.0-0.9); Bilirubin,Total 0.4 mg/dl (0.2-1.3); Bilirubin,Unconjugated 0.3 mg/dL (0.0-1.1); Blood Urea Nitrogen 9 mg/dl (7-17); Calcium 9.2 mg/dl (8.4-10.2); Carbon Dioxide 28 mmol/L (22.0-30.0); Chloride 105 mmol/L (98-107); Chol/HDL Ratio 3.2 (1-3.5); Cholesterol 178 mg/dl (140-200); Estimated Glomerular Filt Rate 80 ml/min (>60); GFR (African American) 97 ML/MIN (>60); Glucose 97 mg/dl (74-100); HDL Cholesterol 56 mg/dl (40-60); Magnesium 1.9 mg/dl (1.6-2.3); Potassium 3.7 mmoL/L (3.5-5.1); Sodium 139 mmol/L (136-145); Total Protein,Serum 7.3 g/dl (6.3-8.2); Triglycerides 214 mg/dl (30-150); VLDL Cholesterol 43 mg/dL (0-40)
[2023-03-30 16:40] LABS: Direct LDL Cholesterol 85.62 mg/dL (100-129)
[2023-03-30 16:45] LABS: Free T4 (Free Thyroxine) 1.04 ng/dl (0.78-2.19)
[2023-03-30 16:59] LABS: Thyroid Stimulating Hormone 2.96 uIU/mL (0.465-4.68)
== END ==
PROVIDERS: PCP Nurse Practitioner Family; Visit Provider Internal Medicine
DX: E78.5 Hyperlipidemia, unspecified (principal); I10 Essential (primary) hypertension; I48.0 Paroxysmal atrial fibrillation; R00.2 Palpitations; R53.83 Other fatigue; R94.31 Abnormal electrocardiogram [ECG] [EKG]; I65.29 Occlusion and stenosis of unspecified carotid artery
CPT/HCPCS: 36415; 80048; 80061; 80076; 83735; 84439; 84443; 85025

== ENCOUNTER 2023-06-29 07:36 | Outpatient (CLI) | payer MEDICARE, MEDICAID, SELFPAY ==
--- NOTE | 2023-06-29 08:06 | CT_ITS ---
FINAL REPORT CLINICAL HISTORY: LUNG NODULE COMPARISON: 12/06/2022 CTA chest FINDINGS: Axial CT images of the chest were obtained with contrast. Coronal reformatted images were also obtained. This study was performed with techniques to keep radiation doses as low as reasonably achievable, (ALARA). Individualized dose reduction techniques using automated exposure control or adjustment of mA and/or KV according to the patient's size were employed. There is stable borderline sized mediastinal nodes. No axillary mass or adenopathy is identified. On lung window images, no pulmonary mass or dominant pulmonary nodule is identified. Persistent focal soft tissue opacity at the right lung apex measuring approximately 18 mm is stable and favored to represent scar. There is a stable 3 mm nodule at the right major fissure. Mild atelectasis is noted. Limited images of the upper abdomen reveal no mass or localized inflammatory process. Postcholecystectomy. IMPRESSION: Stable 18 mm soft tissue opacity right lung apex favored to be scar. Stable 3 mm right major fissure nodule. Reviewed, Interpreted and Dictated by Zachary Momin III, MD Transcribed by Kaylah Carey Authenticated and . [facility]
[2023-06-29 08:10] LABS: Blood Urea Nitrogen 11 mg/dl (7-17)
[2023-06-29 08:25] LABS: Estimated Glomerular Filt Rate 69 ml/min (>60); GFR (African American) 83 ML/MIN (>60)
[2023-06-29] MEDS: SODIUM CHLORIDE 0.9% 10ML SYR (RAD ONLY) 10 ML IV (09:09)
[2023-06-29] MEDS: IOPAMIDOL-370 (76%);100ML BOTTLE 75 ML IV (09:09)
== END 2023-06-29 23:59 ==
LOC: RAD 07:37
PROVIDERS: PCP Nurse Practitioner Family; Visit Provider Nurse Practitioner Family
DX: R91.1 Solitary pulmonary nodule (principal)
CPT/HCPCS: 36415; 71260; 82565; 84520; Q9967

== ENCOUNTER 2023-07-23 12:50 | Outpatient (CLI) | payer MEDICARE, MEDICAID, SELFPAY ==
--- NOTE | 2023-07-23 12:54 | MM_ITS ---
PROCEDURE INFORMATION: Exam: MG Bilateral Screening 3D Mammography Exam date and time: 07/23/2023 12:52 PM Age: 82 years old Clinical indication: Screening examination TECHNIQUE: Imaging protocol: Bilateral Screening tomosynthesis and 2D mammography including computer-aided detection (CAD) when performed. COMPARISON: 1. MG MM DIG SCREENING MAMM BI W/CAD 02/14/2021 4:10 PM 2. MG MM DIG SCREENING MAMM BI W/CAD 01/25/2020 9:18 AM FINDINGS: MAMMOGRAPHY: Breast composition: There are scattered areas of fibroglandular density. Mass: None. Architectural distortion: None. Calcifications: No suspicious calcifications. Asymmetric density: None. Skin thickening: None. Axillary adenopathy: None. IMPRESSION: No mammographic evidence of malignancy. Annual screening is recommended unless otherwise clinically indicated. ASSESSMENT: BI-RADS Category 1: Negative
== END 2023-07-23 23:59 ==
LOC: RAD 12:50
PROVIDERS: PCP Nurse Practitioner Family; Visit Provider Nurse Practitioner Family
DX: Z12.31 Encounter for screening mammogram for malignant neoplasm of breast (principal)
CPT/HCPCS: 77063; 77067

== ENCOUNTER 2023-10-30 16:51 | Inpatient (IN) | payer MEDICARE, MEDICAID, SELFPAY ==
[2023-10-30] VITALS (11 sets, daily range): BP systolic 135–174; BP diastolic 58–101; PULSE 68–87; RESP 11–18; TEMP 36.9; O2SAT 92–99; BMI 24.0; BMI 24.3
[2023-10-30] MEDS: FAMOTIDINE 20MG/2ML VIAL 20 MG IV (17:16)
[2023-10-30] MEDS: LACTATED RINGERS 1000ML 1,000 ML 999 ML IV (17:16)
--- NOTE | 2023-10-30 17:19 | ED_ITS ---
Discharge Plan Disposition Patient Disposition: Admitted Prescriptions Prescriptions: No Action rosuvastatin 20 mg tablet 20 mg PO DAILY isosorbide mononitrate 30 mg tablet extended release 24 hr 15 mg PO DAILY Qty: 30 2RF Xarelto 15 mg tablet 15 mg PO DAILY Qty: 90 3RF Rx Instructions: must administer with evening meal pantoprazole 40 mg tablet,delayed release (DR/EC) See Rx Instructions .ROUTE .COMPLEX Qty: 90 3RF Dose Instruction: TAKE 1 TABLET EVERY DAY FOR ACID REFLUX Rx Instructions: TAKE 1 TABLET EVERY DAY FOR ACID REFLUX levothyroxine 50 MCG tablet 50 mcg PO DAILY Patient Comments: TAKE 1 TABLET BY MOUTH IN THE MORNING (APPOINTMENT NEEDED FOR ANY FURTHER REFILLS) wkovzwxq-wcl-gaocx acid-vit K 1 EACH capsule 1 each PO DAILY wukuc-2z-yfq-epa-fish oil 1 EACH capsule 1 each PO DAILY clopidogrel [Plavix] 75 mg tablet 75 mg PO QDAY Referrals Follow up/Referrals: Olya Hahn APRN [Primary Care Provider] - See instructions Clinical Impressions Clinical Impression: SBO (small bowel obstruction) Instructions Patient Instructions: DI for Acute Abdominal Pain Discharge ED Provider: Kvng Roman General Adult HPI General Chief complaint: Abdominal Pain Stated complaint: abd pain, diarrhea Time Seen by Provider: 10/30/23 17:06 Mode of Arrival: Ambulatory Source of Information: Patient Limitations: No Limitations Description of Symptoms (Recalled from ER Triage Doc. by RN): pt states she awoke at 0600 with severe, sharp/stabbing, 10/10 epigasteric pain. pt states she has had some nausea and diarrhea. History of Present Illness HPI narrative: Please note that above description of symptoms, in this electronic medical record under categorization of recalled from ER triage doctor by RN are reflective of an initial nursing assessment, however, is not reflective of my full history and physical exam that was personally taken and clarified. Consequentially, this preceding description of symptoms, which may include the patient's categorized chief complaint in the EMR, do not reflect my personal clinical impression, and the ultimate description of history of present illness and patient stated complaints should be deferred to this section of the note. Unless stated otherwise or congruent with this section of the note, additional signs, symptoms, or incongruence should be interpreted as inaccurate with my clinical impression. Related Data Home Medications Medication Instructions Recorded Confirmed levothyroxine 50 mcg tablet 50 mcg PO DAILY hypothyroidism 03/20/20 08/26/23 zunzgajyupke-sqvlcout-qqawd acid 1 each PO DAILY Supplement 11/01/20 08/26/23 400 mcg-vitamin K 80 mcg capsule omega3 300 mg-dha,epa 250 mg-other 1 each PO DAILY Supplement 11/01/20 08/26/23 omega 3s-fish oil 1,000 mg capsule rosuvastatin 20 mg tablet 20 mg PO DAILY Cholesterol 04/24/22 08/26/23 clopidogrel 75 mg tablet (Plavix) 75 mg PO QDAY stent 11/03/22 08/26/23 Previous Rx's Medication Instructions Recorded isosorbide mononitrate 30 mg 15 mg (1/2 x 30 mg) PO DAILY #30 11/25/22 tablet,extended release 24 hr tabs rivaroxaban 15 mg tablet (Xarelto) 15 mg PO DAILY #90 tabs 03/30/23 pantoprazole 40 mg tablet,delayed See Rx Instructions .Route 09/22/23 release .COMPLEX #90 tabs Allergies Allergy/AdvReac Type Severity Reaction Status Date / Time Penicillins Allergy Verified 08/26/23 08:40 losartan AdvReac Mild GI upset Verified 08/26/23 08:40 Diltiazem AdvReac Mild constipatio Uncoded 08/26/23 08:40 n/itching PFSH PFS Disclaimer: The information contained in this section may have been updated after the patient was seen, as this information can be updated by other users. Medical History History of COVID-19 History of transient ischemic attack (TIA) History of gastroesophageal reflux (GERD) Appendicitis Atrial fibrillation Surgical History History of appendectomy History of hysterectomy Hx of esophagogastroduodenoscopy History of colonoscopy History of coronary artery stent placement History of cardiac cath Family History Other Family history of GERD Family history of cancer Family history of diabetes mellitus type II Family history of hyperlipidemia Family history of hypertension Family history of kidney stone Family history of myocardial infarction Family history of stroke Social History Smoking Status: Never smoker second hand exposure: No alcohol intake: never substance use type: denies use current occupational status: retired Travel in the last 8 weeks: Inside the [place] household members: none housing: house current occupational exposures/hazards: No caffeine: No ROS Obtained: Yes All systems reviewed & no additional complaints except as documented Physical Exam General General appearance: alert and in distress (Secondary to pain) Head Head exam: atraumatic and normocephalic Eye Eye exam: Present normal appearance, PERRL and EOMI ENT ENT exam: Present mucous membranes moist Neck Neck exam: Present normal inspection, full ROM and trachea midline Respiratory Respiratory exam: Present normal lung sounds bilaterally; Absent respiratory distress, wheezes, stridor, accessory muscle use or prolonged expiratory phase Cardiovascular Cardiovascular exam: Present normal rhythm and tachycardia Abdominal Exam Abdominal exam: Present soft, tenderness and guarding; Absent distention, rebound or rigidity Abdominal tenderness: Present RLQ and LLQ Extremities Exam Extremities exam: Absent edema Neurological Exam Neurological exam: Present alert, oriented X3, CN II-XII intact and normal gait; Absent motor sensory deficit Skin Skin exam: Present warm and dry; Absent diaphoresis or erythema Medical Decision Making Medical Records Medical records reviewed: Yes I reviewed the patient's medical records. [place] Inquiry Pt receiving controlled substance: No [place] was queried for this patient: No Vital Signs: 10/30/23 17:07 10/30/23 17:30 10/30/23 18:00 Temperature 98.4 F Temperature Source Oral Pulse Rate 78 70 Pulse Rate [Left] 82 Respiratory Rate 16 Blood Pressure 152/75 H 165/73 H Blood Pressure [Right Arm] 174/101 H Blood Pressure Mean Blood Pressure Mean [Right Arm] 125 02 Sat by Pulse Oximetry 99 95 95 Oxygen Delivery Method Room Air Room Air Room Air 10/30/23 18:30 10/30/23 19:00 Temperature Temperature Source Pulse Rate 83 68 Pulse Rate [Left] Respiratory Rate 18 Blood Pressure 152/66 H 135/58 L Blood Pressure [Right Arm] Blood Pressure Mean 83 Blood Pressure Mean [Right Arm] 02 Sat by Pulse Oximetry 92 L 94 L Oxygen Delivery Method Room Air Lab Data Lab Results 10/30/23 16:53: Urine Color Yellow, Urine Appearance Clear, Urine pH 6.0, Ur Specific [place] 1.010, Urine Protein Negative, Urine Glucose (UA) Negative, Urine Ketones Negative, Urine Blood Negative, Urine Nitrate Negative, Urine Bilirubin Negative, Urine Urobilinogen 0.2, Ur Leukocyte Esterase Negative, Urine RBC None, Urine WBC Occasional, Ur Squamous Epith Cells 5-10, Urine Bacteria Trace 10/30/23 17:15: WBC 10.0, RBC 4.39, Hgb 13.6, Hct 39.8, MCV 90.6, MCH 31.1, MCHC 34.3, RDW 14.5, Plt Count 225, MPV 8.7, Neut % (Auto) 62.3, Lymph % (Auto) 28.0, [place] % (Auto) 6.3, Eos % (Auto) 2.7, Baso % (Auto) 0.5, Neut # (Auto) 6.2, Lymph # (Auto) 2.8, [place] # (Auto) 0.6, Eos # (Auto) 0.3, Baso # (Auto) 0.1, PT 10.7, INR 0.95, APTT 27.1, Sodium 141, Potassium 3.9, Chloride 110 H, Carbon Dioxide 25, Anion Gap 9.9, BUN 7, Creatinine 0.70, Estimated Creat Clear 38, Estimated GFR 80, Est GFR ( Amer) 97, Glucose 109 H, Calcium 9.5, Total Bilirubin 0.6, AST 31, ALT 20, Alkaline Phosphatase 76, Troponin I < 0.01, Total Protein 7.3, Albumin 4.3, Globulin 3.0, Albumin/Globulin Ratio 1.4, Lipase 95 10/30/23 18:03: Lactate 1.3 10/30/23 17:15 10/30/23 17:15 Orders (Tests/Meds): ED MEDICATIONS Generic Name Dose Route Start Last Admin Trade Name Freq PRN Reason Stop Dose Admin Benzocaine/Butamben/Tetracaine HCl 1 gm 10/30/23 21:11 10/30/23 21:12 Tetracaine/Benzocaine/Butamben 56 Gm Mexican Hat TP 11/29/23 21:10 1 gm NEEDED PRN Administration (API PRODUCT MANAGER USE ONLY) Pain per Pt Sodium Chloride 8 ml 10/30/23 17:07 Sodium Chloride 0.9% 10ml Vial IV 11/29/23 17:06 NEEDED PRN dilute pepcid Sodium Chloride 10 ml 10/30/23 19:35 10/30/23 19:36 Sodium Chloride 0.9% 10ml Syr (Rad Only) IV 11/29/23 19:34 10 ml NEEDED PRN Administration Maintain IV Site Discontinued Medications Generic Name Dose Route Start Last Admin Trade Name Lisa PRN Reason Stop Dose Admin Acetaminophen 1,000 mg 10/30/23 17:56 10/30/23 18:03 Acetaminophen 1,000mg/100ml Vial IV 10/30/23 17:57 1,000 mg ONCE ONE Administration Famotidine 20 mg 10/30/23 17:07 10/30/23 17:16 Famotidine 20mg/2ml Vial IV 10/30/23 17:08 20 mg ONCE ONE Administration Hydromorphone HCl 0.5 mg 10/30/23 17:56 10/30/23 18:02 Hydromorphone 2mg/Ml Syringe IV 10/30/23 17:57 0.5 mg ONCE ONE Administration Lactated Ringer's 1,000 mls @ 999 mls/hr 10/30/23 17:07 10/30/23 17:16 Lactated Ringer's 1000 Ml Bag IV 10/30/23 18:07 999 mls/hr .Q1H1M ONE Administration Iopamidol 75 ml 10/30/23 19:35 10/30/23 19:36 Iopamidol-370 (76%);100ml Bottle IV 10/30/23 19:36 75 ml ONCE ONE Administration Ketorolac Tromethamine 15 mg 10/30/23 17:56 10/30/23 18:02 Ketorolac 30mg/Ml Vial IV 10/30/23 17:57 15 mg ONCE ONE Administration Ondansetron HCl 4 mg 10/30/23 18:12 10/30/23 18:13 Ondansetron 4mg/2ml Vial IV 10/30/23 18:13 4 mg ONCE ONE Administration Ondansetron HCl 4 mg 10/30/23 20:54 10/30/23 21:03 Ondansetron 4mg/2ml Vial IV 10/30/23 20:55 4 mg ONCE ONE Administration ORDERS Category Date Time Status CT abdomen pelvis w con Stat Cat Scan 10/30/23 19:15 Completed Chest XR -- portable [XR chest portable] Stat Exams 10/30/23 21:13 Ordered CBC w/Auto Diff [Complete Blood Count Auto Diff] Stat Lab 10/30/23 17:15 Completed CMP [Comprehensive Metabolic Panel] Stat Lab 10/30/23 17:15 Completed Lactic Acid Stat Lab 10/30/23 18:03 Completed Lipase Stat Lab 10/30/23 17:15 Completed PT INR [Prothrombin Time INR] Stat Lab 10/30/23 17:15 Completed PTT [Activated Partial Thrombo Time] Stat Lab 10/30/23 17:15 Completed Trop T [Troponin I] Stat Lab 10/30/23 17:15 Completed Troponin I Q3H Lab 10/30/23 22:00 Ordered Troponin I Q3H Lab 10/31/23 01:00 Ordered UA [Urinalysis and Microscopic] Stat Lab 10/30/23 16:53 Completed Medical Decision Narrative: 82-year-old female history of hypertension, hyperlipidemia, A-fib on Xarelto, appendectomy, cholecystectomy, hysterectomy presenting with acute onset abdominal pain. Patient states abdominal pain started around 6 AM today, 10/29. Did not wake her from sleep, she woke up and realized it was her. Did not know she needed to vomit, have a bowel movement, urinate. She did all 3. Nonbloody. No blood in her vomit or stool, not constipated, not diarrhea. No blood in her urine or dysuria. Progressively worsening throughout the day. Severe on my evaluation. Patient splinting in bed. History was obtained via conversation with patient and family. On arrival, patient hemodynamically stable, alert, oriented x4, appropriate, GCS 15, moving all extremities spontaneously, pupils equal and reactive to light. Full physical exam performed and significant for patient in moderate distress secondary to pain. Abdomen is soft, but tender with involuntary guarding left lower quadrant and right lower quadrant. No overlying skin change. No flank tenderness. Differential includes PUD, gastritis, enteritis, gastroenteritis, pancreatitis, SBO, colitis, diverticulitis, nephrolithiasis, UTI, torsion, hepatitis, aortic pathology, mesenteric ischemia among others. Independent interpretation of EKG shows what appears to be sinus rhythm 74 beats a minute without ST or T wave changes concerning for acute schema. MN 159 QRS 98, QTc 421. Patient has artifactual baseline. Patient was given Zofran, Toradol, acetaminophen, Dilaudid, fluids for symptomatic management and correction of underlying abnormalities. Workup independently interpreted and significant for no leukocytosis. Patient's kidney function normal, lactate negative. Lipase negative. Urinalysis without concern for UTI. CT abdomen pelvis with concern for small bowel obstruction. See radiology read for full review of final results. On reevaluation, patient still feeling nauseated, more Zofran given. NG tube was placed. Given patient presentation, workup, history, this most likely represents acute small bowel obstruction in setting of previous abdominal surgery. Likely nonactionable in terms of surgery at this point, NG tube placed and should be okay for nonsurgical management. Hospitalist contacted and case was discussed at length, patient to be admitted. Because patient high risk for clinical decompensation, deemed appropriate for inpatient admission. Results were relayed to patient who voiced understanding and patient was agreeable to inpatient admission and management. Patient was admitted to the hospital for further definitive management. Supervisor Lathing disclaimer Much of this encounter note is an electronic cost reduction engineer spoken language to printed text. Electronic cost reduction engineer of the spoken language may permit errors. Although I have reviewed the note, some errors may still exist. Critical Care Critical Care Time Critical Care Time: Yes (GI) Attestation: On 10/30/23, the high probability of a clinically significant, sudden or life threatening deterioration of the following system(s) required my full and direct attention, intervention and personal management. The time I documented below is in addition to time spent performing reported procedures but includes the following listed in this critical care notation. Total Time Total Critical Care Time: 45
[2023-10-30 17:26] LABS: Basophils # 0.1 K/mm3 (0-0.2); Basophils % 0.5 % (0.1-2.0); Eosinophils # 0.3 K/mm3 (0.0-0.4); Eosinophils % 2.7 % (0.1-12.0); Hematocrit 39.8 % (37.0-47.0); Hemoglobin 13.6 g/dL (12.2-16.2); Lymphocytes # 2.8 K/mm3 (0.7-4.5); Mean Corpuscular HGB Conc 34.3 g/dL (31.8-35.4); Mean Corpuscular Hemoglobin 31.1 pg (27.0-31.2); Mean Corpuscular Volume 90.6 fl (81-99); Mean Platelet Volume 8.7 fl (7.4-10.4); Monocytes # 0.6 K/mm3 (0.1-1.0); Monocytes % 6.3 % (1.7-9.3); Neutrophils # 6.2 K/mm3 (1.8-7.8); Neutrophils % 62.3 % (37.0-80.0); Platelet Count 225 K/mm3 (142-424); Red Blood Count 4.39 M/mm3 (4.20-5.40); Red Cell Distribution Width 14.5 % (11.5-17.5)
[2023-10-30 17:32] LABS: Chloride 110 mmol/L (98-107); Potassium 3.9 mmoL/L (3.5-5.1); Sodium 141 mmol/L (136-145)
[2023-10-30 17:34] LABS: Alanine Aminotransferase 20 U/L (12-78); Aspartate Amino Transferase 31 U/L (14-36); Blood Urea Nitrogen 7 mg/dl (7-17); Creatinine Clearance Estimated 38 mL/min (50-200); Estimated Glomerular Filt Rate 80 ml/min (>60); GFR (African American) 97 ML/MIN (>60)
[2023-10-30 17:35] LABS: Albumin Level 4.3 g/dl (3.5-5.0); Albumin/Globulin Ratio 1.4 (1.1-1.8); Alkaline Phosphatase 76 U/L (38-126); Anion Gap 9.9 mEq/L (5-15); Bilirubin,Total 0.6 mg/dl (0.2-1.3); Calcium 9.5 mg/dl (8.4-10.2); Carbon Dioxide 25 mmol/L (22.0-30.0); Glucose 109 mg/dl (74-100); Lipase 95 U/L (23-300); Total Protein,Serum 7.3 g/dl (6.3-8.2)
[2023-10-30 17:37] LABS: Activated Partial Thrombo Time 27.1 seconds (22.8-30.6); INR 0.95 (0.9-1.1); Prothrombin Time 10.7 seconds (10.1-12.5)
--- NOTE | 2023-10-30 17:56 | PC.NURSE ---
Pt visitor stepped out of room to request medication for pt. Advised we would speak with Dr. Roman.
--- NOTE | 2023-10-30 17:56 | PC.NURSE ---
notified dr. jean pt still having abd pain, verbal orders received from dr. jean for pt.
[2023-10-30 18:02] LABS: Microscopic, Urine URINE MICROSCOPIC (MICROSCOPIC)
[2023-10-30] MEDS: KETOROLAC 30MG/ML VIAL 15 MG IV (18:02)
[2023-10-30] MEDS: HYDROMORPHONE 2MG/ML SYRINGE 0.5 MG IV (18:02)
[2023-10-30] MEDS: ACETAMINOPHEN 1,000MG/100ML VIAL 1000 MG IV (18:03)
[2023-10-30] MEDS: ONDANSETRON 4MG/2ML VIAL 4 MG IV ×3 (18:13→22:32)
[2023-10-30 18:16] LABS: Appearance,Urine CLEAR (Clear); Bilirubin,Urine Negative (Negative); Blood, Urine Negative (Negative); Color,Urine YELLOW (Yellow); Glucose,Urine (UA) Negative (Negative); Ketones,Urine Negative (Negative); Leukocyte Esterase,Urine Negative (Negative); Nitrate,Urine Negative (Negative); Protein,Urine Negative (Negative); Urobilinogen,Urine 0.2 EU/dl (0.2)
[2023-10-30 18:19] LABS: Lactic Acid 1.3 mmol/L (0.7-2.1)
[2023-10-30 18:38] LABS: Bacteria,Urine Trace /lpf; WBC,Urine Occasional #/hpf (0-3)
--- NOTE | 2023-10-30 18:42 | PC.NURSE ---
Pt resting in bed with eyes closed. Respirations are even and unlabored. Visitors remain at BS and call light within reach.
--- NOTE | 2023-10-30 19:12 | ECG_ITS ---
APPROVED REPORT Exam: Resting ECG HR:74 bpm ECG Measurements Heart Rate 74 AXES [place] 159 P 60 QRSd 98 QRS -29 QT 393 T 50 QTc 421 Conclusion Artifactual baseline. Sinus rhythm Left axis deviation Electronically signed by : JED HINTON, 10/30/2023 23:08:31
--- NOTE | 2023-10-30 19:15 | CT_ITS ---
PROCEDURE INFORMATION: Exam: CT Abdomen And Pelvis With Contrast Exam date and time: 10/30/2023 7:30 PM Age: 82 years old Clinical indication: Abdominal pain; Additional info: Diffues abd pain TECHNIQUE: Imaging protocol: Computed tomography of the abdomen and pelvis with contrast. Radiation optimization: All CT scans at this facility use at least one of these dose optimization techniques: automated exposure control; mA and/or kV adjustment per patient size (includes targeted exams where dose is matched to clinical indication); or iterative reconstruction. Contrast material: ISOVUE; Contrast volume: 75 ml; Contrast route: IV; COMPARISON: CT ANGIO ABDOMEN PELVIS 02/04/2022 9:51 AM FINDINGS: Liver: Unremarkable. Gallbladder and biliary ducts: Gallbladder is surgically absent. Biliary ectasia, within normal limits for status post cholecystectomy. Pancreas: Atrophic pancreas. No pancreatic ductal dilation. No evidence of acute pancreatitis. Spleen: Unremarkable. Adrenal glands: Unremarkable. Kidneys and ureters: Unremarkable. Stomach and bowel: Few modestly distended bowel loops measuring up to 3.0 cm in maximal diameter and containing fecal material and/or air-fluid levels in the lower abdomen with a relatively abrupt transition point in the pelvis (coronal image 37). No evidence of intestinal pneumatosis. Proximal small bowel is normal in caliber. Appendix: Appendix is visualized and is normal. Intraperitoneal space: Trace ascites in the pelvis. No pneumoperitoneum. Vasculature: Moderate amount of calcific arterial atherosclerosis throughout the aorta. No abdominal aortic aneurysm. Mesenteric vasculature is patent. Lymph nodes: Unremarkable. Urinary bladder: Unremarkable. Reproductive: Unremarkable. Bones/joints: Transitional lumbosacral anatomy incidentally noted. No evidence of acute osseous abnormality. Soft tissues: Unremarkable. IMPRESSION: 1. Few modestly distended bowel loops measuring up to 3.0 cm in maximal diameter and containing fecal material and/or air-fluid levels in the lower abdomen with a relatively abrupt transition point in the pelvis. Findings appear suspicious for possible early small bowel obstruction. 2. Trace ascites in the pelvis. 3. Additional non-acute ancillary findings are detailed above.
--- NOTE | 2023-10-30 19:17 | PC.NURSE ---
notified ER MD pt still not feeling well. CT ordered per ER MD, notified rad
--- NOTE | 2023-10-30 19:24 | PC.NURSE ---
Pt to CT via stretcher
[2023-10-30] MEDS: IOPAMIDOL-370 (76%);100ML BOTTLE 75 ML IV (19:36)
[2023-10-30] MEDS: SODIUM CHLORIDE 0.9% 10ML SYR (RAD ONLY) 10 ML IV (19:36)
[2023-10-30 19:48] LABS: Troponin I < 0.01 ng/ml (0.00-0.034)
[2023-10-30] MEDS: TETRACAINE/BENZOCAINE/BUTAMBEN 56 GM SPRAY TP (21:12)
--- NOTE | 2023-10-30 21:13 | XR_ITS ---
PROCEDURE INFORMATION: Exam: XR Chest Exam date and time: 10/30/2023 9:28 PM Age: 82 years old Clinical indication: Device placement; Ng tube; Additional info: Ng placement TECHNIQUE: Imaging protocol: Radiologic exam of the chest. Views: 1 view. COMPARISON: CT CHEST W CON 06/29/2023 8:57 AM FINDINGS: Tubes, catheters and devices: Suction-type transesophageal enteric tube in place with side hole projecting over the distal esophagus and tip likely in the gastric fundus. Lungs: No evidence of acute airspace infiltrate. No pulmonary edema. Pleural spaces: No significant pleural effusion. No pneumothorax. Heart/Mediastinum: Cardiomediastinal silouhette is within normal limits. Bones/joints: No evidence of acute osseous abnormality. IMPRESSION: Suction-type transesophageal enteric tube in place with side hole projecting over the distal esophagus and tip likely in the gastric fundus. Consider advancing 5-6 cm to decrease risk of esophageal mucosal injury.
--- NOTE | 2023-10-30 21:26 | PC.NURSE ---
Tried to call report. No answer.
--- NOTE | 2023-10-30 21:33 | PC.NURSE ---
report called to ALEXEY Scott
--- NOTE | 2023-10-30 22:23 | PC.NURSE ---
Patient arrived to floor via stretcher from ED at 21:49.
--- NOTE | 2023-10-30 22:24 | EXP.HP ---
History of Present Illness *Admission Date: 10/30/23 *Reason for visit:: SBO *History of present illness: Krista Quintana is a 82-year-old female past medical history significant for CAD status post 5 stents (last stenting done November 2022), HTN, HLD, PAF on Xarelto and Plavix who presents the emergency room tonight with complaints of abdominal pain and nausea. Ms. Quintana states her abdominal pain started approximately 6:00 this morning. Reports that she had a bowel movement shortly after the pain started and was noted to be diarrhea, no bloody stool noted. Reports that having a bowel movement did not improve her abdominal pain. States that as the day went on, the pain got worse. Has had multiple episodes of nausea with vomiting. Pain at its worst was reported to be a 10/10. Described as stabbing, sharp, located to the epigastric region. Has had an appendectomy as well as cholecystectomy and hysterectomy. No other bowel surgeries. Denies any fever, chest pain, shortness of breath. No focal neurodeficits noted. No recent weight gain or weight loss, no swelling in her legs or feet. Denies tobacco use, alcohol use, illicit drug use. Reports compliance with her Xarelto and Plavix. Lab work in the ER was essentially unremarkable. UA was noninfectious. White count noted to be 10,000, lactic acid 1.3. Chest x-ray was nonactionable. CT of the abdomen pelvis showed likely early small bowel obstruction. NG tube was placed. She will be been to the hospitalist service for small bowel obstruction. [facility] Disclaimer: The information contained in this section may have been updated after the patient was seen, as this information can be updated by other users. Medical History (Updated 10/30/23 @ 23:23 by Sonia Mesa RN) History of anemia Hyperlipidemia Hypertension History of COVID-19 History of transient ischemic attack (TIA) History of gastroesophageal reflux (GERD) Appendicitis Atrial fibrillation Surgical History History of appendectomy History of hysterectomy Hx of esophagogastroduodenoscopy History of colonoscopy History of coronary artery stent placement History of cardiac cath Family History Other Family history of GERD Family history of cancer Family history of diabetes mellitus type II Family history of hyperlipidemia Family history of hypertension Family history of kidney stone Family history of myocardial infarction Family history of stroke Social History Smoking Status: Never smoker second hand exposure: No alcohol intake: never substance use type: denies use current occupational status: retired Travel in the last 8 weeks: Inside the [place] household members: none housing: house current occupational exposures/hazards: No caffeine: No Review of Systems Constitutional Constitutional: Reports system reviewed and no additional complaints, except as documented *Cardiovascular Cardiovascular: Reports system reviewed and no additional complaints, except as documented *Respiratory Respiratory: Reports system reviewed and no additional complaints, except as documented *Gastrointestinal Gastrointestinal: Reports abdominal pain, Reports nausea and Reports vomiting *Genitourinary Genitourinary: Reports system reviewed and no additional complaints, except as documented *Musculoskeletal Musculoskeletal: Reports system reviewed and no additional complaints, except as documented *Neurologic Neurologic: Reports system reviewed and no additional complaints, except as documented Meds Home Medications and Allergies Home Medications Medication Instructions Recorded Confirmed Type levothyroxine 50 mcg tablet 50 mcg PO DAILY hypothyroidism 03/20/20 10/30/23 History jkxekmzsldqw-[id number]-[id number] acid 1 each PO DAILY Supplement 11/01/20 10/30/23 History 400 mcg-vitamin K 80 mcg capsule omega3 300 mg-dha,epa 250 mg-other 1 each PO DAILY Supplement 11/01/20 10/30/23 History omega 3s-fish oil 1,000 mg capsule rosuvastatin 20 mg tablet 20 mg PO DAILY Cholesterol 04/24/22 10/30/23 History clopidogrel 75 mg tablet (Plavix) 75 mg PO QDAY stent 11/03/22 10/30/23 History isosorbide mononitrate 30 mg 15 mg (1/2 x 30 mg) PO DAILY #30 11/25/22 10/30/23 Rx tablet,extended release 24 hr tabs rivaroxaban 15 mg tablet (Xarelto) 15 mg PO DAILY #90 tabs 03/30/23 10/30/23 Rx pantoprazole 40 mg tablet,delayed See Rx Instructions .Route 09/22/23 10/30/23 Rx release .COMPLEX #90 tabs New Prescriptions to Start Prescriptions: Allergies Allergy/AdvReac Type Severity Reaction Status Date / Time losartan AdvReac Mild GI upset Verified 08/26/23 08:40 Diltiazem AdvReac Mild constipatio Uncoded 08/26/23 08:40 n/itching Exam Data for Last 24 hours Vital signs and Labs for Last 24 Hours: Temp Pulse Resp BP Pulse Ox O2 Del Method 98.4 F 81 16 163/84 H 94 L Room Air 10/30/23 21:49 10/30/23 21:49 10/30/23 21:49 10/30/23 21:49 10/30/23 21:01 10/30/23 18:30 Laboratory Results - last 24 hr 10/30/23 16:53: Urine Color Yellow, Urine Appearance Clear, Urine pH 6.0, Ur Specific [place] 1.010, Urine Protein Negative, Urine Glucose (UA) Negative, Urine Ketones Negative, Urine Blood Negative, Urine Nitrate Negative, Urine Bilirubin Negative, Urine Urobilinogen 0.2, Ur Leukocyte Esterase Negative, Urine RBC None, Urine WBC Occasional, Ur Squamous Epith Cells 5-10, Urine Bacteria Trace 10/30/23 17:15: WBC 10.0, RBC 4.39, Hgb 13.6, Hct 39.8, MCV 90.6, MCH 31.1, MCHC 34.3, RDW 14.5, Plt Count 225, MPV 8.7, Neut % (Auto) 62.3, Lymph % (Auto) 28.0, [place] % (Auto) 6.3, Eos % (Auto) 2.7, Baso % (Auto) 0.5, Neut # (Auto) 6.2, Lymph # (Auto) 2.8, [place] # (Auto) 0.6, Eos # (Auto) 0.3, Baso # (Auto) 0.1, PT 10.7, INR 0.95, APTT 27.1, Sodium 141, Potassium 3.9, Chloride 110 H, Carbon Dioxide 25, Anion Gap 9.9, BUN 7, Creatinine 0.70, Estimated Creat Clear 38, Estimated GFR 80, Est GFR ( Amer) 97, Glucose 109 H, Calcium 9.5, Total Bilirubin 0.6, AST 31, ALT 20, Alkaline Phosphatase 76, Troponin I < 0.01, Total Protein 7.3, Albumin 4.3, Globulin 3.0, Albumin/Globulin Ratio 1.4, Lipase 95 10/30/23 18:03: Lactate 1.3 I & O for Last 24 hours: Intake & Output 10/27/23 10/28/23 10/29/23 10/30/23 23:59 23:59 23:59 23:59 Weight 55.792 kg *Routine HEENT Exam Head: Present normocephalic and atraumatic Eye: Present EOMI and PERRL ENT: Present mucous membranes moist *Routine Neck Exam Neck: Present supple *Routine Respiratory Exam Respiratory: Present normal respiratory effort *Routine Cardiovascular Exam Cardiovascular: Present RRR, Normal S1 and Normal S2 *Routine Abdominal Exam Abdominal: Present soft and tenderness (Epigastric) *Routine Rectal Exam Rectal:: deferred *Routine Genitalia Exam Genitalia:: deferred *Routine Extremities Exam Extremities: Present normal capillary refill *Routine Skin Exam Skin: Present intact *Routine Neurological Exam Neurological: Present alert, oriented X3 and moving all extremities Assessment and Plan *Assessment and plan (1) SBO (small bowel obstruction): Status: Acute Category: Medical Code(s): K56.609 - Unspecified intestinal obstruction, unspecified as to partial versus complete obstruction (2) HTN (hypertension): Status: Chronic Qualifiers: Hypertension type: essential hypertension Qualified Code(s): I10 - Essential (primary) hypertension Category: Medical Code(s): I10 - Essential (primary) hypertension (3) HLD (hyperlipidemia): Status: Chronic Qualifiers: Hyperlipidemia type: mixed hyperlipidemia Qualified Code(s): E78.2 - Mixed hyperlipidemia Category: Medical Code(s): E78.5 - Hyperlipidemia, unspecified (4) PAF (paroxysmal atrial fibrillation): Status: Chronic Category: Medical Code(s): I48.0 - Paroxysmal atrial fibrillation (5) Coronary artery disease: Status: Chronic Qualifiers: Associated angina: with other forms of angina Coronary Disease-Associated Artery/Lesion type: [place] artery [place] vs. transplanted heart: [place] heart Qualified Code(s): I25.118 - Atherosclerotic heart disease of [place] coronary artery with other forms of angina pectoris Category: Medical Code(s): I25.10 - Atherosclerotic heart disease of [place] coronary artery without angina pectoris (6) Chronic anticoagulation: Status: Acute Category: Medical Code(s): Z79.01 - [facility] (current) use of anticoagulants (7) History of coronary artery stent placement: Status: Acute Category: Surgical Code(s): Z95.5 - Presence of coronary angioplasty implant and graft Plan Assessment: This is an 82-year-old female being admitted for likely early small bowel obstruction. On my exam, patient is sitting up on the side of the bed in no acute distress. Mildly ill appearing, with some reported nausea, NG tube in place to LIS. Reports her pain is improved. Plan: Admit to inpatient-MedSurg SBO -N.p.o. -Continue NG tube to low intermittent suction -Consult general surgery -Holding Xarelto and Plavix until cleared by general surgery -Antiemetics as needed -Pain management as needed CAD S/p 5 stents -Continue Imdur -Holding Xarelto and Plavix until cleared by general surgery HLD -Continue statin when able to take p.o. GERD -Continue Protonix, will switch to IV as patient is n.p.o. Hypothyroid -Continue Synthroid when able to take p.o. DVT prophylaxis: SCDs CODE STATUS: Full code Surrogate decision maker: Kate [phone] Skin: Low risk Rounded on patient after nurse practitioner. Personally examined and interviewed patient. Agree with exam findings and care plan as documented.
--- NOTE | 2023-10-30 22:33 | PC.NURSE ---
Lynne Henry [phone], daughter, wanted to be called if son and daughter on contacts do not answer.
--- NOTE | 2023-10-30 23:00 | PC.NURSE ---
Advanced NG tube to 55 per DYund MANAGER LOSS PREVENTION due to chest xray recommendation.
[2023-10-30 23:55] LABS: Troponin I < 0.01 ng/ml (0.00-0.034)
[2023-10-31] VITALS (7 sets, daily range): BP systolic 136–153; BP diastolic 62–74; PULSE 68–76; RESP 16–19; TEMP 36.6–37.3; O2SAT 91–94; BMI 24.3
[2023-10-31] MEDS: MORPHINE 2MG/ML SYRINGE 2 MG IV ×3 (01:34→21:02)
[2023-10-31 02:21] LABS: Troponin I < 0.01 ng/ml (0.00-0.034)
--- NOTE | 2023-10-31 06:13 | PC.NURSE ---
Alert and oriented. NG in place to right nare @ 55. Draining dark greenish/brown drainage. Complained of pain one time, treated per mar. Abdomen soft and tender. Uses bedside commode with standby assist. Call light in reach.
--- NOTE | 2023-10-31 07:00 | XR_ITS ---
PROCEDURE INFORMATION: Exam: XR Abdomen Exam date and time: 10/31/2023 6:58 AM Age: 82 years old Clinical indication: Other: Sbo; Prior surgery; Surgery date: 6+ months; Surgery type: Gb removed TECHNIQUE: Imaging protocol: Radiologic exam of the abdomen. Views: 2 Views. Upright and supine views. COMPARISON: CT ABDOMEN PELVIS W CON 10/30/2023 7:30 PM FINDINGS: Tubes, catheters and devices: Enteric tube traverses midline, catheter tip and side port subdiaphragmatic, catheter tip within the distal stomach. Gastrointestinal tract: Nonspecific bowel pattern. Intraperitoneal space: Normal. No free air. Organs: Status post cholecystectomy. Contrast is in the bladder. Bones/joints: Diffuse degenerative change of the visualized osseous structures. IMPRESSION: 1. Medical devices as above. 2. Nonobstructive, nonspecific bowel pattern.
[2023-10-31 07:39] LABS: Basophils # 0.1 K/mm3 (0-0.2); Basophils % 0.6 % (0.1-2.0); Eosinophils # 0.1 K/mm3 (0.0-0.4); Eosinophils % 0.6 % (0.1-12.0); Hematocrit 37.5 % (37.0-47.0); Hemoglobin 12.5 g/dL (12.2-16.2); Lymphocytes # 1.8 K/mm3 (0.7-4.5); Lymphocytes % 17.8 % (10-50); Mean Corpuscular HGB Conc 33.4 g/dL (31.8-35.4); Mean Corpuscular Hemoglobin 31.2 pg (27.0-31.2); Mean Corpuscular Volume 93.4 fl (81-99); Mean Platelet Volume 9.1 fl (7.4-10.4); Monocytes # 0.8 K/mm3 (0.1-1.0); Monocytes % 8.1 % (1.7-9.3); Neutrophils # 7.3 K/mm3 (1.8-7.8); Neutrophils % 72.8 % (37.0-80.0); Platelet Count 215 K/mm3 (142-424); Red Blood Count 4.02 M/mm3 (4.20-5.40); Red Cell Distribution Width 14.5 % (11.5-17.5); White Blood Count 10.1 K/mm3 (4.8-10.8)
--- NOTE | 2023-10-31 08:10 | EXP.ACUTE.PN ---
Subjective *Date: 10/31/23 *Time: 13:06 Interval history: Nausea doing better this morning. Still having some upper abdominal pain but improved. Denies any emesis overnight. Afebrile. Daughter at bedside. Stable on room air. Medical Exam Vital signs and Labs for Last 24 Hours: Vital Signs Temp Pulse Pulse Resp BP BP Pulse Ox 10/31/23 06:51 10/31/23 05:00 10/31/23 04:00 98.4 F 68 17 143/65 H 94 L 10/31/23 03:00 10/31/23 01:00 10/31/23 00:00 98.5 F 74 17 139/74 94 L 10/30/23 23:00 10/30/23 22:00 87 16 163/84 H 94 L 10/30/23 21:49 98.4 F 81 16 163/84 H 10/30/23 21:30 85 15 163/84 H 10/30/23 21:01 73 16 169/77 H 94 L 10/30/23 20:30 74 11 L 140/71 92 L 10/30/23 20:00 73 12 141/69 H 94 L 10/30/23 19:00 68 18 135/58 L 94 L 10/30/23 18:30 83 152/66 H 92 L 10/30/23 18:00 70 165/73 H 95 10/30/23 17:30 78 152/75 H 95 10/30/23 17:07 98.4 F 82 16 174/101 H 99 O2 Del Method 10/31/23 06:51 Room Air 10/31/23 05:00 Room Air 10/31/23 04:00 Room Air 10/31/23 03:00 Room Air 10/31/23 01:00 Room Air 10/31/23 00:00 Room Air 10/30/23 23:00 Room Air 10/30/23 22:00 10/30/23 21:49 10/30/23 21:30 10/30/23 21:01 10/30/23 20:30 10/30/23 20:00 10/30/23 19:00 10/30/23 18:30 Room Air 10/30/23 18:00 Room Air 10/30/23 17:30 Room Air 10/30/23 17:07 Room Air Intake and Output 10/30/23 10/31/23 10/31/23 23:59 07:59 15:59 Intake Total 0 / 0 Output Total 150 / 150 Balance -150 / -150 Intake: Intake, Oral Amount 0 / 0 Output: Output, Urine Amount 0 / 0 Output, Gastric Drainage Amount 150 / 150 Right Nare 150 / 150 Other: Number of Unmeasured Voids 1 Weight 56.2 kg 56.2 kg Patient Weight 10/31/23 23:59 Weight 56.2 kg Laboratory Results - last 24 hr 10/30/23 16:53: Urine Color Yellow, Urine Appearance Clear, Urine pH 6.0, Ur Specific [place] 1.010, Urine Protein Negative, Urine Glucose (UA) Negative, Urine Ketones Negative, Urine Blood Negative, Urine Nitrate Negative, Urine Bilirubin Negative, Urine Urobilinogen 0.2, Ur Leukocyte Esterase Negative, Urine RBC None, Urine WBC Occasional, Ur Squamous Epith Cells 5-10, Urine Bacteria Trace 10/30/23 17:15: WBC 10.0, RBC 4.39, Hgb 13.6, Hct 39.8, MCV 90.6, MCH 31.1, MCHC 34.3, RDW 14.5, Plt Count 225, MPV 8.7, Neut % (Auto) 62.3, Lymph % (Auto) 28.0, [place] % (Auto) 6.3, Eos % (Auto) 2.7, Baso % (Auto) 0.5, Neut # (Auto) 6.2, Lymph # (Auto) 2.8, [place] # (Auto) 0.6, Eos # (Auto) 0.3, Baso # (Auto) 0.1, PT 10.7, INR 0.95, APTT 27.1, Sodium 141, Potassium 3.9, Chloride 110 H, Carbon Dioxide 25, Anion Gap 9.9, BUN 7, Creatinine 0.70, Estimated Creat Clear 38, Estimated GFR 80, Est GFR ( Amer) 97, Glucose 109 H, Calcium 9.5, Total Bilirubin 0.6, AST 31, ALT 20, Alkaline Phosphatase 76, Troponin I < 0.01, Total Protein 7.3, Albumin 4.3, Globulin 3.0, Albumin/Globulin Ratio 1.4, Lipase 95 10/30/23 18:03: Lactate 1.3 10/30/23 23:03: Troponin I < 0.01 10/31/23 01:00: Troponin I < 0.01 10/31/23 06:30: WBC 10.1, RBC 4.02 L, Hgb 12.5, Hct 37.5, MCV 93.4, MCH 31.2, MCHC 33.4, RDW 14.5, Plt Count 215, MPV 9.1, Neut % (Auto) 72.8, Lymph % (Auto) 17.8, [place] % (Auto) 8.1, Eos % (Auto) 0.6, Baso % (Auto) 0.6, Neut # (Auto) 7.3, Lymph # (Auto) 1.8, [place] # (Auto) 0.8, Eos # (Auto) 0.1, Baso # (Auto) 0.1 I & O for Labs for Last 24 Hours: Intake & Output 10/28/23 10/29/23 10/30/23 10/31/23 23:59 23:59 23:59 23:59 Intake Total 0 / 0 Output Total 150 / 150 Balance -150 / -150 Weight 56.2 kg 56.2 kg Constitutional: Present no acute distress, average body habitus and cooperative Head: Present atraumatic and normocephalic ENT: Present normal exam Comment:: NG in right nare Respiratory: Present normal respiratory effort; Absent rhonchi, wheezes or crackles Cardiac: Present Reg Rate and Rhythm GI: Present soft, tenderness (Upper abdomen) and diminished bowel sounds; Absent distention Extremities: Present normal inspection and full ROM Skin: Present intact; Absent erythema Neuro: Present Grossly Intact, alert, awake, oriented x 3 and moves all extremities Assessment and Plan *Assessment and plan (1) SBO (small bowel obstruction): Status: Acute Category: Medical Code(s): K56.609 - Unspecified intestinal obstruction, unspecified as to partial versus complete obstruction (2) HTN (hypertension): Status: Chronic Qualifiers: Hypertension type: essential hypertension Qualified Code(s): I10 - Essential (primary) hypertension Category: Medical Code(s): I10 - Essential (primary) hypertension (3) HLD (hyperlipidemia): Status: Chronic Qualifiers: Hyperlipidemia type: mixed hyperlipidemia Qualified Code(s): E78.2 - Mixed hyperlipidemia Category: Medical Code(s): E78.5 - Hyperlipidemia, unspecified (4) PAF (paroxysmal atrial fibrillation): Status: Chronic Category: Medical Code(s): I48.0 - Paroxysmal atrial fibrillation (5) Coronary artery disease: Status: Chronic Qualifiers: Coronary Disease-Associated Artery/Lesion type: [place] artery [place] vs. transplanted heart: [place] heart Associated angina: with other forms of angina Qualified Code(s): I25.118 - Atherosclerotic heart disease of [place] coronary artery with other forms of angina pectoris Category: Medical Code(s): I25.10 - Atherosclerotic heart disease of [place] coronary artery without angina pectoris (6) Chronic anticoagulation: Status: Acute Category: Medical Code(s): Z79.01 - [facility] (current) use of anticoagulants (7) History of coronary artery stent placement: Status: Acute Category: Surgical Code(s): Z95.5 - Presence of coronary angioplasty implant and graft Plan Assessment: This is an 82-year-old female being admitted for likely early small bowel obstruction. Tolerating NG. Still having abdominal pain. No terry emesis. Surgery consulted and assisting with care. Problems addressed as follows: SBO -Review of patient's chart, had similar episode in January 2022. Had enteritis with development of ileus versus obstruction. Did well with conservative management. Will continue NG with low intermittent suction. N.p.o. at this time. Discussed case with surgery, recommend conservative management for the next 24 to 48 hours. If symptoms self resolve, will try to avoid surgery. - Holding Xarelto and Plavix until cleared by general surgery - Zofran 4 mg every 6 hours as needed for nausea. - Morphine 2 mg IV every 2 hours as needed. Monitor for toxicity. Required 1 dose this morning. -1 L LR over 4 hours today. CAD S/p 5 stents -Continue Imdur -Holding Xarelto and Plavix until cleared by general surgery HLD: Holding statin. Consider resuming when tolerating oral intake GERD: Continue Protonix, will switch to IV as patient is n.p.o. Hypothyroid: Continue Synthroid 50 mcg daily DVT prophylaxis: SCDs CODE STATUS: Full code Surrogate decision maker: Kate [phone] Skin: Low risk
--- NOTE | 2023-10-31 08:59 | EXP.SURG.CON ---
History of Present Illness *Admission Date: 10/30/23 *Reason for visit:: Small bowel obstruction *History of present illness: Krista Quintana is a 82-year-old female past medical history significant for CAD status post 5 stents (last stenting done November 2022), HTN, HLD, PAF on Xarelto and Plavix who presents the emergency room tonight with complaints of abdominal pain and nausea and vomiting beginning in the morning of 10/30/2023. She has had prior appendectomy, cholecystectomy, and hysterectomy (via low midline decades ago). She states that she has had some vomiting for at least 1 week. She had acute onset of severe abdominal pain yesterday and therefore presented to the emergency department. CT of the abdomen pelvis revealed few modestly distended bowel loops measuring up to 3.0 cm in maximal diameter and containing fecal material and/or air-fluid levels in the lower abdomen with a relatively abrupt transition point in the pelvis. Findings appear suspicious for possible early small bowel obstruction. Trace ascites in the pelvis. NG tube was placed. She has been admitted to the hospitalist service for small bowel obstruction. She was admitted for inpatient management and surgical consultation. Of note, patient had an admission in January 2022 for ileus versus partial bowel obstruction managed nonoperatively. At that time plan was for outpatient small bowel evaluation with capsule endoscopy with gastroenterology. She has had EGD and colonoscopy by Dr. Jose Somers on 11/20/2021. Since admission she has had minimal NG output. Follow-up acute abdominal series today reveals nonobstructive bowel gas pattern. . [facility] Disclaimer: The information contained in this section may have been updated after the patient was seen, as this information can be updated by other users. Medical History (Updated 10/30/23 @ 23:23 by Sonia Mesa RN) History of anemia Hyperlipidemia Hypertension History of COVID-19 History of transient ischemic attack (TIA) History of gastroesophageal reflux (GERD) Appendicitis Atrial fibrillation Surgical History History of appendectomy History of hysterectomy Hx of esophagogastroduodenoscopy History of colonoscopy History of coronary artery stent placement History of cardiac cath Family History Other Family history of GERD Family history of cancer Family history of diabetes mellitus type II Family history of hyperlipidemia Family history of hypertension Family history of kidney stone Family history of myocardial infarction Family history of stroke Social History Smoking Status: Never smoker second hand exposure: No alcohol intake: never substance use type: denies use current occupational status: retired Travel in the last 8 weeks: Inside the [place] household members: none housing: house current occupational exposures/hazards: No caffeine: No Review of Systems *Neurologic Neurologic: Reports system reviewed and no additional complaints, except as documented Meds Home Medications and Allergies Home Medications Medication Instructions Recorded Confirmed Type levothyroxine 50 mcg tablet 50 mcg PO DAILY hypothyroidism 03/20/20 10/30/23 History cxopiecolfyo-ymhvmayv-pqcnt acid 1 each PO DAILY Supplement 11/01/20 10/30/23 History 400 mcg-vitamin K 80 mcg capsule omega3 300 mg-dha,epa 250 mg-other 1 each PO DAILY Supplement 11/01/20 10/30/23 History omega 3s-fish oil 1,000 mg capsule rosuvastatin 20 mg tablet 20 mg PO DAILY Cholesterol 04/24/22 10/30/23 History clopidogrel 75 mg tablet (Plavix) 75 mg PO QDAY stent 11/03/22 10/30/23 History isosorbide mononitrate 30 mg 15 mg (1/2 x 30 mg) PO DAILY #30 11/25/22 10/30/23 Rx tablet,extended release 24 hr tabs rivaroxaban 15 mg tablet (Xarelto) 15 mg PO DAILY #90 tabs 03/30/23 10/30/23 Rx pantoprazole 40 mg tablet,delayed See Rx Instructions .Route 09/22/23 10/30/23 Rx release .COMPLEX #90 tabs New Prescriptions to Start Prescriptions: Allergies Allergy/AdvReac Type Severity Reaction Status Date / Time losartan AdvReac Mild GI upset Verified 08/26/23 08:40 Diltiazem AdvReac Mild constipatio Uncoded 08/26/23 08:40 n/itching Exam (Inpt) Vital signs and Labs for Last 24 Hours: Temp Pulse Resp BP Pulse Ox O2 Del Method 98.4 F 76 17 150/70 H 94 L Room Air 10/31/23 08:00 10/31/23 08:00 10/31/23 08:00 10/31/23 08:00 10/31/23 08:00 10/31/23 08:00 Laboratory Results - last 24 hr 10/30/23 16:53: Urine Color Yellow, Urine Appearance Clear, Urine pH 6.0, Ur Specific [place] 1.010, Urine Protein Negative, Urine Glucose (UA) Negative, Urine Ketones Negative, Urine Blood Negative, Urine Nitrate Negative, Urine Bilirubin Negative, Urine Urobilinogen 0.2, Ur Leukocyte Esterase Negative, Urine RBC None, Urine WBC Occasional, Ur Squamous Epith Cells 5-10, Urine Bacteria Trace 10/30/23 17:15: WBC 10.0, RBC 4.39, Hgb 13.6, Hct 39.8, MCV 90.6, MCH 31.1, MCHC 34.3, RDW 14.5, Plt Count 225, MPV 8.7, Neut % (Auto) 62.3, Lymph % (Auto) 28.0, [place] % (Auto) 6.3, Eos % (Auto) 2.7, Baso % (Auto) 0.5, Neut # (Auto) 6.2, Lymph # (Auto) 2.8, [place] # (Auto) 0.6, Eos # (Auto) 0.3, Baso # (Auto) 0.1, PT 10.7, INR 0.95, APTT 27.1, Sodium 141, Potassium 3.9, Chloride 110 H, Carbon Dioxide 25, Anion Gap 9.9, BUN 7, Creatinine 0.70, Estimated Creat Clear 38, Estimated GFR 80, Est GFR ( Amer) 97, Glucose 109 H, Calcium 9.5, Total Bilirubin 0.6, AST 31, ALT 20, Alkaline Phosphatase 76, Troponin I < 0.01, Total Protein 7.3, Albumin 4.3, Globulin 3.0, Albumin/Globulin Ratio 1.4, Lipase 95 10/30/23 18:03: Lactate 1.3 10/30/23 23:03: Troponin I < 0.01 10/31/23 01:00: Troponin I < 0.01 10/31/23 06:30: WBC 10.1, RBC 4.02 L, Hgb 12.5, Hct 37.5, MCV 93.4, MCH 31.2, MCHC 33.4, RDW 14.5, Plt Count 215, MPV 9.1, Neut % (Auto) 72.8, Lymph % (Auto) 17.8, [place] % (Auto) 8.1, Eos % (Auto) 0.6, Baso % (Auto) 0.6, Neut # (Auto) 7.3, Lymph # (Auto) 1.8, [place] # (Auto) 0.8, Eos # (Auto) 0.1, Baso # (Auto) 0.1 I & O for Labs for Last 24 Hours: Intake & Output 10/28/23 10/29/23 10/30/23 10/31/23 11:59 11:59 11:59 11:59 Intake Total 0 / 0 Output Total 150 / 150 Balance -150 / -150 Weight 123 lb 14.397 oz Constitutional: no acute distress Head: Present normocephalic Respiratory: Present CTA bilaterally GI: Present soft; Absent tenderness Results Labs 10/31/23 06:30 10/30/23 17:15 Labs: Laboratory Results - last 24 hr 10/30/23 16:53: Urine Color Yellow, Urine Appearance Clear, Urine pH 6.0, Ur Specific [place] 1.010, Urine Protein Negative, Urine Glucose (UA) Negative, Urine Ketones Negative, Urine Blood Negative, Urine Nitrate Negative, Urine Bilirubin Negative, Urine Urobilinogen 0.2, Ur Leukocyte Esterase Negative, Urine RBC None, Urine WBC Occasional, Ur Squamous Epith Cells 5-10, Urine Bacteria Trace 10/30/23 17:15: WBC 10.0, RBC 4.39, Hgb 13.6, Hct 39.8, MCV 90.6, MCH 31.1, MCHC 34.3, RDW 14.5, Plt Count 225, MPV 8.7, Neut % (Auto) 62.3, Lymph % (Auto) 28.0, [place] % (Auto) 6.3, Eos % (Auto) 2.7, Baso % (Auto) 0.5, Neut # (Auto) 6.2, Lymph # (Auto) 2.8, [place] # (Auto) 0.6, Eos # (Auto) 0.3, Baso # (Auto) 0.1, PT 10.7, INR 0.95, APTT 27.1, Sodium 141, Potassium 3.9, Chloride 110 H, Carbon Dioxide 25, Anion Gap 9.9, BUN 7, Creatinine 0.70, Estimated Creat Clear 38, Estimated GFR 80, Est GFR ( Amer) 97, Glucose 109 H, Calcium 9.5, Total Bilirubin 0.6, AST 31, ALT 20, Alkaline Phosphatase 76, Troponin I < 0.01, Total Protein 7.3, Albumin 4.3, Globulin 3.0, Albumin/Globulin Ratio 1.4, Lipase 95 10/30/23 18:03: Lactate 1.3 10/30/23 23:03: Troponin I < 0.01 10/31/23 01:00: Troponin I < 0.01 10/31/23 06:30: WBC 10.1, RBC 4.02 L, Hgb 12.5, Hct 37.5, MCV 93.4, MCH 31.2, MCHC 33.4, RDW 14.5, Plt Count 215, MPV 9.1, Neut % (Auto) 72.8, Lymph % (Auto) 17.8, [place] % (Auto) 8.1, Eos % (Auto) 0.6, Baso % (Auto) 0.6, Neut # (Auto) 7.3, Lymph # (Auto) 1.8, [place] # (Auto) 0.8, Eos # (Auto) 0.1, Baso # (Auto) 0.1 Assessment and Plan *Assessment and plan (1) SBO (small bowel obstruction): Status: Acute Category: Medical Code(s): K56.609 - Unspecified intestinal obstruction, unspecified as to partial versus complete obstruction Plan Bowel rest with nasogastric tube for attempt at nonoperative management of small bowel obstruction.
[2023-10-31] MEDS: PANTOPRAZOLE 40MG VIAL 40 MG IV (09:03)
[2023-10-31] MEDS: SODIUM CHLORIDE 0.9% 10ML VIAL 10 ML IV (09:04)
[2023-10-31 10:05] LABS: Chloride 109 mmol/L (98-107); Potassium 4.1 mmoL/L (3.5-5.1); Sodium 139 mmol/L (136-145)
[2023-10-31 10:08] LABS: Anion Gap 9.1 mEq/L (5-15); Blood Urea Nitrogen 9 mg/dl (7-17); Carbon Dioxide 25 mmol/L (22.0-30.0); Creatinine Clearance Estimated 38 mL/min (50-200); Estimated Glomerular Filt Rate 69 ml/min (>60); GFR (African American) 83 ML/MIN (>60); Glucose 92 mg/dl (74-100)
--- OUTSIDE RECORDS SUMMARY | 2023-10-31 10:37 | XMS_ITS | Patient Health Record ---
Author Name Unknown Organization [facility] PE D OSBAL[facility] Address [address] [place] [address] Care Team Providers Care Senior Architect Name Role Phone VirginiaJose Primary Care Provider [phone] Gus Hahn Unavailable [phone] GUS HAHN Unavailable Unavaila ble ALLERGIES No Known Allergies RESULTS Component Value Reference Range Notes CT Scan : Chest with Contras t Reviewed date:07/01/2023 11:25:26 AM Interpretation: Performing Lab: Notes/Report: Mammogram: Screening Reviewed date:07/28/2023 01:17:21 PM Interpretation: Performing Lab: Notes/Report: M-BUN & Creatinine Reviewed date:06/29/2023 09:07:16 AM Interpretation: Performing Lab: Notes/Report: BUN 11 7-17 mg/dl CREATT 0.80 0.52-1.04 mg/dl GFRAA 83 >60 ML/MIN EGFR 69 >60 ml/min REASON FOR REFERRAL Reason CT chest with contra st Diagnosis 1 Lung nodule (R91.1) Referral Organization [facility] RAJNI ROBERT Referring Provider First Name Gus Referring Provider Last Name Selma Referring Provider Speciality Family Pra ctice General Notes Ashkan Chaudhary 09/2023 11:03:16 AM > Neena DUONG Jenci D 06/10/2023 04:00:48 PM > spoke to pt Referral Priority Routine Referral Appointment Date 06/29/2023 Reason Mammogram at [facility] Diagnosis 1 Visit for screening mammogram (Z12.31) Referral Organization [facility] YESICA Referring Provider First Name Gus Referring Provider Last Name Selma Referring Provider Speciality Family Pra ctice Referred Organization [facility] Referred Address [address] [facility], [place],[address],[place] Referred Provider Specialty Radiology General Notes Francy Martinez 2023 11:27:44 AM >vm Parish Martinezie 07/14/2023 12:29:26 PM >patient informed Referral Priority Routine Referral Appointment Date 07/23/2023 MEDICATIONS Medication SIG (Take, Route, Frequency, Duration) Notes Start Date End Date Status rosuvastatin 20 mg 1 tab(s) orally once a day for 90 days Active Plavix 75 mg 1 tab(s) orally once a day for 90 days Active isosorbide mononitrate 30 mg 1 tab(s) or ally once a day (in the morning) for 90 days 06/17/2023 Active levothyroxine 50 mcg (0.05 mg) 1 tab(s) orally once a day for 90 days Active Fish oil 1000 mg po QD Act vito Xarelto 15 mg 1 tab(s) orally once a day (in the evening) Active multivitamin Multiple Vitamins 1 tab(s) orally once a day for 30 day(s) Active IMMUNIZATIONS Vaccine Route Administration Date Status Comme nts SHINGRIX Unknown 05/17/2021 Administered SHINGRIX Unknown 07/17/2021 Administered Prevnar PCV-13 (Pneumococcal conjugate 13) Unknown 11/12/2017 Administered Pneumovax 23 Unknown 01/25/2020 Administered SOCIAL HISTORY Tobacco Use: Social History Observation Description Date Details (start date - stop date) Never Smoker NA - NA Sex Assigned At : Social History Observation Description Sex Assigned At Unknown Smoking: Question Answer Notes Are you a: nonsmoker PROBLEMS Problem Type ICD Code Onset Dates Problem Status W/U Status Risk SNOMED Code Notes Problem Chronic serous otitis media, bilateral (H65.23) Active confirmed 699007876 Problem Essential (primary) hypertension (I10) Active confirmed Essential hypertension (48142848) Problem Calculus of gallbladder without cholecystitis without obstruction (K80.20) Active confirmed 526718170 Problem Dysuria (R30.0) Active confirmed Dysuri a (11595044) Problem skilled nursing (current) use of anticoagulants (Z79.01) Active confirmed Long-term curre nt use of anticoagulant (351879760) Problem HTN (hypertension), benign (I10) Active confirmed 32630564 Problem Vertigo (R42) Active confirmed 97839089 1 Problem History of anemia (Z86.2) Active confirmed 203835703 Problem Pre-syncope (R55) Active confirmed 4274 80531 Problem AVILA (dyspnea on exertion) (R06.09) Active confirmed 83525865 Problem Lung nodule (R91.1) Active confirmed 617495728 Problem Episodic atrial fibrillation (I48.0) Active confirmed Atrial fibrillation (17658295) Problem Carotid stenosis, bilateral (I65.23) Active confirmed Occlusion and stenosis of multiple and bilateral cerebral arteries (714801435) Problem Hyperlipidemia, unspecified hyperlipidemia type (E78.5) Active confirmed Hyperlipidaemia (19580557) Problem Atherosclerotic heart disease (I25.10) Active confirmed Atherosclerotic heart disease of [place] coronary artery without angina pectoris (073718041471902) Problem Unspecified hypothyroidism (E03.9) Active confirmed 32515670 Problem Chronic blood loss anemia (D50.0) Active confirmed 633658563 Problem Stented coronary artery (Z95.5) Active confirmed Stented coron oliv[place] artery (411170054) VITAL SIGNS Heart Rate 96 /min 07/13/2023 Temperature 98.1 degrees Fahrenheit 07/13/2023 Blood pressure diastolic 62 mm Hg 07/13/2023 Height 59 in 07/13/2023 Blood pressure systolic 130 mm Hg 07/13/2023 Weight 124.6 lbs 07/13/2023 BMI 25.16 kg/m2 07/13/2023 Encounters Encounter Location Date Provider Diagnosis [facility] [address] [facility] [address] [place], [place] [address] 06/02/2023 [facility] Lung nodule R91.1 ; Upper back pain M54.9 and Muscle spasm M62.838 [facility] [address] [place], [place] [address] 07/13/2023 Sarah [facility] Medicare annual well ness visit, subsequent Z00.00 ; BMI 25.0-25.9,adult Z68.25 ; Hyperlipidemia, unspecified hyperlipidemia type E78.5 ; Unspecified hypothyroidism E03.9 ; Episodic atrial fibrillation I48.0 ; Atherosclerotic heart disease I25.10 ; Lung nodule R91.1 and Visit for screening mammogram Z12.31 [facility] [address] [place], [place] [address] 06/15/2023 [facility] [address] [place], [place] [address] 06/17/2023 [facility] [address] [place], [place] [address] 07/14/2023 Gus Hahn Breast cancer screen ing by mammogram Z12.31 ASSESSMENTS Encounter Date Diagnosis Assessment Notes Treatment Notes Treatment Clinical Notes 07/14/2023 Breast cancer screening by mammogram (ICD-10 - Z12.31) 06/02/2023 Lung nodule (ICD-10 - R91.1) She does have history of lung nodules and has been seen by pulmonology in the past but has been quite a long time. Her CT from November indicates a 17 mm nodule within the right lung apex as well as a 3 mm noncalcified nodule in the right upper lobe. Recommend 6-month follow-up CT with contrast. Additional treatment for referrals as indicated based on results. 06/02/2023 Upper back pain (ICD-10 - M54.9) I tend to agree with cardiology that this is likely musculoskeletal in nature, encouraged her to continue Tylenol on a regular basis, moist heat, add topical lidocaine patches and stretching. Return precautions reviewed 07/13/2023 BMI 25.0-25.9,adult (ICD-10 - Z68.25) normal, continue good health habits with diet and regular exercise 07/13/2023 Medicare annual wellness visit, subsequent (ICD-10 - Z00.00) discussed continuing vs disconitnuing routine mammography - she is still quite function and would like tolerate treatment for breast cancer is detected early, agreeable to continued screening vaccinations UTD for age/season, encouraged flu vaccination in the fall 07/13/2023 Hyperlipidemia, unspecified hyperlipidemia type (ICD-10 - E78.5) continue statin therapy, labs done recently through cardiology clinic 06/02/2023 Muscle spasm (ICD-10 - M62.838) 07/13/2023 Unspecified hypothyroidism (ICD-10 - E03.9) continue replacement 07/13/2023 Episodic atrial fibrillation (ICD-10 - I48.0) continue xarelto....hasn't tolerated several antiarrythmics, cardiology is following 07/13/2023 Atherosclerotic hear t disease (ICD-10 - I25.10) continue statin therapy 07/13/2023 Lung nodule (ICD-10 - R91.1) stable on imaging this year 07/13/2023 Visit for screening mammogram (ICD-10 - Z12.31) PLAN OF TREATMENT Pending Test Test Name Order Date X ray : Chest 09/14/2017 EKG : In House 11/10/2016 Echocardiogram 11/10/2016 Occupational Therapy : Eval & Treatment 11/23/2019 H-IRON & TIBC 11/10/2016 CT Scan : Abdomen and Pelvis with oral c ontrast only 11/08/2021 M-Complete Blood Count Auto Diff 021 Insurance Providers Payer Name Payer Address Payer Phone Subscriber Number Group Number Insured Name Patient Relationship to Insured Coverage Start Date Coverage End Date [employer] DUAL [address] [address] [place] [address] [id number] Krista Quintana Self - patient is the insured MEDICATIONS ADMINISTERED Medication Instructions Date of Administration Dosage Notes Triamcinolone Acetonide 40mg Injection 11/22/2019 1 mL MEDICAL (GENERAL) HISTORY Medical History History ICD Code HLD Iron Def Anemia Anxiety/Depression 2 nodules right lung - followed by pulmo nology in the past kidney stones vertigo Atrial fibrillation, CVA Hypothyroidism Surgical History Surgery Date(Month/Year) T&A Hysterectomy 1976 Cholecystectomy 3 cardiac stents 11/2022 Hospitalization History Reason Date(Month/Year)
--- NOTE | 2023-10-31 14:12 | HMH.PHAINT1 ---
Pharmacy Intervention Comments: MEDICATION RECONCILIATION COMPLETED ON PATIENT USING EXTERNAL FILL HISTORY FROM PHARMACY AND LIST FROM CARDIOLOGY OFFICE. -NIC BLAIR, TORIBIOD
[2023-10-31] MEDS: PHENOL THROAT SPRAY 177 ML BOTTLE MM (15:14)
[2023-10-31] MEDS: LACTATED RINGERS 1000ML 1,000 ML 250 ML IV (15:15)
--- NOTE | 2023-10-31 15:40 | PC.NURSE ---
PT IS RESTING IN BED WITH FAMILY AT BEDSIDE. ALERT AND ORIENTED X4. MEDICATED PER MAR FOR DISCOMFORT. NG TUBE NOTED TO RIGHT NARE @ 55 CONNECTED TO CONTINUOUS LOW WALL SUCTION. NG TUBE WAS CLAMPED FOR PT TO TAKE SHOWER. TENDERNESS NOTED TO UPPER ABDOMEN. LUNG SOUNDS CLEAR. WILL CONTINUE TO MONITOR.
[2023-11-01 04:00] VITALS: BP 120/59; PULSE 75; RESP 16; TEMP 36.7; O2SAT 93; BMI 24.3
--- NOTE | 2023-11-01 05:08 | PC.NURSE ---
Pt continues to complain of much discomfort/pain to nasal area, head and jaws that she relates to NG tube. She was medicated with Morphine X 1 early in the shift and has rested comfortably. Pt also has reported being able to pass more gas this shift. She attempted BM with no results. No N/V
--- NOTE | 2023-11-01 06:00 | XR_ITS ---
PROCEDURE INFORMATION: Exam: XR Complete Acute Abdomen Series Including Chest Exam date and time: 11/01/2023 6:03 AM Age: 82 years old Clinical indication: Abdominal pain; Additional info: Abdominal pain, vomiting TECHNIQUE: Imaging protocol: Radiologic exam. Complete acute abdomen series, including 2 or more views of the abdomen and a single view chest. COMPARISON: CR XR ABDOMEN MIN 2V 10/31/2023 6:58 AM FINDINGS: Tubes, catheters and devices: Nasogastric tube is in the stomach. Lungs: Normal. No consolidation. Pleural spaces: Normal. No pleural effusions. No pneumothorax. Heart/Mediastinum: Normal. No cardiomegaly. Gastrointestinal tract: Normal. No bowel dilation. Intraperitoneal space: Normal. No free air. Bones/joints: Normal. No acute fracture. Soft tissues: Normal. IMPRESSION: No acute findings. NG tube in the stomach. May
[2023-11-01] MEDS: LEVOTHYROXINE 50MCG (0.05MG) TAB 50 MCG PO (06:11)
[2023-11-01 07:07] LABS: Basophils % 0.5 % (0.1-2.0); Eosinophils # 0.2 K/mm3 (0.0-0.4); Eosinophils % 2.4 % (0.1-12.0); Hematocrit 31.3 % (37.0-47.0); Hemoglobin 12.3 g/dL (12.2-16.2); Lymphocytes # 2.1 K/mm3 (0.7-4.5); Mean Corpuscular HGB Conc 39.4 g/dL (31.8-35.4); Mean Corpuscular Hemoglobin 36.5 pg (27.0-31.2); Mean Corpuscular Volume 92.6 fl (81-99); Mean Platelet Volume 9.1 fl (7.4-10.4); Monocytes # 0.6 K/mm3 (0.1-1.0); Monocytes % 7.3 % (1.7-9.3); Neutrophils # 5.7 K/mm3 (1.8-7.8); Neutrophils % 65.9 % (37.0-80.0); Platelet Count 183 K/mm3 (142-424); Red Blood Count 3.38 M/mm3 (4.20-5.40); Red Cell Distribution Width 14.7 % (11.5-17.5); White Blood Count 8.6 K/mm3 (4.8-10.8)
[2023-11-01 07:16] LABS: Alanine Aminotransferase 16 U/L (12-78); Albumin Level 3.5 g/dl (3.5-5.0); Albumin/Globulin Ratio 1.4 (1.1-1.8); Alkaline Phosphatase 51 U/L (38-126); Anion Gap 6.6 mEq/L (5-15); Aspartate Amino Transferase 28 U/L (14-36); Blood Urea Nitrogen 12 mg/dl (7-17); Calcium 8.5 mg/dl (8.4-10.2); Carbon Dioxide 28 mmol/L (22.0-30.0); Chloride 108 mmol/L (98-107); Creatinine Clearance Estimated 38 mL/min (50-200); Estimated Glomerular Filt Rate 69 ml/min (>60); GFR (African American) 83 ML/MIN (>60); Globulin 2.5 g/dL (1.3-3.2); Glucose 84 mg/dl (74-100); Magnesium 1.8 mg/dl (1.6-2.3); Potassium 3.6 mmoL/L (3.5-5.1); Sodium 139 mmol/L (136-145)
[2023-11-01 07:34] VITALS: BP 132/77; PULSE 77; RESP 17; TEMP 36.9; O2SAT 92
[2023-11-01] MEDS: PANTOPRAZOLE 40MG VIAL 40 MG IV (08:07)
[2023-11-01] MEDS: SODIUM CHLORIDE 0.9% 10ML VIAL 10 ML IV (08:07)
--- NOTE | 2023-11-01 08:54 | EXP.SURG.PN ---
Subjective Narrative: Patient complains of nasogastric tube being irritating. She has passed some gas. Has had the urge for bowel movement but no result. Acute abdominal series reveals normal bowel gas pattern with gas in the colon. Exam Data for Last 24 hours Vital signs and Labs for Last 24 Hours: Temp Pulse Resp BP Pulse Ox O2 Del Method 98.4 F 77 17 132/77 92 L Room Air 11/01/23 07:34 11/01/23 07:34 11/01/23 07:34 11/01/23 07:34 11/01/23 07:34 11/01/23 07:34 Laboratory Results - last 24 hr 10/31/23 06:30: Sodium 139, Potassium 4.1, Chloride 109 H, Carbon Dioxide 25, Anion Gap 9.1, BUN 9 D, Creatinine 0.80, Estimated Creat Clear 38, Estimated GFR 69, Est GFR ( Amer) 83, Glucose 92, Calcium 9.0 11/01/23 06:30: WBC 8.6, RBC 3.38 L, Hgb 12.3, Hct 31.3 L, MCV 92.6, MCH 36.5 H, MCHC 39.4 H, RDW 14.7, Plt Count 183, MPV 9.1, Neut % (Auto) 65.9, Lymph % (Auto) 24.0, [place] % (Auto) 7.3, Eos % (Auto) 2.4, Baso % (Auto) 0.5, Neut # (Auto) 5.7, Lymph # (Auto) 2.1, [place] # (Auto) 0.6, Eos # (Auto) 0.2, Baso # (Auto) 0.0, Sodium 139, Potassium 3.6, Chloride 108 H, Carbon Dioxide 28, Anion Gap 6.6, BUN 12 D, Creatinine 0.80, Estimated Creat Clear 38, Estimated GFR 69, Est GFR ( Amer) 83, Glucose 84, Calcium 8.5, Magnesium 1.8, Total Bilirubin 1.0, AST 28, ALT 16, Alkaline Phosphatase 51, Total Protein 6.0 L, Albumin 3.5, Globulin 2.5, Albumin/Globulin Ratio 1.4 I & O for Last 24 hours: Intake & Output 10/29/23 10/30/23 10/31/23 11/01/23 11:59 11:59 11:59 11:59 Intake Total 0 / 0 1100 / 1100 Output Total 150 / 150 200 / 200 Balance -150 / -150 900 / 900 Weight 123 lb 14.397 oz 123 lb 14.397 oz *Routine Abdominal Exam Abdominal: Present soft; Absent tenderness Progress Note: A&P Assessment and plan (1) SBO (small bowel obstruction): Status: Acute Assessment and plan: Plan to discontinue her nasogastric tube. Continue to limit to ice chips and sips of clears today however. (2) HTN (hypertension): Status: Chronic (3) HLD (hyperlipidemia): Status: Chronic (4) PAF (paroxysmal atrial fibrillation): Status: Chronic (5) Coronary artery disease: Status: Chronic (6) Chronic anticoagulation: Status: Acute (7) History of coronary artery stent placement: Status: Acute
[2023-11-01] MEDS: PHENOL THROAT SPRAY 177 ML BOTTLE MM (09:15)
--- NOTE | 2023-11-01 09:21 | PC.NURSE ---
NG tube D/C per MD orders. Patient tolerated well. Expressed discomfort in the back of her throat. Throat spray administered
[2023-11-01 11:23] VITALS: BP 138/68; PULSE 71; RESP 20; TEMP 36.8; O2SAT 93
--- NOTE | 2023-11-01 12:16 | EXP.PN ---
Subjective *Date: 11/01/23 *Time: 12:16 Interval history: The patient is seen and examined at bedside. I am accompanied by Leah BLACKBURN. No family members are at bedside. The patient reports that her is currently hospitalized at the [facility] in [facility]. The patient is inquiring about discharge home. Nursing staff reports that her NG tube was discontinued this morning. She remains afebrile with stable vital signs and saturating appropriately on room air. She reports tolerating her clear liquid diet. She reports flatus today. She reports her last bowel movement was 48 hours ago. Follow-up imaging identifies gas in the colon. Morning CBC identifies a normal white blood cell count with stable hemoglobin. Her electrolytes BUN and creatinine are normal. Exam Data for Last 24 hours Vital signs and Labs for Last 24 Hours: Temp Pulse Resp BP Pulse Ox O2 Del Method 98.3 F 71 20 138/68 93 L Room Air 11/01/23 11:23 11/01/23 11:23 11/01/23 11:23 11/01/23 11:23 11/01/23 11:23 11/01/23 11:23 Laboratory Results - last 24 hr 11/01/23 06:30: WBC 8.6, RBC 3.38 L, Hgb 12.3, Hct 31.3 L, MCV 92.6, MCH 36.5 H, MCHC 39.4 H, RDW 14.7, Plt Count 183, MPV 9.1, Neut % (Auto) 65.9, Lymph % (Auto) 24.0, [place] % (Auto) 7.3, Eos % (Auto) 2.4, Baso % (Auto) 0.5, Neut # (Auto) 5.7, Lymph # (Auto) 2.1, [place] # (Auto) 0.6, Eos # (Auto) 0.2, Baso # (Auto) 0.0, Sodium 139, Potassium 3.6, Chloride 108 H, Carbon Dioxide 28, Anion Gap 6.6, BUN 12 D, Creatinine 0.80, Estimated Creat Clear 38, Estimated GFR 69, Est GFR ( Amer) 83, Glucose 84, Calcium 8.5, Magnesium 1.8, Total Bilirubin 1.0, AST 28, ALT 16, Alkaline Phosphatase 51, Total Protein 6.0 L, Albumin 3.5, Globulin 2.5, Albumin/Globulin Ratio 1.4 I & O for Last 24 hours: Intake & Output 10/29/23 10/30/23 10/31/23 11/01/23 23:59 23:59 23:59 23:59 Intake Total 1000 / 1100 100 / 100 Output Total 350 / 350 0 / 0 Balance 650 / 750 100 / 100 Weight 56.2 kg 56.2 kg 56.2 kg Constitutional Constitutional: no acute distress and average body habitus *Routine HEENT Exam Head: Present normocephalic Eye: Present EOMI ENT: Present mucous membranes moist *Routine Neck Exam Neck: Present supple; Absent lymphadenopathy *Routine Respiratory Exam Respiratory: Present CTA bilaterally, normal respiratory effort and symmetric chest movement *Routine Cardiovascular Exam Cardiovascular: Present RRR; Absent murmur *Routine Abdominal Exam Abdominal: Present soft and normoactive bowel sounds; Absent tenderness or distended *Routine Extremities Exam Extremities: Present full ROM; Absent edema *Routine Skin Exam Skin: Present warm; Absent rash *Routine Neurological Exam Neurological: Present alert, oriented X3, moving all extremities, vision grossly intact, hearing grossly intact and normal speech; Absent sensory deficit or motor deficit Routine Psychiatric Exam Psychiatric: Present normal affect, normal thought process, cooperative, good insight and good judgment Assessment and Plan *Assessment and plan (1) SBO (small bowel obstruction): Status: Acute Category: Medical Code(s): K56.609 - Unspecified intestinal obstruction, unspecified as to partial versus complete obstruction (2) HTN (hypertension): Status: Chronic Qualifiers: Hypertension type: essential hypertension Qualified Code(s): I10 - Essential (primary) hypertension Category: Medical Code(s): I10 - Essential (primary) hypertension (3) HLD (hyperlipidemia): Status: Chronic Qualifiers: Hyperlipidemia type: mixed hyperlipidemia Qualified Code(s): E78.2 - Mixed hyperlipidemia Category: Medical Code(s): E78.5 - Hyperlipidemia, unspecified (4) PAF (paroxysmal atrial fibrillation): Status: Chronic Category: Medical Code(s): I48.0 - Paroxysmal atrial fibrillation (5) Coronary artery disease: Status: Chronic Qualifiers: Coronary Disease-Associated Artery/Lesion type: [place] artery [place] vs. transplanted heart: [place] heart Associated angina: with other forms of angina Qualified Code(s): I25.118 - Atherosclerotic heart disease of [place] coronary artery with other forms of angina pectoris Category: Medical Code(s): I25.10 - Atherosclerotic heart disease of [place] coronary artery without angina pectoris (6) Chronic anticoagulation: Status: Acute Category: Medical Code(s): Z79.01 - jail (current) use of anticoagulants (7) History of coronary artery stent placement: Status: Acute Category: Surgical Code(s): Z95.5 - Presence of coronary angioplasty implant and graft Plan This is an 82-year-old female being admitted for likely early small bowel obstruction. Tolerating liquids with positive flatus. Surgery continues to follow. Problems addressed as follows: SBO Review of patient's chart, had similar episode in January 2022. Had enteritis with development of ileus versus obstruction. Doing welll with conservative management. Will discontinue NG . Clear liquids at this time. Discussed case with surgery, recommend conservative management for the next 24 hours. Holding Xarelto and Plavix until cleared by general surgery Zofran 4 mg every 6 hours as needed for nausea. Morphine 2 mg IV every 2 hours as needed, parenterally administered controlled substance for comfort care encourage p.o. fluid intake Trending labs and inflammatory markers CAD S/p 5 stents Paroxysmal atrial fibrillation -Continue Imdur -Holding Xarelto and Plavix until cleared by general surgery HLD: Holding statin. Consider resuming when tolerating oral intake GERD: PPI therapy Hypothyroid: Synthroid 50 mcg daily DVT prophylaxis: SCDs CODE STATUS: Full code Surrogate decision maker: Kate [phone] Skin: Low risk The patient is hospitalized 8 2 with above diagnoses. The patient has identified improvement and is inquiring about discharge home. We appreciate recruiting operations consultant evaluation and ongoing recommendations. Case management is assisting with discharge needs. Barriers to discharge currently include assessing p.o. intake and bowel elimination. Expected day of discharge over the next day or 2.
[2023-11-01 16:00] VITALS: BP 131/64; PULSE 67; RESP 18; TEMP 36.4; O2SAT 95
--- NOTE | 2023-11-01 17:54 | PC.NURSE ---
PT IS RESTING IN BED WITH CALL LIGHT IN LAP, FAMILY AT BEDSIDE. PT HAS ONLY RECEIVED PROTONIX THIS SHIFT VIA IV PER JUN. NG TUBE D/C THIS MORNING PER DR ORDERS. PT TOLERATED WELL AND EXPRESSED DECREASED NASAL PAIN AND PRESSURE FOLLOWING REMOVAL. PT WAS ALLOWED SIPS OF CLEARS THROUGHOUT THE SHIFT FOLLOWING NG REMOVAL AND HAS TOLERATED WELL. BOWEL SOUNDS ACTIVE AND ABDOMEN SOFT AND NON TENDER. PT IS IN GOOD SPIRITS AND IS LOOKING FORWARD TO DISCHARGE. PER DR, DISCHARGE IS DEPENDENT ON ORAL INTAKE TOLERANCE AND ELIMINATION. PT IS AGREEABLE. VSS.
[2023-11-01 20:00] VITALS: BP 124/64; PULSE 68; RESP 16; TEMP 37.1; O2SAT 91
[2023-11-01] MEDS: KETOROLAC 30MG/ML VIAL 15 MG IV (21:24)
[2023-11-02] VITALS: BP 139/77; PULSE 68; RESP 16; TEMP 36.9; O2SAT 98
[2023-11-02 04:00] VITALS: BP 133/71; PULSE 59; RESP 16; TEMP 36.6; O2SAT 94; BMI 23.9
--- NOTE | 2023-11-02 05:29 | PC.NURSE ---
Pt has rested well through the night. She did complain of headache early in the shift and was medicated with Torodol per order which was effective for comfort. Pt complains of weakness but denies further pain, nausea or vomiting.
[2023-11-02] MEDS: LEVOTHYROXINE 50MCG (0.05MG) TAB 50 MCG PO (06:28)
[2023-11-02 07:00] LABS: Alanine Aminotransferase 17 U/L (12-78); Albumin Level 3.5 g/dl (3.5-5.0); Albumin/Globulin Ratio 1.3 (1.1-1.8); Alkaline Phosphatase 54 U/L (38-126); Anion Gap 7.6 mEq/L (5-15); Aspartate Amino Transferase 31 U/L (14-36); Blood Urea Nitrogen 14 mg/dl (7-17); Calcium 8.8 mg/dl (8.4-10.2); Carbon Dioxide 27 mmol/L (22.0-30.0); Chloride 108 mmol/L (98-107); Creatinine Clearance Estimated 37 mL/min (50-200); Estimated Glomerular Filt Rate 80 ml/min (>60); GFR (African American) 97 ML/MIN (>60); Globulin 2.8 g/dL (1.3-3.2); Glucose 87 mg/dl (74-100); Potassium 3.6 mmoL/L (3.5-5.1); Sodium 139 mmol/L (136-145); Total Protein,Serum 6.3 g/dl (6.3-8.2)
--- NOTE | 2023-11-02 07:46 | EXP.SURG.PN ---
Subjective Narrative: Patient feels well. No complaints. Tolerating clear liquid diet. Her bowels have moved. Exam Data for Last 24 hours Vital signs and Labs for Last 24 Hours: Temp Pulse Resp BP Pulse Ox O2 Del Method 97.9 F 59 L 16 133/71 94 L Room Air 11/02/23 04:00 11/02/23 04:00 11/02/23 04:00 11/02/23 04:00 11/02/23 04:00 11/02/23 06:52 Laboratory Results - last 24 hr 11/02/23 05:56: Sodium 139, Potassium 3.6, Chloride 108 H, Carbon Dioxide 27, Anion Gap 7.6, BUN 14, Creatinine 0.70, Estimated Creat Clear 37, Estimated GFR 80, Est GFR ( Amer) 97, Glucose 87, Calcium 8.8, Total Bilirubin 1.0, AST 31, ALT 17, Alkaline Phosphatase 54, Total Protein 6.3, Albumin 3.5, Globulin 2.8, Albumin/Globulin Ratio 1.3 I & O for Last 24 hours: Intake & Output 10/30/23 10/31/23 11/01/23 11/02/23 11:59 11:59 11:59 11:59 Intake Total 0 / 0 1100 / 1100 300 / 300 Output Total 150 / 150 200 / 200 200 / 200 Balance -150 / -150 900 / 900 100 / 100 Weight 123 lb 14.397 oz 123 lb 14.397 oz 122 lb 1.6 oz *Routine Abdominal Exam Abdominal: Present soft; Absent tenderness Progress Note: A&P Assessment and plan (1) SBO (small bowel obstruction): Status: Acute Assessment and plan: Full liquid diet. If tolerates possible discharge later. Recommend low residue diet. May need outpatient small bowel follow-through and potential capsule endoscopy to assess for chronic issues. (2) HTN (hypertension): Status: Chronic (3) HLD (hyperlipidemia): Status: Chronic (4) PAF (paroxysmal atrial fibrillation): Status: Chronic (5) Coronary artery disease: Status: Chronic (6) Chronic anticoagulation: Status: Acute (7) History of coronary artery stent placement: Status: Acute
[2023-11-02 08:00] VITALS: BP 129/75; PULSE 67; RESP 16; TEMP 36.9; O2SAT 96
[2023-11-02] MEDS: PANTOPRAZOLE 40MG VIAL 40 MG IV (09:17)
[2023-11-02] MEDS: ISOSORBIDE MONO 30MG TAB.ER.24H 15 MG PO (09:17)
--- NOTE | 2023-11-02 10:59 | EXP.DC.SUM ---
General Admission date:: 10/30/23 Discharge date: 11/02/23 HPI HPI HPI: Krista Quintana is a 82-year-old female past medical history significant for CAD status post 5 stents (last stenting done November 2022), HTN, HLD, PAF on Xarelto and Plavix who presents the emergency room tonight with complaints of abdominal pain and nausea and vomiting beginning in the morning of 10/30/2023. She has had prior appendectomy, cholecystectomy, and hysterectomy (via low midline decades ago). She states that she has had some vomiting for at least 1 week. She had acute onset of severe abdominal pain yesterday and therefore presented to the emergency department. CT of the abdomen pelvis revealed few modestly distended bowel loops measuring up to 3.0 cm in maximal diameter and containing fecal material and/or air-fluid levels in the lower abdomen with a relatively abrupt transition point in the pelvis. Findings appear suspicious for possible early small bowel obstruction. Trace ascites in the pelvis. NG tube was placed. She has been admitted to the hospitalist service for small bowel obstruction. She was admitted for inpatient management and surgical consultation. Of note, patient had an admission in January 2022 for ileus versus partial bowel obstruction managed nonoperatively. At that time plan was for outpatient small bowel evaluation with capsule endoscopy with gastroenterology. She has had EGD and colonoscopy by Dr. Jose Somers on 11/20/2021. Since admission she has had minimal NG output. Follow-up acute abdominal series today reveals nonobstructive bowel gas pattern. Hospital Course Hospital Course Hospital Course: The patient was admitted with general surgery consultation. Imaging, labs and inflammatory markers were assessed and trended. She was maintained on IV fluid resuscitation with n.p.o. status and NG tube care. She identified improvement with subsequent removal of her NG tube. A diet was gradually introduced and advanced with good tolerance. She identified no further abdominal pain with effective bowel elimination. With her improvement she requested to be discharged home. We recommended a low residue GI diet for the next few days with outpatient follow-up. I spent 35 minutes in gzmz-[id number] time with the patient and nursing staff concerning the discharge process. We discussed the admitting diagnoses and hospital course. We discussed identified improvement and the patient's desire to be discharged. We reviewed inpatient studies and imaging. The patient voiced understanding on the importance of follow-up with her primary care provider and general surgeon. The patient plans to be compliant with the medication regimen prescribed and follow-up appointments. She understands that she can return to the emergency department with any sudden changes or concerns. Exam Data for Last 24 hours Vital signs and Labs for Last 24 Hours: Temp Pulse Resp BP Pulse Ox O2 Del Method 98.5 F 67 16 129/75 96 Room Air 11/02/23 08:00 11/02/23 08:00 11/02/23 08:00 11/02/23 08:00 11/02/23 08:00 11/02/23 09:00 Laboratory Results - last 24 hr 11/02/23 05:56: Sodium 139, Potassium 3.6, Chloride 108 H, Carbon Dioxide 27, Anion Gap 7.6, BUN 14, Creatinine 0.70, Estimated Creat Clear 37, Estimated GFR 80, Est GFR ( Amer) 97, Glucose 87, Calcium 8.8, Total Bilirubin 1.0, AST 31, ALT 17, Alkaline Phosphatase 54, Total Protein 6.3, Albumin 3.5, Globulin 2.8, Albumin/Globulin Ratio 1.3 I & O for Last 24 hours: Intake & Output 10/30/23 10/31/23 11/01/23 11/02/23 23:59 23:59 23:59 23:59 Intake Total 1000 / 1100 300 / 400 580 / 580 Output Total 350 / 350 0 / 0 200 / 200 Balance 650 / 750 300 / 400 380 / 380 Weight 56.2 kg 56.2 kg 56.2 kg 55.384 kg Constitutional Constitutional: no acute distress and average body habitus *Routine HEENT Exam Head: Present normocephalic Eye: Present EOMI ENT: Present mucous membranes moist *Routine Neck Exam Neck: Present supple; Absent lymphadenopathy *Routine Respiratory Exam Respiratory: Present CTA bilaterally, normal respiratory effort and symmetric chest movement *Routine Cardiovascular Exam Cardiovascular: Present RRR; Absent murmur *Routine Abdominal Exam Abdominal: Present soft and normoactive bowel sounds; Absent tenderness or distended *Routine Extremities Exam Extremities: Present full ROM; Absent edema *Routine Skin Exam Skin: Present warm; Absent rash *Routine Neurological Exam Neurological: Present alert, oriented X3, moving all extremities, vision grossly intact, hearing grossly intact and normal speech; Absent sensory deficit or motor deficit Routine Psychiatric Exam Psychiatric: Present normal affect, normal thought process, cooperative, good insight and good judgment Results Data Completed and Pending Labs on day of discharge: Labs from last 24 hours 11/02/23 05:56 Sodium 139 Potassium 3.6 Chloride 108 H Carbon Dioxide 27 Anion Gap 7.6 BUN 14 Creatinine 0.70 Estimated Creat Clear 37 Estimated GFR 80 Est GFR ( Amer) 97 Glucose 87 Calcium 8.8 Total Bilirubin 1.0 AST 31 ALT 17 Alkaline Phosphatase 54 Total Protein 6.3 Albumin 3.5 Globulin 2.8 Albumin/Globulin Ratio 1.3 DS: Diagnosis Discharge Diagnosis (1) SBO (small bowel obstruction): Status: Acute Code(s): K56.609 - Unspecified intestinal obstruction, unspecified as to partial versus complete obstruction (2) HTN (hypertension): Status: Chronic Code(s): I10 - Essential (primary) hypertension Qualifiers: Hypertension type: essential hypertension Qualified Code(s): I10 - Essential (primary) hypertension (3) HLD (hyperlipidemia): Status: Chronic Code(s): E78.5 - Hyperlipidemia, unspecified Qualifiers: Hyperlipidemia type: mixed hyperlipidemia Qualified Code(s): E78.2 - Mixed hyperlipidemia (4) PAF (paroxysmal atrial fibrillation): Status: Chronic Code(s): I48.0 - Paroxysmal atrial fibrillation (5) Coronary artery disease: Status: Chronic Code(s): I25.10 - Atherosclerotic heart disease of [place] coronary artery without angina pectoris Qualifiers: Coronary Disease-Associated Artery/Lesion type: [place] artery [place] vs. transplanted heart: [place] heart Associated angina: with other forms of angina Qualified Code(s): I25.118 - Atherosclerotic heart disease of [place] coronary artery with other forms of angina pectoris (6) Chronic anticoagulation: Status: Acute Code(s): Z79.01 - [place] (current) use of anticoagulants (7) History of coronary artery stent placement: Status: Acute Code(s): Z95.5 - Presence of coronary angioplasty implant and graft Meds Home Medications and Allergies Home Medications Medication Instructions Recorded Confirmed Type levothyroxine 50 mcg tablet 50 mcg PO DAILY 03/20/20 10/30/23 History kdylpvbnmaba-ybtyvwlp-yjdxq acid 1 each PO DAILY 11/01/20 10/30/23 History 400 mcg-vitamin K 80 mcg capsule rosuvastatin 20 mg tablet 20 mg PO DAILY 04/24/22 10/30/23 History clopidogrel 75 mg tablet (Plavix) 75 mg PO DAILY 11/03/22 10/31/23 History isosorbide mononitrate 30 mg 15 mg (1/2 x 30 mg) PO DAILY #30 11/25/22 10/30/23 Rx tablet,extended release 24 hr tabs pantoprazole 40 mg tablet,delayed 40 mg PO DAILY 10/31/23 10/31/23 History release rivaroxaban 15 mg tablet (Xarelto) 15 mg PO QPMWITHMEAL 10/31/23 10/31/23 History New Prescriptions to Start Prescriptions: Allergies Allergy/AdvReac Type Severity Reaction Status Date / Time losartan AdvReac Mild GI upset Verified 08/26/23 08:40 diltiazem AdvReac Other Verified 10/31/23 13:15 Discharge Plan Disposition Patient Disposition: Home, Self-Care Condition: Good Discharge Order Discharge Orders: Discharge Order (Routine); Ordered 11/02/23 Ordered By: Samuel Castro Follow up Plan Follow up with: Zachary Carrillo MD [Staff Physician] - 2 weeks Olya Hahn APRN [Primary Care Provider] - 1 week Prescriptions/Medication Reconciliation: Continued rosuvastatin 20 mg tablet 20 mg PO DAILY isosorbide mononitrate 30 mg tablet extended release 24 hr 15 mg PO DAILY Qty: 30 2RF pantoprazole 40 mg tablet,delayed release (DR/EC) 40 mg PO DAILY Xarelto 15 mg tablet 15 mg PO QPMWITHMEAL levothyroxine 50 MCG tablet 50 mcg PO DAILY Patient Comments: TAKE 1 TABLET BY MOUTH IN THE MORNING (APPOINTMENT NEEDED FOR ANY FURTHER REFILLS) edlwupvc-djf-ebtvh acid-vit K 1 EACH capsule 1 each PO DAILY clopidogrel [Plavix] 75 mg tablet 75 mg PO DAILY Discontinued uvejb-3k-uqn-epa-fish oil 1 EACH capsule 1 each PO DAILY Problem Reconciliation Problems Reviewed?: Yes Patient Discharge Instructions ACTIVITY: Ambulate as tolerated DIET: cardiac Patient Instructions: Low-Fiber/Low-Residue Diet, DI for Small Bowel Obstruction Providers Primary Care Provider: Olya Hahn Admit Provider: Mesfin Costa Attending Provider: Mesfin Costa
--- NOTE | 2023-11-03 13:53 | CARE MANAGER ---
Contacted patient related to hospital discharge. Patient is having burning with urination. She had contacted [facility] internal medicine, but hadn't heard back yet. Liz Hahn NP states has sent antibiotic to pharmacy. Let patient know. She denies any other questions or concerns. ALEXEY Souza
== END 2023-11-02 11:19 | disposition home or self-care (01) | DRG 390 ==
LOC: ER 20:54 → 2ND 21:39
PROVIDERS: Nurse Practitioner Acute Care; Admitting Provider Internal Medicine Adolescent Medicine; Emergency Provider Emergency Medicine; PCP Nurse Practitioner Family; Visit Provider Internal Medicine Adolescent Medicine
DX: K56.609 Unspecified intestinal obstruction, unspecified as to partial versus complete obstruction (principal); Z86.16 Personal history of COVID-19; I10 Essential (primary) hypertension; E78.2 Mixed hyperlipidemia; I48.0 Paroxysmal atrial fibrillation; I25.118 Atherosclerotic heart disease of native coronary artery with other forms of angina pectoris; Z79.01 Long term (current) use of anticoagulants; Z95.5 Presence of coronary angioplasty implant and graft
CPT/HCPCS: 36415; 71045; 74019; 74021; 74177; 80048; 80053; 81001; 83605; 83690; 83735; 84484; 85025; 85610; 85730; 93005; 99221; 99291; J0131; J1170; J1885; J2270; J2405; J7120; Q9967

== ENCOUNTER 2023-12-04 07:39 | Outpatient (CLI) | payer MEDICARE, MEDICAID, SELFPAY ==
--- NOTE | 2023-12-04 07:39 | FL_ITS ---
FINAL REPORT CLINICAL HISTORY: SBO FINDINGS: UPPER GI WITH SBFT UPPER GI EXAM HISTORY: Abdominal pain, nausea. PROCEDURE: The patient ingested barium. Effervescent crystals were also administered. Spot and overhead films were obtained. FINDINGS: The esophagus is normal. There is a small sliding-type hiatal hernia. There is mild gastroesophageal reflux. Peristalsis is normal. The rugal fold pattern of the stomach is normal. The duodenal bulb is normal. However, there is persistent nondistention of the duodenum just distal to the duodenal bulb. This is likely secondary to scarring. Fluoroscopy time: 1 minute 36 seconds Radiation exposure in Reference air Kerma: 72 mGy IMPRESSION: 1. Nondistention of the post bulbar section of the duodenum likely related to scarring. 2. Mild gastroesophageal reflux. SBFT: The outside deliverer film is normal. There is no evidence of obstruction. The mucosal fold pattern is normal. The terminal ilium is normal. IMPRESSION: Normal SBFT. Films reviewed , interpreted and dictated by Dr. Momin Transcribed by Danilo Johnson PA-C. Reviewed, Interpreted and Dictated by Zachary Momin III, MD Transcribed by JUAN DIEGO Munroe Authenticated and [facility]
[2023-12-04] MEDS: E-Z-GASII EFFERVESCENT GRANULES;1PK 1 EACH PO (08:29)
[2023-12-04] MEDS: BARIUM SULFATE (E-Z-HD 340GM);135ML BOTTLE 135 ML PO (08:29)
[2023-12-04] MEDS: BARIUM SULFATE(LIQUID E-Z-PAQUE);355ML BOTTLE 355 ML PO (08:29)
== END 2023-12-04 23:59 | disposition home or self-care (01) ==
LOC: RAD 07:39
PROVIDERS: PCP Nurse Practitioner Family; Visit Provider Surgery
DX: K56.609 Unspecified intestinal obstruction, unspecified as to partial versus complete obstruction (principal)
CPT/HCPCS: 74246; 74248

== ENCOUNTER 2024-07-16 10:51 | Emergency (ER) | payer MEDICARE, MEDICAID, SELFPAY ==
--- NOTE | 2024-07-16 10:51 | ECG_ITS ---
APPROVED REPORT Exam: Resting ECG HR:110 bpm ECG Measurements Heart Rate 110 AXES TX 164 P 39 QRSd 89 QRS -44 QT 319 T 64 QTc 384 Conclusion SINUS TACHYCARDIA LEFT AXIS DEVIATION [QRS AXIS < -30] POSSIBLE ANTERIOR MYOCARDIAL INFARCTION , PROBABLY OLD [30 ms Q WAVE IN V3/V4, OR R < 0.2 mV IN V4] ABNORMAL ECG UNCONFIRMED REPORT Electronically signed by : Mesfin Lisa, 07/16/2024 13:44:32
--- NOTE | 2024-07-16 10:56 | XR_ITS ---
PROCEDURE INFORMATION: Exam: XR Chest Exam date and time: 07/16/2024 11:03 AM Age: 83 years old Clinical indication: Pain; Other: Cp; Additional info: Chest pain, epigastric pain TECHNIQUE: Imaging protocol: Radiologic exam of the chest. Views: 1 view. COMPARISON: CR XR ACUTE ABDOMEN SERIES 11/01/2023 6:03 AM FINDINGS: Lungs: Unremarkable. No consolidation. Pleural spaces: Unremarkable. No pleural effusion. No pneumothorax. Heart/Mediastinum: Unremarkable. No cardiomegaly. Bones/joints: Unremarkable. IMPRESSION: No acute findings.
[2024-07-16 11:01] VITALS: BP 151/75; PULSE 75; RESP 16; O2SAT 98
[2024-07-16 11:08] VITALS: BP 151/75; PULSE 102; RESP 22; TEMP 36.9; O2SAT 98; BMI 22.6
--- NOTE | 2024-07-16 11:21 | ED_ITS ---
Discharge Plan Disposition Patient Disposition: Home, Self-Care Prescriptions Prescriptions: No Action rosuvastatin 20 mg tablet 20 mg PO DAILY salmon oil-omega-3 fatty acids 1,000-210 mg capsule 1 cap PO DAILY Xarelto 15 mg tablet See Rx Instructions .ROUTE .COMPLEX Qty: 90 3RF Dose Instruction: TAKE 1 TABLET EVERY EVENING WITH A MEAL Rx Instructions: TAKE 1 TABLET EVERY EVENING WITH A MEAL clopidogrel 75 mg tablet See Rx Instructions .ROUTE .COMPLEX Qty: 90 3RF Dose Instruction: Take 1 tablet by mouth once daily Rx Instructions: Take 1 tablet by mouth once daily isosorbide mononitrate 30 mg tablet extended release 24 hr See Rx Instructions .ROUTE .COMPLEX Qty: 45 3RF Dose Instruction: Take 1/2 (one-half) tablet by mouth once daily Rx Instructions: Take 1/2 (one-half) tablet by mouth once daily pantoprazole 40 mg tablet,delayed release (DR/EC) 40 mg PO DAILY levothyroxine 50 MCG tablet 50 mcg PO DAILY Patient Comments: TAKE 1 TABLET BY MOUTH IN THE MORNING (APPOINTMENT NEEDED FOR ANY FURTHER REFILLS) gkafknzg-ipf-jjoia acid-vit K 1 EACH capsule 1 each PO DAILY Referrals Follow up/Referrals: Juan Carlos Pedersen II, MD [Staff Physician] - See instructions ProviderJose Ramon MD [Referring] - See instructions Activity Restrictions/Add. Instructions Additional Instructions/Restrictions: No evidence of an acute cardiopulmonary emergency please follow-up with Dr. Pedersen to discuss possible gastroenterology related symptoms. I recommend that you discussed with him the possibility of getting an EGD. Clinical Impressions Clinical Impression: Epigastric pain Instructions Patient Instructions: DI for Epigastric Pain Print Language Print Language: Pashto Discharge ED Provider: Bharathi Lisa General Chief Complaint: Chest Pain Stated Complaint: Chest Pain Time Seen by Provider: 07/16/24 11:08 Mode of Arrival: Family Vehicle Source of Information: Patient and Medical Record Description of Symptoms (Recalled from ER Triage Doc. by RN): Pt c/o Epigastric/distal midsteral pain this AM that is intermittent and short duration. States she has a cardiac hx of was worried this could be her heart. She has 5 previous stents andis on Xarelto. She follows Dr José's cardiology group. Denies any SOA, n/v/d, or radiating pain. Report the pain is not pain but like a fullness . She also reports to take a Stomach pill . Reports this has been going on for a while but now she is having tingleing to BUE & BLE. History of Present Illness HPI narrative: 83-year-old presents today with epigastric abdominal pain. This has been ongoing intermittently over the last 2 weeks. Most recently this is just prior to arrival. Patient has had these types of discomfort for many years in 2021 she had multiple stents placed without any improvement in her symptoms subsequently she had more stents placed without any improvement in symptoms. Around 4 years ago with similar complaints she had her gallbladder removed again without any symptom improvement. She has not had an EGD. Denies any melena or hematemesis. But does improve with Tums when she has these episodes. This is not exertional. She does complain of some tingling down bilateral arms but no significant pain. Has felt a little fatigued lately. She is currently without symptoms. Related Data Home Medications ?Medication ?Instructions ?Recorded ?Confirmed levothyroxine 50 mcg tablet 50 mcg PO DAILY 03/20/20 07/16/24 adpwraysemzh-yayuacxv-biujn acid 1 each PO DAILY 11/01/20 07/16/24 400 mcg-vitamin K 80 mcg capsule rosuvastatin 20 mg tablet 20 mg PO DAILY 04/24/22 07/16/24 pantoprazole 40 mg tablet,delayed 40 mg PO DAILY 10/31/23 07/16/24 release salmon oil 1,000 mg-omega-3 fatty 1 cap PO DAILY 02/29/24 07/16/24 acids 210 mg capsule Previous Rx's ?Medication ?Instructions ?Recorded clopidogrel 75 mg tablet See Rx Instructions .Route 05/31/24 .COMPLEX #90 tabs isosorbide mononitrate 30 mg See Rx Instructions .Route 05/31/24 tablet,extended release 24 hr .COMPLEX #45 tabs rivaroxaban 15 mg tablet (Xarelto) See Rx Instructions .Route 05/31/24 .COMPLEX #90 tabs Allergies Allergy/AdvReac Type Severity Reaction Status Date / Time losartan AdvReac Mild GI upset Verified 02/29/24 08:28 diltiazem AdvReac Other Verified 02/29/24 08:28 [facility] Disclaimer: The information contained in this section may have been updated after the patient was seen, as this information can be updated by other users. Medical History History of anemia Hyperlipidemia Hypertension History of COVID-19 History of transient ischemic attack (TIA) History of gastroesophageal reflux (GERD) Appendicitis Atrial fibrillation Surgical History History of appendectomy History of hysterectomy Hx of esophagogastroduodenoscopy History of colonoscopy History of coronary artery stent placement History of cardiac cath Family History Other Family history of GERD Family history of cancer Family history of diabetes mellitus type II Family history of hyperlipidemia Family history of hypertension Family history of kidney stone Family history of myocardial infarction Family history of stroke SBO (small bowel obstruction) Social History Smoking Status: Never smoker second hand exposure: No alcohol intake: never substance use type: denies use current occupational status: retired Travel in the last 8 weeks: Inside the [place] household members: none housing: house current occupational exposures/hazards: No caffeine: No Have you lived/traveled outside [place] in past 30 days?: No Contact w/someone who lives/traveled outside [place] past 30 days?: No Exposure to someone with infectious disease in past 14 days?: No Do you have a fever (greater than 100.4 F or 38 C)?: No Have you tested positive for COVID-19: No Exposed to someone with COVID-19 in past 14 days?: No Do you have a sore throat?: No Do you have a cough?: No Do you have any weakness?: No Do you have any diarrhea?: No Are you experiencing any unusual bleeding?: No Do you have any muscle aches/pain?: No Do you have any abdominal pain?: No Are you experiencing loss of taste or smell?: No Other Medical History Have you received the Flu Vaccine for this season: No Have you received the Pneumonia Vaccine: No ROS Obtained: Yes All systems reviewed & no additional complaints except as documented Physical Exam General General appearance: alert Respiratory Respiratory exam: Present normal lung sounds bilaterally; Absent respiratory distress Cardiovascular Cardiovascular exam: Present regular rate; Absent normal rhythm Abdominal Exam Abdominal exam: Present soft; Absent distention or tenderness Neurological Exam Neurological exam: Present alert HEART Score HEART Score HEART Score assessment performed?: Yes History (anamnesis): Slightly suspicious ECG: Non-specific disturbance Age: >65 years Risk factors: Atherosclerosis history Troponin: </= normal limit HEART Score: 5 Critical Care Critical Care Time Critical Care Time: No Medical Decision Making [place] Inquiry Pt receiving controlled substance: No Vital Signs Vital Signs: 07/16/24 11:01 07/16/24 11:08 07/16/24 11:30 Temperature 98.4 F Temperature Source Oral Pulse Rate 75 65 Pulse Rate [Right] 102 H Respiratory Rate 16 22 18 Blood Pressure 151/75 H 177/77 H Blood Pressure [Left Arm] 151/75 H Blood Pressure Mean 100 102 Blood Pressure Mean [Left Arm] 100 Blood Pressure Source Blood Pressure Source [Left Arm] Automatic Cuff 02 Sat by Pulse Oximetry 98 98 95 Oxygen Delivery Method Room Air 07/16/24 12:00 07/16/24 12:30 07/16/24 14:08 Temperature 98.4 F Temperature Source Oral Pulse Rate 73 69 79 Pulse Rate [Right] Respiratory Rate 18 18 16 Blood Pressure 159/76 H 155/76 H 162/78 H Blood Pressure [Left Arm] Blood Pressure Mean 99 93 Blood Pressure Mean [Left Arm] Blood Pressure Source Automatic Cuff Blood Pressure Source [Left Arm] 02 Sat by Pulse Oximetry 95 96 Oxygen Delivery Method Room Air Lab Data Lab results reviewed: Yes I reviewed the patient's lab results. Labs: Lab Results 07/16/24 11:20: WBC 7.1, RBC 4.38, Hgb 13.4, Hct 39.7, MCV 90.6, MCH 30.6, MCHC 33.8, RDW 12.8, Plt Count 235, MPV 10.9 H, Neut % (Auto) 59.5, Lymph % (Auto) 27.6, [place] % (Auto) 9.2, Eos % (Auto) 2.7, Baso % (Auto) 0.7, Neut # (Auto) 4.2, Lymph # (Auto) 2.0, [place] # (Auto) 0.7, Eos # (Auto) 0.2, Baso # (Auto) 0.1, Total Counted 100, Neutrophils % (Manual) 53, Lymphocytes % (Manual) 39, Monocytes % (Manual) 8, Platelet Estimate Normal, RBC Morphology Normal, D-Dimer 0.63 H, Sodium 140, Potassium 3.9, Chloride 106, Carbon Dioxide 34 H, Anion Gap 3.9 L, BUN 10, Creatinine 0.80, Estimated Creat Clear 36, Estimated GFR 68, Est GFR ( Amer) 83, Glucose 103 H, Calcium 9.4, Total Bilirubin 0.9, AST 38 H , ALT 24, Alkaline Phosphatase 78, Troponin I < 0.01, Total Protein 8.0 D, A lbumin 5.1 H, Globulin 2.9, Albumin/Globulin Ratio 1.8, Lipase 132 07/16/24 11:20: Lipase 120, HCV Ab JEANETH w/Rflx PCR Qn Negative 07/16/24 13:30: Troponin I < 0.01 07/16/24 11:20 07/16/24 11:20 Response Orders (Tests/Meds): ED MEDICATIONS Discontinued Medications Generic Name Dose Route Start Last Admin Trade Name Freq PRN Reason Stop Dose Admin Belladonna Alkaloids 60 ml 07/16/24 11:19 07/16/24 11:28 Belladonna Alkaloids 60 Ml Ml PO 07/16/24 11:20 60 ml ONCE ONE Administration Famotidine 20 mg 07/16/24 11:19 07/16/24 11:28 Famotidine 20mg/2ml Vial IV 07/16/24 11:20 20 mg ONCE ONE Administration Sodium Chloride 8 ml 07/16/24 11:19 07/16/24 11:28 Sodium Chloride 0.9% 10ml Vial IV 08/15/24 11:18 8 ml NEEDED PRN Administration dilute pepcid ORDERS Category Date Time Status XR chest portable Stat Exams 07/16/24 10:56 Completed Complete Blood Count Man Dif Stat Lab 07/16/24 11:20 Completed Comprehensive Metabolic Panel Stat Lab 07/16/24 11:20 Completed D-Dimer Stat Lab 07/16/24 11:20 Completed HIV Combo Stat Lab 07/16/24 11:20 Received Hepatitis C Ab Qual. W/ RFX Stat Lab 07/16/24 11:20 Completed Lipase Stat Lab 07/16/24 11:20 Completed Lipase Stat Lab 07/16/24 11:20 Completed Troponin I Q3H Lab 07/16/24 13:30 Completed Troponin I Q3H Lab 07/16/24 17:00 Ordered Troponin I Stat Lab 07/16/24 11:20 Completed MDM Narrative Medical Decision Narrative: 83-year-old with above history and physical primarily epigastric discomfort. Differential includes GERD peptic ulcer disease coronary disease aortic dissection pulmonary embolism etc. Cannot use PERC criteria to rule out this patient will get a D-dimer and a 1.0 cutoff with years criteria to obtain a CT PE. Aortic dissection is very unlikely she is asymptomatic very comfortable in appearance. EKG was performed which I personally interpreted shows a ventricular rate of 110 normal sinus rhythm/sinus tachycardia no acute ischemic changes noted there is left axis deviation which is nonspecific. If her workup is negative after serial troponins we will refer her to gastroenterology for possible EGD. Reassessment 1208 first troponin is negative labs otherwise unremarkable patient is in ED opts awaiting second troponin. Reassessment 2:12 PM patient feeling much better she has felt significantly better since her GI cocktail. She remains asymptomatic in the emergency department. Serial troponins are negative. I do suspect this is most likely related to her gastrointestinal system. Referral to Dr. Pedersen has been made. I have no reason to suspect today that this was cardiac in nature although that is a possibility of Reina unlikely. She is closely followed by cardiology as well. Overall she is well-appearing and stable for outpatient management and was discharged in stable and improved condition.
[2024-07-16 11:27] LABS: MANUAL DIFFERENTIAL MANUAL DIFFERENTIAL (MANUAL DIFF)
[2024-07-16] MEDS: SODIUM CHLORIDE 0.9% 10ML VIAL 8 ML IV (11:28)
[2024-07-16] MEDS: BELLADONNA ALKALOIDS 60 ML ML PO (11:28)
[2024-07-16] MEDS: FAMOTIDINE 20MG/2ML VIAL 20 MG IV (11:28)
[2024-07-16 11:29] LABS: Basophils # 0.1 K/mm3 (0-0.2); Basophils % 0.7 % (0.1-2.0); Eosinophils # 0.2 K/mm3 (0.0-0.4); Eosinophils % 2.7 % (0.1-12.0); Hematocrit 39.7 % (37.0-47.0); Hemoglobin 13.4 g/dL (12.2-16.2); Lymphocytes % 27.6 % (10-50); Mean Corpuscular HGB Conc 33.8 g/dL (31.8-35.4); Mean Corpuscular Hemoglobin 30.6 pg (27.0-31.2); Mean Corpuscular Volume 90.6 fl (81-99); Mean Platelet Volume 10.9 fl (7.4-10.4); Monocytes # 0.7 K/mm3 (0.1-1.0); Monocytes % 9.2 % (1.7-9.3); Neutrophils # 4.2 K/mm3 (1.8-7.8); Neutrophils % 59.5 % (37.0-80.0); Platelet Count 235 K/mm3 (142-424); Red Blood Count 4.38 M/mm3 (4.20-5.40); Red Cell Distribution Width 12.8 % (11.5-17.5); White Blood Count 7.1 K/mm3 (4.8-10.8)
[2024-07-16 11:30] VITALS: BP 177/77; PULSE 65; RESP 18; O2SAT 95
[2024-07-16 11:40] LABS: Lipase 120 U/L (23-300)
[2024-07-16 11:44] LABS: Albumin Level 5.1 g/dl (3.5-5.0); Chloride 106 mmol/L (98-107); Sodium 140 mmol/L (136-145)
[2024-07-16 11:45] LABS: D-Dimer 0.63 ug/mL (0.0-0.5); Potassium 3.9 mmoL/L (3.5-5.1)
[2024-07-16 11:47] LABS: Alanine Aminotransferase 24 U/L (12-78); Alkaline Phosphatase 78 U/L (38-126); Anion Gap 3.9 mEq/L (5-15); Aspartate Amino Transferase 38 U/L (14-36); Bilirubin,Total 0.9 mg/dl (0.2-1.3); Blood Urea Nitrogen 10 mg/dl (7-17); Carbon Dioxide 34 mmol/L (22.0-30.0); Creatinine Clearance Estimated 36 mL/min (50-200); Estimated Glomerular Filt Rate 68 ml/min (>60); GFR (African American) 83 ML/MIN (>60)
[2024-07-16 11:48] LABS: Albumin/Globulin Ratio 1.8 (1.1-1.8); Calcium 9.4 mg/dl (8.4-10.2); Globulin 2.9 g/dL (1.3-3.2); Glucose 103 mg/dl (74-100); Lipase 132 U/L (23-300)
[2024-07-16 11:56] LABS: Lymphocytes % 39 % (10-50); Monocytes % 8 % (2-9); Neutrophils % 53 % (42-76); Total Cells Counted 100
[2024-07-16 11:57] LABS: Platelet Estimate Normal; RBC Morphology Normal
[2024-07-16 12:00] VITALS: BP 159/76; PULSE 73; RESP 18; O2SAT 95
[2024-07-16 12:01] LABS: Troponin I < 0.01 ng/ml (0.00-0.034)
[2024-07-16 12:30] VITALS: BP 155/76; PULSE 69; RESP 18; O2SAT 96
[2024-07-16 12:55] LABS: Hepatitis C Ab Qual. W/ RFX NEGATIVE (Negative)
--- NOTE | 2024-07-16 13:25 | PC.NURSE ---
Pt's IV infiltrated, removed and placed pressure dressing to it d/t pt on blood thinners
[2024-07-16 13:57] LABS: Troponin I < 0.01 ng/ml (0.00-0.034)
--- NOTE | 2024-07-16 14:06 | PC.NURSE ---
Dr Lisa at bedside
[2024-07-16 14:08] VITALS: BP 162/78; PULSE 79; RESP 16; TEMP 36.9; O2SAT 98
[2024-07-16 14:12] LABS: HIV Combo NEGATIVE (Negative)
== END 2024-07-16 14:09 | disposition home or self-care (01) ==
PROVIDERS: Emergency Provider Student in an Organized Health Care Education/Training Program; PCP Nurse Practitioner Family
DX: R10.13 Epigastric pain (principal); R07.89 Other chest pain; R20.2 Paresthesia of skin; R53.83 Other fatigue; Z95.5 Presence of coronary angioplasty implant and graft; Z79.01 Long term (current) use of anticoagulants
CPT/HCPCS: 71045; 80053; 83690; 84484; 85007; 85014; 85018; 85048; 85049; 85378; 86803; 87389; 93005; 96374; 99284; S0028

== ENCOUNTER 2024-08-30 08:03 | Outpatient (CLI) | payer MEDICARE, MEDICAID, SELFPAY ==
--- OUTSIDE RECORDS SUMMARY | 2024-08-30 08:06 | XMS_ITS | Data Portability ---
Author Organization MD - YASMIN Chung [place] [facility] Address [address] [facility] [address] [place] [address] Assessment Encounter Date Assessment Date Assessment LastModified by Organization Details LastModified Time 01/24/2020 01/24/2020 Patient presented to office today for their Medicare Annual Wellness Visit. Wellness visit Questionnaire was reviewed. Depression screening was negative and no followup plan is needed. Emphasized preventive health measures including fall prevention to help reduce health risks and promote healthy living. [email or web address] Not available 01/12/2020 16:51:38 08/19/2021 08/19/2021 RTC PRN. [email or web address] Not available 07/27 10:51:20 Plan of Treatment Reminders Order Date Submit Date Provider Last Modified By Organization Details Last Modified Time Details Appointments None recorded . Lab CBC w/ auto diff 2019 020 [facility], [address] [place] [address], [address], 0 20:50:59 lipid panel, serum 2019 020 [facility], [address] [place] [address], [address], 0 21:08:44 H pylori Ab, serum 2019 020 [facility], [address] [place] [address], [address], 0 11:13:06 lipase, serum or plasma 2019 020 [facility], [address] [place] [address], [address], 0 21:06:05 CMP, serum or plasma 2019 020 [facility], [address] [place] [address], [address], 0 21:08:45 TSH, serum or plasma 2019 020 [facility], [address] [place] [address], [address], 0 21:21:04 Referral None recorded . Procedures upper endoscop y procedur e (EGD) (PROC) 2019 020 mavis Fuller MD, [address] [place] [address], [address], 0 08:11:56 Surgeries None recorded . Imaging CT, abdomen + pelvis, w/ contrast - 01/31@10 40. check in@940. fasting 4 hrs 2019 020 [facility] Radiology [facility], [address] [place] [address] , [place], [address], 0 11:56:25 DEXA [address] Bone Density [facility], [address] [place] [address], [address], 0 08:01:26 electroc ardiogra m [address] Family Medicine [facility], [address] [place] [address] , [place], [address], 0 13:51:59 MAMMO, screenin g, tomosynt hesis, bilatera l, w/ CAD [address] Radiology [facility], [address] [place] [address] , [place], [address], 0 13:58:18 Medication Orders amlodipi ne 5 mg tablet 2019 020 [email or web address] [facility], [address], [address], 2 10:19:10 Euthyrox 50 mcg tablet 2019 020 INTERFACE [facility], [address], [address], 0 13:48:07 Patient TargetsNo targets recorded. Patient Instructions Encounter Date Encounter Id Patient Instructions Last Modified By Organization Details Last Modified Time 01/24/2020 [id number] advance care planning: care instructions [email or web address] Not available 01/24/2020 15:21:48 Reason for Referral None Reported. Results Created Date Observation Date Name Description Value Unit Range Abnormal Flag Note LastModifiedBy Organization Detail LastModifiedTime 12/05/19 20 12/05/2019 CBC w/ auto diff white blood cells 9.7 K/uL 3.8-10 .8 normal Not Available [facility] [address] [place] [address], [address], 12/05/2019 20:50:59 12/05/19 20 12/05/2019 CBC w/ auto diff red blood cells 4.61 M/uL 3.80-5 .20 normal Not Available [facility] [address] [place] [address], [address], 12/05/2019 20:50:59 12/05/19 20 12/05/2019 CBC w/ auto diff hemoglobin 14.9 g/dL 12.0-1 6.0 normal Not Available [facility] [address] [place] [address], [address], 12/05/2019 20:50:59 12/05/19 20 12/05/2019 CBC w/ auto diff hematocrit 41.7 % 35.0-4 7.0 normal Not Available [facility] [place], [address], 12/05/2019 20:50:59 12/05/19 20 12/05/2019 CBC w/ auto diff MCV 91 fL 80-100 normal Not Available [facility] [address] [place] [address], [address], 12/05/2019 20:50:59 12/05/19 20 12/05/2019 CBC w/ auto diff MCH 32 pg 26-35 normal Not Available [facility] [address] [place] [address], [address], 12/05/2019 20:50:59 12/05/19 20 12/05/2019 CBC w/ auto diff MCHC 36 g/dL 32-36 normal Not Available [facility] [address] [place] [address], [address], 12/05/2019 20:50:59 12/05/19 20 12/05/2019 CBC w/ auto diff RDW 13.4 % 11.0-1 5.0 normal Not Available [facility] [address] [place] [address], [address], 12/05/2019 20:50:59 12/05/19 20 12/05/2019 CBC w/ auto diff MPV 9.2 fL 6.2-10 .5 normal Not Available [facility] [address] [place] [address], [address], 12/05/2019 20:50:59 12/05/19 20 12/05/2019 CBC w/ auto diff platelet count 265 K/uL 130-40 0 normal Not Available [facility] [address] [place] [address], [address], 12/05/2019 20:50:59 12/05/19 20 12/05/2019 CBC w/ auto diff neutrophil,a bsolute 6.4 K/uL 1.6-8. 4 normal Not Available [facility] [address] [place] [address], [address], 12/05/2019 20:50:59 12/05/19 20 12/05/2019 CBC w/ auto diff lymphocyte,a bsolute 2.4 K/uL 0.4-5. 1 normal Not Available [facility] [address] [place] [address], [address], 12/05/2019 20:50:59 12/05/19 20 12/05/2019 CBC w/ auto diff monocyte,abs olute 0.7 K/uL 0.0-1. 2 normal Not Available [facility] [address] [place] [address], [address], 12/05/2019 20:50:59 12/05/19 20 12/05/2019 CBC w/ auto diff eosinophil,a bsolute 0.2 K/uL 0.0-0. 8 normal Not Available [facility] [address] [place] [address], [address], 12/05/2019 20:50:59 12/05/19 20 12/05/2019 CBC w/ auto diff basophil,abs olute 0.0 K/uL 0.0-0. 3 normal Not Available [facility] [address] [place] [address], [address], 12/05/2019 20:50:59 12/05/19 20 12/05/2019 CBC w/ auto diff % neutrophils 65.7 % 42.0-7 8.0 normal Not Available [facility] [address] [place] [address], [address], 12/05/2019 20:50:59 12/05/19 20 12/05/2019 CBC w/ auto diff % lymphocytes 24.8 % 11.0-4 7.0 normal Not Available [facility] [address] [place] [address], [address], 12/05/2019 20:50:59 12/05/19 20 12/05/2019 CBC w/ auto diff % monocytes 6.8 % 0.0-11 .0 normal Not Available [facility] [address] [place] [address], [address], 12/05/2019 20:50:59 12/05/19 20 12/05/2019 CBC w/ auto diff % eosinophils 2.3 % 0.0-7. 0 normal Not Available [facility] [address] [place] [address], [address], 12/05/2019 20:50:59 12/05/19 20 12/05/2019 CBC w/ auto diff % basophils 0.4 % 0.0-3. 0 normal Not Available [facility] [address] [place] [address], [address], 12/05/2019 20:50:59 12/05/19 20 12/05/2019 CBC w/ auto diff nucleated red cells 0.1 % 0.0-0. 9 normal Not Available [facility] [address] [place] [address], [address], 12/05/2019 20:50:59 12/05/19 20 12/05/2019 CBC w/ auto diff nucleated RBCs, absolute 0.01 K/uL not estab. normal Not Available [facility] [address] [place] [address], [address], 12/05/2019 20:50:59 12/05/19 20 12/05/2019 lipas e, serum or plasm a lipase 62 U/L 13-60 high Not Available [facility] [address] [place] [address], [address], 12/05/2019 21:06:05 12/05/19 20 12/05/2019 lipid panel , serum HDL cholesterol 80 mg/dL 66-242 normal Not Available [facility] [address] [place] [address], [address], 12/05/2019 21:08:44 12/05/19 20 12/05/2019 lipid panel , serum triglyceride s 97 mg/dL 0-149 normal TRIGL YCERI DE RANGE S FRANK L: < 150 BORDE RLINE HIGH: 150 - 199 HIGH: 200 - 499 VERY HIGH: > OR = 500 Not Available [facility] [address] [place] [address], [address], 12/05/2019 21:08:44 12/05/19 20 12/05/2019 lipid panel , serum cholesterol 209 mg/dL 0-199 high ELIJAH STERO L (TOTA L) RANGE S BRET ABLE: < 200 BORDE RLINE : 200 - 239 HIGHE R RISK: > 239 Not Available [facility] [address] [place] [address], [address], 12/05/2019 21:08:44 12/05/19 20 12/05/2019 lipid panel , serum LDL cholesterol 110 mg/dL _(kelly c) 0-99 high LDL ELIJAH STERO L RANGE S OPTIM AL: < 100 NEAR/ ABOVE OPTIM AL: 100 - 129 BORDE RLINE HIGH: 130 - 159 HIGH: 160 - 189 VERY HIGH: > OR = 190 Not Available [facility] [address] [place] [address], [address], 12/05/2019 21:08:44 12/05/19 20 12/05/2019 CMP, serum or plasm a glucose 95 mg/dL 74-100 normal Not Available [facility] [address] [place] [address], [address], 12/05/2019 21:08:45 12/05/19 20 12/05/2019 CMP, serum or plasm a blood urea nitrogen 11 mg/dL 6-20 normal Not Available [facility] [address] [place] [address], [address], 12/05/2019 21:08:45 12/05/19 20 12/05/2019 CMP, serum or plasm a creatinine 0.89 mg/dL 0.50-0 .95 normal Not Available [facility] [address] [place] [address], [address], 12/05/2019 21:08:45 12/05/19 20 12/05/2019 CMP, serum or plasm a BUN/creatini ne ratio 12 (calc ) 10-20 normal Not Available [facility] [address] [place] [address], [address], 12/05/2019 21:08:45 12/05/19 20 12/05/2019 CMP, serum or plasm a sodium 142 mmol/ L 136-14 5 normal Not Available [facility] [address] [place] [address], [address], 12/05/2019 21:08:45 12/05/19 20 12/05/2019 CMP, serum or plasm a potassium 4.4 mmol/ L 3.4-5. 0 normal Not Available [facility] [address] [place] [address], [address], 12/05/2019 21:08:45 12/05/19 20 12/05/2019 CMP, serum or plasm a chloride 103 mmol/ L 98-107 normal Not Available [facility] [address] [place] [address], [address], 12/05/2019 21:08:45 12/05/19 20 12/05/2019 CMP, serum or plasm a carbon dioxide 26 mmol/ L 20-32 normal Not Available [facility] [address] [place] [address], [address], 12/05/2019 21:08:45 12/05/1912/05/2019 CMP, serum or plasm a anion gap 13 (calc ) 7-25 normal Not Available [facility] [address] [place] [address], [address], 12/05/2019 21:08:45 12/05/19 20 12/05/2019 CMP, serum or plasm a calcium 9.7 mg/dL 8.6-10 .2 normal Not Available [facility] [address] [place] [address], [address], 12/05/2019 21:08:45 12/05/19 20 12/05/2019 CMP, serum or plasm a total protein 7.8 g/dL 6.4-8. 3 normal Not Available [facility] [address] [place] [address], [address], 12/05/2019 21:08:45 12/05/19 20 12/05/2019 CMP, serum or plasm a albumin 4.8 g/dL 3.5-5. 2 normal Not Available [facility] [address] [place] [address], [address], 12/05/2019 21:08:45 12/05/19 20 12/05/2019 CMP, serum or plasm a globulin 3.0 g/dL_ (calc ) 1.5-4. 5 normal Not Available [facility] [address] [place] [address], [address], 12/05/2019 21:08:45 12/05/19 20 12/05/2019 CMP, serum or plasm a albumin/glob ulin ratio 1.6 (calc ) 1.1-2. 5 normal Not Available [facility] [address] [place] [address], [address], 12/05/2019 21:08:45 12/05/19 20 12/05/2019 CMP, serum or plasm a bilirubin, total 0.7 mg/dL 0.1-1. 2 normal Not Available [facility] [address] [place] [address], [address], 12/05/2019 21:08:45 12/05/19 20 12/05/2019 CMP, serum or plasm a alkaline phosphatase 69 U/L 35-105 normal Not Available [facility] [address] [place] [address], [address], 12/05/2019 21:08:45 12/05/19 20 12/05/2019 CMP, serum or plasm a AST 20 U/L 0-32 normal Not Available [facility] [address] [place] [address], [address], 12/05/2019 21:08:45 12/05/19 20 12/05/2019 CMP, serum or plasm a ALT 19 U/L 0-33 normal Not Available [facility] [address] [place] [address], [address], 12/05/2019 21:08:45 12/05/19 20 12/05/2019 CMP, serum or plasm a GFR 71 >= 60 normal Not Available [facility] [address] [place] [address], [address], 12/05/2019 21:08:45 12/05/19 20 12/05/2019 CMP, serum or plasm a GFR non- 61 >= 60 normal NOT E NEW calcu latio n for GFR is based on the Natio nal Kidne y Found ation CKD-E PI equat ion and allow s for repor ting GFR value s great er than 60 mL/mi n/1.7 3 m2. This calcu latio n has not been valid ated for patie nts less than 18 yrs., pregn ant women and Hispa nics. Chron ic kidne y disea se is defin ed as kidne y damag e or GFR less than 60 mL/mi n/1.7 3 m2 for 3 month s or longe r. Not Available [facility] [address] [place] [address], [address], 12/05/2019 21:08:45 12/05/19 20 12/05/2019 TSH, serum or plasm a TSH 2.840 uIU/m L 0.290- 5.500 normal Not Available [facility] [address] [place] [address], [address], 12/05/2019 21:21:04 12/05/19 20 12/06/2019 H pylor i Ab, serum H. pylori Ab, serum NEGATI VE negati ve normal Not Available [facility] [address] [place] [address], [address], 12/06/2019 11:13:05 12/05/1912/05/2019 elect rocar diogr am 12 lead Electrocardi ogram performed. See christie macktio n for interp retati on Not Available [facility] [address] , [place], [address], 12/05/2019 12:35:06 02/06/20 20 02/07/2020 SARS CoV 2 RNA (COVI D-19) , QL, skirt trimmer-P CR, respi rator y speci men sars cov2 result NEGATI VE normal Not Available [facility] [address] [place], [address], 02/07/2020 08:29:58 02/08/2002/08/2020 surgi kelly patho logy study surgical SEE BELOW normal Depar tment of Patho logy Surgi kelly Patho logy Repor t NAME: EDUAR DARLING, RUTH EY PATH. 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 Entir bruce submi tted in one casse tte. LULU 02/07 03:09 PM Micro scopi c Descr iptio n: Micro scopi c exami natio n perfo rmed. Helic obact er pylor i immun ohist ochem ical stain revie wed with a prope rly worki ng contr ol is negat vito for organ isms. MAGALI CAREY IEL-P MD EDER Tosha d Out Date: 02/08 14:09 Page 1 of 1 Not Available [facility] [address] [place] [address], [address], 02/09/2020 14:10:47 12/07/19 20 12/06/2019 elect ghassan de la cruz am No observ ation record ed. BARCODE [facility] [address] , [place], [address], 12/07/2019 09:49:43 02/01/20 20 02/01/2020 CT, abdom en + pelvi s, w/ contr ast Gabo escobar [address] [place] [address] Patidorothy t Name: SADA díaz : 940 Pat[place]othy t 1 Orderi ng Provid er: SARA Jess GISSELLE ORT EXAM DATE: 2019 EXAM: CT A/P WITH CONTRA ST CLINIC AL INFORM ATION: Left upper quadra nt pain. TECHNI QUE: Multip le axial CT images of the abdome n and pelvis were obtain ed after inject ion of 100 mL Optira y 320 (1 x 100 mL bottle of [facility] [address]- 1323-1 1). None was wasted and discar ded. Bowel was opacif ied with oral contra st. COMPAR XI: None FINDIN GS ON CT ABDOME N: LOWER THORAX : Lung bases are clear. No obviou s cardia c abnorm ality. UPPER ABDOMI NAL ORGANS : Gallbl adder is surgic ally absent . Liver, spleen , pancre as, adrena ls are normal . 1 cm diamet er simple cysts are seen in both kidney s. BOWEL AND MESENT RONAK: Stomac h, small bowel and colon are normal . No mesent gigi lympha denopa thy or perito hailee free fluid. RETROP ERITON EUM: Aorta shows athero sclero tic calcif icatio ns with normal aortic calibe r. IVC and branch es are patent and normal . No retrop eriton eal lympha denopa thy. BODY WALL AND MUSCUL OSKELE MARI STRUCT URES: Degene rative change s of the lumbar spine are noted. Anteri or abdomi nal wall is normal . FINDIN GS ON CT PELVIS : PELVIC CAVITY : Urinar y bladde r and rectos igmoid are normal . Uterus is surgic ally absent . Ovarie s are not visual ized. Phlebo liths are seen in the pelvis . No pelvic or inguin al lympha denopa thy, mass or fluid. MUSCUL OSKELE MARI STRUCT URES: Normal . COMBIN ED IMPRES MECCA: 1. No acute intra- abdomi nal or pelvic abnorm ality. 2. No cause of abdomi nal pain has been demons trated . 3. No abnorm ality is seen in the left upper quadra nt. Interp reted By: Gabbi Gutierrez MD Electr onical ly Signed By: Gabbi Gutierrez MD on 020 11:51 AM [facility] [address] [place] [address] , [place], [address], 02/03/2020 06:29:46 02/05/20 20 01/25/2020 MAMMO , scree marcelo, tomos ynthe sis, bilat eral, w/ CAD No observ ation record ed. [facility] [address], [id number], 02/07/2020 11:15:59 Result Notes None recorded. Problems Name Problem SNOMED Code Status Onset Date Resolution Date Notes Provider Name and Address Organization Details Recorded Time Elevated blood-pr essure reading without diagnosi s of hyperten mecca 870651918 Completed 201701/24/2020 SARA DEVLIN MD [address] [place] [address], [address] , [facility] 0 14:25:56 History of osteopen ia 628548393 Active 2017 DEXA 01/23/15- osteopen ia-repea t 2 years SARA DEVLIN MD [address] [place] [address], [address] , [facility] 8 10:52:47 History of colonosc opy 70829363386 9 Active 201712/08/16- normal-n o more needed SARA DEVLIN MD [address] [place] [address], [address] , [facility] 8 10:53:35 Gastriti s 9268079 Active 2017 EGD 06/04/09-g astritis /duodeni tis SARA DEVLIN MD [address] [place] [address], [address] , [facility] 8 10:54:21 Osteoart hritis 420053336 Active 2017 multiple sites SARA DEVLIN MD [address] [place] [address] [place], [address] , [facility] 8 11:00:12 Hyperlip idemia 12554091 Active 2017 SARA DEVLIN MD [address] [place] [address], [address] , [facility] 8 11:00:31 Cough 13122207 Active 2017 SARA DEVLIN MD [address] [place] [address], [address] , [facility] 8 11:08:39 Gastroes ophageal reflux disease 231514735 Active 2017 SARA DEVLIN MD [address] [place] [address], [address] , [facility] 8 11:08:42 Depressi ve disorder 39709612 Active 2017 SARA DEVLIN MD [address] [place] [address] [place], [address] , [facility] 8 11:08:47 Insomnia 105741311 Active 2017 SARA DEVLIN MD [address] [place] [address], [address] , [facility] 8 11:08:49 Screenin g for malignan t neoplasm of breast Active 2017 SARA DEVLIN MD [address] [place] [address], [address] , [facility] 8 11:08:54 Osteopen ia 945877774 Active 2017 SARA DEVLIN MD [address] [place] [address], [address] , [facility] 8 11:08:57 Essentia l hyperten mecca 08310179 Active 2019 SARA DEVLIN MD [address] [place] [address], [address] , [facility] 0 14:26:14 Epigastr ic pain 03595242 Active 2019 SARA DEVLIN MD [address] [place] [address], [address] , [facility] 0 15:17:21 Hypothyr oidism 84594532 Active 2015 From Automate d Load;Pro vider: Terrie Handley;St atus: Active Not Available [facility] 6 00:56:17 Clinical finding Completed 201511/12/2017 From Automate d Load;Pro vider: Terrie Handley;St atus: Active SARA DEVLIN MD [address] [place] [address], [address] , [facility] [address] 10:52:[address] Concept Completed 201511/12/2017 From Automate d Load;Pro vider: Terrie Handley;St atus: Active SARA DEVLIN MD [address] [place] [address], [address] , [facility] 8 10:52:21 Mood disorder Completed 201511/12/2017 From Automate d Load;Pro vider: Terrie Handley;St atus: Active SARA DEVLIN MD [address] [place] [address], [address] , [facility] 8 10:52:19 Notes:: Depression Screening* Date:12/27/2015 Problem Notes None recorded. Procedures Surgical History Date Name Laterality Status Provider Name and Address Organization Details Recorded Time 12/09/19 18 DXA Low Bone Mass 1 - No Tx completed PEREZ TORO MD [address] [place] [address], [address] [place] [address] 12/08/2017 16:51:47 12/09/19 18 Airway Resistance completed [place] [facility] [place] [facility] 12/08/2017 11:26:13 12/09/19 18 Diffusion Capacity completed Santajess [place] [facility] [place] [facility] 12/08/2017 11:26:09 12/09/19 18 Lung Volumes, [facility] 12/08/2017 11:26:11 12/09/19 18 [facility] 12/08/2017 11:26:16 CHOLECYSTECTOMY, LAPAROSCOPIC (SURG) completed Elma Boykin [facility] 12/01/2017 08:19:53 Imaging Results Imaging Date Name Status LastModified by Organization Details LastModified Time 12/06/2019 electrocardiogram completed [facility] [address] , [place], [address], 12/07/2019 09:49:43 02/01/2020 CT, abdomen + pelvis, w/ contrast completed [facility] [address] , [place], [address], 02/03/2020 06:29:46 01/25/2020 MAMMO, screening, tomosynthesis, bilateral, w/ CAD completed [facility] [address], [id number], 02/07/2020 11:15:59 Procedure Notes None recorded. Medical Equipment None Reported. Allergies Allergen ID Allergen Name Allergen Category Reaction Reaction Severity Criticality Documentation Date Start Date Code Code System Note Provider Name and Address Organization Details Recorded Time 308052 Product containin g penicilli n (product) medicatio n Not available Not available Not available 03/21/20162005 98262 8001 SNOMED Comme nt: Creat ed By: Kush Manzano ed Date: 2005 1:04: 01 PM; Not Available [facility] 6 04:08:13 Medications Name Sig Start Date Stop Date Status Note LastModified by Organization Details LastModified Time Aspirin Child 81 mg chewable tablet 08/19 completed Medicati on Descript ion: aspirin; Route:or al; refills: 0 Not Available Not Available Not Available aspirin 25 mg-dipyri damole 200 mg capsule,e xt.releas e 12 hr multiphas e Take 1 capsule twice a day by oral route. 10/08 completed Not Available Not Available Not Available Multiple Vitamin capsule Daily 10/08 completed Duration : 30 days;William quency: daily;Me dication Descript ion: multivit cardoza; Dosage:1 ; Route:or al; refills: 3; Quantity :100 capsule Not Available Not Available Not Available atorvasta tin 10 mg tablet As Directed 11/16 completed Duration : 90 days;Ins truction s: take 1/2- 1 pill every other night and f/u for labs in 3 months;F requency : as direct.; Medicati on Descript ion: atorvast atin; Dosage:1 /2-1; Route:or al; refills: 1; Quantity :30 tablet Not Available Not Available Not Available citalopra m 10 mg tablet TAKE ONE TABLET BY MOUTH ONCE DAILY 06/14 completed stopped taking- isn't needed anymore Not Available Not Available Not Available ranitidin e 300 mg tablet TAKE ONE TABLET BY MOUTH TWICE DAILY 06/14 completed Not Available Not Available Not Available amlodipin e 2.5 mg tablet Take 1 tablet every day by oral route for 30 days. 12/24 completed on hold Not Available Not Available Not Available amlodipin e 5 mg tablet Take 1 tablet by mouth once daily 08/19 completed Not Available Not Available Not Available omeprazol e 40 mg capsule,d elayed release Take 1 capsule every day by oral route. active Not Available Not Available No t Available citalopra m 20 mg tablet Take 0.5 tablets every day by oral route. 10/08 completed Not Available Not Available Not Available pravastat in 80 mg tablet Take 1 tablet every day by oral route. 06/14 completed Not Available Not Available Not Available losartan 25 mg tablet Take 1 tablet every day by oral route. active Not Available Not Available No t Available omeprazol e 20 mg capsule,d elayed release Take 1 capsule by mouth once daily 08/19 completed Not Available Not Available Not Available Euthyrox 50 mcg tablet TAKE 1 TABLET IN THE MORNING NEEDS APPT FOR FURTHER REFILLS* * 2020 active Not Available Not Available Not Avai lable metoprolo l succinate ER 25 mg tablet,ex tended release 24 hr Take 1 tablet every day by oral route. active Not Available Not Available No t Available rosuvasta tin 10 mg tablet Take 1 tablet by mouth once daily 08/19 completed Not Available Not Available Not Available rosuvasta tin 20 mg tablet Take 1 tablet every day by oral route. active Not Available Not Available No t Available Vitamin C 250 active Not Available Not Adele ilable Not Available garlic 08/19 completed Not Available Not Available Not Available Feosol Daily 08/19 completed Frequenc y: daily;Me dication Descript ion: ferrous sulfate; Dosage:1 ; Route:or al; refills: 0 Not Available Not Available Not Available Vitamin D3 + Ca 08/19 completed Medicati on Descript ion: cholecal ciferol; Route:or al; refills: 0 Not Available Not Available Not Available Golytely 236 gram-22.7 4 gram-6.74 gram-5.86 gram oral solution as directed 12/15 completed Not Available Not Available Not Available Fish Oil 300 mg-1,000 mg capsule,d elayed release active Medicati on Descript ion: omega-3 polyunsa turated fatty acids; Route:or al; refills: 0 Not Available Not Available Not Available Xarelto 20 mg tablet Take 1 tablet every day by oral route. active Not Available Not Available No t Available Vitals Date Recorded Body height Body mass index (BMI) Body weight Heart rate Oxygen saturation Oxygen saturation in Arterial blood by Pulse oximetry Systolic blood pressure Diastolic blood pressure Provider Name and Address Organization Details Last Updated DateTime 0 152.4 cm 24.2 kg/m2 04962.4 5 g 78 /min 97 % 97 % 136 mm[Hg] 76 mm[Hg] Lizzy Barbour [facility] 0 12:36:44 Date Recorded Body height Heart rate Body temperature Systolic blood pressure Diastolic blood pressure Provider Name and Address Organization Details Last Updated DateTime 01/24/2020 152.4 cm 68 /min 97.2 [degF] 125 mm[Hg] 68 mm[Hg] Lizzy Barbour [facility] 0 14:59:06 Date Recorded Body height Provider Name an d Address Organization Details Last Updated DateTime 03/26/2020 152.4 cm Perri Newberry [facility] 13:52:50 Date Recorded Systolic blood pressure Diastolic blood pressure Provider Name and Address Organization Details Last Updated DateTime 03/26/2020 133 mm[Hg] 58 mm[Hg] TERRIE HANDLEY PA-C [facility] [place], [address], [facility] 03/26/2020 15:02:04 Date Recorded Body weight Heart rate Oxygen saturation Oxygen saturation in Arterial blood by Pulse oximetry Systolic blood pressure Diastolic blood pressure Provider Name and Address Organization Details Last Updated DateTime 2 43714.8 2 g 71 /min 96 % 96 % 120 mm[Hg] 55 mm[Hg] Melany Koenigo [facility] 2 10:22:23 Social History Question Answer Notes LastModified by Organizat ion Details LastModified Time Tobacco Smoking Status Never [facility]oker [facility] 10/08/2017 10:29:30 What Is Your Level Of Alcohol Consumption? None Information not available 10/08/2017 What Is Your Level Of Caffeine Consumption? Moderate Information not available 10/08/2017 Do You Or Have You Ever Used E-cigarettes Or Vape? Never Used Electronic Cigarettes [email or web address] Information not available 12/15/2018 Education 12 1 Yr College Information not available 10/08/2017 What Is Your Occupation? Retired Information not available 10/08/2017 Live Alone Or With Others? Alone Information not available 10/08/2017 Marital Status Information not available 10/08/2017 What Was The Date Of Your Most Recent Tobacco Screening? 08/19/2021 [email or web address] Information not available 08/19/2021 How Many Children Do You Have? 4 Information not available 10/08/2017 Do You Or Have You Ever Used Smokeless Tobacco? Never Used Smokeless Tobacco [email or web address] Information not available 12/15/2018 Sex: Unknown Functional Status Question Answer Note LastModified by Organizat ion Details LastModified Time Are you able to care for yourself? Yes Information not available 10/08/2017 What is your exercise level? Occasional [email or web address] Information not available 12/15/2018 Mental Status None recorded. Family History Nothing Reported Notes:1. Cancer sister w/gasper ast [place] 07/14/2008 Luh Chung 2. Family history of diabetes mellitus mother 07/14/2008 Luh Chung 3. Acute myocardial infarction mother, age 63, brother 07/14/2008 Luh Chung 4. Heart disease mother, brothers 07/14/2008 Luh Chung 5. Family history of hyperlipidemia mother 07/14/2008 Luh Chung 6. Hypertension mother 07/14/2008 Luh Chung 7. Stroke syndrome mother, age 63 Medical History Condition Response Arthritis Y Kidney Disease Y Gallbladder Disease Y High Cholesterol Y Heart Disease Y Gynecological HistoryNo gynecological history recorded. Obstetrics History GPAL:G 0 P 0 0 0 0 Immunizations Vaccine Type Date Status Note Provider Nam e and Address Organization Details Recorded Time Pneumococcal conjugate PCV 13 8 completed Not Available [facility] 05/14/2019 02:51:44 Past Encounters Encounter ID Performer Location Encounter Start Date Encounter Closed Date Diagnosis/Indication Diagnosis SNOMED-CT Code Diagnosis ICD10 Code Diagnosis Note [id number] [facility] [address] 07/28/2016 17:02:26 07/28/2016 17:02:26 [id number] TIM FULLER MD SURGERY SCHEDULE [address] [place] [address] 12/08/2016 08:57:06 12/08/2016 09:12:57 [id number] MOON MILLER PA-C [facility] [address] [facility] [place] [address] 10/08/2017 09:23:09 10/08/2017 11:28:25 Epigastric pain 32253407 R10.13 continue prilosec Right uppe r quadrant pain 791836004 R10.11 she is better since being on prilosec- advised get HIDA to look at gb function and then we can refer her to gen surg. If she has another attack of abdominal pain -would get gallbadder out Solitary n odule of lung 065737335 R91.1 <6 mm nodule R lung base present since 2016 -- May pulmonary referral --she will ask Dr Devlin at [facility] CT of abdo men abnormal 7224899846 7258432 R93.5 smal bowel a little tender today Elevated blood-pressure reading without diagnosis of hypertension 816251241 R03.0 7 of the 10 readings she brings in are normal counseled nonpharmac ologic measures to help control bp keep 30 day ambulatory bp diary- f/u with readings she will review w Dr Devlin at her [facility] Gallstone 450033770 K80. 20 [id number] SARA DEVLIN MD [facility] [address] [place] [address] 11/12/2017 09:31:35 11/12/2017 11:30:57 Pre-surgery evaluation 699595122 Z01.818 patient has cholelithi asis with an abnormal HIDA scan with an ejection fraction of 8.8%. She is seeing Dr. Fragoso next week for considerat ion of surgery. We are doing a preoperati ve evaluation . EKG is normal Hypothyroidism 45514119 E03.9 Adult heal th examination 848209807 Z00.00 awv DISCUSSED SHINGRiX Hyperlipidemia 22640031 E78.5 she has not been able to tolerate multiple statins in the past. However when she stopped her most recent atorvastat in the myalgias did not resolve. She does have osteoarthr itis. If her lipid panel is abnormal, I would encourage her to get back on the atorvastat in. Cough 33119498 R05 this is been going on for 2 years. She had a normal chest x-ray 2 years ago. This could be related to reflux. She is on omeprazole and Zantac. I think the prudent thing to do is to get a CT of the chest with with contrast. She probably needs a spirometry . However I'm gonna refer to Dr. Harrison in pulmonary to evaluate this further and let him do the spirometry on their machine which is more sophistica fady. 02 stat I want her to try Claritin otc to see if this helps her cough. Gastroesop hageal reflux disease 804853749 K21.9 CONTROLLED WITH PRILOSEC AND ZANTAC she has had an EGD which showed gastritis Depressive disorder 3548 9007 F32.9 controlled Insomnia 081571029 G47.0 0 controlled with melatonin 3 mg. Screening for malignant neoplasm of breast 529378937 Z12.31 Osteopenia 929425114 M85 .80 Osteoarthritis 064612571 M19.90 multiple sites. Essential hypertension 25716858 I10 based on her readings I believe she does have mild essential hypertensi on. I will treat her with amlodipine 2.5 mg per day and she should return in 1 month for follow-up. [id number] Andres FRAGOSO MD GENERAL SURGERY [place] [address] 11/16/2017 09:08:53 11/16/2017 11:30:07 Disorder of gallbladder 68260467 K82.9 [id number] Andres FRAGOSO MD GENERAL SURGERY [address] [address] 12/07/2017 10:22:13 12/07/2017 11:04:03 Disorder of gallbladder 78195468 K82.9 [id number] MAYRA HARRISON MD PULMONARY [address] [facility], [address] [place] [address] 12/08/2017 11:16:29 12/15/2017 08:44:19 Solitary nodule of lung 598801919 R91.1 6 mm RLL nodule. Repeat CT in 6 months. Chronic cough 81941958 R 05 resolved with cholecyste ctomy. Likely related to silent reflux versus diaphragma tic irritation . [id number] PEREZ TORO MD BONE DENSITY SB [address] [place] [address] 12/08/2017 13:58:26 12/08/2017 14:58:15 Osteopenia 668012643 M85.9 [id number] SARA DEVLIN MD [facility] [address] [place] [address] 12/24/2017 10:35:43 12/24/2017 11:49:42 Elevated blood-pressure reading without diagnosis of hypertension 980876547 R03.0 she is not hypertensi ve. Chronic cough 82343834 R 05 nearly resolved after she had gb removed. this and pulmonary nodules are being followed by Dr. Harrison. She has a follow-up appointmen t in May. Dyspnea 060788027 R06.00 resolved Hyperlipidemia 79429967 E78.5 intolerant to many statins. her last ldl 217.-start crestor 10 mg. 1 A DAY RECHECK ALT, AST AND LIPID PROFILE IN 3 MONTHS. [id number] MAYRA HARRISON MD PULMONARY [address] [facility], [address] [place] [address] 06/14/2018 09:53:33 06/14/2018 14:11:37 Solitary nodule of lung 543853293 R91.1 6 mm RLL nodule. Stable at [address] in 1 year. [id number] Andres FRAGOSO MD GENERAL SURGERY [address] [place] [id number] 10/08/2018 08:49:13 10/08/2018 09:44:42 [id number] Andres FRAGOSO MD SURGERY SCHEDULE [address] [place] [id number] 10/19/2018 09:25:16 10/19/2018 09:25:37 [id number] MOON MILLER PA-C [facility] [address] [place] [address] 12/15/2018 08:52:39 12/15/2018 11:33:53 Hyperlipidemia 50952211 E78.5 Hypothyroidism 46128263 E03.9 Persistent cough 5667850 02 R05 likely gerd Screening for malignant neoplasm of breast 461902824 Z12.31 Gastroesop hageal reflux disease 462913839 K21.9 Hot sweats 388107806 R61 [id number] MAYRA HARRISON MD PULMONARY [address] [facility], [address] [address] 06/13/2019 13:01:12 06/14/2019 10:53:52 Solitary nodule of lung 677601159 R91.1 6 mm RLL nodule. Stable at [address] in 1 year (18 months) due today. Follow up based on CT results. [id number] SARA DEVLIN MD [facility] [address] [place] [address] 12/05/2019 11:32:25 12/05/2019 13:51:58 Essential hypertension 95638531 I10 Diagnosis establishe d. I will start her on Norvasc 5 mg per day, check blood pressure and follow-up in 3 weeks. I will go ahead and get labs. I have essentiall y done a complete physical but I would like to complete her review of systems when she returns. She will also need a AWV Palpitations 05788946 R0 0.2 One occasion. I suspect she had SVT. Her pulse is been in the 60s since then. I have advised she markedly decrease her caffeine to no more than 2 per day. She also has a history of hypothyroi dism and this could be the etiology of the palpitatio ns. EKG is stable and has not changed from her previous EKG last Hypothyroidism 83510104 E03.9 Hyperlipidemia 31548853 E78.5 intolerant to many statins. her last ldl 217.-start crestor 10 mg. 1 A DAY RECHECK ALT, AST AND LIPID PROFILE IN 3 MONTHS. Screening for malignant neoplasm of breast 613799488 Z12.31 Chest pain 58391602 R07. 9 This occurred only with her palpitatio ns. It is not occurred since. If it should occur again we will do a stress test. I will see her back in 3 weeks and see how she's doing. Night sweats 81431621 R6 1 This has occurred with weight loss. She's lost 6 pounds in the last month and not try 2. We will go ahead and evaluate this Epigastric pain 53863131 R10.13 She is on Prilosec. The pain is only for a few minutes in the morning. Hopefully decreasing the caffeine will help. I will check a H. pylori. I'll follow her in 3 weeks if she is still having the discomfort I think we should do an EGD and if she is still photographer the left upper quadrant or continues to lose weight, I think we should do a CT abdomen and pelvis. Solitary n odule of lung 990370489 R91.[address] Harrison. No change when checked in May of this year Unintentio nal weight loss 757901207 R63.4 She has lost 6 pounds in the last month. If this persists I think we need to do a CT scan abdomen and pelvis. [id number] SARA DEVLIN MD [facility] [address] [place] [address] 01/24/2020 14:53:49 01/24/2020 15:36:04 Adult health examination 963073756 Z00.00 awv Essential hypertension 09814795 I10 Diagnosis establishe d. Controlled on amlodipine 5 mg per day without side effects Hyperlipidemia 86557304 E78.5 intolerant to many statins. She is tolerating Crestor 10 mg per day. Her LDL at one time was 217. When we checked this 12/05/19 it was 110. I am not can increase Crestor at this time due to concerns of side effects Osteopenia 876985852 M85 .80 Epigastric pain 31961878 R10.13 She is not on Prilosec. The pain is only for a few minutes in the morning and evening. . She had a normal CBC, CMP, H. pylori and lipase. Get back on prilosec and do ct A/P w and egd. hx of cholecyste ctomy. if all tests nl and prilosec no help, to GI. Told to call back [id number] TIM FULLER MD SURGERY SCHEDULE [address] [place] [address] 02/08/2020 09:09:35 02/08/2020 09:10:05 [id number] TERRIE HANDLEY PA-C FAMILY [address] [place] [address] 03/26/2020 13:52:02 03/26/2020 16:21:24 Lumbar radiculopathy 069899906 M54.16 right hip x-ray normal, but lumbar x-ray shows scoliosis concave to the left with significan t DJD. right LE radiculopa thy is 80% better per pt. may use tylenol prn and heat to back. activity as tolerated. PT referral if not continuing to improve. Weakness of right arm 15 08958385 1680945 G83.20 sounds like pt had a radial nerve palsy from resting her right arm over her head for a prolonged period. this had resolved totally. Stroke work up in the ER was unremarkab le. Essential hypertension 12595316 I10 systolic BP 170 in ER. pt had gone off her meds but she has restarted. BP normal again. advised her of the risks of uncontroll ed HTN, including CVA. she will continue her meds as directed and monitor BP. [id number] MAYRA HARRISON MD PULMONARY [address] [facility], [address] [place] [address] 08/19/2021 09:26:34 08/19/2021 11:14:41 Solitary nodule of lung 912193133 R91.1 6 mm RLL nodule. Stable at 6 months. Stable at 18 months (05/2019).S he completed her recommende d Fleischner Society guidelines ongoing 18 months without a change. Radiology had recommende d a [address] scan after her May 2019 scan. This recommenda tion would apply if she was a high risk smoker, but she is a non-smoker . Furthermor e, no lesions noted on her CT abdomen and pelvis of her lower lobe that she got in January 2020. As such, I feel that she successful ly completed surveillan ce imaging for her previous nodule. If her cough returns and does not respond to normal therapies, then we will repeat her imaging. Chronic cough 71242746 R 05.3 Resolved with allergy plus antireflux therapy Health Concerns Section Related Observation LastModified by Organization Detai ls LastModified Time None Recorded Concern Status LastModified by Organization Details LastModified Time None Recorded Advance Directives Directive None Recorded Payers Encounter Date Sequence Insurance Name Policy Number Policy Zhou Covered Member ID Zhou Member ID Guarantor Name 12/05/2019 2 MEDICAID-[facility] - FFS/TRADITIONA L Krista Quintana [id number] Krista Quintana 12/05/2019 1 [place] Krista Quintana [id number] Krista Quintana 01/24/2020 2 MEDICAID-[facility] HEALTH CHOICES - FFS/TRADITIONA L Krista Quintana [id number] Krista Quintana 01/24/2020 1 [place] Krista Quintana [id number] Krista Quintana 02/08/2020 2 [place]/TRADITIONA L Krista Quintana [id number] Krista Quintana 02/08/2020 1 [place] Krista Quintana [id number] Krista Benjaminer 03/26/2020 2 [place]/TRADITIONA L Krista Benjaminer [id number] Krista Benjaminer 03/26/2020 1 [place] Krista Quintana [id number] Krista Quintana 08/19/2021 2 [place]/TRADITIONA L Krista Yangusher [id number] Krista Borden Mariano 08/19/2021 1 [facility] (MEDICAID REPLACEMENT - HMO) Krista Yangusher [id number] Krista Borden Mariano Notes Date Note Type Note Provider Name and Address Organization Details Recorded Time 12/05/2019 text/html I haven't seen Suha Quintana in nearly a year. She notes that on November 29 in the evening around 10:00 she felt her heart starting to beat fast and checked her blood pressure was 197/102. She does drink caffeine-5 per day. Finally her blood pressure decreased to 137/86 when she had a pulse rate of 160. With this episode she had a minimal headache. She felt numbness in her fingertips. She had no weakness. She had no problems with speech or swallowing. She did have some chest heaviness. She had no shortness of breath, radiation of heaviness, nausea or dizziness. Since that time she has felt normal with no further chest pain Since that time she is continue to check her blood pressure daily. I have 8 readings. They vary from 132-169/65-74. All pulses are in the 60s. 6 of the readings are elevated. She does have a history of hypothyroidism. This has not been checked in one year. She does complain of sweats, some during the day but for the last year is had night sweats and wakens with sweat on her face. She's had no fever. She has had a 6 pound weight loss in the last month. The sweats of been going on for one year. She denies any nausea, vomiting, diarrhea or abdominal pain except notes that in the morning she has some epigastric tenderness that lasts for only a few minutes. She denies any heartburn or indigestion. She denies any left upper quadrant pain. She does have a chronic cough That is felt to be due to reflux. She is on Prilosec and has seen Dr. Harrison in pulmonary. [address] scan was stable showing a 6 mm right lower lobe nodule. Hyperlipidemia-she is tolerating the simvastatin well Hypothyroidism as noted above SARA DEVLIN MD [address] [place] [address], [phone], [facility] 12/05/2019 13:48:08 01/24/2020 text/html Patient is here today for annual wellness visit and follow-up from her visit on 12/05/19 #1. On 12/05/19 she was diagnosed with hypertension. She was put on Norvasc 5 mg per day. Blood pressure has been well controlled. She has had no side effects or pedal edema. bp rarely 130's. this am 125/68 w pulse 68. #2. She was having epigastric and left upper quadrant pain. She had a normal CBC, CMP, lipase and a negative H. pylori. She had a colonoscopy in November 2016 and was normal. when wakes up has cold sweats and soetimee N and sometime pain at top of stomach. usually am and evening #3. Hyperlipidemia-she is on rosuvastatin. Her LDL was 110 but previously had been under 100. SARA DEVLIN MD [address] [place] [address], [phone], [facility] 01/24/2020 15:22:17 03/26/2020 text/html patient presents via telemedicine appointment for hospital follow-up after being seen on 03/20 at [facility] for back pain, right hip pain, and pain in the right proximal upper extremity. There was weakness associated with this. She also states that she had slept with her right arm above her head and woke up with weakness of the right arm at the shoulder. This seems to have completely resolved. As her mother had a CVA, a full workup was done at the hospital, including a CT angiogram of the head and neck, and a CT scan of the head. There was no critical stenosis appreciated on the angiogram, and there were no acute findings on the head CT. The hip x-ray was normal, and x-rays of the lumbar spine showed scoliosis concave to the left with multilevel degenerative joint disease from L2-S1. An EKG and chest x-ray were unremarkable. Also of note, the patient had stopped her blood pressure medication recently, and her systolic reading in the ER was 170. She was advised to restart her medication, and her blood pressure has come down nicely. She denies headaches, chest pain, or shortness of breath. As stated, her right upper extremity symptoms have completely resolved, and her low back/right hip pain is 80% better per her report. The right arm had felt shaky, and this has resolved. She was not given any medication in the ER but he has been using some Tylenol, as well as heat on her back and hip. 14 point review systems is otherwise unremarkable today. Visit today is being conducted via telehealth using both audio and video. Patient has expressed an understanding of the telehealth process and has consented. Patient confirms that he/she is physically located in [place] at the time of this visit. TERRIE HANDLEY PA-C [address] [place] [address], [phone], [facility] 03/26/2020 16:14:34 08/19/2021 text/html Krista annamarie rodriguez to follow-up of pulmonary nodule and chronic cough. She had actually completed her nodule surveillance in 2019. I went over that with her. She had continued on her omeprazole for chronic cough. She continued to have some issues with cough and was found to have postnasal drip month ago. She has since avoided eating peanuts and started on a nose spray and her cough has resolved. MAYRA HARRISON MD [address] [place] [address], [phone], [facility] 08/19/2021 10:51:36 OBGyn Episode No OBEpisode recorded.
[2024-08-30 08:31] LABS: Basophils % 0.5 % (0.1-2.0); Eosinophils # 0.2 Kmm3 (0.0-0.4); Eosinophils % 3.2 % (0.1-12.0); Hemoglobin 12.9 g/dL (12.2-16.2); Lymphocytes # 1.7 K/mm3 (0.7-4.5); Lymphocytes % 30.3 % (10-50); Mean Corpuscular HGB Conc 33.1 g/dL (31.8-35.4); Mean Corpuscular Hemoglobin 30.4 pg (27.0-31.2); Mean Corpuscular Volume 91.8 fl (81-99); Mean Platelet Volume 10.8 fl (7.4-10.4); Monocytes # 0.5 K/mm3 (0.1-1.0); Monocytes % 8.9 % (1.7-9.3); Neutrophils # 3.2 K/mm3 (1.8-7.8); Neutrophils % 56.9 % (37.0-80.0); Nucleated Red Blood Cells # 0 10^3/uL; Nucleated Red Blood Cells % 0 %; Platelet Count 219 K/mm3 (142-424); Red Blood Count 4.25 M/mm3 (4.20-5.40); White Blood Count 5.6 K/mm3 (4.8-10.8)
[2024-08-30 09:32] LABS: Alanine Aminotransferase 19 U/L (12-78); Albumin Level 4.5 g/dl (3.5-5.0); Alkaline Phosphatase 66 U/L (38-126); Anion Gap 8.9 mEq/L (5-15); Aspartate Amino Transferase 27 U/L (14-36); Bilirubin,Direct 0.2 mg/dl (0.0-0.4); Bilirubin,Indirect 0.6 mg/dL (0.0-0.9); Bilirubin,Total 0.8 mg/dl (0.2-1.3); Bilirubin,Unconjugated 0.6 mg/dL (0.0-1.1); Blood Urea Nitrogen 8 mg/dl (7-17); Calcium 9.6 mg/dl (8.4-10.2); Carbon Dioxide 25 mmol/L (22.0-30.0); Chloride 111 mmol/L (98-107); Chol/HDL Ratio 2.3 (1-3.5); Cholesterol 185 mg/dl (140-200); Estimated Glomerular Filt Rate 68 ml/min (>60); GFR (African American) 83 ML/MIN (>60); Glucose 104 mg/dl (74-100); HDL Cholesterol 79 mg/dl (40-60); Magnesium 2.3 mg/dl (1.6-2.3); Potassium 4.9 mmoL/L (3.5-5.1); Sodium 140 mmol/L (136-145); Total Protein,Serum 6.8 g/dl (6.3-8.2); Triglycerides 123 mg/dl (30-150); VLDL Cholesterol 25 mg/dL (0-40)
[2024-08-30 09:42] LABS: Direct LDL Cholesterol 68.83 mg/dL (100-129)
[2024-08-30 09:44] LABS: Free T4 (Free Thyroxine) 1.03 ng/dl (0.78-2.19)
[2024-08-30 09:59] LABS: Thyroid Stimulating Hormone 4.06 uIU/mL (0.465-4.68)
== END 2024-08-30 23:59 | disposition home or self-care (01) ==
LOC: LAB 08:04
PROVIDERS: PCP Nurse Practitioner Family; Visit Provider Physician Assistant
DX: E78.2 Mixed hyperlipidemia (principal); Z01.810 Encounter for preprocedural cardiovascular examination; I48.0 Paroxysmal atrial fibrillation; I10 Essential (primary) hypertension; R07.89 Other chest pain; R00.2 Palpitations
CPT/HCPCS: 36415; 80048; 80061; 80076; 83735; 84439; 84443; 85025; 93270

== ENCOUNTER 2024-09-15 10:06 | Outpatient (CLI) | payer MEDICARE, MEDICAID, SELFPAY ==
--- NOTE | 2024-09-15 | CA_ITS ---
APPROVED REPORT EXAM: Comprehensive 2D, Doppler, and color-flow Echocardiogram [employer] Chemist: Gricelda Hanson CRT Ht: 144 ft 11 in Wt: 123lbs BSA: 17.43 BP: 144/76 mmHg Indications: Chest Pain, Atrial Fibrillation, Palpitations, CAD, Hyperlipidemia, Hypertension/HDD 2D Dimensions LA Volume 36.50 mL LA Volume Index 23.70 mL/m2 (M/F) 16-34 M-Mode Dimensions RVDd 1.50 cm (0.9-2.6) LA Diam 2.96 cm (1.9-4.0) LVDd 4.19 cm (3.5-5.7) LVDs 2.09 cm (3.5-5.7) IVSd 1.06 cm (0.6-1.1) PWd 0.63 cm (0.6-1.1) EF (Teich) 81.80% EPSs 2.17 cm FS 50.10% EDV (Teich) 78.10 mL ESV (Teich) 14.20 mL LV Diastology E Decel Time 290 (160-240 msec) E/A Ratio 0.66 MED A' 11.20 cm/s LAT A' 16.70 cm/s Aortic Valve AI PHT 481.00 ms AO Peak GR. 8.60 mmHg Mitral Valve MV E Max Liu. 72.0 (40-130 cm/s) MV A Velocity 109.0 (40-130 cm/s) E/A Ratio 0.66 MV PHT 85.0 ms Pulmonary Valve PV Peak Velocity 83.0 (50-150 cm/s) Tricuspid Valve TR P. Velocity 226.00 cm/s RAP Estimate 10.00 mmHg RVSP 30.40 mmHg Left Ventricle The left ventricle is normal size. The left ventricular systolic function is normal. The left ventricular ejection fraction is within the normal range. There is increased LV wall thickness. There is normal LV segmental wall motion. Transmitral Doppler flow pattern suggests impaired LV relaxation. LVEF is 55%. Right Ventricle The right ventricle is normal size. The right ventricular systolic function is normal. Atria Left atrium is mildly dilated. Right atrium is mildly dilated. There is no Doppler evidence of interatrial shunt. Aortic Valve The aortic valve is mildly thickened. There is no aortic valvular stenosis. Mild aortic regurgitation. Mitral Valve The mitral valve leaflets are mildly thickened. No evidence of mitral valve stenosis. Mild mitral regurgitation. Tricuspid Valve Tricuspid valve is grossly normal in structure and function. Trace tricuspid regurgitation. There is insufficient TR jet to estimate RVSP. Pulmonic Valve The pulmonary valve is normal in structure. Trace pulmonic regurgitation. Great Vessels The aortic root is normal in size. IVC is normal in size and collapses >50% with inspiration. Pericardium There is no pericardial effusion. Other Information Study Quality: Fair Conclusion Normal biventricular systolic function. Mild biatrial dilation. Mild AI, mild MR. Electronically signed by : Caro Higuera MD 09/24/2024 22:27:43
--- NOTE | 2024-09-15 | CA_ITS ---
APPROVED REPORT Exam: Exercise Treadmill Technologist: Codi Mariano Ht: 5 ft 9 in Wt: 123 lbs BSA: 1.68 m2 HR: 69 bpm BP: 144/61 mmHg Rhythm: NSR Medical History Medical History: HTN, Hyperlipidemia Medications: Clopidogrel, Isosorbide mononitrate ER, Levothyroxine, Rivaroxaban, Rosuvastatin, Multivitamin Allergies: Losartan, Diltiazem Cardiac Risk Factors: HTN, Hyperlipidemia, FHX of CAD Stress Test Details Test: Exercise stress testing was performed using a Silverio protocol. HR Resting HR: 69 bpm Max Heart Rate (APMHR): 136 bpm Max HR Achieved: 126 bpm Target HR (85% APMHR): 116 bpm % of APMHR: 93 Recovery HR: 89 bpm HR response to stress: Normal HR response to stress BP Resting BP: 144.0/61.0 mmHg Max BP: 192.0/74.0 mmHg Recovery BP: 173.0/84.0 mmHg BP response to stress: Normal blood pressure response to stress. ECG Resting ECG: Normal sinus rhythm Stress EC mm upsloping ST depression Clinical Exercise duration: 4:00 min Highest Stage Achieved: Stage 2: 2.5 mph at 12% grade. Exercise capacity: 7.1 METs Stress ECG Conclusion Symptoms: None Ectopy: None ST changes:[address] depression Conclusion: Average exercise capacity. Equivocal ECG changes at peak stress. Myoview images are reported separately. Electronically signed by : Caro Higuera MD 09/18/2024 21:26:20
--- OUTSIDE RECORDS SUMMARY | 2024-09-15 10:09 | XMS_ITS | Data Portability ---
Author Organization [place] - YASMIN Chung TRIPP CLOSED Address [address] [place] [address] [address] [place] [address] Assessment Encounter Date Assessment Date Assessment LastModified [...] available 01/12/2020 16:51:38 08/19/2021 08/19/2021 RTC PRN. [email or web address] Not available 07/27 10:51:20 Plan of Treatment Reminders Order Date Submit Date Provider Last Modified By Organization Details Last Modified Time Details Appointments None recorded . Lab CBC w/ auto diff 2019 020 [facility], [address] [place] [address], [address], 0 20:50:59 lipid panel, serum 2019 020 [facility], [address] [place] [address], [address], 0 21:08:44 H pylori Ab, serum 2019 020 [facility], [address] [place] [address], [address], 0 11:13:06 lipase, serum or plasma 2019 020 [facility], [address] [place] [address], [address], 0 21:06:05 CMP, serum or plasma 2019 020 [facility], [address] [place] [address], [address], 0 21:08:45 TSH, serum or plasma 2019 020 [facility], [address] [place] [address], [address], 0 21:21:04 Referral None recorded . Procedures upper endoscop y procedur e (EGD) (PROC) 2019 020 mavis Fuller MD, [address] [place] [address], [address], 0 08:11:56 Surgeries None recorded . Imaging CT, abdomen + pelvis, w/ contrast - 01/31@10 40. check in@940. fasting 4 hrs 2019 020 [facility] Radiology [facility], [address] [place] [address] , [place], [address], 0 11:56:25 DEXA [address] Bone Density [facility], [address] [place] [address], [address], 0 08:01:26 electroc ardiogra m [address] Family Medicine [facility], [address] [place] [address] , [place], [address], 0 13:51:59 MAMMO, screenin g, tomosynt hesis, bilatera l, w/ CAD [address] Radiology [facility], [address] [place] [address] , [place], [address], 0 13:58:18 Medication Orders amlodipi ne 5 mg tablet 2019 020 [email or web address] [facility], [address], [address], 2 10:19:10 Euthyrox 50 mcg tablet 2019 020 INTERFACE [facility], [address], [address], 0 13:48:07 Patient TargetsNo targets recorded. Patient Instructions Encounter Date Encounter Id Patient Instructions Last Modified By Organization Details Last Modified Time 01/24/2020 [id number] advance care planning: care instructions [email or web address] Not available 01/24/2020 15:21:48 Reason for Referral None Reported. Results Created Date Observation Date Name Description Value Unit Range Abnormal Flag Note LastModifiedBy Organization Detail LastModifiedTime 12/05/19 20 12/05/2019 CBC w/ auto diff white blood cells 9.7 K/uL 3.8-10 .8 normal Not Available [facility] [address] [place] [address], [address], 12/05/2019 20:50:59 12/05/19 20 12/05/2019 CBC w/ auto diff red blood cells 4.61 M/uL 3.80-5 .20 normal Not Available [facility] [address] [place] [address], [address], 12/05/2019 20:50:59 12/05/19 20 12/05/2019 CBC w/ auto diff hemoglobin 14.9 g/dL 12.0-1 6.0 normal Not Available [facility] [address] [place] [address], [address], 12/05/2019 20:50:59 12/05/19 20 12/05/2019 CBC w/ auto diff hematocrit 41.7 % 35.0-4 7.0 normal Not Available [facility] [place], [address], 12/05/2019 20:50:59 12/05/19 20 12/05/2019 CBC w/ auto diff MCV 91 fL 80-100 normal Not Available [facility] [address] [place] [address], [address], 12/05/2019 20:50:59 12/05/19 20 12/05/2019 CBC w/ auto diff MCH 32 pg 26-35 normal Not Available [facility] [address] [place] [address], [address], 12/05/2019 20:50:59 12/05/19 20 12/05/2019 CBC w/ auto diff MCHC 36 g/dL 32-36 normal Not Available [facility] [address] [place] [address], [address], 12/05/2019 20:50:59 12/05/19 20 12/05/2019 CBC w/ auto diff RDW 13.4 % 11.0-1 5.0 normal Not Available [facility] [address] [place] [address], [address], 12/05/2019 20:50:59 12/05/19 20 12/05/2019 CBC w/ auto diff MPV 9.2 fL 6.2-10 .5 normal Not Available [facility] [address] [place] [address], [address], 12/05/2019 20:50:59 12/05/19 20 12/05/2019 CBC w/ auto diff platelet count 265 K/uL 130-40 0 normal Not Available [facility] [address] [place] [address], [address], 12/05/2019 20:50:59 12/05/19 20 12/05/2019 CBC w/ auto diff neutrophil,a bsolute 6.4 K/uL 1.6-8. 4 normal Not Available [facility] [address] [place] [address], [address], 12/05/2019 20:50:59 12/05/19 20 12/05/2019 CBC w/ auto diff lymphocyte,a bsolute 2.4 K/uL 0.4-5. 1 normal Not Available [facility] [address] [place] [address], [address], 12/05/2019 20:50:59 12/05/19 20 12/05/2019 CBC w/ auto diff monocyte,abs olute 0.7 K/uL 0.0-1. 2 normal Not Available [facility] [address] [place] [address], [address], 12/05/2019 20:50:59 12/05/19 20 12/05/2019 CBC w/ auto diff eosinophil,a bsolute 0.2 K/uL 0.0-0. 8 normal Not Available [facility] [address] [place] [address], [address], 12/05/2019 20:50:59 12/05/19 20 12/05/2019 CBC w/ auto diff basophil,abs olute 0.0 K/uL 0.0-0. 3 normal Not Available [facility] [address] [place] [address], [address], 12/05/2019 20:50:59 12/05/19 20 12/05/2019 CBC w/ auto diff % neutrophils 65.7 % 42.0-7 8.0 normal Not Available [facility] [address] [place] [address], [address], 12/05/2019 20:50:59 12/05/19 20 12/05/2019 CBC w/ auto diff % lymphocytes 24.8 % 11.0-4 7.0 normal Not Available [facility] [address] [place] [address], [address], 12/05/2019 20:50:59 12/05/19 20 12/05/2019 CBC w/ auto diff % monocytes 6.8 % 0.0-11 .0 normal Not Available [facility] [address] [place] [address], [address], 12/05/2019 20:50:59 12/05/19 20 12/05/2019 CBC w/ auto diff % eosinophils 2.3 % 0.0-7. 0 normal Not Available [facility] [address] [place] [address], [address], 12/05/2019 20:50:59 12/05/19 20 12/05/2019 CBC w/ auto diff % basophils 0.4 % 0.0-3. 0 normal Not Available [facility] [address] [place] [address], [address], 12/05/2019 20:50:59 12/05/19 20 12/05/2019 CBC w/ auto diff nucleated red cells 0.1 % 0.0-0. 9 normal Not Available [facility] [address] [place] [address], [address], 12/05/2019 20:50:59 12/05/19 20 12/05/2019 CBC w/ auto diff nucleated RBCs, absolute 0.01 K/uL not estab. normal Not Available [facility] [address] [place] [address], [address], 12/05/2019 20:50:59 12/05/19 20 12/05/2019 lipas e, serum or plasm a lipase 62 U/L 13-60 high Not Available [facility] [address] [place] [address], [address], 12/05/2019 21:06:05 12/05/19 20 12/05/2019 lipid panel , serum HDL cholesterol 80 mg/dL 66-242 normal Not Available [facility] [address] [place] [address], [address], 12/05/2019 21:08:44 12/05/19 20 12/05/2019 lipid panel , serum triglyceride s 97 mg/dL 0-149 normal TRIGL YCERI DE RANGE S FRANK L: < 150 BORDE RLINE HIGH: 150 - 199 HIGH: 200 - 499 VERY HIGH: > OR = 500 Not Available [facility] [address] [place] [address], [address], 12/05/2019 21:08:44 12/05/19 20 12/05/2019 lipid panel , serum cholesterol 209 mg/dL 0-199 high ELIJAH STERO L (TOTA L) RANGE S BRET ABLE: < 200 BORDE RLINE : 200 - 239 HIGHE R RISK: > 239 Not Available [facility] [address] [place] [address], [address], 12/05/2019 21:08:44 12/05/19 20 12/05/2019 lipid panel , serum LDL cholesterol 110 mg/dL _(kelly c) 0-99 high LDL ELIJAH STERO L RANGE S OPTIM AL: < 100 NEAR/ ABOVE OPTIM AL: 100 - 129 BORDE RLINE HIGH: 130 - 159 HIGH: 160 - 189 VERY HIGH: > OR = 190 Not Available [facility] [address] [place] [address], [address], 12/05/2019 21:08:44 12/05/19 20 12/05/2019 CMP, serum or plasm a glucose 95 mg/dL 74-100 normal Not Available [facility] [address] [place] [address], [address], 12/05/2019 21:08:45 12/05/19 20 12/05/2019 CMP, serum or plasm a blood urea nitrogen 11 mg/dL 6-20 normal Not Available [facility] [address] [place] [address], [address], 12/05/2019 21:08:45 12/05/19 20 12/05/2019 CMP, serum or plasm a creatinine 0.89 mg/dL 0.50-0 .95 normal Not Available [facility] [address] [place] [address], [address], 12/05/2019 21:08:45 12/05/19 20 12/05/2019 CMP, serum or plasm a BUN/creatini ne ratio 12 (calc ) 10-20 normal Not Available [facility] [address] [place] [address], [address], 12/05/2019 21:08:45 12/05/19 20 12/05/2019 CMP, serum or plasm a sodium 142 mmol/ L 136-14 5 normal Not Available [facility] [address] [place] [address], [address], 12/05/2019 21:08:45 12/05/19 20 12/05/2019 CMP, serum or plasm a potassium 4.4 mmol/ L 3.4-5. 0 normal Not Available [facility] [address] [place] [address], [address], 12/05/2019 21:08:45 12/05/19 20 12/05/2019 CMP, serum or plasm a chloride 103 mmol/ L 98-107 normal Not Available [facility] [address] [place] [address], [address], 12/05/2019 21:08:45 12/05/19 20 12/05/2019 CMP, serum or plasm a carbon dioxide 26 mmol/ L 20-32 normal Not Available [facility] [address] [place] [address], [address], 12/05/2019 21:08:45 12/05/1912/05/2019 CMP, serum or plasm a anion gap 13 (calc ) 7-25 normal Not Available [facility] [address] [place] [address], [address], 12/05/2019 21:08:45 12/05/19 20 12/05/2019 CMP, serum or plasm a calcium 9.7 mg/dL 8.6-10 .2 normal Not Available [facility] [address] [place] [address], [address], 12/05/2019 21:08:45 12/05/19 20 12/05/2019 CMP, serum or plasm a total protein 7.8 g/dL 6.4-8. 3 normal Not Available [facility] [address] [place] [address], [address], 12/05/2019 21:08:45 12/05/19 20 12/05/2019 CMP, serum or plasm a albumin 4.8 g/dL 3.5-5. 2 normal Not Available [facility] [address] [place] [address], [address], 12/05/2019 21:08:45 12/05/19 20 12/05/2019 CMP, serum or plasm a globulin 3.0 g/dL_ (calc ) 1.5-4. 5 normal Not Available [facility] [address] [place] [address], [address], 12/05/2019 21:08:45 12/05/19 20 12/05/2019 CMP, serum or plasm a albumin/glob ulin ratio 1.6 (calc ) 1.1-2. 5 normal Not Available [facility] [address] [place] [address], [address], 12/05/2019 21:08:45 12/05/19 20 12/05/2019 CMP, serum or plasm a bilirubin, total 0.7 mg/dL 0.1-1. 2 normal Not Available [facility] [address] [place] [address], [address], 12/05/2019 21:08:45 12/05/19 20 12/05/2019 CMP, serum or plasm a alkaline phosphatase 69 U/L 35-105 normal Not Available [facility] [address] [place] [address], [address], 12/05/2019 21:08:45 12/05/19 20 12/05/2019 CMP, serum or plasm a AST 20 U/L 0-32 normal Not Available [facility] [address] [place] [address], [address], 12/05/2019 21:08:45 12/05/19 20 12/05/2019 CMP, serum or plasm a ALT 19 U/L 0-33 normal Not Available [facility] [address] [place] [address], [address], 12/05/2019 21:08:45 12/05/19 20 12/05/2019 CMP, serum or plasm a GFR 71 >= 60 normal Not Available [facility] [address] [place] [address], [address], 12/05/2019 21:08:45 12/05/19 20 12/05/2019 CMP, serum [...] month s or longe r. Not Available [facility] [address] [place] [address], [address], 12/05/2019 21:08:45 12/05/19 20 12/05/2019 TSH, serum or plasm a TSH 2.840 uIU/m L 0.290- 5.500 normal Not Available [facility] [address] [place] [address], [address], 12/05/2019 21:21:04 12/05/19 20 12/06/2019 H pylor i Ab, serum H. pylori Ab, serum NEGATI VE negati ve normal Not Available [facility] [address] [place] [address], [address], 12/06/2019 11:13:05 12/05/1912/05/2019 elect rocar diogr am 12 lead Electrocardi ogram performed. See christie macktio n for interp retati on Not Available [facility] [address] , [place], [address], 12/05/2019 12:35:06 02/06/20 20 02/07/2020 SARS CoV 2 RNA (COVI D-19) , QL, wholesale representative-P CR, respi rator y speci men sars cov2 result NEGATI VE normal Not Available [facility] [address] [place], [address], 02/07/2020 08:29:58 02/08/2002/08/2020 surgi kelly patho logy [...] is negat vito for organ isms. MAGALI CARYE IEL-P MD EDER Tosha d Out Date: 02/08 14:09 Page 1 of 1 Not Available [facility] [address] [place] [address], [address], 02/09/2020 14:10:47 12/07/19 20 12/06/2019 elect ghassan de la cruz am No observ ation record ed. BARCODE [facility] [address] , [place], [address], 12/07/2019 09:49:43 02/01/20 20 02/01/2020 CT, abdom en + pelvi s, w/ contr ast Gabo escobar [address] [place] [address] Patidorothy t Name: SADA díaz : 940 [...] 320 (1 x 100 mL bottle of [facility] 68887- 1323-1 1). None was wasted and discar [...] Gabbi Gutierrez MD on 020 11:51 AM [facility] [address] [place] [address] , [place], [address], 02/03/2020 06:29:46 02/05/20 20 01/25/2020 MAMMO , scree marcelo, tomos ynthe sis, bilat eral, w/ CAD No observ ation record ed. [facility] [address], [id number], 02/07/2020 11:15:59 Result Notes None recorded. Problems Name Problem SNOMED Code Status Onset Date Resolution Date Notes Provider Name and Address Organization Details Recorded Time Elevated blood-pr essure reading without diagnosi s of hyperten mecca 112085074 Completed 201701/24/2020 SARA DEVLIN MD [address] [place] [address], [address] , [facility] 0 14:25:56 History of osteopen ia 414895099 Active 2017 DEXA 01/23/15- osteopen ia-repea t 2 years SARA DEVLIN MD [address] [place] [address], [address] , [facility] 8 10:52:47 History of colonosc opy 12908363452 9 Active 201712/08/16- normal-n o more needed SARA DEVLIN MD [address] [place] [address], [address] , [facility] 8 10:53:35 Gastriti s 7134122 Active 2017 EGD 06/04/09-g astritis /duodeni tis SARA DEVLIN MD [address] [place] [address], [address] , [facility] 8 10:54:21 Osteoart hritis 750649100 Active 2017 multiple sites SARA DEVLIN MD [address] [place] [address] [place], [address] , [facility] 8 11:00:12 Hyperlip idemia 79304942 Active 2017 SARA DEVLIN MD [address] [place] [address], [address] , [facility] 8 11:00:31 Cough 45117197 Active 2017 SARA DEVLIN MD [address] [place] [address], [address] , [facility] 8 11:08:39 Gastroes ophageal reflux disease 912605819 Active 2017 SARA DEVLIN MD [address] [place] [address], [address] , [facility] 8 11:08:42 Depressi ve disorder 85809002 Active 2017 SARA DEVLIN MD [address] [place] [address] [place], [address] , [facility] 8 11:08:47 Insomnia 499349578 Active 2017 SARA DEVLIN MD [address] [place] [address], [address] , [facility] 8 11:08:49 Screenin g for malignan t neoplasm of breast Active 2017 SARA DEVLIN MD [address] [place] [address], [address] , [facility] 8 11:08:54 Osteopen ia 160067509 Active 2017 SARA DEVLIN MD [address] [place] [address], [address] , [facility] 8 11:08:57 Essentia l hyperten mecca 16697046 Active 2019 SARA DEVLIN MD [address] [place] [address], [address] , [facility] 0 14:26:14 Epigastr ic pain 51595804 Active 2019 SARA DEVLIN MD [address] [place] [address], [address] , [facility] 0 15:17:21 Hypothyr oidism 13191675 Active 2015 From Automate d Load;Pro vider: Terrie Handley;St atus: Active Not Available [facility] 6 00:56:17 Clinical finding Completed 201511/12/2017 From Automate d Load;Pro vider: Terrie Handley;St atus: Active SARA DEVLIN MD [address] [place] [address], [address] , [facility] [address] 10:52:[address] Concept Completed 201511/12/2017 From Automate d Load;Pro vider: Terrie Handley;St atus: Active SARA DEVLIN MD [address] [place] [address], [address] , [facility] 8 10:52:21 Mood disorder Completed 201511/12/2017 From Automate d Load;Pro vider: Terrie Handley;St atus: Active SARA DEVLIN MD [address] [place] [address], [address] , [facility] 8 10:52:19 Notes:: Depression Screening* Date:12/27/2015 Problem Notes None recorded. Procedures Surgical History Date Name Laterality Status Provider Name and Address Organization Details Recorded Time 12/09/19 18 DXA Low Bone Mass 1 - No Tx completed PEREZ TORO MD [address] [place] [address], [phone] [place] [address] 12/08/2017 16:51:47 12/09/19 18 Airway Resistance completed Santa Baldwin [facility] [place]in [facility] [facility] 12/08/2017 11:26:13 12/09/19 18 Diffusion Capacity completed Santajess Baldwin [facility] Loren ngton [facility] 12/08/2017 11:26:09 12/09/19 18 Lung Volumes, [facility] 12/08/2017 11:26:11 12/09/19 18 Spirometry completed [facility] 12/08/2017 11:26:16 CHOLECYSTECTOMY, LAPAROSCOPIC (SURG) completed Elma Boykin [facility] 12/01/2017 08:19:53 Imaging Results Imaging Date Name Status LastModified by Organization Details LastModified Time 12/06/2019 electrocardiogram completed BARCODE [facility] [address] , [place], [address], 12/07/2019 09:49:43 02/01/2020 CT, abdomen + pelvis, w/ contrast completed [facility] [address] , [place], [address], 02/03/2020 06:29:46 01/25/2020 MAMMO, screening, tomosynthesis, bilateral, w/ CAD completed [facility] [address], [id number], 02/07/2020 11:15:59 Procedure Notes None recorded. Medical Equipment None Reported. Allergies Allergen ID Allergen Name Allergen Category Reaction Reaction Severity Criticality Documentation Date Start Date Code Code System Note Provider Name and Address Organization Details Recorded Time 415201 Product containin g penicilli n (product) medicatio n Not available Not available Not available 03/21/20162005 80813 8001 SNOMED Comme nt: Creat ed By: Kush Manzano ed Date: 2005 1:04: 01 PM; Not Available [facility] 6 04:08:13 Medications Name Sig Start Date [...] Updated DateTime 0 152.4 cm 24.2 kg/m2 36894.4 5 g 78 /min 97 % 97 % 136 mm[Hg] 76 mm[Hg] Lizzy Barbour [facility] 0 12:36:44 Date Recorded Body height Heart rate Body temperature Systolic blood pressure Diastolic blood pressure Provider Name and Address Organization Details Last Updated DateTime 01/24/2020 152.4 cm 68 /min 97.2 [degF] 125 mm[Hg] 68 mm[Hg] Lizzy Barbour [facility] 0 14:59:06 Date Recorded Body height Provider Name an d Address Organization Details Last Updated DateTime 03/26/2020 152.4 cm Perri Newberry [facility] 13:52:50 Date Recorded Systolic blood pressure Diastolic blood pressure Provider Name and Address Organization Details Last Updated DateTime 03/26/2020 133 mm[Hg] 58 mm[Hg] TERRIE HANDLEY PA-C [facility] [place], [address], [facility] 03/26/2020 15:02:04 Date Recorded Body weight Heart rate Oxygen saturation Oxygen saturation in Arterial blood by Pulse oximetry Systolic blood pressure Diastolic blood pressure Provider Name and Address Organization Details Last Updated DateTime 2 64164.8 2 g 71 /min 96 % 96 % 120 mm[Hg] 55 mm[Hg] Melany Koenigo [facility] 2 10:22:23 Social History Question Answer Notes LastModified by [facility] Details LastModified Time Tobacco Smoking Status [facility]oker [facility]/08/2017 10:29:30 What Is Your Level Of Caffeine Consumption? Moderate Information not available 10/08/2017 Education 12 1 Yr College Information not available 10/08/2017 Live Alone Or With Others? Alone Information not available 10/08/2017 Marital Status Informatio n not available 10/08/2017 What Was The Date Of Your Most Recent Tobacco Screening? 08/19/2021 [email or web address] Information not available 08/19/2021 How Many Children Do You Have? 4 Information not available 10/08/2017 Sex: Unknown Functional Status Question Answer Note LastModified by Organizat ion Details LastModified Time What is your level of alcohol consumption? None Information not available 10/08/2017 Do you or have you ever used smokeless tobacco? Never used smokeless tobacco [email or web address] Information not available 12/15/2018 Are you able to care for yourself? Yes Information not available 10/08/2017 What is your occupation? retired Information not available 10/08/2017 Do you or have you ever used e-cigarettes or vape? Never used electronic cigarettes [email or web address] Information not available 12/15/2018 What is your exercise level? Occasional [email or web address] Information not available 12/15/2018 Mental Status None [...] mother, age 63 Medical History Condition Response Gallbladder Disease Y Heart Disease Y Arthritis Y High Cholesterol Y Kidney Disease Y Gynecological HistoryNo gynecological history recorded. Obstetrics History GPAL:G 0 P 0 0 0 0 Immunizations Vaccine Type Date Status Note Provider Nam e and Address Organization Details Recorded Time Pneumococcal conjugate PCV 13 8 completed Not Available [facility] 05/14/2019 02:51:44 Past Encounters Encounter ID Performer Location Encounter Start Date Encounter Closed Date Diagnosis/Indication Diagnosis SNOMED-CT Code Diagnosis ICD10 Code Diagnosis Note [id number] [facility] [place] [address] 07/28/2016 17:02:26 07/28/2016 17:02:26 [id number] TIM FULLER MD SURGERY SCHEDULE [address] [place] [address] 12/08/2016 08:57:06 12/08/2016 09:12:57 [id number] MOON MILLER PA-C [facility] [address] [place] [address] 10/08/2017 09:23:09 10/08/2017 11:28:25 Epigastric pain 60370331 R10.13 continue prilosec Right uppe r quadrant pain 863614558 R10.11 she is better since being on prilosec- advised get HIDA to look at gb function and then we can refer her to gen surg. If she has another attack of abdominal pain -would get gallbadder out Solitary n odule of lung 764274106 R91.1 <6 mm nodule R lung base present since 2016 -- May pulmonary referral --she will ask Dr Devlin at [facility] CT of abdo men abnormal [id number] 8896527 R93.5 smal bowel a little tender today Elevated blood-pressure reading without diagnosis of hypertension [id number] R03.0 7 of the 10 readings she brings in are normal counseled nonpharmac ologic measures to help control bp keep 30 day ambulatory bp diary- f/u with readings she will review w Dr Devlin at her [facility] Gallstone [id number] K80. 20 [id number] SARA DEVLIN MD FAMILY MEDICINE [address] [place] [address] 11/12/2017 09:31:35 11/12/2017 11:30:57 Pre-surgery evaluation [id number] Z01.818 patient has cholelithi asis with an abnormal HIDA scan with an ejection fraction of 8.8%. She is seeing Dr. Fragoso next week for considerat ion of surgery. We are doing a preoperati ve evaluation . EKG is normal Hypothyroidism 16300802 E03.9 Adult heal th examination 157559888 Z00.00 awv DISCUSSED SHINGRiX Hyperlipidemia 23582418 E78.5 she has not been able to tolerate multiple statins in the past. However when she stopped her most recent atorvastat in the myalgias did not resolve. She does have osteoarthr itis. If her lipid panel is abnormal, I would encourage her to get back on the atorvastat in. Cough 55205611 R05 this is been going on for [...] helps her cough. Gastroesop hageal reflux disease 907056109 K21.9 CONTROLLED WITH PRILOSEC AND ZANTAC she has had an EGD which showed gastritis Depressive disorder 3548 9007 F32.9 controlled Insomnia 433556116 G47.0 0 controlled with melatonin 3 mg. Screening for malignant neoplasm of breast 468895482 Z12.31 Osteopenia 704006078 M85 .80 Osteoarthritis 540905863 M19.90 multiple sites. Essential hypertension 34736105 I10 based on her readings I believe she does have mild essential hypertensi on. I will treat her with amlodipine 2.5 mg per day and she should return in 1 month for follow-up. [id number] Andres FRAGOSO MD GENERAL SURGERY [place] [address] 11/16/2017 09:08:53 11/16/2017 11:30:07 Disorder of gallbladder 75347395 K82.9 [id number] Andres FRAGOSO MD GENERAL SURGERY [place] [address] 1 12/07/2017 10:22:13 12/07/2017 11:04:03 Disorder of gallbladder 45195960 K82.9 [id number] MAYRA HARRISON MD PULMONARY [address] [place] [address], [address] [place] [id number] 12/08/2017 11:16:29 12/15/2017 08:44:19 Solitary nodule of lung 951370473 R91.1 6 mm RLL nodule. Repeat CT in 6 months. Chronic cough 47082449 R 05 resolved with cholecyste ctomy. Likely related to silent reflux versus diaphragma tic irritation . [id number] PEREZ TORO MD BONE DENSITY [address] [place], [place] [address] 12/08/2017 13:58:26 12/08/2017 14:58:15 Osteopenia 638290615 M85.9 [id number] SARA DEVLIN MD FAMILY MEDICINE [address] [place] [address] 12/24/2017 10:35:43 12/24/2017 11:49:42 Elevated blood-pressure reading without diagnosis of hypertension 079066312 R03.0 she is not hypertensi ve. Chronic cough 26239256 R 05 nearly resolved after she had gb removed. this and pulmonary nodules are being followed by Dr. Harrison. She has a follow-up appointmen t in May. Dyspnea 500918450 R06.00 resolved Hyperlipidemia 26692302 E78.5 intolerant to many statins. her last ldl 217.-start crestor 10 mg. 1 A DAY RECHECK ALT, AST AND LIPID PROFILE IN 3 MONTHS. [id number] MAYRA HARRISON MD PULMONARY [address] [facility] [address] [place] [id number] 06/14/2018 09:53:33 06/14/2018 14:11:37 Solitary nodule of lung 530601516 R91.1 6 mm RLL nodule. Stable at [address] in 1 year. [id number] Andres FRAGOSO MD GENERAL SURGERY [address] [place] [id number] 10/08/2018 08:49:13 10/08/2018 09:44:42 [id number] Andres FRAGOSO MD SURGERY SCHEDULE [address] [place], [place] [address] 10/19/2018 09:25:16 10/19/2018 09:25:37 [id number] MOON MILLER PA-C FAMILY MEDICINE [address] [place] [address] 12/15/2018 08:52:39 12/15/2018 11:33:53 Hyperlipidemia 68575037 E78.5 Hypothyroidism 57806477 E03.9 Persistent cough 7674653 02 R05 likely gerd Screening for malignant neoplasm of breast 386319613 Z12.31 Gastroesop hageal reflux disease 287948364 K21.9 Hot sweats 523692287 R61 [id number] MAYRA HARRISON MD PULMONARY [address] [place] [address], [place] [id number] 06/13/2019 13:01:12 06/14/2019 10:53:52 Solitary nodule of lung 187793888 R91.1 6 mm RLL nodule. Stable at [address] in 1 year (18 months) due today. Follow up based on CT results. [id number] SARA DEVLIN MD FAMILY MED[facility]INE [address] [place] [address] 12/05/2019 11:32:25 12/05/2019 13:51:58 Essential hypertension 27917219 I10 Diagnosis establishe d. I will start her on Norvasc 5 mg per day, check blood pressure and follow-up in 3 weeks. I will go ahead and get labs. I have essentiall y done a complete physical but I would like to complete her review of systems when she returns. She will also need a AWV Palpitations 76186291 R0 0.2 One occasion. I suspect she [...] changed from her previous EKG last Hypothyroidism 09615489 E03.9 Hyperlipidemia 77869501 E78.5 intolerant to many statins. her last ldl 217.-start crestor 10 mg. 1 A DAY RECHECK ALT, AST AND LIPID PROFILE IN 3 MONTHS. Screening for malignant neoplasm of breast 414751307 Z12.31 Chest pain 12179899 R07. 9 This occurred only with her palpitatio ns. It is not occurred since. If it should occur again we will do a stress test. I will see her back in 3 weeks and see how she's doing. Night sweats 90106152 R6 1 This has occurred with weight loss. She's lost 6 pounds in the last month and not try 2. We will go ahead and evaluate this Epigastric pain 81574089 R10.13 She is on Prilosec. The pain is only for a few minutes in the morning. Hopefully decreasing the caffeine will help. I will check a H. pylori. 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 Solitary n odule of lung 268593124 R91.[address] Harrison. No change when checked in May of this year Unintentio nal weight loss 289856360 R63.4 She has lost 6 pounds in the last month. If this persists I think we need to do a CT scan abdomen and pelvis. [id number] SARA DEVLIN MD FAMILY MED[facility]INE [address] [place] [address] 01/24/2020 14:53:49 01/24/2020 15:36:04 Adult health examination 910117160 Z00.00 awv Essential hypertension 41786859 I10 Diagnosis establishe d. Controlled on amlodipine 5 mg per day without side effects Hyperlipidemia 49531006 E78.5 intolerant to many statins. She is tolerating Crestor 10 mg per day. Her LDL at one time was 217. When we checked this 12/05/19 it was 110. I am not can increase Crestor at this time due to concerns of side effects Osteopenia 552395891 M85 .80 Epigastric pain 02534340 R10.13 She is not on Prilosec. The pain is only for a few minutes in the morning and evening. . She had a normal CBC, CMP, H. pylori and lipase. Get back on prilosec and do ct A/P w and egd. hx of cholecyste ctomy. if all tests nl and prilosec no help, to GI. Told to call back [id number] TIM FULLER MD SURGERY SCHEDULE [address] [place] [address] 02/08/2020 09:09:35 02/08/2020 09:10:05 [id number] TERRIE HANDLEY PA-C FAMILY MEDICINE [address] [facility] [place] [address] 03/26/2020 13:52:02 03/26/2020 16:21:24 Lumbar radiculopathy 975639982 M54.16 right hip x-ray normal, but lumbar x-ray shows scoliosis concave to the left with significan t DJD. right LE radiculopa thy is 80% better per pt. may use tylenol prn and heat to back. activity as tolerated. PT referral if not continuing to improve. Weakness of right arm 15 [id number] 6028498 G83.20 sounds like pt had a radial nerve palsy from resting her right arm over her head for a prolonged period. this had resolved totally. Stroke work up in the ER was unremarkab le. Essential hypertension 37387731 I10 systolic BP 170 in ER. pt had gone off her meds but she has restarted. BP normal again. advised her of the risks of uncontroll ed HTN, including CVA. she will continue her meds as directed and monitor BP. [id number] MAYRA HARRISON MD PULMONARY [address] [facility], [address] [place] [address] 08/19/2021 09:26:34 08/19/2021 11:14:41 Solitary nodule of lung 096330439 R91.1 6 mm RLL nodule. Stable at [...] we will repeat her imaging. Chronic cough 63059001 R 05.3 Resolved with allergy plus antireflux therapy Health Concerns Section Related Observation LastModified by Organization Detai ls LastModified Time None Recorded Concern Status LastModified by Organization Details LastModified Time None Recorded Advance Directives Directive None Recorded Payers Insurance Date Sequence Insurance Name Policy Number Policy Zhou Covered Member ID Zhou Member ID Guarantor Name 08/19/2021 1 [place] Krista Quintana [id number] Krista Quintana 02/11/2022 2 [place] [facility] - FFS/TRADITIONA L Krista Quintana [id number] Krista Quintana 12/15/2018 3 [employer] [place] (MEDICAID REPLACEMENT - HMO) Krista Quintana [id number] Krista Quintana 02/11/2022 [employer] (MEDICARE REPLACEMENT/AD VANTAGE - PPO) Krista Quintana [id number] Krista Quintana 02/11/2022 1 [employer] - [place]) Krista Quintana [id number] Krista Quintana 03/21/2020 1 [employer] (PPO) Krista Quintana [id number] Krista Quintana 10/08/2017 1 [place] Krista Quintana [id number] Krista Quintana 10/23/2017 [employer] (MEDICARE REPLACEMENT/AD VANTAGE - PPO) Krista Quintana [id number] Krista Quintana 03/21/2020 1 [employer] (MEDICARE REPLACEMENT/AD VANTAGE - PPO) Krista Quintana [id number] Krista Quintana Notes Date Note Type Note Provider Name [...] Hypothyroidism as noted above SARA DEVLIN MD [address] [place] [address], [phone], [facility] 12/05/2019 13:48:08 01/24/2020 text/html Patient is [...] had been under 100. SARA DEVLIN MD [address] [place] [address], [phone], [facility] 01/24/2020 15:22:17 03/26/2020 text/html patient presents via telemedicine appointment for hospital follow-up after being seen on 03/20 at [facility] for back pain, right hip pain, and [...] confirms that he/she is physically located in [place] at the time of this visit. TERRIE HANDLEY PA-C [address] [place] [address], [phone], [facility] 03/26/2020 16:14:34 08/19/2021 text/html Krista annamarie [...] her cough has resolved. MAYRA HARRISON MD [address] [place] [address], [phone], [facility] 08/19/2021 10:51:36 OBGyn Episode No OBEpisode recorded.
--- NOTE | 2024-09-15 11:30 | NM_ITS ---
APPROVED REPORT Exam: Nuclear Stress Test Indication: Chest pain, Palpitations, HTN, High cholesterol, CAD Patient Location: Outpatient Stress Tech: Codi Mariano [place] Tech:Reyna Bey, ARRT, RT (R)(N) Ht: 5 ft 1 in Wt: 120 lbs Bra Size: B HR: 75 bpm BP: 144/61 mmHg BSA: 1.52 m2 TID: 1.02 BMI: 22.6 History: Chest pain, Palpitations, HTN, High cholesterol, CAD Procedure: Patient exercised on Silverio protocol 4:00 minutes and sec, resting heart rate 75 bpm, resting blood pressure 144/61 mmHg, with exercise maximum heart rate achived was 124 bpm which is 92 % of the maximum predicted heart rate and blood pressure was 158/70 mmHg. Test was stopped due to SOB. Patient denied any complaint of chest pain. Patient has exercise capacity, achieved 7.1 METs of workload on treadmill, the blood pressure response to exercise was . Cardiac Stress and Resting SPECT Images: Cardiac Stress and Resting SPECT images were obtained using technetium 99m Myoview 30.3 mCi stress and 10.31 mCi at rest. Resting and stress imaging in supine and prone positions demonstrate no evidence of fixed or reversible perfusion defects. Gated imaging demonstrates normal global and regional LV systolic function. LVEF is calculated at 70%. Conclusion: No evidence of fixed or reversible perfusion defects. Gated imaging demonstrates normal global and regional LV systolic function. LVEF is calculated at 70%. Electronically signed by : Caro Higuera MD 09/18/2024 21:16:01
[2024-09-15] MEDS: ISOTOPE MYOVIEW (PER STUDY) 1 DOSE IV (13:25)
[2024-09-15] MEDS: SODIUM CHLORIDE 0.9% 10ML SYR (RAD ONLY) 10 ML IV ×2 (13:25)
== END 2024-09-15 23:59 | disposition home or self-care (01) ==
LOC: RT 10:07
PROVIDERS: PCP Nurse Practitioner Family; Visit Provider Physician Assistant
DX: Z01.810 Encounter for preprocedural cardiovascular examination (principal); I08.0 Rheumatic disorders of both mitral and aortic valves; I11.9 Hypertensive heart disease without heart failure; I48.0 Paroxysmal atrial fibrillation; E78.5 Hyperlipidemia, unspecified; E78.00 Pure hypercholesterolemia, unspecified; I25.10 Atherosclerotic heart disease of native coronary artery without angina pectoris; R94.31 Abnormal electrocardiogram [ECG] [EKG]
CPT/HCPCS: 78452; 93017; 93018; 93306; A9502

== ENCOUNTER 2024-09-21 06:23 | Day surgery (SDC) | payer MEDICARE, MEDICAID, SELFPAY ==
--- NOTE | 2024-09-16 13:25 | SUR.PREOP ---
left message with callback info
[2024-09-21 06:41] VITALS: BP 154/78; PULSE 72; RESP 18; TEMP 36.4; O2SAT 96; BMI 23.4
[2024-09-21] MEDS: LACTATED RINGERS 1000ML 1,000 ML 50 ML IV (07:00)
--- NOTE | 2024-09-21 07:20 | P.PNANES_ITS ---
[facility] Disclaimer: The information contained in this section may have been updated after the patient was seen, as this information can be updated by other users. Medical History (Updated 09/21/24 @ 06:49 by Mary Hahn RN) History of stroke Hypothyroid Encounter for pre-operative cardiovascular clearance History of anemia Hyperlipidemia Hypertension History of COVID-19 History of transient ischemic attack (TIA) History of gastroesophageal reflux (GERD) Appendicitis Atrial fibrillation Surgical History (Updated 09/21/24 @ 06:49 by Mary Hahn RN) History of tonsillectomy History of cholecystectomy History of appendectomy History of hysterectomy Hx of esophagogastroduodenoscopy History of colonoscopy History of coronary artery stent placement History of cardiac cath Family History Other Family history of GERD Family history of cancer Family history of diabetes mellitus type II Family history of hyperlipidemia Family history of hypertension Family history of kidney stone Family history of myocardial infarction Family history of stroke SBO (small bowel obstruction) Social History (Updated 09/21/24 @ 06:49 by Mary Hahn RN) Smoking Status: Never smoker second hand exposure: No alcohol intake: never substance use type: denies use current occupational status: retired Travel in the last 8 weeks?: None household members: none housing: house current occupational exposures/hazards: No caffeine: Yes Have you lived/traveled outside US in past 30 days?: No Contact w/someone who lives/traveled outside US past 30 days?: No Exposure to someone with infectious disease in past 14 days?: No Do you have a fever (greater than 100.4 F or 38 C)?: No Have you tested positive for COVID-19?: No Exposed to someone with COVID-19 in past 14 days?: No Do you have a sore throat?: No Do you have a cough?: No Do you have any weakness?: No Are you experiencing any nausea/vomitting?: No Do you have any diarrhea?: No Are you experiencing any unusual bleeding?: No Do you have any muscle aches/pain?: No Do you have any abdominal pain?: No Are you experiencing loss of taste or smell?: No [facility] Anesthesia Checklist Patient Identification Patient Identification: Arm Band Structural Data Admitted From: Home Planned Operative Procedure/s: EGD Consent for Planned Operative Procedure(s) Verified: Yes Verified Documents: Surgical Consent and History and Physical NPO Status Verified Time NPO: 00:00 Additional verifications Anesthesia Reactions: No Airway Assessment Mallampati Score:: Class II C-Spine Mobility Assessed: Yes TMJ Mobility Assessed: Yes Dentition: Good Dentition Neurological Assessment Level of Consciousness: Awake, Alert and Appropriate Anesthesia Plan Anesthesia Risk discussed: Yes Anesthesia Plan: Verified ASA Class: III Anesthesia Type: MAC
--- NOTE | 2024-09-21 07:34 | EXP.HP ---
History of Present Illness *Admission Date: 09/21/24 *Reason for visit:: Epigastric pain/reflux *History of present illness: Mrs. Quintana is an 83-year-old female who is here for diagnostic upper endoscopy secondary to epigastric abdominal discomfort, dyspepsia and reflux. She has had a lot of belching and heartburn. The examination is deemed medically necessary for diagnostic EGD. The patient has been seen, interviewed and examined prior to the procedure by both myself and the anesthesia provider. [facility] Disclaimer: The information contained in this section may have been updated after the patient was seen, as this information can be updated by other users. Medical History (Updated 09/21/24 @ 07:35 by Juan Carlos Pedersen II, MD) History of stroke Hypothyroid Encounter for pre-operative cardiovascular clearance History of anemia Hyperlipidemia Hypertension History of COVID-19 History of transient ischemic attack (TIA) History of gastroesophageal reflux (GERD) Appendicitis Atrial fibrillation Surgical History (Updated 09/21/24 @ 06:49 by Mary Hahn RN) History of tonsillectomy History of cholecystectomy History of appendectomy History of hysterectomy Hx of esophagogastroduodenoscopy History of colonoscopy History of coronary artery stent placement History of cardiac cath Family History Other Family history of GERD Family history of cancer Family history of diabetes mellitus type II Family history of hyperlipidemia Family history of hypertension Family history of kidney stone Family history of myocardial infarction Family history of stroke SBO (small bowel obstruction) Social History (Updated 09/21/24 @ 06:49 by Mary Hahn RN) Smoking Status: Never smoker second hand exposure: No alcohol intake: never substance use type: denies use current occupational status: retired Travel in the last 8 weeks?: None household members: none housing: house current occupational exposures/hazards: No caffeine: Yes Have you lived/traveled outside US in past 30 days?: No Contact w/someone who lives/traveled outside US past 30 days?: No Exposure to someone with infectious disease in past 14 days?: No Do you have a fever (greater than 100.4 F or 38 C)?: No Have you tested positive for COVID-19?: No Exposed to someone with COVID-19 in past 14 days?: No Do you have a sore throat?: No Do you have a cough?: No Do you have any weakness?: No Are you experiencing any nausea/vomitting?: No Do you have any diarrhea?: No Are you experiencing any unusual bleeding?: No Do you have any muscle aches/pain?: No Do you have any abdominal pain?: No Are you experiencing loss of taste or smell?: No Other Medical History Have you received the Flu Vaccine for this season: No Have you received the Pneumonia Vaccine: Yes Review of Systems Review of Systems Review of systems (narrative): Negative *Cardiovascular Comments: Negative *Gastrointestinal Comments: Negative *Genitourinary Comments: Negative *Musculoskeletal Comments: Negative *Neurologic Comments: Negative Meds Home Medications and Allergies Home Medications ?Medication ?Instructions ?Recorded ?Confirmed ?Type levothyroxine 50 mcg tablet 50 mcg PO DAILY 03/20/20 09/21/24 History ohhxqlzfhxgn-eyoombzx-xdlav acid 1 each PO DAILY 11/01/20 09/21/24 History 400 mcg-vitamin K 80 mcg capsule rosuvastatin 20 mg tablet 20 mg PO DAILY 04/24/22 09/21/24 History salmon oil 1,000 mg-omega-3 fatty 1 cap PO DAILY 02/29/24 09/21/24 History acids 210 mg capsule clopidogrel 75 mg tablet See Rx Instructions .Route 05/31/24 09/21/24 Rx .COMPLEX #90 tabs isosorbide mononitrate 30 mg See Rx Instructions .Route 05/31/24 09/21/24 Rx tablet,extended release 24 hr .COMPLEX #45 tabs rivaroxaban 15 mg tablet (Xarelto) See Rx Instructions .Route 05/31/24 09/21/24 Rx .COMPLEX #90 tabs New Prescriptions to Start Prescriptions: Allergies Allergy/AdvReac Type Severity Reaction Status Date / Time losartan AdvReac Mild GI upset Verified 08/29/24 08:24 diltiazem AdvReac Other Verified 08/29/24 08:24 Exam Data for Last 24 hours Vital signs and Labs for Last 24 Hours: Temp Pulse Resp BP Pulse Ox O2 Del Method 97.5 F L 72 18 154/78 H 96 Room Air 09/21/24 06:41 09/21/24 06:41 09/21/24 06:41 09/21/24 06:41 09/21/24 06:41 05/28/25 06:41 I & O for Last 24 hours: Intake & Output 09/18/24 09/19/24 09/20/24 09/21/24 23:59 23:59 23:59 23:59 Weight 120 lb *Routine HEENT Exam Head: Present normocephalic Eye: Present EOMI and PERRL ENT: Present mucous membranes moist *Routine Neck Exam Neck: Present supple *Routine Respiratory Exam Respiratory: Present CTA bilaterally *Routine Cardiovascular Exam Cardiovascular: Present RRR *Routine Abdominal Exam Abdominal: Present soft and normoactive bowel sounds; Absent tenderness *Routine Rectal Exam Rectal:: deferred *Routine Genitalia Exam Genitalia:: deferred *Routine Extremities Exam Extremities: Absent cyanosis, clubbing or edema *Routine Skin Exam Skin: Present warm; Absent rash *Routine Neurological Exam Neurological: Present alert and oriented X3 Assessment and Plan *Assessment and plan (1) Epigastric pain: Status: Acute Category: Medical Code(s): R10.13 - Epigastric pain (2) Dyspepsia: Status: Acute Category: Medical Code(s): R10.13 - Epigastric pain (3) Belching: Status: Acute Category: Medical Code(s): R14.2 - Eructation (4) Nausea: Status: Acute Category: Medical Code(s): R11.0 - Nausea (5) Heartburn: Status: Acute Category: Medical Code(s): R12 - Heartburn Plan A/P: 1. Epigastric abdominal pain/dyspepsia with belching, nausea and heartburn is the preprocedural diagnosis. The patient will be anesthetized/sedated using MAC sedation. The patient has been seen and examined. Cardiac and lung assessment prior to the examination is stable. Proceed with planned diagnostic EGD.
--- NOTE | 2024-09-21 07:36 | HMH.PROCNOTE ---
[facility] Procedure Note Date: 09/21/24 Time: 07:40 Procedure Note:: Upper Endoscopy Procedure Report: Esophagogastroduodenoscopy with cold biopsies Endoscopost: Juan Carlos Pedersen II, MD Referring Physician: MARGARET Mckeon Date of Procedure: September 21, 2024 Equipment: Olympus GIF 190 standard upper endoscope Sedation: MAC sedation Indications: Mrs. Quintana is an 83-year-old female with dyspepsia. She has had epigastric abdominal pain and discomfort postprandially with heartburn, belching, nausea and early satiety. She does get some bloating. She reports no dysphagia. She was on omeprazole which was not helping. She was supplementing with Rolaids. She reports regular bowel function but does have a tendency towards constipation. She did have an EGD with me several years ago. She had an EGD and colonoscopy (Jose Somers MD) and October 2021 for rectal bleeding. At that time, she had a normal EGD and she had an oozing angiodysplasia of the descending colon but no other findings. Procedure: Prior to the procedure, a history and physical exam was performed, and patient's medications and allergies were reviewed. The risks, benefits and alternatives of the sedation and procedure were discussed with the patient. All questions were answered and informed consent was obtained. The patient was brought to the procedure room. Patient identification and proposed procedure were verified by the physician and the nurse. The patient was placed in a left lateral decubitus position and the scope was passed under direct vision. Throughout the procedure, the patient's blood pressure, pulse, and oxygen saturations were monitored continuously. The upper GI endoscopy was accomplished without difficulty. The patient tolerated the procedure well. Findings: The scope was passed directly into the upper esophagus and advanced to the fourth portion of duodenum and proximal jejunum. Cold biopsies were taken from the proximal jejunum x 4 for the disaccharidase assay. The proximal jejunum, post bulbar duodenum, ampulla and duodenal bulb were normal with normal mucosa and conniventes. The scope was withdrawn through a normal duodenal bulb and pylorus into the stomach. There was some mild pylorospasm. There was bile reflux with very mild linear antral gastropathy. There is very mild atrophy of the body and fundus. Cold biopsies were taken from the antrum. Upon retroflexion there was a 2 cm hiatal hernia. The scope was then withdrawn into the esophagus. There was no evidence of reflux esophagitis or Talavera's. There were tertiary contractions and mild esophageal dysmotility. The remainder of the esophageal mucosa was normal. Impression: 1. Nonerosive GERD with mild esophageal dysmotility and small 2 cm hiatal hernia 2. Bile reflux with mild linear gastropathy of antrum 3. Mild pylorospasm Plan: The patient does have functional dyspepsia. I will follow-up the biopsies and disaccharidase assay. We will discuss treatment options. I would recommend dietary measures, fiber bowel regimen and Iberogast.
[2024-09-21 07:38] VITALS: O2SAT 97
[2024-09-21 07:55] VITALS: BP 151/59; PULSE 97; RESP 16; TEMP 36.2; O2SAT 98
[2024-09-21 08:05] VITALS: BP 132/66; PULSE 84; RESP 17; O2SAT 100
[2024-09-21 08:15] VITALS: BP 123/67; PULSE 74; RESP 18; O2SAT 100
[2024-09-21 08:25] VITALS: BP 125/64; PULSE 71; RESP 18; O2SAT 100
[2024-09-26 15:16] LABS: Disclaimer Notes (.); Interpretation Notes (.); Lactase 27.74 (>/= 14.0); Maltase 155.95 (>/= 110.0); Palatinase 12.24 (>/= 8.5); Reference Notes (.); Sucrase 36.71 (>/= 25.0)
== END 2024-09-21 08:35 | disposition home or self-care (01) ==
PROVIDERS: PCP Nurse Practitioner Family; Visit Provider Internal Medicine Gastroenterology
PROC: 0DJ08ZZ Inspection of Upper Intestinal Tract, Via Natural or Artificial Opening Endoscopic (ICD-10-PCS; CPT 43239; principal; 2024-09-21 08:00)
DX: K44.9 Diaphragmatic hernia without obstruction or gangrene (principal); K21.9 Gastro-esophageal reflux disease without esophagitis; K22.4 Dyskinesia of esophagus; K31.3 Pylorospasm, not elsewhere classified; I48.91 Unspecified atrial fibrillation; E78.5 Hyperlipidemia, unspecified; I10 Essential (primary) hypertension; E03.9 Hypothyroidism, unspecified; Z79.899 Other long term (current) drug therapy; Z79.890 Hormone replacement therapy; Z86.73 Personal history of transient ischemic attack (TIA), and cerebral infarction without residual deficits; Z90.49 Acquired absence of other specified parts of digestive tract; Z79.01 Long term (current) use of anticoagulants
CPT/HCPCS: 43239; 82657; 88305; J7120

== ENCOUNTER 2025-03-31 08:05 | Outpatient (CLI) | payer MEDICARE, MEDICAID, SELFPAY ==
--- OUTSIDE RECORDS SUMMARY | 2025-03-31 08:07 | XMS_ITS | Clinical Summary ---
Author Organization Healthcare Address [address] [place] [address] Care Team Providers Care Cardiovascular Disease Specialist Name Role Phone Unavailable Primary Care Provider Unavailabl e Social History Tobacco Use Types Packs/Day Years Used Date Smoking Tobacco: Never Assessed Comments Unknown Sex and Gender Information Value Date Recorded Sex Assigned at Not on file Legal Sex Female 9:14 AM EDT Gender Identity Not on file Sexual Orientation Not on file Last Filed Vital Signs Vital Sign Reading Time Taken Comments Blood Pressure 143/65 11/14/2022 1:38 PM EDT Pulse 66 11/14/2022 1:38 PM EDT Temperature - - Respiratory Rate - - Oxygen Saturation - - Inhaled Oxygen Concentration - - Weight 57.6 kg (127 lb) 11/14/2022 1:38 PM EDT Height 152.4 cm (5') 11/14/2022 1:38 PM EDT Body Mass Index 24.8 11/14/2022 1:38 PM EDT Plan of Treatment Health Maintenance Due Date Last Done Comments [facility]-Depression Screening 1940 [facility]-Medicare Annual Wellness (AWV) 1940 [facility]-/Child/Adol SDOH Screenings 1940 [facility]- SDOH Screenings 12/18/1957 [facility]-Adult SDOH Screenings 12/18/1957 [facility]-DTaP,Tdap,and Td Vaccines (1 - Tdap) 12/18/1958 [facility]-RSV Vaccine: 60+ Years or (1 - 1-dose 75+ series) 12/18/2014 [facility]-Bone Density Scan 12/09/2019 12/08/2017, 018 [id number] Vaccine (4 - 2025-26 season) 2024 03/23/2021, 07/25/2020, 06/27/2020 [facility]-Influenza Vaccine (#1) 12/26/202402/24, 02/04/2021, 01/25/2020, Additional history exists [facility]-Pneumococcal Vaccine: 50+ Years Completed 01/25/2020, 11/12/2017 [facility]-Zoster Vaccines Completed 07/17/2021, 2 HPV Vaccines Aged Out No longer eligi ble based on patient's age to complete this topic [facility]-HIB Vaccines Aged Out No longer e ligible based on patient's age to complete this topic [facility]-Hepatitis A Vaccines Aged Out No longer eligible based on patient's age to complete this topic [facility]-IPV Vaccines Aged Out No longer e ligible based on patient's age to complete this topic [facility]-Rotavirus Vaccines Aged Out No lo nger eligible based on patient's age to complete this topic Insurance [place] [employer]
[2025-03-31 08:21] LABS: Hematocrit 38.0 % (37.0-47.0); Hemoglobin 12.9 g/dL (12.2-16.2); Immature Granulocytes % 0.3 %; Mean Corpuscular HGB Conc 33.9 g/dL (31.8-35.4); Mean Corpuscular Hemoglobin 30.7 pg (27.0-31.2); Mean Corpuscular Volume 90.5 fl (81-99); Nucleated Red Blood Cells % 0 %; Platelet Count 225 K/mm3 (142-424); Red Blood Count 4.20 M/mm3 (4.20-5.40); Red Cell Distribution Width-SD 42.5 fL; White Blood Count 7.2 K/mm3 (4.8-10.8)
[2025-03-31 09:32] LABS: Alanine Aminotransferase 20 U/L (12-78); Albumin Level 4.4 g/dl (3.5-5.0); Alkaline Phosphatase 71 U/L (38-126); Anion Gap 11.2 mEq/L (5-15); Aspartate Amino Transferase 27 U/L (14-36); Bilirubin,Direct 0.1 mg/dl (0.0-0.4); Bilirubin,Indirect 0.9 mg/dL (0.0-0.9); Bilirubin,Total 1.0 mg/dl (0.2-1.3); Bilirubin,Unconjugated 0.9 mg/dL (0.0-1.1); Blood Urea Nitrogen 9 mg/dl (7-17); Calcium 9.4 mg/dl (8.4-10.2); Carbon Dioxide 24 mmol/L (22.0-30.0); Chloride 106 mmol/L (98-107); Cholesterol 180 mg/dl (140-200); Creatinine,Serum 0.80 mg/dl (0.52-1.04); Estimated Glomerular Filt Rate 68 ml/min (>60); GFR (African American) 82 ML/MIN (>60); Glucose 97 mg/dl (74-100); HDL Cholesterol 74 mg/dl (40-60); Magnesium 2.0 mg/dl (1.6-2.3); Potassium 4.2 mmoL/L (3.5-5.1); Sodium 137 mmol/L (136-145); Total Protein,Serum 7.4 g/dl (6.3-8.2); Triglycerides 147 mg/dl (30-150)
[2025-03-31 09:43] LABS: Free T4 (Free Thyroxine) 0.95 ng/dl (0.78-2.19)
[2025-03-31 09:58] LABS: Thyroid Stimulating Hormone 4.08 uIU/mL (0.465-4.68)
[2025-03-31 10:17] LABS: Vitamin B12 802 pg/mL (239-931)
== END 2025-03-31 23:59 | disposition home or self-care (01) ==
LOC: LAB 08:06
PROVIDERS: PCP Nurse Practitioner Family; Visit Provider Physician Assistant
DX: I25.118 Atherosclerotic heart disease of native coronary artery with other forms of angina pectoris (principal); Z79.01 Long term (current) use of anticoagulants; I48.0 Paroxysmal atrial fibrillation; E78.2 Mixed hyperlipidemia; I10 Essential (primary) hypertension; I65.29 Occlusion and stenosis of unspecified carotid artery; Z95.5 Presence of coronary angioplasty implant and graft; R61 Generalized hyperhidrosis; L65.9 Nonscarring hair loss, unspecified
CPT/HCPCS: 36415; 80048; 80061; 80076; 82607; 83735; 84439; 84443; 85025